=== PATIENT | female | born 1950 | race Caucasian/White ===

== ENCOUNTER 2024-04-11 19:32 | Observation (INO) | payer MEDICARE, SELFPAY ==
--- NOTE | ~2024-04-11 | CT_ITS ---
EXAMINATION: CT HEAD WITHOUT CONTRAST CT ANGIOGRAM HEAD CT ANGIOGRAM NECK CLINICAL INFORMATION: Stroke. Altered mental status. COMPARISON: None available. TECHNIQUE: Initial noncontrast bobbin marker imaging of the head and neck was performed. Noncontrast head CT was also performed. Test bolus sequences followed by intravenous administration 70 mL of Omnipaque 350. Helical imaging was performed in the axial plane from the aortic arch to the skull vertex. Delayed postcontrast imaging of the head was also performed. The data was processed at the educational technologist's workstation for generation of MIP sequences. Angled MIPs and volume rendered reformatted images were also generated at an offline 3D workstation. Stenoses are assessed in accordance with NASCET criteria unless otherwise indicated. This CT examination was performed using dose optimization techniques as appropriate, variously including the following: *Automated exposure control. *Adjustment of mA and/or kV according to patient size (this includes techniques or standardized protocols for targeted exams where dose is matched to indication/reason for exam; i.e. extremities or head). *Use of iterative reconstruction technique. DLP: 2207 mGy-cm FINDINGS: CT Head: Changes of prior right temporoparietal craniotomy. There is no evidence of acute intracranial hemorrhage or edematous territorial infarction. Carmona-white matter differentiation is preserved. Scattered and partially confluent hypoattenuation in the periventricular and deep white matter are consistent with moderate microangiopathy. Proportional prominence of the ventricles and sulcal spaces without evidence of obstructive hydrocephalus. No abnormal mass effect or midline shift. No extra-axial fluid collections. No pathologic intra-axial enhancement or regional oligemia. No acute soft tissue or osseous abnormalities. Moderate mucosal thickening of left maxillary sinus. Mild mucosal thickening of the remaining paranasal sinuses. Moderate left-sided mastoid effusion. The right-sided mastoid air cells and middle ear cavity are clear. Bilateral lens extractions. CT Neck: There is a 1.6 cm heterogeneous nodule posterior to the right thyroid lobe. The remaining cervical soft tissues are within normal limits. Mild degenerative anterolisthesis of C7 on T1. Moderate degenerative disc disease from C5-C7. Mild degenerative disc disease at all additional levels. Facet and uncovertebral joint arthropathy leads to osseous encroachment on the neural foramina from C3-T1. CT Upper Chest: Moderate centrilobular emphysema. Calcified scarring in the posterior aspect of the left upper lobe. Thin pleural calcifications along the left greater than right upper lobes.. Neck CTA: Aortic Arch: Normal contour and caliber with moderate calcific atherosclerotic disease. Classic 3 vessel branching pattern of the aortic arch. Great Vessel Origins: No significant stenosis of the branch origins. Right Common Carotid Artery: No focal stenosis or occlusion. Cervical Right Internal Carotid Artery: Calcific atherosclerotic disease of the carotid bulb and proximal internal carotid artery causing less than 50% stenosis. Left Common Carotid Artery: No focal stenosis or occlusion. Cervical Left Internal Carotid Artery: Calcific atherosclerotic disease of the carotid bulb and proximal internal carotid artery causing less than 50% stenosis. Cervical Right Vertebral Artery: No focal stenosis or occlusion. Cervical Left Vertebral Artery: Mildly dominant. No focal stenosis or occlusion. Brain CTA: Intracranial Internal Carotid Arteries: Calcific atherosclerotic disease of the intracranial internal carotid arteries without occlusion or flow-limiting stenosis. Right Anterior Cerebral Artery: Normal A1 segment. Normal opacification of the distal [place] segments. Left Anterior Cerebral Artery: Normal A1 segment. Normal opacification of the distal [place] segments. Anterior Communicating Artery: Normal. Right Middle Cerebral Artery: Normal M1 segment of the MCA without focal stenosis or occlusion. Normal arborization of the distal segments. Left Middle Cerebral Artery: Normal M1 segment of the MCA without focal stenosis or occlusion. Normal arborization of the distal segments. Right Vertebral Artery: Normal V4 segment. Extradural origin of the posterior inferior cerebellar artery. Normal opacification of the proximal segments of the PICA. Left Vertebral Artery: Normal V4 segment. Normal opacification of the proximal segments of the posterior inferior cerebellar artery. Basilar Artery: Normal without focal stenosis or occlusion. Normal appearance of the proximal superior cerebellar arteries. Right Posterior Cerebral Artery: Normal P1 segment. Normal opacification of the distal ADDICTIONS COUNSELOR segments. Left Posterior Cerebral Artery: Normal P1 segment. Normal opacification of the distal ADDICTIONS COUNSELOR segments. Normal opacification of the superior sagittal, straight, transverse, and sigmoid sinuses. CT/CT angio head neck stroke IMPRESSION: 1. No evidence of acute intracranial hemorrhage or edematous territorial infarction. Moderate underlying microangiopathy and generalized cerebral volume loss. 2. CTA of the head and neck without proximal occlusion or flow-limiting stenosis. 3. Emphysema. 4. There is a 1.6 cm heterogeneous nodule posterior to the right thyroid lobe. This critical result was discussed with Dr. Muñoz at 20:13 on 04/11/2024 and it was ascertained that the content and urgency of the report was understood at the time of direct communication. Electronically signed by: Uche Ayala DO 04/11/2024 08:20 PM EDT
--- NOTE | ~2024-04-11 | MR_ITS ---
EXAMINATION: MR BRAIN WITHOUT CONTRAST CLINICAL INFORMATION: Slurred speech. Question TIA. COMPARISON: CT head dated 04/11/2024. CTA head and neck dated 04/11/2024. TECHNIQUE: MRI of the brain was obtained using routine sequences without contrast. FINDINGS: There is no area of abnormal restricted diffusion to indicate an acute/subacute cerebral or cerebellar infarction. There is mild microvascular ischemic change. No intracranial hemorrhage. There is no midline shift or mass effect. There is no extra-axial fluid collection. No hydrocephalus. The flow voids at the base of the brain are maintained. The orbits are symmetric and within normal limits. There is moderate circumferential mucosal thickening as well as aerated secretions within the left maxillary sinus. There is a large left mastoid air cell effusion. There is a small right mastoid air cell effusion. There are surgical changes status post right temporoparietal craniotomy. MR/MR head/brain wo con IMPRESSION: There is no evidence of acute/subacute cerebral or cerebellar infarction. No intracranial hemorrhage. Mild microvascular ischemic change. Electronically signed by: Yonatan Porter DO 04/12/2024 11:08 AM EDT
--- NOTE | ~2024-04-11 | XR_ITS ---
EXAMINATION: LEFT KNEE CLINICAL INFORMATION: Fell yesterday with knee pain. COMPARISON: None available. TECHNIQUE: 2 views left knee FINDINGS: No fractures, dislocations or effusions seen. Some mild degenerative changes appear to be present at the patellofemoral joint and to a lesser extent at the medial and lateral compartments. No significant joint space narrowing is seen with some mild lateral osteophytes are present. XR/XR knee LT 2V IMPRESSION: No evidence of an acute osseous injury. Mild degenerative changes. Electronically signed by: Jovan Chun MD 04/12/2024 11:52 AM EDT
--- NOTE | ~2024-04-11 | CT_ITS ---
EXAMINATION: CT HEAD WITHOUT CONTRAST CT ANGIOGRAM HEAD CT ANGIOGRAM NECK CLINICAL INFORMATION: Stroke. Altered mental status. COMPARISON: None available. TECHNIQUE: Initial noncontrast desktop support associate imaging of the head and neck was performed. Noncontrast head CT was also performed. Test bolus sequences followed by intravenous administration 70 mL of Omnipaque 350. Helical imaging was performed in the axial plane from the aortic arch to the skull vertex. Delayed postcontrast imaging of the head was also performed. The data was processed at the magnetic resonance technologist's workstation for generation of MIP sequences. Angled MIPs and volume rendered reformatted images were also generated at an offline 3D workstation. Stenoses are assessed in accordance with NASCET criteria unless otherwise indicated. This CT examination was performed using dose optimization techniques as appropriate, variously including the following: *Automated exposure control. *Adjustment of mA and/or kV according to patient size (this includes techniques or standardized protocols for targeted exams where dose is matched to indication/reason for exam; i.e. extremities or head). *Use of iterative reconstruction technique. DLP: 2207 mGy-cm FINDINGS: CT Head: Changes of prior right temporoparietal craniotomy. There is no evidence of acute intracranial hemorrhage or edematous territorial infarction. Carmona-white matter differentiation is preserved. Scattered and partially confluent hypoattenuation in the periventricular and deep white matter are consistent with moderate microangiopathy. Proportional prominence of the ventricles and sulcal spaces without evidence of obstructive hydrocephalus. No abnormal mass effect or midline shift. No extra-axial fluid collections. No pathologic intra-axial enhancement or regional oligemia. No acute soft tissue or osseous abnormalities. Moderate mucosal thickening of left maxillary sinus. Mild mucosal thickening of the remaining paranasal sinuses. Moderate left-sided mastoid effusion. The right-sided mastoid air cells and middle ear cavity are clear. Bilateral lens extractions. CT Neck: There is a 1.6 cm heterogeneous nodule posterior to the right thyroid lobe. The remaining cervical soft tissues are within normal limits. Mild degenerative anterolisthesis of C7 on T1. Moderate degenerative disc disease from C5-C7. Mild degenerative disc disease at all additional levels. Facet and uncovertebral joint arthropathy leads to osseous encroachment on the neural foramina from C3-T1. CT Upper Chest: Moderate centrilobular emphysema. Calcified scarring in the posterior aspect of the left upper lobe. Thin pleural calcifications along the left greater than right upper lobes.. Neck CTA: Aortic Arch: Normal contour and caliber with moderate calcific atherosclerotic disease. Classic 3 vessel branching pattern of the aortic arch. Great Vessel Origins: No significant stenosis of the branch origins. Right Common Carotid Artery: No focal stenosis or occlusion. Cervical Right Internal Carotid Artery: Calcific atherosclerotic disease of the carotid bulb and proximal internal carotid artery causing less than 50% stenosis. Left Common Carotid Artery: No focal stenosis or occlusion. Cervical Left Internal Carotid Artery: Calcific atherosclerotic disease of the carotid bulb and proximal internal carotid artery causing less than 50% stenosis. Cervical Right Vertebral Artery: No focal stenosis or occlusion. Cervical Left Vertebral Artery: Mildly dominant. No focal stenosis or occlusion. Brain CTA: Intracranial Internal Carotid Arteries: Calcific atherosclerotic disease of the intracranial internal carotid arteries without occlusion or flow-limiting stenosis. Right Anterior Cerebral Artery: Normal A1 segment. Normal opacification of the distal LONDON segments. Left Anterior Cerebral Artery: Normal A1 segment. Normal opacification of the distal LONDON segments. Anterior Communicating Artery: Normal. Right Middle Cerebral Artery: Normal M1 segment of the MCA without focal stenosis or occlusion. Normal arborization of the distal segments. Left Middle Cerebral Artery: Normal M1 segment of the MCA without focal stenosis or occlusion. Normal arborization of the distal segments. Right Vertebral Artery: Normal V4 segment. Extradural origin of the posterior inferior cerebellar artery. Normal opacification of the proximal segments of the PICA. Left Vertebral Artery: Normal V4 segment. Normal opacification of the proximal segments of the posterior inferior cerebellar artery. Basilar Artery: Normal without focal stenosis or occlusion. Normal appearance of the proximal superior cerebellar arteries. Right Posterior Cerebral Artery: Normal P1 segment. Normal opacification of the distal CADDYMASTER segments. Left Posterior Cerebral Artery: Normal P1 segment. Normal opacification of the distal CADDYMASTER segments. Normal opacification of the superior sagittal, straight, transverse, and sigmoid sinuses. CT/CT head for stroke IMPRESSION: 1. No evidence of acute intracranial hemorrhage or edematous territorial infarction. Moderate underlying microangiopathy and generalized cerebral volume loss. 2. CTA of the head and neck without proximal occlusion or flow-limiting stenosis. 3. Emphysema. 4. There is a 1.6 cm heterogeneous nodule posterior to the right thyroid lobe. This critical result was discussed with Dr. Muñoz at 20:13 on 04/11/2024 and it was ascertained that the content and urgency of the report was understood at the time of direct communication. Electronically signed by: Uche Ayala DO 04/11/2024 08:20 PM EDT
--- NOTE | ~2024-04-11 | XR_ITS ---
EXAMINATION: XR CHEST CLINICAL INFORMATION: Stroke COMPARISON: CT neck earlier this evening at 7:42 PM TECHNIQUE: Frontal view of the chest was obtained. FINDINGS: Heart size is normal. There is no evidence of CHF. There is some ill-defined increased opacity seen in the left chest which may be related to pleural plaques some of which can be seen on the neck CT performed earlier today. No pleural effusions. Surgical clips are present in the left breast/chest wall. Old healed right clavicular fracture is present. XR/XR chest 1V IMPRESSION: No acute intrathoracic disease. Calcified left pleural plaques. Electronically signed by: Jovan Chun MD 04/11/2024 10:34 PM EDT
--- NOTE | 2024-04-11 19:38 | ECG_ITS ---
Test Reason : ?STROKE Blood Pressure : / mmHG Vent. Rate : 092 BPM Atrial Rate : 000 BPM P-R Int : 000 ms QRS Dur : 060 ms QT Int : 366 ms P-R-T Axes : 000 001 052 degrees QTc Int : 452 ms Normal sinus rhythm Nonspecific T wave abnormality Abnormal ECG No previous ECGs available Referred By: Brnadi Muñoz Electronically Signed By:OSMANY BAUER
[2024-04-11 19:41] VITALS: BP 118/67; BP 126/60; PULSE 106; PULSE 98; RESP 16; TEMP 36.5; O2SAT 96; O2SAT 98; BMI 23.1
[2024-04-11 19:45] LABS: Glucose, Whole Blood 144 mg/dL (60-115)
--- NOTE | 2024-04-11 19:50 | ED_ITS ---
HPI - Fall General Chief Complaint: Stroke Stated Complaint: 2 FALLS IN 24 HRS, SLURRED SPEECH ON AND OFF Time Seen by Provider: 04/11/24 19:37 Source: patient, family and EMS Mode of arrival: EMS Limitations: no limitations History of Present Illness ED Provider: DR. Muñoz HPI Narrative: this is a 74-year-old female brought in by ambulance initially as a stroke alert. Patient lives home independently by herself had 2 falls in the last 24 hours at home, daughter noticed that the patient has periods of slurred speech noted by the daughter but not the patient for the past 12 hours, during her transportation by EMS to the hospital patient had 1 more episode of slurred speech witnessed by EMS that appears to be resolved on arrival to the ED. patient declines any weakness or numbness, no pain, able to give full history, no anticoagulation therapy. More history obtained from daughter over the phone patient sustained a fall in remained on the floor for 12 hours. as per daughter patient in habit of drinking alcohol patient decline drinking today. Related Data Allergies Allergy/AdvReac Type Severity Reaction Status Date / Time No Known Allergies Allergy Verified 04/11/24 19:43 Review of Systems 2 Review of Systems: All other systems are reviewed and are negative Constitutional: Reports as per HPI and Reports no additional constitutional complaints Eyes: Reports as per HPI and Reports no additional eye complaints Reports system reviewed and no additional complaints, except as documented Cardiovascular: Reports as per HPI and Reports no additional cardiovascular complaints Respiratory: Reports as per HPI and Reports no additional respiratory complaints Gastrointestinal: Reports as per HPI and Reports no additional gastrointestinal complaints Genitourinary: Reports no additional female genitourinary complaints Musculoskeletal: Reports no additional musculoskeletal complaints Skin/Breast: Reports system reviewed and no additional complaints, except as docu Psychiatric: Reports no additional psychiatric complaints Endocrine: Reports no additional endocrine complaints Hematologic/Lymphatic: Reports no additional hematologic/lymphatic complaints Allergic/Immunologic: Reports no additional allergic/immunologic complaints Reports system reviewed and no additional complaints, except as documented and Reports Abnormal speech present [facility] Social History Social History Smoked in Last 30 Days: No Use of substances other than those prescribed or required for medical reasons: No Physical Exam 2 Vital Signs: Vital Signs: Last Vital Signs Temp 97.7 F 04/11/24 19:41 Pulse 98 04/11/24 19:41 Resp 16 04/11/24 19:41 BP 126/60 04/11/24 19:41 Pulse Ox 96 04/11/24 19:41 O2 Del Method Room Air 04/11/24 19:41 BMI result Body Mass Index 23.1 Vital signs have been reviewed and appear to be correct. Blood pressure elevated. Heart rate normal. Respiratory rate normal. Temperature normal. Oxygen saturation normal. Appearance: Alert. Oriented X3. No acute distress. Head: Normal external exam. Normocephalic. Atraumatic. No Mann signs noted. No raccoon eyes noted Eyes: PERRLA. EOMI. Conjunctiva and sclera normal. Eyelids normal. ENT: TM's Normal. Pharynx normal. Uvula midline. Moist mucous membranes. No trismus noted. No drooling noted. No muffled voice noted. Neck: Normal inspection. Neck supple. FROM. No adenopathy. Thyroid Normal. No meningeal signs. No neck mass noted. CVS: Normal heart rate and rhythm. Heart sound normal. No murmurs noted. Pulses normal throughout. Respiratory: No respiratory distress. Painless inspiration. Breath sounds normal. No wheezes/rales/rhonchi noted. Chest nontender. No accessory muscle usage noted or decreased air movement noted. Abdomen: Soft and nontender. Bowel sounds normal in all 4 quadrants. No distention noted. No organomegaly noted. No visible injury noted. Back: No CVA tenderness. Full range of motion noted. Skin: Skin warm and dry. Normal skin color. Normal skin turgor. No rashes/lesions/lacerations noted. Extremities: No lower extremity edema. Extremities exhibit normal range of motion. Extremities nontender. Neuro: Oriented X 3. Cranial nerve exam: II-XII are grossly intact No motor deficit. No sensory deficit. Reflexes normal. NIH Stroke Scale Internal: Initial- Upon Arrival Level of Consciousness: Alert Level of Consciousness Questions: Answers both questions correctly Level of Consciousness Commands: Performs both tasks correctly Best Gaze: Normal Visual: No visual loss Facial Palsy: Normal Motor Arm (Right): No drift Motor Arm (Left): No drift Motor Leg (Right): No drift Motor Leg (Left): No drift Limb Ataxia: Absent Sensory: Normal Best Language: No aphasia Dysarthia: Normal Extinction and Inattention: No abnormality Score: 0 Course Reevaluation(s) Reevaluation #1: 72-year-old female brought in by EMS for evaluation for possible stroke /TIA, CT/CTA is unremarkable for acute large vessel occlusion, NIH score is 0 patient is not a candidate for thrombolysis. Labs in progress will admit the patient. Administer aspirin in the ED. Hypokalemia will replete potassium. Normal CPK no evidence of rhabdomyolysis. Ethanol level is elevated. Time: 20:30 Medications Administered Discontinued Medications Generic Name Dose Route Start Last Admin Trade Name Fremartha PRN Reason Stop Dose Admin Aspirin 162 mg 04/11/24 20:18 04/11/24 20:23 Aspirin Enteric Coated 81 Mg Tablet. PO 04/11/24 20:19 162 mg ONCE ONE Administration Iohexol 100 ml 04/11/24 19:58 04/11/24 19:59 Iohexol 350 Mg/Ml 100 Ml Infus..Btl IV 04/11/24 19:59 70 ml ONCE ONE Administration Medical Decision Making Differential Diagnosis Differential Diagnoses: The differential diagnosis associated with the presentation includes ( Hemorrhagic stroke, ischemic stroke, LVO, alcohol intoxication, electrolyte derangement, severe anemia, pneumonia, pneumothorax, ACS , cardiac dysrhythmia.) Admission/Observation Consideration of admission/observation: Escalation of care including admission/observation considered Consult Healthcare Provider Management of the patient was discussed with: Hospitalist (Dr. Combs) Lab Data MDM Lab Attestation statement: I reviewed the patient's lab results. 04/11/24 20:09 04/11/24 20:09 Labs: Lab Results 04/11/24 04/11/24 Range/Units 19:37 20:09 WBC 10.6 (4.8-10.8) X10*3/uL RBC 3.49 L (4.20-5.50) X10*6/uL Hgb 11.8 L (12.0-16.0) g/dl Hct 34.6 L (37.0-47.0) % MCV 99.1 H (80.0-98.0) fL MCH 33.8 H (27.0-33.0) pg MCHC 34.1 (31.0-35.0) g/dl RDW 13.9 (11.0-16.0) % Plt Count 335 (160-400) X10*3/uL MPV 8.9 L (9.4-12.3) fL Immature Gran % (Auto) 0.9 H (0.0-0.4) % Neut % (Auto) 74.6 H (45-73) % Lymph % (Auto) 12.3 L (20-40) % King % (Auto) 10.4 (2-11) % Eos % (Auto) 1.3 (0-4) % Baso % (Auto) 0.5 (0-2) % Lymph # (Auto) 1.3 (1.2-4.9) X10*3/uL King # (Auto) 1.1 (0.1-1.2) X10*3/uL Eos # (Auto) 0.1 (0.0-0.4) X10*3/uL Baso # (Auto) 0.1 (0.0-0.2) X10*3/uL Abs Immat Gran (auto) 0.09 H (0.00-0.03) X10*3/uL Absolute Neuts (auto) 7.9 (2.0-8.3) x10*3/uL Absolute Nucleated RBC 0.000 (0.0-0.012) X10*3/uL Nucleated RBC % (auto) 0.0 (0.0-0.2) /100WBC PT 17.0 H (10.9-12.4) SEC INR 1.5 H (0.9-1.1) APTT 30.4 (26.0-36.8) SEC Sodium 143 (135-145) mmol/L Potassium 2.7 L* (3.3-5.1) mmol/L Chloride 107 (96-108) mmol/L Carbon Dioxide 23 (22-29) mmol/L Anion Gap 16 (12-20) BUN 6 L (9-16) mg/dL Creatinine 0.66 (0.5-1.4) mg/dL Estim Creat Clear Calc 67.2 Estimated GFR > 60 POC Glucose 144 H (60-115) mg/dL Random Glucose 141 H (60-115) mg/dL Calcium 8.6 (8.4-10.2) mg/dL Total Creatine Kinase 80 (26-140) U/L Troponin I High Sens 3.5 (<3.5-17.0) ng/L Triglycerides 123 (<150) mg/dL Cholesterol 120 (<200) mg/dL LDL Cholesterol, Calc 56 (<100) mg/dL HDL Cholesterol 40 L (>40) mg/dL Ethyl Alcohol 258 mg/dL Independent Interpretation I performed an independent interpretation of an: EKG ( A normal sinus rhythm at 92 beats per minutes, multiple artifact no ST-T changes, no old EKG to compare.) and CT Scan ( Head/ head and neck CTA: No LV 0, no acute stroke.) Radiology Impression Discussion of test interpretation with radiology: I have reviewed the radiologist's reading. Discharge Plan Discharge Clinical Impression: Transient cerebral ischemia, Acute hypokalemia, Alcohol intoxication Patient Disposition: Admitted As Inpatient
[2024-04-11] MEDS: iohexoL 350 MG/ML 100 ML INFUS..BTL IV (19:59)
[2024-04-11 20:12] LABS: MANUAL DIFF FLAG NO
[2024-04-11 20:14] LABS: Basophils Absolute Auto 0.1 X10*3/uL (0.0-0.2); Basophils Percent Auto 0.5 % (0-2); Eosinophils Absolute Auto 0.1 X10*3/uL (0.0-0.4); Eosinophils Percent Auto 1.3 % (0-4); Hematocrit 34.6 % (37.0-47.0); Hemoglobin 11.8 g/dl (12.0-16.0); Imm Gran Abs Auto 0.09 X10*3/uL (0.00-0.03); Imm Gran Pct Auto 0.9 % (0.0-0.4); Lymphocytes Absolute Auto 1.3 X10*3/uL (1.2-4.9); Lymphocytes Percent Auto 12.3 % (20-40); Mean Corpuscular HGB Conc 34.1 g/dl (31.0-35.0); Mean Corpuscular Hemoglobin 33.8 pg (27.0-33.0); Mean Corpuscular Volume 99.1 fL (80.0-98.0); Mean Platelet Volume 8.9 fL (9.4-12.3); Monocytes Absolute Auto 1.1 X10*3/uL (0.1-1.2); Monocytes Percent Auto 10.4 % (2-11); Neutrophils Absolute Auto 7.9 x10*3/uL (2.0-8.3); Neutrophils Percent Auto 74.6 % (45-73); Platelet Count 335 X10*3/uL (160-400); Red Blood Count 3.49 X10*6/uL (4.20-5.50); Red Cell Distribution Width 13.9 % (11.0-16.0); White Blood Count 10.6 X10*3/uL (4.8-10.8)
--- NOTE | 2024-04-11 20:16 | PC.NURSE ---
Patient BIB [facility] 1 EMS for evaluation of possible stroke. Patient's daughter reported to EMS that patient had 2 falls in 24 hrs. Patient is not on blood thinners. Patient's daughter also noted intermittent episodes of speech slurring and stuttering. EMS confirmed speech slurring and stuttering en route to ED. EMS applied c-collar and established 20 G IV line in L AC. CT scan, EKG completed, labs drawn and set to lab. Patient is alert and oriented x4, able to make her needs known. VSS. Patient oriented to ED room, call lambert within patient's reach, plan of care ongoing.
[2024-04-11 20:21] LABS: INTERNATIONAL NORM RATIO 1.5 (0.9-1.1)
[2024-04-11 20:23] LABS: Partial Thromboplastin Time 30.4 SEC (26.0-36.8)
[2024-04-11] MEDS: Aspirin Enteric Coated 81 MG TABLET.DR 162 MG PO (20:23)
--- NOTE | 2024-04-11 20:25 | PC.NURSE ---
Bedside nursing swallow eval competed, patient passed and medicated per MAR.
--- NOTE | 2024-04-11 20:29 | PC.NURSE ---
Hospitalist at bedside.
[2024-04-11 20:30] LABS: Anion Gap 16 (12-20)
[2024-04-11 20:33] LABS: Stroke Lab Use COMPLETE
[2024-04-11 20:34] LABS: Troponin-I High Sensitivity 3.5 ng/L (<3.5-17.0)
[2024-04-11 20:35] LABS: Blood Urea Nitrogen 6 mg/dL (9-16); Calcium 8.6 mg/dL (8.4-10.2); Carbon Dioxide 23 mmol/L (22-29); Chloride 107 mmol/L (96-108); Cholesterol 120 mg/dL (<200); Creatinine Clr Calc Pharmacy 67.2; Estimated Glomerular Filt Rate > 60; Ethanol 258 mg/dL; Glucose Random 141 mg/dL (60-115); HDL Cholesterol 40 mg/dL (>40); LDL Cholesterol Calculated 56 mg/dL (<100); Potassium 2.7 mmol/L (3.3-5.1); Sodium 143 mmol/L (135-145); Triglycerides 123 mg/dL (<150)
--- NOTE | 2024-04-11 20:47 | PM.IMHP ---
History of Present Illness Date of Service: 04/11/24 Attending physician on admission: Cooper Combs Chief Complaint: fall, slurred speech 74-year-old female with history of glaucoma, history of breast cancer s/p lumpectomy/chemotherapy/radiation now on anastrozole, and reported alcohol use disorder reported to be in sustained remission who is a former smoker presented to the ED via EMS earlier today for evaluation of multiple falls and slurred speech. The patient reports that her and her daughter have been discussing assisted living as she has had multiple falls due to bilateral lower extremity weakness. She reports in the middle of the night, she had 2 mechanical falls. The 1st when she was sitting in a chair, the 2nd when she was walking back to her bed and tripped on clothing. She was unable to get up from the ground and slept on the ground. Upon waking, called her daughter for assistance. Denies head strike or loss of consciousness. She is not on blood thinners. Her daughter was able to help her to her feet but she noted multiple episodes of slurred speech lasting several minutes with full resolution and called EMS. Per nursing report, EMS also reported episodes of slurred speech with full resolution. No facial droop, confusion, unilateral paresthesias or weakness from baseline, imbalance. No sob, lightheadedness, headache, vision changes, palpitatations, or chest pain. No hx cva/tia. No recent illness. Since arrival, vital signs have been stable. Hematology studies reveal a macrocytic anemia with H/H 11.8/34.6%, MCV 99.1. Renal function normal, electrolyte levels significant for potassium 2.7, magnesium level pending. Total CK 80. Troponin 3.5. Total cholesterol 120, LDL 56. Ethyl alcohol level 258 (patient reports she has not had any alcohol in the last [address] negative for acute intracranial abnormality but shows moderate underlying microangiopathy and generalized cerebral volume loss. CTA of the head and neck without any large vessel occlusion or hemodynamically significant stenosis. There is evidence of emphysema with a 1.6 cm heterogenous nodule posterior to the right thyroid lobe. In the ED, has been given 162 mg aspirin. Review of Systems Review of Systems: Yes all other systems are reviewed and are negative [facility] Medical History Breast cancer Alcohol use disorder Glaucoma Social History Smoked in Last 30 Days: No Use of substances other than those prescribed or required for medical reasons: No Advance Directives: Yes Advance Directives Information Provided: No Advance Directives on File: No Meds Allergies Allergy/AdvReac Type Severity Reaction Status Date / Time No Known Allergies Allergy Verified 04/11/24 19:43 Active Medications: Current Medications Potassium Chloride (Potassium Chloride/H20) 10 meq in 100 mls @ 100 mls/hr IV ONCE ONE Stop: 04/11/24 21:41 Physical Exam Vital Signs and Narrative: Vital Signs: Last Vital Signs Temp 97.7 F 04/11/24 19:41 Pulse 98 04/11/24 19:41 Resp 16 04/11/24 19:41 BP 126/60 04/11/24 19:41 Pulse Ox 96 04/11/24 19:41 O2 Del Method Room Air 04/11/24 19:41 BMI result Body Mass Index 23.1 Constitutional - Awake and Alert, No apparent distress Eyes - PERRLA, EOMI Cardiovascular - S1S2, RRR, No edema Respiratory - Normal lung expansion, Normal respiratory effort, No respiratory distress, CTA bilaterally Gastrointestinal - NT / ND; +BS; No rebound or guarding Extremities - no calf tenderness bilaterally, no swelling Skin - Warm/Dry Neurological - Alert & oriented x3, CN II-XII in tact, 5/5 strength BUE and BLE, normal [id number] testing Psychological - Appropriate affect Results Labs 04/11/24 20:09 04/11/24 20:09 Labs: Laboratory Results - last 24 hr 04/11/24 04/11/24 19:37 20:09 MCV 99.1 H MCH 33.8 H MCHC 34.1 RDW 13.9 Plt Count 335 MPV 8.9 L Immature Gran % (Auto) 0.9 H Neut % (Auto) 74.6 H Lymph % (Auto) 12.3 L [place] % (Auto) 10.4 Eos % (Auto) 1.3 Baso % (Auto) 0.5 Lymph # (Auto) 1.3 [place] # (Auto) 1.1 Eos # (Auto) 0.1 Baso # (Auto) 0.1 Abs Immat Gran (auto) 0.09 H Absolute Neuts (auto) 7.9 Absolute Nucleated RBC 0.000 Nucleated RBC % (auto) 0.0 PT 17.0 H INR 1.5 H APTT 30.4 Anion Gap 16 Estim Creat Clear Calc 67.2 Estimated GFR > 60 POC Glucose 144 H Random Glucose 141 H Calcium 8.6 Total Creatine Kinase 80 Troponin I High Sens 3.5 Triglycerides 123 Cholesterol 120 LDL Cholesterol, Calc 56 HDL Cholesterol 40 L Ethyl Alcohol 258 Imaging Radiologist's Impressions: Impressions Head CT 04/11/24 19:38 IMPRESSION: 1. No evidence of acute intracranial hemorrhage or edematous territorial infarction. Moderate underlying microangiopathy and generalized cerebral volume loss. 2. CTA of the head and neck without proximal occlusion or flow-limiting stenosis. 3. Emphysema. 4. There is a 1.6 cm heterogeneous nodule posterior to the right thyroid lobe. This critical result was discussed with Dr. Muñoz at 20:13 on 04/11/2024 and it was ascertained that the content and urgency of the report was understood at the time of direct communication. Electronically signed by: Uche Ayala DO 04/11/2024 08:20 PM EDT RP Head/Neck CTA 04/11/24 19:39 IMPRESSION: 1. No evidence of acute intracranial hemorrhage or edematous territorial infarction. Moderate underlying microangiopathy and generalized cerebral volume loss. 2. CTA of the head and neck without proximal occlusion or flow-limiting stenosis. 3. Emphysema. 4. There is a 1.6 cm heterogeneous nodule posterior to the right thyroid lobe. This critical result was discussed with Dr. Muñoz at 20:13 on 04/11/2024 and it was ascertained that the content and urgency of the report was understood at the time of direct communication. Electronically signed by: Uche Ayala DO 04/11/2024 08:20 PM EDT RP Assessment and Plan (1) Slurred speech: Status: Acute (2) Alcohol intoxication: Status: Acute (3) Acute hypokalemia: Status: Acute Plan 74-year-old female with history of glaucoma, history of breast cancer s/p lumpectomy/chemotherapy/radiation now on anastrozole, and reported alcohol use disorder reported to be in sustained remission who is a former smoker to be observed for episodes of slurred speech and hypokalemia # slurred speech -multiple episodes reported by daughter and EMS with concern for TIA, however patient intoxicated on arrival which could explain her symptoms with alcohol alcohol level of 258 -head CT negative for acute intracranial abnormality and CTA of the head/neck negative for large vessel occlusion or hemodynamically significant stenosis -MRI brain ordered -past nursing swallow evaluation. Neuro checks, stroke education -given ASA 162 mg in the ED, continue 81 mg daily -LDL at goal, initiate high-dose statin per protocol -echo -neurology consult -monitor on telemetry -pt/ot # alcohol use disorder -patient reports last drink 10 years ago. However ethyl alcohol level 258 -will monitor on CIWA -thiamine folic acid -if scoring on CIWA, consider phenobarbital per protocol -addiction medicine consult #Falls -likely r/t etoh use -pt eval # acute hypokalemia -likely related to alcohol use -magnesium level pending -repleted in ED -follow lytes # glaucoma -continue eyedrops # history of breast cancer -continue anastrozole DVT prophylaxis-Lovenox Full code Quality Stroke Does the patient have a stroke diagnosis?: No VTE Prior VTE?: No VTE Risk Level:: Medical - moderate - high VTE Device Contraindication: Treatment Not Indicated VTE Drug Contraindication: N/A - Med Ordered
[2024-04-11 21:07] LABS: Alanine Aminotransferase 27 U/L (0-31); Albumin Level 2.7 g/dL (3.5-5.0); Alkaline Phosphatase 151 U/L (39-117); Aspartate Amino Transferase 44 U/L (5-31); Bilirubin Direct < 0.2 mg/dL (0.0-0.5); Bilirubin Total 0.2 mg/dL (0.0-1.0); Magnesium 1.6 mg/dL (1.6-2.6); Total Protein 5.5 g/dL (6.5-8.0)
[2024-04-11] MEDS: Enoxaparin Sodium 40 MG/0.4 ML SYRINGE SUBCUT (21:10)
[2024-04-11] MEDS: Potassium Chloride Packet 20 MEQ PACKET 40 MEQ PO (21:20)
[2024-04-11] MEDS: Potassium Chloride/H20 10 MEQ/100 ML PIGGYBACK 100 MEQ IV (21:20)
[2024-04-11] MEDS: Folic Acid 1 MG in 0.9 % Sodium Chloride 50 ML 100.4 MG IV (22:25)
[2024-04-11 22:42] VITALS: BP 95/53; PULSE 119; RESP 18; TEMP 36.8; O2SAT 97
[2024-04-11] MEDS: Thiamine HCL 100 MG in 0.9 % Sodium Chloride 100 ML 202 MG IV (23:11)
[2024-04-11 23:34] VITALS: BP 96/38; PULSE 126; RESP 19; TEMP 37.3; O2SAT 96
[2024-04-11 23:54] VITALS: BP 93/40; PULSE 121; RESP 20; TEMP 37.2; O2SAT 94
--- NOTE | 2024-04-11 23:54 | PC.NURSE ---
Dr. Combs updated on patient's vital signs: T 99.0, RR 20, P 121, BP 93/40, O2 Sat 94% on RA.
[2024-04-12] MEDS: 0.9 % Sodium Chloride Flush 3 ML SYRINGE IVFLUSH ×4 (01:08→23:00)
[2024-04-12 03:45] VITALS: BP 109/44; PULSE 117; RESP 17; TEMP 37.6; O2SAT 96
[2024-04-12] MEDS: Acetaminophen 325 MG TABLET 650 MG PO (04:24)
[2024-04-12 05:24] LABS: MANUAL DIFF FLAG NO
[2024-04-12 05:27] LABS: Basophils Absolute Auto 0.1 X10*3/uL (0.0-0.2); Basophils Percent Auto 0.5 % (0-2); Eosinophils Absolute Auto 0.1 X10*3/uL (0.0-0.4); Eosinophils Percent Auto 1.4 % (0-4); Hematocrit 31.9 % (37.0-47.0); Hemoglobin 10.7 g/dl (12.0-16.0); Imm Gran Abs Auto 0.07 X10*3/uL (0.00-0.03); Imm Gran Pct Auto 0.7 % (0.0-0.4); Lymphocytes Absolute Auto 1.1 X10*3/uL (1.2-4.9); Lymphocytes Percent Auto 10.8 % (20-40); Mean Corpuscular HGB Conc 33.5 g/dl (31.0-35.0); Mean Corpuscular Hemoglobin 33.2 pg (27.0-33.0); Mean Corpuscular Volume 99.1 fL (80.0-98.0); Mean Platelet Volume 9.2 fL (9.4-12.3); Monocytes Percent Auto 10.6 % (2-11); Neutrophils Absolute Auto 7.4 x10*3/uL (2.0-8.3); Platelet Count 306 X10*3/uL (160-400); Red Blood Count 3.22 X10*6/uL (4.20-5.50); Red Cell Distribution Width 14.1 % (11.0-16.0); White Blood Count 9.7 X10*3/uL (4.8-10.8)
[2024-04-12 05:52] LABS: Anion Gap 12 (12-20); Blood Urea Nitrogen 7 mg/dL (9-16); Calcium 8.1 mg/dL (8.4-10.2); Carbon Dioxide 21 mmol/L (22-29); Chloride 110 mmol/L (96-108); Creatinine Clr Calc Pharmacy 55.5; Estimated Glomerular Filt Rate > 60; Glucose Random 112 mg/dL (60-115); Potassium 3.4 mmol/L (3.3-5.1); Sodium 140 mmol/L (135-145)
[2024-04-12 06:16] VITALS: BP 102/40; PULSE 104; RESP 20; TEMP 37.3; O2SAT 94
[2024-04-12 06:25] LABS: Folate 9.9 ng/mL (> or = 4.0); Vitamin B12 940 pg/mL (200-900)
--- NOTE | 2024-04-12 07:00 | CA_ITS ---
Transthoracic Echocardiogram Patient (Last, First, Middle): Gema Perry, Gender: Female Date of : 1950 Age: 74 Procedure Date: 04/12/2024 Procedure Type: Transthoracic Echocardiogram Location: [facility] [place] Height: 162.56 cm Weight: 62.6 kg BSA: 1.67 m2 Heart Rate: bpm BP: 106 / 41 mmHg Product Design Manager: Referring MD: Simona KEMP Symptoms: tia Study Quality: Fair ECG Rhythm: Sinus Conclusions: - Normal left ventricular size and systolic function. There is mildly increased left ventricular wall thickness. The visually estimated ejection fraction is between 55-60%. - E/E prime ratio is between 8 and 15 consistent with indeterminate filling pressures. - Normal right ventricular cavity size and systolic function. - There is mild calcification of the aortic valve. Findings Left Ventricle Normal left ventricular size and systolic function. There is mildly increased left ventricular wall thickness. The visually estimated ejection fraction is between 55-60%. There is no evidence of regional wall motion abnormalities. Abnormal diastolic function is noted. Spectral Doppler is indicative of an impaired relaxation filling pattern. E/E prime ratio is between 8 and 15 consistent with indeterminate filling pressures. Right Ventricle Normal right ventricular cavity size and systolic function. Atria The left atrium is normal in size. The right atrium is normal in size. Aortic Valve There is a normal trileaflet aortic valve. There is mild calcification of the aortic valve. There is no aortic valve stenosis. There is no aortic valve regurgitation. Mitral Valve The mitral valve appears normal. There is no mitral valve regurgitation. There is no mitral valve stenosis. Pulmonic Valve The pulmonic valve is normal. There is no pulmonic valve regurgitation. Tricuspid Valve Normal tricuspid valve structure. There is no tricuspid valve regurgitation. Normal right atrial pressure. There is no evidence of pulmonary hypertension. Great Vessels All visible segments of the aorta are normal in size. Venous The inferior vena cava is normal in size and collapses greater than 50% with inspiration. Pericardium/Pleural Prominent epicardial adipose tissue noted. There is no evidence of pericardial effusion. Prior Study Comparison No prior study available for comparison. Measurements 2D Linear Measurements IVSd: 1.22 0.6-0.9/0.6-1.0 cm LVIDd: 3.49 3.9-5.3/4.2-5.9 cm LVIDd Index: 2.09 2.4-3.2/2.2-3.1 cm/m2 LVIDs: 2.32 2.0-3.6 cm LVPWd: 1.22 0.7-1.1 cm Ao Root: 3.00 2.1-3.5 cm LA Diam: 2.90 2.7-3.8/3.0-4.0 cm LAIDs Index: 1.74 1.5-2.3 cm/m2 LV Mass: 172.66 67-162/88-224 g LV Mass Index: 103.39 43-95/49-115 g/m2 LVOT Diam: 2.10 3.0+(-)1.3 cm Mitral Valve MV VTI: 0.31 MV Pk Xiang: 1.18 MV Mn Xiang: 0.68 MV Pk Grad: 6.00 MV Mn Grad: 2.00 MV Pk E: 0.88 MV PK A: 1.18 MV Decel Time: 220.00 E/A: 0.70 E'Lateral: 6.85 E'Medial: 7.62 E/E' Med: 11.60 E/E' Lat: 12.90 PHT: 65.00 MVA PHT: 3.38 MVA Continuity: 3.75 Decel Mayes: 4.01 Aortic Valve AoV Pk Xiang: 1.64 AoV Mn Xiang: 1.10 AoV VTI: 0.35 AoV Pk Grad: 11.00 Aov Mn Grad: 6.00 JOE Cont.VTI: 3.27 LVOT LVOT Pk Xiang: 1.50 LVOT Mn Xiang: 1.02 LVOT VTI: 0.34 LVOT Pk Grad: 9.00 LVOT Mn Grad: 5.00 LVOT Diam: 2.10 LVOT Area: 3.46 Diastolic Function MV Pk E: 0.88 MV Pk A: 1.18 E/A: 0.70 E'Medial: 7.62 E/E' Med: 11.60 E' Laterial: 6.85 E/E' Lat: 12.90 Right Ventricle TAPSE (mm): 19.00 TVS' Xiang: 11.00 Tricuspid Valve TR Pk Xiang: 1.65 TR Pk Grad: 11.00 RA Press: 3.00 RVSP: 14.00 Great Vessels Aorta Ao Root-2D: 3.00 2.0-3.7 cm Ao Asc: 3.50 2.1-3.4 cm Pulmonary Valve PV Pk Xiang: 1.04 Peak PV Grad: 4.00 Updated in Other Vendor System with Status of Final Omar Tristan MD electronically signed on 04/12/2024 1:47:27 PM with status of Final
[2024-04-12 07:25] VITALS: BP 106/41; PULSE 104; RESP 22
--- NOTE | 2024-04-12 07:33 | PC.NURSE ---
Care of Pt assumed at change of shift. Pt is resting comfortably with her eyes closed. VSS. Pt is easily awoken and is A&Ox3 MRI screening form e and sent to MRI.
--- NOTE | 2024-04-12 07:49 | HO.PM.IMPN ---
Subjective Subjective Date of Service: 04/12/24 Interval History: Seen in follow up for slurred speech, falls Interval history: No recurrence of slurred speech. No evidence of withdrawal on CIWA, but mild tachycardia. Reports L knee pain, has full ROM Review of Systems Review of Systems: Yes all other systems are reviewed and are negative Physical Exam Vital Signs: Vital Signs: Last Vital Signs Temp 99.1 F 04/12/24 06:16 Pulse 104 H 04/12/24 07:25 Resp 22 H 04/12/24 07:25 BP 106/41 L 04/12/24 07:25 Pulse Ox 94 04/12/24 06:16 O2 Del Method Room Air 04/12/24 06:16 BMI result Body Mass Index 23.1 Constitutional - Awake and Alert, No apparent distress Eyes - PERRLA, EOMI Cardiovascular - S1S2, RRR, No edema Respiratory - Normal lung expansion, Normal respiratory effort, No respiratory distress, CTA bilaterally Gastrointestinal - NT / ND; +BS; No rebound or guarding Extremities - no calf tenderness bilaterally, no swelling Musculoskeletal - Normal inspection, normal ROM. L knee- no erythema, warmth, effusion. TTP around the patella Skin - Warm/Dry Neurological - Alert & oriented x3, CN II-XII in tact, 5/5 strength BUE and BLE Psychological - Appropriate affect Objective Data Active Medications Acetaminophen (Acetaminophen 325 Mg Tablet) 650 mg PO Q6H PRN PRN Reason: Pain, Mild (Pain Scale 1-3), fever or headache Last Admin: 04/12/24 04:24 Dose: 650 mg Documented By: GHASSAN Aspirin (Aspirin Enteric Coated 81 Mg Tablet.) 81 mg PO DAILY FOR[facility]1983 Atorvastatin Calcium (Atorvastatin Calcium 40 Mg Tablet) 40 mg PO DAILY [facility]1983 Calcium Carbonate (Calcium Carbonate 750 Mg Tab.Chew) 750 mg PO Q4H PRN PRN Reason: Heartburn Enoxaparin Sodium (Enoxaparin Sodium 40 Mg/0.4 Ml Syringe) 40 mg SUBCUT Q24H FOR[facility], 1928[facility]1983 Last Admin: 04/11/24 21:10 Dose: 40 mg Documented By: CRISTOBAL Thiamine HCl 100 mg/ Sodium (Chloride) 101 mls @ 202 mls/hr IV DAILY [facility]1983 Last Infusion: 04/11/24 23:43 Dose: Infused Documented By: GHASSAN Folic Acid 1 mg/ Sodium (Chloride) 50.2 mls @ 100.4 mls/hr IV DAILY [facility]1983 Last Infusion: 04/11/24 23:07 Dose: Infused Documented By: CRISTOBAL Magnesium Hydroxide (Milk Of Magnesia 30 Ml Oral.Susp) 30 ml PO DAILY PRN PRN Reason: Constipation Melatonin (Melatonin 3 Mg Tablet) 6 mg PO BEDTIME PRN PRN Reason: Insomnia Sodium Chloride (0.9 % Sodium Chloride Flush 3 Ml Syringe) 3 ml IVFLUSH QSHIFT [facility]1983 Last Admin: 04/12/24 01:08 Dose: 3 ml Documented By: GHASSAN Labs 04/12/24 04:53 04/12/24 04:53 Labs: Laboratory Results - last 24 hr 04/11/24 04/11/24 04/12/24 19:37 20:09 04:53 MCV 99.1 H 99.1 H MCH 33.8 H 33.2 H MCHC 34.1 33.5 RDW 13.9 14.1 Plt Count 335 306 MPV 8.9 L 9.2 L Immature Gran % (Auto) 0.9 H 0.7 H Neut % (Auto) 74.6 H 76.0 H Lymph % (Auto) 12.3 L 10.8 L Fergus % (Auto) 10.4 10.6 Eos % (Auto) 1.3 1.4 Baso % (Auto) 0.5 0.5 Lymph # (Auto) 1.3 1.1 L Fergus # (Auto) 1.1 1.0 Eos # (Auto) 0.1 0.1 Baso # (Auto) 0.1 0.1 Abs Immat Gran (auto) 0.09 H 0.07 H Absolute Neuts (auto) 7.9 7.4 Absolute Nucleated RBC 0.000 0.000 Nucleated RBC % (auto) 0.0 0.0 PT 17.0 H INR 1.5 H APTT 30.4 Anion Gap 16 12 Estim Creat Clear Calc 67.2 55.5 Estimated GFR > 60 > 60 POC Glucose 144 H Random Glucose 141 H 112 Calcium 8.6 8.1 L Magnesium 1.6 Total Bilirubin 0.2 Direct Bilirubin < 0.2 AST 44 H ALT 27 Alkaline Phosphatase 151 H Total Creatine Kinase 80 Troponin I High Sens 3.5 Total Protein 5.5 L Albumin 2.7 L Triglycerides 123 Cholesterol 120 LDL Cholesterol, Calc 56 HDL Cholesterol 40 L Vitamin B12 940 H Folate 9.9 Ethyl Alcohol 258 Assessment and Plan (1) Slurred speech: Status: Acute (2) Alcohol intoxication: Status: Acute (3) Acute hypokalemia: Status: Acute Plan 74-year-old female with history of glaucoma, history of breast cancer s/p lumpectomy/chemotherapy/radiation now on anastrozole, and reported alcohol use disorder reported to be in sustained remission who is a former smoker to be observed for episodes of slurred speech and hypokalemia # slurred speech -multiple episodes reported by daughter and EMS with concern for TIA, however patient intoxicated on arrival which could explain her symptoms with alcohol alcohol level of 258 -head CT negative for acute intracranial abnormality and CTA of the head/neck negative for large vessel occlusion or hemodynamically significant stenosis -MRI brain ordered -past nursing swallow evaluation. Neuro checks, stroke education -given ASA 162 mg in the ED, continue 81 mg daily -LDL at goal, initiate high-dose statin per protocol -echo -neurology consult -monitor on telemetry -pt/ot # alcohol use disorder -on admission denied etoh use. Now reports drinking mouthwash- goes through 50oz bottle q3d. ethyl alcohol level 258 on admission -will monitor on CIWA, if scoring phenobarb -thiamine, folic acid -addiction medicine consult- desires detox. Has been hiding use from her daughter and does not want this disclosed #SIRS criteria -tachycardia likely r/t mild etoh withdrawal. No evidence of infection. No sepsis #Falls -likely r/t etoh use -pt eval # acute hypokalemia -likely related to alcohol use -repleted in ED. Add mag oxide -follow lytes #Glaucoma -not on therapies # history of breast cancer -continue anastrozole #Chronic macrocytic anemia -vitamin b12 and folic acid wnl -would dc on thiamine and folic acid -above transfusion threshold DVT prophylaxis-Lovenox Full code Dispo- PT recommending STR Quality Stroke Does the patient have a stroke diagnosis?: No VTE Prior VTE?: No VTE Risk Level:: Medical - moderate - high VTE Device Contraindication: Treatment Not Indicated VTE Drug Contraindication: N/A - Med Ordered
--- NOTE | 2024-04-12 08:25 | PHA.MEDREC ---
Addendum entered by Robert Sepulveda RPh 04/12/24 08:59: Reviewed by [facility], claims states Wellbutrin 150 daily, but pt states its now 300mg daily. Addendum entered by Daniel Abbott 04/12/24 08:53: Patient was on a Furosemide 20mg regimen 03/15 for 2 days and patient states she finished that. Also patient was on a Folic acid regimen the same time as the Vitamin B-1 regimen, they were both started 03/27 for 14 days and she finished them this past Friday. Original Note: Pharmacy Consult ? Medication Reconciliation Pharmacy has completed the medication reconciliation. Confirmed medications with patient. Patient is taking Bupropion HCL 150mg and states she now taking 2 tabs (300mg) daily and states her upped her dose her last fill. She states she is also still taking Anastrazole 1mg 1 tab daily, an iron tablet once daily, Multivitamin 1 tab daily and Vitamin D3 1000units 1 tab daily. She confirmed she finished the Vitamin B-1 regimen this past Friday. She states she is filling her medications at [facility].
[2024-04-12 08:31] VITALS: BP 123/45; PULSE 101; RESP 22; TEMP 36.7; O2SAT 96
[2024-04-12 11:09] LABS: Prothrombin Time Whole Bld POC 17.5 sec (11.1-13.5); ~PT, ~INR - Anti Coag Clinic 1.5 (0.9-1.1)
--- NOTE | 2024-04-12 11:37 | MHC.CM.PN ---
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 PT is recommending STR but Patient is not sure that she wants to do that(may have had a 3 day qualifying stay recently at [facility] and she went to [facility] from [facility] but would not want to return there). CM has initiated and will follow for dc planning. Patient's Daughter/HCP/Cori will transport if Patient is dc'd to home.
[2024-04-12] MEDS: Sertraline HCL 25 MG TABLET PO (11:39)
[2024-04-12] MEDS: Magnesium Oxide 400 MG TABLET PO ×2 (11:39→19:44)
[2024-04-12] MEDS: Atorvastatin Calcium 40 MG TABLET PO (11:39)
[2024-04-12] MEDS: Aspirin Enteric Coated 81 MG TABLET.DR PO (11:39)
[2024-04-12] MEDS: Thiamine HCL 100 MG in 0.9 % Sodium Chloride 100 ML 202 MG IV (11:41)
--- NOTE | 2024-04-12 11:54 | PC.NURSE ---
Pts morning medications delayed as Pt was off units for MRI and awaiting pharmacy to deliver doses. Pt reports 8/10 pain to L knee and reports Tylenol ineffective. Contacted admitting provider for new order.
[2024-04-12] MEDS: Folic Acid 1 MG in 0.9 % Sodium Chloride 50 ML 100.4 MG IV (12:33)
--- NOTE | 2024-04-12 12:36 | PC.NURSE ---
Continued waiting for delivery of Anastrozole, pharmacy reports it is in route.
[2024-04-12 12:43] LABS: Uric Acid 7.2 mg/dL (2.4-5.7)
[2024-04-12] MEDS: Anastrozole 1 MG TABLET PO (13:06)
--- NOTE | 2024-04-12 13:08 | PM.DS ---
DS: Providers Provider Date of admission: 04/11/24 21:01 Primary care physician: Fredo Rodriguez MD Consults: 04/11/24 20:46 Consult to Neurology Routine Consulting Provider: [facility] Reason for consultation: tia 04/11/24 20:52 Addiction Medicine Routine Consulting Provider: Addiction Covering Reason for consultation: etoh use disorder DS: Diagnosis Discharge Diagnosis (1) Slurred speech: Status: Acute (2) Alcohol intoxication: Status: Acute (3) Acute hypokalemia: Status: Acute Physical Exam Vital Signs: Vital Signs: Last Vital Signs Temp 98.1 F 04/12/24 08:31 Pulse 101 H 04/12/24 08:31 Resp 22 H 04/12/24 08:31 BP 123/45 L 04/12/24 08:31 Pulse Ox 96 04/12/24 08:31 O2 Del Method Room Air 04/12/24 08:31 BMI result Body Mass Index 23.1 DS: Data Data Completed and Pending Labs on day of discharge: Laboratory Results - last 24 hr 04/11/24 04/11/24 04/11/24 19:37 19:38 20:09 WBC 10.6 RBC 3.49 L Hgb 11.8 L Hct 34.6 L MCV 99.1 H MCH 33.8 H MCHC 34.1 RDW 13.9 Plt Count 335 MPV 8.9 L Immature Gran % (Auto) 0.9 H Neut % (Auto) 74.6 H Lymph % (Auto) 12.3 L [place] % (Auto) 10.4 Eos % (Auto) 1.3 Baso % (Auto) 0.5 Lymph # (Auto) 1.3 [place] # (Auto) 1.1 Eos # (Auto) 0.1 Baso # (Auto) 0.1 Abs Immat Gran (auto) 0.09 H Absolute Neuts (auto) 7.9 Absolute Nucleated RBC 0.000 Nucleated RBC % (auto) 0.0 PT 17.0 H Whole Blood PT 17.5 H INR 1.5 H Whole Blood INR 1.5 H APTT 30.4 Sodium 143 Potassium 2.7 L* Chloride 107 Carbon Dioxide 23 Anion Gap 16 BUN 6 L Creatinine 0.66 Estim Creat Clear Calc 67.2 Estimated GFR > 60 POC Glucose 144 H Random Glucose 141 H Uric Acid Calcium 8.6 Magnesium 1.6 Total Bilirubin 0.2 Direct Bilirubin < 0.2 AST 44 H ALT 27 Alkaline Phosphatase 151 H Total Creatine Kinase 80 Troponin I High Sens 3.5 Total Protein 5.5 L Albumin 2.7 L Triglycerides 123 Cholesterol 120 LDL Cholesterol, Calc 56 HDL Cholesterol 40 L Vitamin B12 Folate Ethyl Alcohol 258 04/12/24 04/12/24 04:53 12:00 WBC 9.7 RBC 3.22 L Hgb 10.7 L Hct 31.9 L MCV 99.1 H MCH 33.2 H MCHC 33.5 RDW 14.1 Plt Count 306 MPV 9.2 L Immature Gran % (Auto) 0.7 H Neut % (Auto) 76.0 H Lymph % (Auto) 10.8 L [place] % (Auto) 10.6 Eos % (Auto) 1.4 Baso % (Auto) 0.5 Lymph # (Auto) 1.1 L [place] # (Auto) 1.0 Eos # (Auto) 0.1 Baso # (Auto) 0.1 Abs Immat Gran (auto) 0.07 H Absolute Neuts (auto) 7.4 Absolute Nucleated RBC 0.000 Nucleated RBC % (auto) 0.0 PT Whole Blood PT INR Whole Blood INR APTT Sodium 140 Potassium 3.4 D Chloride 110 H Carbon Dioxide 21 L Anion Gap 12 BUN 7 L Creatinine 0.80 Estim Creat Clear Calc 55.5 Estimated GFR > 60 POC Glucose Random Glucose 112 Uric Acid 7.2 H Calcium 8.1 L Magnesium Total Bilirubin Direct Bilirubin AST ALT Alkaline Phosphatase Total Creatine Kinase Troponin I High Sens Total Protein Albumin Triglycerides Cholesterol LDL Cholesterol, Calc HDL Cholesterol Vitamin B12 940 H Folate 9.9 Ethyl Alcohol Discharge Plan Discharge Referrals: Fredo Rodriguez MD [Primary Care Provider] - 1 Week Discharge Medications: No Action multivitamin Tablet 1 tab PO DAILY bupropion HCl 150 mg tablet extended release 24 hr 300 mg PO DAILY anastrozole 1 mg tablet 1 mg PO DAILY ferrous sulfate [Iron (ferrous sulfate)] 325 mg (65 mg iron) Tablet 325 mg PO DAILY cholecalciferol (vitamin D3) [Vitamin D3] 25 mcg (1,000 unit) Tablet 25 mcg PO DAILY Print Language: Greenlandic
--- NOTE | 2024-04-12 13:17 | P.CNNE_ITS ---
History of Present Illness Data of Consult Service Date: 04/12/24 Primary Care Provider: Fredo Rodriguez MD [facility] Reason for consult: Fall 74 years old woman who came to hospital after fall. She lost her balance and fell down. She injured her left knee. She has been using a walker and stated that she has been losing balance for a while. Bladder control was also not good. Memory was okay. Review of Systems 2 Review of Systems: No recent cold or flu-like illness or burning urination. PMFSH Past Medical History Medical History Breast cancer Alcohol use disorder Glaucoma Social History Social History Patient Tobacco Use Status: Former Tobacco user Smoked in Last 30 Days: No Use of substances other than those prescribed or required for medical reasons: No Advance Directives: Yes Advance Directives Information Provided: No Advance Directives on File: No Nutrition Risks: No Nutritional Risk service: No Meds Allergies Allergy/AdvReac Type Severity Reaction Status Date / Time No Known Allergies Allergy Verified 04/11/24 19:43 Active Medications: Current Medications Acetaminophen (Acetaminophen 325 Mg Tablet) 650 mg PO Q6H PRN PRN Reason: Pain, Mild (Pain Scale 1-3), fever or headache Last Admin: 04/12/24 04:24 Dose: 650 mg Anastrozole (Anastrozole 1 Mg Tablet) 1 mg PO DAILY [facility] Last Admin: 04/12/24 13:06 Dose: 1 mg Aspirin (Aspirin Enteric Coated 81 Mg Tablet.) 81 mg PO DAILY [facility] Last Admin: 04/12/24 11:39 Dose: 81 mg Atorvastatin Calcium (Atorvastatin Calcium 40 Mg Tablet) 40 mg PO DAILY [facility] Last Admin: 04/12/24 11:39 Dose: 40 mg Calcium Carbonate (Calcium Carbonate 750 Mg Tab.Chew) 750 mg PO Q4H PRN PRN Reason: Heartburn Enoxaparin Sodium (Enoxaparin Sodium 40 Mg/0.4 Ml Syringe) 40 mg SUBCUT Q24H [facility] Last Admin: 04/11/24 21:10 Dose: 40 mg Ferrous Sulfate (Ferrous Sulfate 324 Mg Tablet.) 324 mg PO DAILY [facility] Thiamine HCl 100 mg/ Sodium (Chloride) 101 mls @ 202 mls/hr IV DAILY [facility] Last Infusion: 04/12/24 12:33 Dose: Infused Folic Acid 1 mg/ Sodium (Chloride) 50.2 mls @ 100.4 mls/hr IV DAILY [facility] Last Admin: 04/12/24 12:33 Dose: 100.4 mls/hr Magnesium Hydroxide (Milk Of Magnesia 30 Ml Oral.Susp) 30 ml PO DAILY PRN PRN Reason: Constipation Magnesium Oxide (Magnesium Oxide 400 Mg Tablet) 400 mg PO BIDPC [facility] Last Admin: 04/12/24 11:39 Dose: 400 mg Melatonin (Melatonin 3 Mg Tablet) 6 mg PO BEDTIME PRN PRN Reason: Insomnia Multivitamins/Vitamin C (Multivitamin Tablet) 1 tab PO DAILY [facility] Prednisone (Prednisone 20 Mg Tablet) 40 mg PO DAILY [facility] Sertraline HCl (Sertraline Hcl 25 Mg Tablet) 25 mg PO DAILY [facility] Last Admin: 04/12/24 11:39 Dose: 25 mg Sodium Chloride (0.9 % Sodium Chloride Flush 3 Ml Syringe) 3 ml IVFLUSH QSHIFT [facility] Last Admin: 04/12/24 11:39 Dose: 3 ml Vitamin D (Cholecalciferol (Vitamin D3) 25 Mcg Tablet) 25 mcg PO DAILY [facility] Home Medications ?Medication ?Instructions ?Recorded ?Confirmed ?Last Taken ?Type anastrozole 1 mg tablet 1 mg PO DAILY 04/12/24 04/12/24 04/11/24 History bupropion HCl 150 mg 24 hr tablet, 300 mg PO DAILY 04/12/24 04/12/24 04/11/24 History extended release cholecalciferol (vitamin D3) 25 25 mcg PO DAILY 04/12/24 04/12/24 04/11/24 History mcg (1,000 unit) tablet (Vitamin D3) ferrous sulfate 325 mg (65 mg 325 mg PO DAILY 04/12/24 04/12/24 04/11/24 History iron) tablet (Iron (ferrous sulfate)) multivitamin 1 tab PO DAILY 04/12/24 04/12/24 04/11/24 History Physical Exam 2 Vital Signs: Vital Signs: Last Vital Signs Temp 98.1 F 04/12/24 08:31 Pulse 101 H 04/12/24 08:31 Resp 22 H 04/12/24 08:31 BP 123/45 L 04/12/24 08:31 Pulse Ox 96 04/12/24 08:31 O2 Del Method Room Air 09/30/24 08:31 BMI result Body Mass Index 23.1 Neuro: Other: She is alert and awake with normal spontaneity of speech fluency comprehension and affect. Face is symmetrical. Visual velez are full. Deep tendon reflexes are absent with flexor plantars. Results Labs 04/12/24 04:53 04/12/24 04:53 Labs: Short CBC 04/11/24 04/12/24 Range/Units 20:09 04:53 WBC 10.6 9.7 (4.8-10.8) X10*3/uL Hgb 11.8 L 10.7 L (12.0-16.0) g/dl Hct 34.6 L 31.9 L (37.0-47.0) % Plt Count 335 306 (160-400) X10*3/uL BMP 04/11/24 04/12/24 20:09 04:53 Sodium 143 140 Potassium 2.7 L* 3.4 D Chloride 107 110 H Carbon Dioxide 23 21 L BUN 6 L 7 L Creatinine 0.66 0.80 Calcium 8.6 8.1 L Cardiac Enzymes 04/11/24 Range/Units 20:09 Total Creatine Kinase 80 (26-140) U/L Liver Function 04/11/24 Range/Units 20:09 Total Bilirubin 0.2 (0.0-1.0) mg/dL Direct Bilirubin < 0.2 (0.0-0.5) mg/dL AST 44 H (5-31) U/L ALT 27 (0-31) U/L Alkaline Phosphatase 151 H (39-117) U/L Albumin 2.7 L (3.5-5.0) g/dL MRI of brain revealed moderate ventriculomegaly and mild microvascular ischemic changes. Assessment and Plan (1) Multifactorial gait disorder: Status: Acute 74 years old woman who probably has multifactorial problem with her balance including alcohol abuse, alcohol-related neuropathy, and significant cerebral atrophy. Mainstay of management is control of risk factors specially not drinking alcohol and use of a walker. Procedures Date of Service Date of Service: 04/12/24
[2024-04-12] MEDS: predniSONE 20 MG TABLET 40 MG PO (13:28)
[2024-04-12] MEDS: oxyCODONE HCl Immed Release 5 MG TABLET PO (13:28)
--- NOTE | 2024-04-12 15:27 | MHC.RECOVRN ---
AUDIT-C?Brief Intervention Pt had positive screen for unhealthy alcohol use on admission, subsequently met with t/w to discuss alcohol use and recovery supports/options. Pt refuses to discuss concern regarding alcohol use and is aware that drinking at unhealthy levels is known to increase risk of alcohol related health problems. Pt reports Im not interested I have friends in AA is I do . Pt refuses to express how alcohol use has impacted health, including negative impact on [BH/medical dx]. Discussed risk reduction strategies including drinking below the recommended limit. Provided pt with written resources including information on inpatient and outpatient treatment, JORJE, harm reduction, and recovery coaching.
--- NOTE | 2024-04-12 16:17 | MHC.CM.PN ---
Per Monie, Patient is now open and requesting a referral to [facility], [facility]; referral has been made and CM will follow.
[2024-04-12 18:15] VITALS: BP 120/54; PULSE 83; RESP 18; TEMP 36.8; O2SAT 99
[2024-04-12 22:48] VITALS: BP 142/64; PULSE 74; RESP 16; TEMP 36.3; O2SAT 96
[2024-04-12] MEDS: Enoxaparin Sodium 40 MG/0.4 ML SYRINGE SUBCUT (23:00)
[2024-04-13] MEDS: Melatonin 3 MG TABLET 6 MG PO (01:40)
[2024-04-13] MEDS: oxyCODONE HCl Immed Release 5 MG TABLET PO (01:40)
[2024-04-13 03:13] VITALS: BP 135/60; PULSE 78; RESP 20; TEMP 36.6; O2SAT 94
[2024-04-13 07:43] VITALS: BP 126/63; PULSE 72; RESP 18; TEMP 37.1; O2SAT 96
[2024-04-13] MEDS: 0.9 % Sodium Chloride Flush 3 ML SYRINGE IVFLUSH ×2 (08:12→16:59)
[2024-04-13] MEDS: Atorvastatin Calcium 40 MG TABLET PO (08:14)
[2024-04-13] MEDS: Aspirin Enteric Coated 81 MG TABLET.DR PO (08:14)
[2024-04-13] MEDS: Sertraline HCL 25 MG TABLET PO (08:14)
[2024-04-13] MEDS: Cholecalciferol (Vitamin D3) 25 MCG TABLET PO (08:14)
[2024-04-13] MEDS: Magnesium Oxide 400 MG TABLET PO ×2 (08:14→16:59)
[2024-04-13] MEDS: Anastrozole 1 MG TABLET PO (08:14)
[2024-04-13] MEDS: Thiamine HCL 100 MG in 0.9 % Sodium Chloride 100 ML 202 MG IV (08:14)
[2024-04-13] MEDS: predniSONE 20 MG TABLET 40 MG PO (08:14)
[2024-04-13] MEDS: Multivitamin TABLET 1 TAB PO (08:14)
[2024-04-13] MEDS: Ferrous Sulfate 324 MG TABLET.DR PO (08:14)
[2024-04-13] MEDS: Folic Acid 1 MG in 0.9 % Sodium Chloride 50 ML 100.4 MG IV (09:40)
[2024-04-13 11:15] VITALS: BP 142/67; PULSE 70; RESP 20; TEMP 36.9; O2SAT 95
[2024-04-13] MEDS: Ibuprofen 400 MG TABLET PO ×2 (11:38→21:52)
[2024-04-13 16:00] VITALS: BP 105/55; PULSE 75; RESP 20; TEMP 36.6; O2SAT 94
--- NOTE | 2024-04-13 17:55 | P.PNIM_ITS ---
Subjective Subjective Date of Service: 04/13/24 Interval History: fall Review of Systems no new c/o knee pain improved. Physical Exam 2 Vital Signs: Vital Signs: Last Vital Signs Temp 97.8 F 04/13/24 16:00 Pulse 75 04/13/24 16:00 Resp 20 04/13/24 16:00 BP 105/55 L 04/13/24 16:00 Pulse Ox 94 04/13/24 16:00 O2 Del Method Room Air 04/13/24 16:00 BMI result Body Mass Index 23.1 Appearance: awake,Alert.? not in distress. cvs: rrr, [id number] res: clear to auscultation ,no rhonchii or wheezing abd: no rebound or guarding ,nt, bs present. ext pulses present , no cyanosis neuro: axo3 , nonfocal. Objective Data Active Medications Acetaminophen (Acetaminophen 325 Mg Tablet) 650 mg PO Q6H PRN PRN Reason: Pain, Mild (Pain Scale 1-3), fever or headache Last Admin: 04/12/24 04:24 Dose: 650 mg Documented By: GHASSAN Anastrozole (Anastrozole 1 Mg Tablet) 1 mg PO DAILY [facility] Last Admin: 04/13/24 08:14 Dose: 1 mg Documented By: YOLANDA Aspirin (Aspirin Enteric Coated 81 Mg Tablet.) 81 mg PO DAILY [facility] Last Admin: 04/13/24 08:14 Dose: 81 mg Documented By: YOLANDA Atorvastatin Calcium (Atorvastatin Calcium 40 Mg Tablet) 40 mg PO DAILY [facility] Last Admin: 04/13/24 08:14 Dose: 40 mg Documented By: YOLANDA Calcium Carbonate (Calcium Carbonate 750 Mg Tab.Chew) 750 mg PO Q4H PRN PRN Reason: Heartburn Enoxaparin Sodium (Enoxaparin Sodium 40 Mg/0.4 Ml Syringe) 40 mg SUBCUT Q24H [facility] Last Admin: 04/12/24 23:00 Dose: 40 mg Documented By: GALINA Ferrous Sulfate (Ferrous Sulfate 324 Mg Tablet.) 324 mg PO DAILY [facility] Last Admin: 04/13/24 08:14 Dose: 324 mg Documented By: YOLANDA Thiamine HCl 100 mg/ Sodium (Chloride) 101 mls @ 202 mls/hr IV DAILY [facility] Last Infusion: 04/13/24 08:45 Dose: Infused Documented By: YOLANDA Folic Acid 1 mg/ Sodium (Chloride) 50.2 mls @ 100.4 mls/hr IV DAILY [facility] Last Infusion: 04/13/24 10:10 Dose: Infused Documented By: YOLANDA Magnesium Hydroxide (Milk Of Magnesia 30 Ml Oral.Susp) 30 ml PO DAILY PRN PRN Reason: Constipation Magnesium Oxide (Magnesium Oxide 400 Mg Tablet) 400 mg PO BIDPC [facility] Last Admin: 04/13/24 16:59 Dose: 400 mg Documented By: YOLANDA Melatonin (Melatonin 3 Mg Tablet) 6 mg PO BEDTIME PRN PRN Reason: Insomnia Last Admin: 04/13/24 01:40 Dose: 6 mg Documented By: GALINA Multivitamins/Vitamin C (Multivitamin Tablet) 1 tab PO DAILY [facility] Last Admin: 04/13/24 08:14 Dose: 1 tab Documented By: YOLANDA Prednisone (Prednisone 20 Mg Tablet) 40 mg PO DAILY [facility] Last Admin: 04/13/24 08:14 Dose: 40 mg Documented By: YOLANDA Sertraline HCl (Sertraline Hcl 25 Mg Tablet) 25 mg PO DAILY [facility] Last Admin: 04/13/24 08:14 Dose: 25 mg Documented By: YOLANDA Sodium Chloride (0.9 % Sodium Chloride Flush 3 Ml Syringe) 3 ml IVFLUSH QSHIFT [facility] Last Admin: 04/13/24 16:59 Dose: 3 ml Documented By: YOLANDA Vitamin D (Cholecalciferol (Vitamin D3) 25 Mcg Tablet) 25 mcg PO DAILY [facility] Last Admin: 04/13/24 08:14 Dose: 25 mcg Documented By: YOLANDA Labs 04/12/24 04:53 04/12/24 04:53 Assessment and Plan (1) Slurred speech: Status: Acute (2) Alcohol intoxication: Status: Acute (3) Acute hypokalemia: Status: Acute Plan 74-year-old female with history of glaucoma, history of breast cancer s/p lumpectomy/chemotherapy/radiation now on anastrozole, and reported alcohol use disorder reported to be in sustained remission who is a former smoker to be observed for episode speech /hypokalemia multifactorial gait dis: -multiple episodes reported by daughter and EMS with concern for TIA, however patient intoxicated on arrival which could explain her symptoms with alcohol alcohol level of 258 -head CT negative for acute intracranial abnormality and CTA of the head/neck negative for large vessel occlusion or hemodynamically significant stenosis -MRI brain -negative, mild Mild microvascular ischemic change. Neurology saw the patient-patient had multifactorial disorder -pt/ot alcohol use disorder -on admission denied etoh use. Now reports drinking mouthwash- goes through 50oz bottle q3d. ethyl alcohol level 258 on admission -will monitor on CIWA, if scoring phenobarb -thiamine, folic acid -addiction medicine consult- desires detox. Has been hiding use from her daughter and does not want this disclosed SIRS criteria -tachycardia likely r/t mild etoh withdrawal. No evidence of infection. No sepsis Falls -likely r/t etoh use -pt eval acute hypokalemia -likely related to alcohol use -repleted and resolved. Glaucoma -not on therapies history of breast cancer -continue anastrozole Chronic macrocytic anemia -vitamin b12 and folic acid wnl -would dc on thiamine and folic acid -above transfusion threshold gout flare -cotninue prednidone DVT prophylaxis-Lovenox Full code Dispo- PT recommending STR Quality Stroke Does the patient have a stroke diagnosis?: No VTE Prior VTE?: No VTE Risk Level:: Medical - moderate - high VTE Device Contraindication: Treatment Not Indicated VTE Drug Contraindication: N/A - Med Ordered
[2024-04-13 19:51] VITALS: BP 129/61; PULSE 81; RESP 20; TEMP 37.1; O2SAT 93
[2024-04-13] MEDS: Enoxaparin Sodium 40 MG/0.4 ML SYRINGE SUBCUT (21:53)
[2024-04-13 23:57] VITALS: BP 123/58; PULSE 71; RESP 20; TEMP 36.8; O2SAT 92
[2024-04-14 03:21] VITALS: BP 132/70; PULSE 70; RESP 20; TEMP 36.7; O2SAT 95
[2024-04-14 07:14] VITALS: BP 131/63; PULSE 69; RESP 18; TEMP 36.6; O2SAT 94
[2024-04-14] MEDS: Anastrozole 1 MG TABLET PO (09:49)
[2024-04-14] MEDS: Thiamine HCL 100 MG in 0.9 % Sodium Chloride 100 ML 202 MG IV (09:49)
[2024-04-14] MEDS: Multivitamin TABLET 1 TAB PO (09:50)
[2024-04-14] MEDS: predniSONE 10 MG TABLET 30 MG PO (09:50)
[2024-04-14] MEDS: buPROPion HCl XL 300 MG TAB.ER.24H PO (09:50)
[2024-04-14] MEDS: Ferrous Sulfate 324 MG TABLET.DR PO (09:50)
[2024-04-14] MEDS: Cholecalciferol (Vitamin D3) 25 MCG TABLET PO (09:50)
[2024-04-14] MEDS: Magnesium Oxide 400 MG TABLET PO (09:50)
[2024-04-14] MEDS: 0.9 % Sodium Chloride Flush 3 ML SYRINGE IVFLUSH (09:52)
[2024-04-14 10:59] VITALS: BP 134/59; PULSE 68; RESP 18; TEMP 36.4; O2SAT 93
[2024-04-14 11:00] LABS: Appearance Urine Turbid; Color Urine Yellow; Glucose Urine UA Negative (Negative); Leukocyte Esterase Urine Large (3+) (Negative); Nitrite Urine Negative (Negative); PH 7.5 (5.0-9.0); UMIC TRIGGER UACC YES; Urine Blood Moderate (2+) (Negative); Urine Ketones Negative (Negative); Urine Protein Trace mg/dL (Neg-Trace)
[2024-04-14 11:56] LABS: Bacteria Urine 1+ (None Seen); UACC Culture Trigger YES; WBC Urine >50 /HPF (0-5)
--- NOTE | 2024-04-14 12:09 | MHC.CM.PN ---
Addendum entered by Romi Martinez 04/14/24 12:10: [facility] has confirmed that the pt had a qualifying stay at [facility], then was at [facility] from 03/17-03/26, so after 10 days of rehab she will be responsible for a $204/day co-pay. This was explained to the pt and she is in agreement with going to [facility]. Original Note: Pt is medically cleared for discharge to [facility] at [facility] today, pt will transport there via BLS/[facility]. New HCP completed with pt, now on file.
--- NOTE | 2024-04-14 12:55 | PM.DS ---
DS: Providers Provider Date of Service: 04/14/24 Date of admission: 04/11/24 21:01 Date of discharge: 04/14/24 Primary care physician: Fredo Rodriguez MD Consults: 04/11/24 20:46 Consult to Neurology Routine Consulting Provider: [facility] Reason for consultation: tia 04/11/24 20:52 Addiction Medicine Routine Consulting Provider: Addiction Covering Reason for consultation: etoh use disorder Attending physician on discharge: Ben Adams Discharging clinician: Ben Adams DS: Diagnosis Discharge Diagnosis (1) Slurred speech: Status: Acute (2) Alcohol intoxication: Status: Acute (3) Acute hypokalemia: Status: Acute DS: Summary Hospital Course Hospital Course: 74-year-old female with history of glaucoma, history of breast cancer s/p lumpectomy/chemotherapy/radiation now on anastrozole, and reported alcohol use disorder reported to be in sustained remission who is a former smoker presented to the ED via EMS earlier today for evaluation of multiple falls and slurred speech. The patient reports that her and her daughter have been discussing assisted living as she has had multiple falls due to bilateral lower extremity weakness. She reports in the middle of the night, she had 2 mechanical falls. The 1st when she was sitting in a chair, the 2nd when she was walking back to her bed and tripped on clothing. She was unable to get up from the ground and slept on the ground. Upon waking, called her daughter for assistance. Denies head strike or loss of consciousness. She is not on blood thinners. Her daughter was able to help her to her feet but she noted multiple episodes of slurred speech lasting several minutes with full resolution and called EMS. Per nursing report, EMS also reported episodes of slurred speech with full resolution. No facial droop, confusion, unilateral paresthesias or weakness from baseline, imbalance. No sob, lightheadedness, headache, vision changes, palpitatations, or chest pain. No hx cva/tia. No recent illness. Since arrival, vital signs have been stable. Hematology studies reveal a macrocytic anemia with H/H 11.8/34.6%, MCV 99.1. Renal function normal, electrolyte levels significant for potassium 2.7, magnesium level pending. Total CK 80. Troponin 3.5. Total cholesterol 120, LDL 56. Ethyl alcohol level 258 (patient reports she has not had any alcohol in the last [address] negative for acute intracranial abnormality but shows moderate underlying microangiopathy and generalized cerebral volume loss. CTA of the head and neck without any large vessel occlusion or hemodynamically significant stenosis. There is evidence of emphysema with a 1.6 cm heterogenous nodule posterior to the right thyroid lobe. In the ED, has been given 162 mg aspirin. Hospital course: 74-year-old female with history of glaucoma, history of breast cancer s/p lumpectomy/chemotherapy/radiation now on anastrozole, and reported alcohol use disorder reported to be in sustained remission who is a former smoker to be observed for multiple falls and slurred speech /hypokalemia:neurology workup- CT negative for acute intracranial abnormality and CTA of the head/neck negative for large vessel occlusion or hemodynamically significant stenosis,MRI brain -negative, mild Mild microvascular ischemic change. Neurology saw the patient-patient had multifactorial disorder, alcohol-related neuropathy, also significant cerebral atrophy-recommended to abstain from alcohol, also PT and Pt rec -rehab. vitamin b12 and folate levels normal. gout flare -added prednisone taper ,consider outpatient allopurinol. Chronic macrocytic anemia-vitamin b12 and folic acid wnl, moniter cbc outpatient. acute hypokalemia-likely related to alcohol use-repleted and resolved. plan: complete prednisone taper ( prednisone 30 mg for 3 days then 20 mg for 3 days then 10 mg for 3 days).after that consider outpatient allopurinol for maintance. moniter cbc , bmp outpatient in 1 week. consider neurology follow up outpatient . Above management discussed with the patient in detail length she understand and in agreement with the above plan, time spent 40 minutes and 50% time spent on counseling. Time Attestation Total time managing care of this patient today: 40 mintues. Discharge Coordination Time (in mins): 40 mIN Quality: Safe Use of Opioids Does Pt have an Active Cancer Diagnosis on the Problem List?: No Quality: Stroke Does the patient have a stroke diagnosis?: No Physical Exam Vital Signs: Vital Signs: Last Vital Signs Temp 97.5 F 04/14/24 10:59 Pulse 68 04/14/24 10:59 Resp 18 04/14/24 10:59 BP 134/59 L 04/14/24 10:59 Pulse Ox 93 04/14/24 10:59 O2 Del Method Room Air 04/14/24 10:59 BMI result Body Mass Index 23.1 Appearance: awake,Alert.? not in distress. cvs: rrr, [id number] res: clear to auscultation ,no rhonchii or wheezing abd: no rebound or guarding ,nt, bs present. ext pulses present , no cyanosis neuro: axo3 , nonfocal. DS: Data Data Completed and Pending Labs on day of discharge: Laboratory Results - last 24 hr 04/14/24 Unknown Urine Color Yellow Urine Appearance Turbid Urine pH 7.5 Ur Specific [place] 1.010 Urine Protein Trace Urine Glucose (UA) Negative Urine Ketones Negative Urine Blood Moderate (2+) H Urine Nitrite Negative Ur Leukocyte Esterase Large (3+) H Urine RBC 3-5 H Urine WBC >50 H Ur Squamous Epith Cells 3-5 Urine Bacteria 1+ Hyaline Casts 3-5 Imaging Chest x-ray: Radiologist's impression: ITS Impressions Head CT 04/11/24 19:38 IMPRESSION: 1. No evidence of acute intracranial hemorrhage or edematous territorial infarction. Moderate underlying microangiopathy and generalized cerebral volume loss. 2. CTA of the head and neck without proximal occlusion or flow-limiting stenosis. 3. Emphysema. 4. There is a 1.6 cm heterogeneous nodule posterior to the right thyroid lobe. This critical result was discussed with Dr. Muñoz at 20:13 on 04/11/2024 and it was ascertained that the content and urgency of the report was understood at the time of direct communication. Electronically signed by: Uche Ayala DO 04/11/2024 08:20 PM EDT RP Chest X-Ray 04/11/24 19:39 IMPRESSION: No acute intrathoracic disease. Calcified left pleural plaques. Electronically signed by: Jovan Chun MD 04/11/2024 10:34 PM EDT RP Head/Neck CTA 04/11/24 19:39 IMPRESSION: 1. No evidence of acute intracranial hemorrhage or edematous territorial infarction. Moderate underlying microangiopathy and generalized cerebral volume loss. 2. CTA of the head and neck without proximal occlusion or flow-limiting stenosis. 3. Emphysema. 4. There is a 1.6 cm heterogeneous nodule posterior to the right thyroid lobe. This critical result was discussed with Dr. Muñoz at 20:13 on 04/11/2024 and it was ascertained that the content and urgency of the report was understood at the time of direct communication. Electronically signed by: Uche Ayala DO 04/11/2024 08:20 PM EDT RP Brain MRI 04/12/24 10:20 IMPRESSION: There is no evidence of acute/subacute cerebral or cerebellar infarction. No intracranial hemorrhage. Mild microvascular ischemic change. Electronically signed by: Yonatan Porter DO 04/12/2024 11:08 AM EDT RP Knee X-Ray 04/12/24 11:05 IMPRESSION: No evidence of an acute osseous injury. Mild degenerative changes. Electronically signed by: Jovan Chun MD 04/12/2024 11:52 AM EDT RP Discharge Plan Discharge Patient Disposition: Home, Self-Care Discharge Diagnosis: Multifactorial gait disorder, alcohol use disorder Referrals: [facility] [Outside] - 1 Week Fredo Rodriguez MD [Primary Care Provider] - 1 Week Discharge Medications: New prednisone 10 mg tablet See Taper PO DIRECTED Qty: 18 0RF Taper: Prednisone 30 mg daily for 3 Days and 0 Hour 20 mg daily for 3 Days and 0 Hour 10 mg daily for 3 Days and 0 Hour Rx Instructions: see taper instructions Continued multivitamin Tablet 1 tab PO DAILY bupropion HCl 150 mg tablet extended release 24 hr 300 mg PO DAILY anastrozole 1 mg tablet 1 mg PO DAILY ferrous sulfate [Iron (ferrous sulfate)] 325 mg (65 mg iron) Tablet 325 mg PO DAILY cholecalciferol (vitamin D3) [Vitamin D3] 25 mcg (1,000 unit) Tablet 25 mcg PO DAILY Discharge Orders: Discharge Order (Routine); Ordered 04/14/24 Ordered By: Ben Adams Diet: Advance to usual diet Activity on Discharge: As tolerated Stand Alone Forms: Patient Portal Discharge page Print Language: Monegasque Care Plan Goals: 74-year-old female with history of glaucoma, history of breast cancer s/p lumpectomy/chemotherapy/radiation now on anastrozole, and reported alcohol use disorder reported to be in sustained remission who is a former smoker to be observed for multiple falls and slurred speech /hypokalemia:neurology workup- CT negative for acute intracranial abnormality and CTA of the head/neck negative for large vessel occlusion or hemodynamically significant stenosis,MRI brain -negative, mild Mild microvascular ischemic change. Neurology saw the patient-patient had multifactorial disorder, alcohol-related neuropathy, also significant cerebral atrophy-recommended to abstain from alcohol, also PT and Pt rec -rehab. vitamin b12 and folate levels normal. gout flare -added prednisone taper ,consider outpatient allopurinol. Chronic macrocytic anemia-vitamin b12 and folic acid wnl, moniter cbc outpatient. acute hypokalemia-likely related to alcohol use-repleted and resolved. Health Concerns: complete prednisone taper ( prednisone 30 mg for 3 days then 20 mg for 3 days then 10 mg for 3 days).after that consider outpatient allopurinol for maintance. moniter cbc , bmp outpatient in 1 week. consider neurology follow up outpatient . Plan of Treatment: as above. Assessment: as above.
== END 2024-04-14 15:16 | disposition home or self-care (01) ==
LOC: HO.ED 20:53 → HO.EDOVER 21:01 → HO.IMC 04-12 20:27
PROVIDERS: Internal Medicine; Admitting Provider Physician Assistant; Emergency Provider Emergency Medicine; PCP Internal Medicine; Visit Provider Internal Medicine
DX: R26.89 Other abnormalities of gait and mobility (principal); F10.929 Alcohol use, unspecified with intoxication, unspecified; R47.81 Slurred speech; E87.6 Hypokalemia; D53.9 Nutritional anemia, unspecified; H40.9 Unspecified glaucoma; R29.700 NIHSS score 0; Z85.3 Personal history of malignant neoplasm of breast; Z91.81 History of falling; Z92.21 Personal history of antineoplastic chemotherapy; Z79.899 Other long term (current) drug therapy
CPT/HCPCS: 36415; 70450; 70496; 70498; 70551; 71045; 73560; 80048; 80061; 80076; 80307; 81001; 81003; 82550; 82607; 82746; 82947; 83735; 84484; 84550; 85025; 85610; 85730; 87086; 93005; 93306; 96365; 96366; 96367; 96372; 97162; 97166; 97530; 97535; 99222; 99285; J1650; J3411; J3480; Q9957; Q9967

== ENCOUNTER 2024-04-11 21:01 | Outpatient (BNV) | payer MEDICARE, SELFPAY | END 2024-04-12 07:00 | PROVIDERS: Admitting Provider Physician Assistant; Emergency Provider Emergency Medicine; PCP Internal Medicine; Visit Provider Internal Medicine Cardiovascular Disease | DX: I35.8 Other nonrheumatic aortic valve disorders (principal); R93.1 Abnormal findings on diagnostic imaging of heart and coronary circulation | CPT/HCPCS: 93306 ==

== ENCOUNTER → 2024-04-11 21:01 | Outpatient (BNV) | payer MEDICARE, SELFPAY | PROVIDERS: Admitting Provider Physician Assistant; Emergency Provider Emergency Medicine; PCP Internal Medicine; Visit Provider Physician Assistant | DX: R47.81 Slurred speech (principal); E87.6 Hypokalemia; F10.921 Alcohol use, unspecified with intoxication delirium; Y90.8 Blood alcohol level of 240 mg/100 ml or more | CPT/HCPCS: 99223; 99231; 99232; 99239 ==

== ENCOUNTER → 2024-04-11 21:01 | Outpatient (BNV) | payer MEDICARE, SELFPAY | PROVIDERS: Admitting Provider Physician Assistant; Emergency Provider Emergency Medicine; PCP Internal Medicine; Visit Provider Psychiatry & Neurology Neurology | DX: R26.89 Other abnormalities of gait and mobility (principal) | CPT/HCPCS: 99222 ==

== ENCOUNTER 2024-07-10 11:35 | Emergency (ER) | payer MEDICARE, SELFPAY ==
--- OUTSIDE RECORDS SUMMARY | 2024-07-10 11:37 | XMS_ITS | Continuity of Care Document ---
Author Organization [facility] [employer] (formerly [employer]) [facility], [facility] Address [address] [place] [address] Care Team Providers Care Newspaper Distributor Supervisor Name Role Phone JOHN HARMON Primary Care Provider [facility] OTHER Assessment Encounter Date Assessment Date Assessment LastModified by Organization Details LastModified Time 05/11/2024 05/11/2024 echo cardiogram in January 2024 showed an EF of 65%, no wall motion abnormality and normal diastolic function. 03/18: na 139, k 3.9, bun 12, creat 0.60, alb 2.8, wbc 7.20, hgb 11, hct 34.8 Labs 05/04/24-WBC-6 .62, H/H-11.1/35.4, plts-285, BUN/Cr-9/0.6, GFR-94, Na+140, K+3.8, glu-89, alb-3.1 05/11: na 140, k 4.4, bun 12, creat 0.70 glord Not available 05/11/2024 11:08:19 Plan of Treatment Reminders Order Date Submit Date Provider Last Modified By Organization Details Last Modified Time Details Appointments None record ed. Lab None record ed. Referral None record ed. Procedures None record ed. Surgeries None record ed. Imaging None record ed. Medication Orders None record ed. Patient TargetsNo targets recorded. Patient InstructionsNo instructions recorded. Reason for Referral None Reported. 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 8256673167381 105 Active [address], [address], [place], [address], [facility] 4 14:42:41 Heart murmur 99706595 Active [address], [address], [place], [address], [facility] 14:43:30 Mediastinal lymphadenop athy 72952384 Active [address], [address], [place], [address], [facility] 4 14:43:36 Calcificati on of coronary artery 198535092 Active [address], [address], [place], [address], [facility] 4 14:43:48 Glaucoma 09504195 Active [address], [address], [place], [address], [facility] 4 14:44:00 Alcoholism 3676357 Active [address], [address], [place], [address], [facility] 4 14:44:52 Nodule of lung 473420132 Active [address], [address], [place], [address], [facility] 4 14:45:05 Thyroid nodule 077543160 Active [address], [address], [place], [address], [facility] 4 14:45:09 Nodule of adrenal cortex 712325645 Active [address], [address], [place], [address], [facility] 4 14:45:19 Steatosis of liver 779240824 Active [address], [address], [place], [address], [facility] 4 14:45:27 Hiatal hernia 71737888 Active [address], [address], [place], [address], [facility] 4 14:45:40 Gastric ulcer 383938424 Active [address] [place] [address], [address], [place], [address], [facility] 4 14:45:50 Adult failure to thrive syndrome 906147885 Active [address] [place] [address], [address], [place], [address], [facility] 4 14:47:46 Falls 823772814 Active [address] [place] [address], [address], [place], [address], [facility] 4 14:47:54 Urinary tract infectious disease 96653903 Active [address] [place] [address], [address], [place], [address], [facility] 4 14:47:57 History of calculus of kidney 541781661 Active [address] [place] [address], [address], [place], [address], [facility] 4 14:48:39 Urinary tract obstruction 1654885 Active 2023 CHINO LORD [address] [place] [address], [address], [place], [address], [facility] 4 10:38:43 Fracture of clavicle 62272125 Active 2023 MEHDI DEE NP [address] [facility], [address], [place], [address], [facility] 4 13:48:46 Anemia 387256108 Active 2023 Jacki Orosco MD [address] [facility], [address], [place], [address], [facility] 4 00:44:42 Depressive disorder 76557335 Active 2023 Jacki Orosco MD [address] [facility], [address], [place], [address], [facility] 4 00:47:03 Problem Notes None recorded. Procedures Surgical History Date Name Laterality Status Provider Name and Address Organization Details Recorded Time Cholecystectomy completed CHINO [address], [address], [place], [address], [facility] 4 14:46:01 extraction of cataract completed GI NA [address], [address], [place], [address], [facility] 4 14:46:07 needle aspiration of breast complete d CHINO [address], [address], [place], [address], [facility] 4 14:46:22 lumpectomy of breast completed CHINO [address], [address], [place], [address], [facility] 4 14:46:28 esophagogastroduodenoscopy completed CHINO [address], [address], [place], [address], [facility] 4 14:46:33 ureteroscopy completed CHINO [address], [address], [place], [address], [facility] 4 14:47:06 cystoscopy completed CHINO [address], [address], [place], [address], [facility] 4 14:47:16 Imaging Results None recorded. Procedure Notes None recorded. Medical Equipment None Reported. Allergies No known drug allergies Medications Name Sig Start Date Stop Date Status Note LastModified by Organization Details LastModified Time naltrexone 50 mg tablet TAKE 1 TABLET BY MOUTH EVERY DAY active Not Available Not Available No t Available ciprofloxacin 500 mg tablet TAKE 1 TABLET BY MOUTH TWICE A DAY active Not Available Not Available No t Available oxycodone 5 mg tablet 0.5 tab PO q 6 hours PRN 2023 active Not Available Not Available Not Avai lable Vitals Date Recorded Body height Systolic blood pressure Diastolic blood pressure Provider Name and Address Organization Details Last Updated DateTime 05/11/2024 162.56 cm 106 mm[Hg] 56 mm[Hg] CHINO TERRAZAS [address] [facility], [address], [place], [address], [facility] 05/11/2024 10:50:44 Social History Question Answer Notes LastModified by Organization Details LastModified Time Tobacco Smoking Status Former Smoker quit 2017 Jacki Orosco MD [address] [facility], [address], [place], [address], [facility] 03/22/2024 18:47:44 Do You Have An Advance Directive? No Information not available 05/01/2024 What Is Your Level Of Alcohol Consumption? None She States She Has Been Sober Since 2010, But Has Had +BAL On Recent Admissions. Information not available 05/09/2024 What Is Your Code Status? Full Code Assumed Full Code,no MOLST Information not available 05/09/2024 Do You Or Have You Ever Used E-cigarettes Or Vape? Current User Of Electronic Cigarettes Vapes A Few Times/day, Advised To Stop, Advised Of Risks Information not available 05/09/2024 Where Do You Live? SingleLevelHouse Alone, Stairs To Basement. Daughter Sometimes Stays With Her, She Is Looking Into [facility]. Information not available 03/22/2024 Legal Guardian? No Information not available 03/22/2024 Do You Have A Medical Power Of Info Analyst? Yes Information not available 03/22/2024 What Was The Date Of Your Most Recent Tobacco Screening? 05/01/2024 Information not available 05/01/2024 Do You Have An Out Of Hospital DNR? No Information not available 03/22/2024 What Is Your Relationship Status? Information not available 03/22/2024 Do You Or Have You Ever Used Smokeless Tobacco? Never Used Smokeless Tobacco Information not available 03/17/2024 How Much Tobacco Do You Smoke? No Information not available 03/22/2024 Do You Use Any Illicit Or Recreational Drugs? No Information not available 03/17/2024 Has Tobacco Cessation Counseling Been Provided? No Information not available 05/01/2024 How Many Years Have You Smoked Tobacco? 20 Information not available 03/17/2024 Do You Or Have You Ever Used Any Other Forms Of Tobacco Or Nicotine? Yes Information not available 05/09/2024 Sex: Unknown Functional Status None recorded. Mental Status None recorded. Family History Relationship Description Onset Age of this Age Resolved Age Notes LastModified by Organization Details LastModified Time Father No current problems or disability glord Not available 03/18 10:41:24 Mother No current problems or disability glord Not available 03/18 10:41:24 Notes:Bro-ALS, Mo-esophageal CA Medical History No medical history recorded. Gynecological HistoryNo gynecological history recorded. Obstetrics History GPAL:G 0 P 0 0 0 0 Immunizations Vaccine Type Date Status Note Provider Nam e and Address Organization Details Recorded Time Tdap 6 completed [facility] 03/24/2024 16:24:22 Pneumococcal conjugate PCV 13 3 completed Cirilo Valera [facility] 03/24/2024 16:24:41 influenza, unspecified formulation 2 completed Cirilo Valera [facility] 03/24/2024 16:24:57 influenza, unspecified formulation 3 completed Cirilo Valera [facility] 03/24/2024 16:25:13 SARS-COV-2 (COVID-19) vaccine, UNSPECIFIED 1 completed Cirilo Valera [facility] 03/24/2024 16:25:37 SARS-COV-2 (COVID-19) vaccine, UNSPECIFIED 1 completed Cirilo Valera [facility] 03/24/2024 16:25:48 SARS-COV-2 (COVID-19) vaccine, UNSPECIFIED 1 completed Cirilo Valera [facility] 03/24/2024 16:25:59 SARS-COV-2 (COVID-19) vaccine, UNSPECIFIED 2 completed Cirilo Valera [facility] 03/24/2024 16:26:14 SARS-COV-2 (COVID-19) vaccine, UNSPECIFIED 3 completed Cirilo Valera [facility], [facility] 03/24/2024 16:26:29 zoster, unspecified formulation 1 completed Cirilo Valera [facility], [facility] 03/24/2024 16:26:41 zoster, unspecified formulation 2 completed Cirilo Valera [facility], [facility] 03/24/2024 16:26:55 Past Encounters Encounter ID Performer Location Encounter Start Date Encounter Closed Date Diagnosis/Indication Diagnosis SNOMED-CT Code Diagnosis ICD10 Code [id number] MEHDI DEE NP [facility] on [address] [place], [place] [address] 05/01/2024 12:03:59 05/03/2024 19:46:58 Falls 011852913 R29.6 Fracture of clavicle 581 09606 S42.002A Glaucoma 41424373 H40.89 [address]inary tr act infectious disease 17385120 N30.00 Alcoholism 0409541 F10.2 0 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 8823117385 024825 C50.812 Urinary tr act obstruction 0627208 N13.8 [id number] Jacki Orosco MD [facility] on [address] [place] [address] 05/06/2024 23:38:43 05/11/2024 15:35:37 Falls 389850134 R29.6 Fracture of clavicle 581 84498 S42.002A Urinary tr act infectious disease 91604310 N30.00 Alcoholism 5093865 F10.2 0 Anemia 507719483 D64.89 Urinary tr act obstruction 8332835 N13.8 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 5590957941 756380 C50.812 Glaucoma 25239699 H40.89 Edema of l ower extremity 134091576 R60.0 Depressive disorder 6528 9007 F33.8 [id number] CHINO TERRAZAS [facility] on [address] [place] [address] 05/11/2024 10:50:12 05/12/2024 16:37:14 Falls 941568156 R29.6 Fracture of clavicle 581 80511 S42.002A Alcoholism 6331618 F10.2 0 Health Concerns Section Related Observation LastModified by Organization Sumit willingham LastModified Time None Recorded Concern Status LastModified by Organization Details LastModified Time None Recorded Payers Encounter Date Sequence Insurance Name Policy Number Policy Bee Covered Member ID Bee Member ID Guarantor Name 05/11/2024 1 [place]ICARE [place]: [employer] Gema Perry [id number] 2 Gema Vicky Notes Date Note Type Note Provider Name and Address Organization Details Recorded Time 05/11/2024 text/html This is a 74 yo woman who is here for rehab after a mechanical fall resulting in a left clavicle fx. Per PT: Ambulation with cane to and from bathroom cga to min assist mutliple little lob cga to recover 25 feet x2 . In hallway approx 75 feet with cane and min assist continued unsteadiness and little lob cga to recover.Supine to sit sba with rail , discussed outcome of ortho and pt misunderstood results , pt thought she was wbat and per consult she is still NwB but can do some rom with arm but cannot push pull or lift. Sling for comfort only . Pt not able to remember not to use left arm if sling is off . So pt left sling on after session . Discussed using wc at homefor now and that she will [facility] so , so will be going home from this facility for a little while. Next follow up in June. Pt agreeable now for wc use. Pt reports she will always have help on stairs as well. Will trial wc mobility and wc level transfers and initial wc paperwork in upcoming sessions. She is currently on naltrexone for alcoholism, pharmacy is not able to get this medication. SHe tells me she is doing ok with this med, she does not have it at home but told her I would send her home with a script if she needs it. No new concerns at visit. Her PMH includes hx of breast CA s/p lumpectomy/chemo and radiation in 2021, hx of kidney stones, ETOH use disorder in remission (?), FTT, and glaucoma. CHINO TERRAZAS [address] [place] [address], [address], [place], [address], [facility] [employer] 05/11/2024 11:08:58 OBGyn Episode No OBEpisode recorded.
--- OUTSIDE RECORDS SUMMARY | 2024-07-10 11:37 | XMS_ITS | Continuity of Care Document ---
Author Organization [facility], [facility] Address [address] [place] [address] Care Team Providers Care Public Works Director Name Role Phone JOHN HARMON Primary Care Provider [facility] OTHER Assessment Encounter Date Assessment Date Assessment LastModified by Organization Details LastModified Time 05/12/2024 05/12/2024 echo cardiogram in January 2024 showed an EF of 65%, no wall motion abnormality and normal diastolic function. 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 5109849258734 105 Active [address], [address], [place], [address], [facility] 4 14:42:41 Heart murmur 02207044 Active [address], [place], [address], [facility] [employer] 4 14:43:30 Mediastinal lymphadenop athy 36889452 Active [address], [address], [place], [address], [facility] [employer] 4 14:43:36 Calcificati on of coronary artery 641213283 Active [address], [address], [place], [address], [facility] 4 14:43:48 Glaucoma 22142395 Active [address], [address], [place], [address], [facility] 4 14:44:00 Alcoholism 9496955 Active [address], [address], [place], [address], [facility] 4 14:44:52 Nodule of lung 699857911 Active [address], [address], [place], [address], [facility] 4 14:45:05 Thyroid nodule 133901603 Active [address], [address], [place], [address], [facility] 4 14:45:09 Nodule of adrenal cortex 819889796 Active [address], [address], [place], [address], [employer] [facility] 4 14:45:19 Steatosis of liver 432932148 Active [address], [address], [place], [address], [facility] 4 14:45:27 Hiatal hernia 66538673 Active [address], [address], [place], [address], [facility] [employer] [facility] 4 14:45:40 Gastric ulcer 302732804 Active [address] [place] [address], [address], [place], [address], [facility] 4 14:45:50 Adult failure to thrive syndrome 296336361 Active [address] [place] [address], [address], [place], [address], [facility] 4 14:47:46 Falls 721711363 Active [address] [place] [address], [address], [place], [address], [facility] 4 14:47:54 Urinary tract infectious disease 70814006 Active [address] [place] [address], [address], [place], [address], [facility] 4 14:47:57 History of calculus of kidney 832044372 Active [address] [place] [address], [address], [place], [address], [facility] 4 14:48:39 Urinary tract obstruction 2944032 Active 2023 CHINO LORD [address] [place] [address], [address], [place], [address], [facility] 4 10:38:43 Fracture of clavicle 48103042 Active 2023 MEHDI DEE NP [address] [facility], [address], [place], [address], [facility] 4 13:48:46 Anemia 627256987 Active 2023 Jacki Orosco MD [address] [facility], [address], [place], [address], [facility] 4 00:44:42 Depressive disorder 55733920 Active 2023 Jacki Orosco MD [address] [facility], [address], [place], [address], [facility] 4 00:47:03 Problem Notes None recorded. Procedures Surgical History Date Name Laterality Status Provider Name and Address Organization Details Recorded Time Cholecystectomy completed CHINO [address], [address], [place], [address], [facility] 4 14:46:01 extraction of cataract completed GI NA [address], [address], [place], [address], [facility] 4 14:46:07 needle aspiration of breast complete d CHINO [address], [address], [place], [address], [facility] 4 14:46:22 lumpectomy of breast completed CHINO [address], [address], [place], [address], [facility] 4 14:46:28 esophagogastroduodenoscopy completed CHINO [address], [address], [place], [address], [facility] 4 14:46:33 ureteroscopy completed CHINO [address], [address], [place], [address], [facility] 4 14:47:06 cystoscopy completed CHINO [address], [address], [place], [address], [facility] 4 14:47:16 Imaging Results None recorded. Procedure [...] Available Not Available Not Avai lable Vitals None Recorded Social History Question Answer Notes LastModified by Organization Details LastModified Time Tobacco Smoking Status Former Smoker quit 2017 Jacki Orosco MD [address] [facility], [address], [place], [address], [facility] 03/22/2024 18:47:44 Do You Have An Advance [...] Stays With Her, She Is Looking Into [facility]. Information not available 03/22/2024 Legal Guardian? No Information not available 03/22/2024 Do You Have A Medical Power Of Veterinarian Small Animal? Yes Information not available 03/22/2024 What Was [...] Organization Details Recorded Time Tdap 6 completed Cirilo [facility] 03/24/2024 16:24:22 Pneumococcal conjugate PCV 13 3 completed Cirilo [facility] 03/24/2024 16:24:41 influenza, unspecified formulation 2 completed Cirilo [facility] 03/24/2024 16:24:57 influenza, unspecified formulation 3 completed Cirilo Ron[facility] 03/24/2024 16:25:13 SARS-COV-2 (COVID-19) vaccine, UNSPECIFIED 1 completed Cirilo [facility] 03/24/2024 16:25:37 SARS-COV-2 (COVID-19) vaccine, UNSPECIFIED 1 completed Cirilo [facility] 03/24/2024 16:25:48 SARS-COV-2 (COVID-19) vaccine, UNSPECIFIED 1 completed Cirilo [facility] 03/24/2024 16:25:59 SARS-COV-2 (COVID-19) vaccine, UNSPECIFIED 2 completed Cirilo [facility] 03/24/2024 16:26:14 SARS-COV-2 (COVID-19) vaccine, UNSPECIFIED 3 completed Cirilo [facility] 03/24/2024 16:26:29 zoster, unspecified formulation 1 completed Cirilo blandon, [facility] 03/24/2024 16:26:41 zoster, unspecified formulation 2 completed Cirilo blandon, [facility] 03/24/2024 16:26:55 Past Encounters Encounter ID Performer Location Encounter Start Date Encounter Closed Date Diagnosis/Indication Diagnosis SNOMED-CT Code Diagnosis ICD10 Code [id number] MEHDI DEE NP [facility] on [address] [place] [id number] 05/01/2024 12:03:59 05/03/2024 19:46:58 Falls 248092470 R29.6 Fracture of clavicle 581 64380 S42.002A Glaucoma 05536640 H40.89 Urinary tr act infectious disease 13121358 N30.00 Alcoholism 0647412 F10.2 0 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 5175321545 706622 C50.812 Urinary tr act obstruction 7411102 N13.8 [id number] Jacki Orosco MD [facility] on [address] [place] [address] 05/06/2024 23:38:43 05/11/2024 15:35:37 Falls 038722401 R29.6 Fracture of clavicle 581 26923 S42.002A Urinary tr act infectious disease 12031482 N30.00 Alcoholism 8801069 F10.2 0 Anemia 838483882 D64.89 Urinary tr act obstruction 4126632 N13.8 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 0768962448 097103 C50.812 Glaucoma 37917032 H40.89 Edema of l ower extremity 419152248 R60.0 Depressive disorder 3548 9007 F33.8 [id number] CHINO [facility] on [address] [place] [id number] 05/11/2024 10:50:12 05/12/2024 16:37:14 Falls [id number] R29.6 Fracture of clavicle 581 60922 S42.002A Alcoholism 8817740 F10.2 0 [id number] CHINO [facility] on [address] [place] [id number] 05/12/2024 12:15:23 05/13/2024 13:21:25 Falls 179308999 R29.6 Fracture of clavicle 581 29040 S42.002A Alcoholism 0401047 F10.2 0 Glaucoma 11162448 H40.89 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 5388536814 583741 C50.812 Urinary tr act obstruction 7058558 N13.8 Health Concerns Section Related Observation LastModified by Organization Detai ls LastModified Time None Recorded Concern Status LastModified by Organization Details LastModified Time None Recorded Payers Encounter Date Sequence Insurance Name Policy Number Policy Bee Covered Member ID Bee Member ID Guarantor Name 05/12/2024 1 [place]ICARE B-[place]: [employer] Gema Perry [id number] 2 Gema Perry Notes Date Note Type Note Provider Name and Address Organization Details Recorded Time 05/12/2024 text/html This is a 74 yo woman who is here for rehab after a mechanical fall resulting in a left clavicle fx, seen today for DC summary visit. She is currently on naltrexone for alcoholism, pharmacy was not able to get it through her stay. He is not on it at home, feels like she is doing well without it. She will be transferring to [facility] today and eventually move to [facility] and then [place] if possible. She offers no complaints at this time, ok to dc to snf. Per PT note: Pt provided with self care retraining this date. UB wash and dress completed with supervision after set up. LB wash and dress cgA while in standing due to unsteadiness. Grooming independent while seated. Her PMH includes hx of breast CA s/p lumpectomy/chemo and radiation in 2021, hx of kidney stones, ETOH use disorder in remission (?), FTT, and glaucoma. CHINO TERRAZAS [address] [facility], [address], [place], [address], [facility] - [employer] 05/12/2024 13:37:42 OBGyn Episode No OBEpisode recorded.
--- OUTSIDE RECORDS SUMMARY | 2024-07-10 11:37 | XMS_ITS | Continuity of Care Document ---
Author Organization [facility] [employer] [facility], [facility] Address [address] [place] [address] Care Team Providers Care Crusher Screen Repairer Name Role Phone JOHN RODRIGUEZ Primary Care Provider [phone] [facility] ([facility]O [facility]) OTHER [phone] Assessment Encounter Date Assessment Date Assessment LastModified by Organization Details LastModified Time 05/06/2024 05/06/2024 Echocardiogram i n January 2024 showed an EF of 65%, no wall motion abnormality and normal diastolic function. 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 1291703696043 105 Active 2023 [employer] , [address], [place], [address], [facility] [employer] 4 14:42:41 Heart murmur 02501893 Active [address], [address], [place], [address], [facility] [employer] [facility] 4 14:43:30 Mediastinal lymphadenop athy 21534744 Active [address], [address], [place], [address], [facility] [employer] [facility] 4 14:43:36 Calcificati on of coronary artery 818112913 Active [address], [address], [place], [address], [facility] [employer] [facility] 4 14:43:48 Glaucoma 52741067 Active [address], [address], [place], [address], [facility] [employer] [facility] 4 14:44:00 Alcoholism 1664818 Active [address], [address], [place], [address], [facility] [employer] [facility] 4 14:44:52 Nodule of lung 291055223 Active [address], [address], [place], [address], [facility] [employer] [facility] 4 14:45:05 Thyroid nodule 461668232 Active [address], [address], [place], [address], [facility] [employer] [facility] 4 14:45:09 Nodule of adrenal cortex 124357517 Active [address], [address], [place], [address], [facility] [employer] [facility] 4 14:45:19 Steatosis of liver 938875939 Active [address], [address], [place], [address], [facility] [employer] [facility] 4 14:45:27 Hiatal hernia 68841732 Active [address], [address], [place], [address], [facility] [employer] [facility] 4 14:45:40 Gastric ulcer 345440731 Active 2023 CHINO [address] [facility], [address], [place], [address], [facility] [employer] [facility] 4 14:45:50 Adult failure to thrive syndrome 049697895 Active 2023 CHINO [address] , [address], [place], [address], [facility] [employer] [facility] 4 14:47:46 Falls 266350910 Active 2023 CHINO [address] [facility], [address], [place], [address], [facility] [employer] [facility] 4 14:47:54 Urinary tract infectious disease 44561181 Active 2023 CHINO TERRAZAS [address] [facility], [address], [place], [address], [facility] [employer] [facility] 4 14:47:57 History of calculus of kidney 773287211 Active [address] [place] [address], [address], [place], [address], [facility] [employer] [facility] 4 14:48:39 Urinary tract obstruction 5900783 Active 2023 CHINO LORD [address] [facility], [address], [place], [address], [facility] [employer] 4 10:38:43 Fracture of clavicle 08287262 Active 2023 MEHDI DEE NP [address] [facility], [address], [place], [address], [facility] [employer] [facility] 4 13:48:46 Anemia 733760197 Active 2023 Jacki Orosco MD [address] [facility], [address], [place], [address], [facility] [employer] 4 00:44:42 Depressive disorder 05510877 Active 2023 Jacki Orosco MD [address] [facility], [address], [place], [address], [facility] [employer] 4 00:47:03 Problem Notes None recorded. Procedures Surgical History Date Name Laterality Status Provider Name and Address Organization Details Recorded Time Cholecystectomy completed CHINO [facility] [address] , [address], [place], [address], [facility] 4 14:46:01 extraction of cataract completed GI NA [facility] [address], [address], [place], [address], [facility] 4 14:46:07 needle aspiration of breast complete d CHINO [address], [address], [place], [address], [facility] 4 14:46:22 lumpectomy of breast completed CHINO [address], [address], [place], [address], [facility] 4 14:46:28 esophagogastroduodenoscopy completed CHINO [address], [address], [place], [address], [facility] 4 14:46:33 ureteroscopy completed CHINO [address], [address], [place], [address], [facility] 4 14:47:06 cystoscopy completed CHINO[address], [address], [place], [address], [facility] 4 14:47:16 Imaging Results None recorded. [...] Avai lable Vitals Date Recorded Body height Body mass index (BMI) Body weight Heart rate Respiratory rate Body temperature Oxygen saturation Oxygen saturation in Arterial blood by Pulse oximetry Systolic blood pressure Diastolic blood pressure Provider Name and Address Organization Details Last Updated DateTime 4 162.56 cm 22.1 kg/m2 71610.4 2 g 61 /min 17 /min 97.4 [degF] 94 % 94 % 115 mm[Hg] 65 mm[Hg] Jacki Orosco MD [address], [address], [place], [address], [facility] [employer] [facility] 23:50:07 Social History Question Answer Notes LastModified by Organization Details LastModified Time Tobacco Smoking Status Former Smoker quit 2017 Jacki Orosco MD [address], [address], [place], [address], [facility] [employer] [facility] 03/22/2024 18:47:44 Do You Have An [...] Stays With Her, She Is Looking Into [facility]. Information not available 03/22/2024 Legal Guardian? No Information not available 03/22/2024 Do You Have A Medical Power Of Follow Up Manager? Yes Information not available 03/22/2024 What Was [...] Details Recorded Time Tdap 6 completed Cirilo Soto [facility] 03/24/2024 16:24:22 Pneumococcal conjugate PCV 13 3 completed Cirilo [place] [facility] 03/24/2024 16:24:41 influenza, unspecified formulation 2 completed Cirilo Soto [facility] 03/24/2024 16:24:57 influenza, unspecified formulation 3 completed Cirilo Soto [facility] 03/24/2024 16:25:13 SARS-COV-2 (COVID-19) vaccine, UNSPECIFIED 1 completed Cirilo Soto [facility] 03/24/2024 16:25:37 SARS-COV-2 (COVID-19) vaccine, UNSPECIFIED 1 completed Cirilo [place] [facility] 03/24/2024 16:25:48 SARS-COV-2 (COVID-19) vaccine, UNSPECIFIED 1 completed Cirilo [place] [facility] 03/24/2024 16:25:59 SARS-COV-2 (COVID-19) vaccine, UNSPECIFIED 2 completed Cirilo Soto [facility] 03/24/2024 16:26:14 SARS-COV-2 (COVID-19) vaccine, UNSPECIFIED 3 completed Cirilo Soto [facility] 03/24/2024 16:26:29 zoster, unspecified formulation 1 completed Cirilo Soto null, [facility] 03/24/2024 16:26:41 zoster, unspecified formulation 2 completed Cirilo Soto [facility], [facility] 03/24/2024 16:26:55 Past Encounters Encounter ID Performer Location Encounter Start Date Encounter Closed Date Diagnosis/Indication Diagnosis SNOMED-CT Code Diagnosis ICD10 Code [id number] [facility]EE [facility] [address] [place] [address] 05/01/2024 12:03:59 05/03/2024 19:46:58 Falls 961276741 R29.6 Fracture of clavicle 581 14536 S42.002A Glaucoma 27983399 H40.89 Urinary tr act infectious disease 29107162 N30.00 Alcoholism 8747777 F10.2 0 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 3198389869 175362 C50.812 Urinary tr act obstruction 0051836 N13.8 [id number] Jacki Orosco MD [facility] on [address] [place] [address] 05/06/2024 23:38:43 05/11/2024 15:35:37 Falls 532766956 R29.6 Fracture of clavicle 581 69933 S42.002A Urinary tr act infectious disease 24436672 N30.00 Alcoholism 5082229 F10.2 0 Anemia 844424761 D64.89 Urinary tr act obstruction 8591140 N13.8 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 5902000561 924683 C50.812 Glaucoma 68350428 H40.89 Edema of l ower extremity 141001586 R60.0 Depressive disorder 3548 9007 F33.8 Health Concerns Section Related Observation LastModified by Organization Detai ls LastModified Time None Recorded Concern Status LastModified by Organization Details LastModified Time None Recorded Payers Encounter Date Sequence Insurance Name Policy Number Policy Bee Covered Member ID Bee Member ID Guarantor Name 05/06/2024 1 MEDICARE B-[place]: [facility] [email or web address] Gema Perry [id number] 2 Gema Perry Notes Date Note Type Note Provider Name and Address Organization Details Recorded Time 05/06/2024 text/html This is a 74 yo woman who is here for rehab after a mechanical fall resulting in a left clavicle fx.[facility] described as losing her balance when she turned around to get her walker. She reported many recent falls. Of note [facility] a fall and slurred speech. 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 We discussed the high EtOH content of mouthwash and she said she would stop. On 04/28 she was found to have a left clavicle fx. Labs were non-acute. No BAL was done.She was placed in a sling and PT recommended STR. She wastransferred here on 04/30. Of note, she was alsoadmitted to [facility] 03/12-or a fall with rib fxs and a UTI. And then was at [facility] from 03/17-03/26 and was dxed with Agatha on 03/26. D/C'd home to isolate. Had atelevisit with her PCP (Dr. Rodriguez) on 03/29, decided against Paxlovid as she was starting to feel better. Also Wellbutrin was increased for depression. Since here she has been working with rehab and starting to feel a little stronger. She saw ortho on 05/05 and was told she just needed to use sling if needed for comfort. She says pain is improving. She continues to need mod assist for transfers and bed mobility. Her PMH includes hx of breast CA s/p lumpectomy/chemo and radiation in 2021, hx of kidney stones, ETOH use disorder in remission (?), FTT, and glaucoma. Jacki Orosco MD [address] [place] [address], [address], [place], [address], [facility] [employer] 05/10/2024 00:47:36 OBGyn Episode No OBEpisode recorded.
--- OUTSIDE RECORDS SUMMARY | 2024-07-10 11:38 | XMS_ITS | Continuity of Care Document ---
Author Organization [facility] Address [address] [place] [address] Care Team Providers Care Railroad Detective Name Role Phone JOHN HARMON Primary Care Provider [phone] [facility] (NONO UNIT) OTHER [phone] Assessment No assessment recorded. Plan of Treatment Reminders Order Date Submit [...] Details Recorded Time Fracture of multiple ribs 4472230 Active 2023 [facility] [address], [place], [address], 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 4 14:42:41 Heart murmur 58954739 Active 2023 [facility] [address] , [address], [place], [address], [facility] 4 14:43:30 Mediastinal lymphadenop athy 18102510 Active 2023 [facility] [address] , [address], [place], [address], [facility] 4 14:43:36 Calcificati on of coronary artery 603912366 Active [address], [address], [place], [address], [facility] 4 14:43:48 Glaucoma 03484594 Active [address], [address], [place], [address], [facility] 4 14:44:00 Alcoholism 9656967 Active [address], [address], [place], [address], [facility] 4 14:44:52 Nodule of lung 874917228 Active [address], [address], [place], [address], [facility] 4 14:45:05 Thyroid nodule 356981255 Active [address], [address], [place], [address], [facility] 4 14:45:09 Nodule of adrenal cortex 852930080 Active [address], [address], [place], [address], [facility] 4 14:45:19 Steatosis of liver 181841841 Active [address], [address], [place], [address], [facility] 4 14:45:27 Hiatal hernia 30192007 Active [address], [address], [place], [address], [facility] 4 14:45:40 Gastric ulcer 278745690 Active [address], [address], [place], [address], [facility] 4 14:45:50 Adult failure to thrive syndrome 078340430 Active [address], [address], [place], [address], [place] [facility] 4 14:47:46 Falls 070104733 Active 2023 [facility] [address], [address], [place], [address], [facility] 4 14:47:54 Urinary tract infectious disease 42883768 Active 2023 [facility] [address], [address], [place], [address], [facility] 4 14:47:57 History of calculus of kidney 604967131 Active 2023 [facility] [address], [address], [place], [address], [facility] 4 14:48:39 Urinary tract obstruction 4039247 Active [address], [address], [place], [address], [facility] 4 10:38:43 Fracture of clavicle 47747233 Active 2023 MEHDI DEE NP [address], [address], [place], [address], [facility] 4 13:48:46 Anemia 262551946 Active 2023 Jacki Orosco MD [address] [place] [address], [address], [place], [address], [facility] 4 00:44:42 Depressive disorder 67407004 Active 2023 Jacki Orosco MD [address] [place] [address], [address], [place], [address], [facility] 4 00:47:03 Problem Notes None recorded. Procedures Surgical History Date Name Laterality Status Provider Name and Address Organization Details Recorded Time Cholecystectomy completed [facility] LORD [address] [place] [address], [address], [place], [address], [facility] 4 14:46:01 extraction of cataract completed GI NA LORD [address], [address], [place], [address], [facility] 4 14:46:07 needle aspiration of breast complete d [facility] [address], [address], [place], [address], [facility] 4 14:46:22 lumpectomy of breast completed [facility] [address], [address], [place], [address], [facility] 4 14:46:28 esophagogastroduodenoscopy completed [facility] [address], [address], [place], [address], [facility] 4 14:46:33 ureteroscopy completed [facility] [address], [address], [place], [address], [facility] 4 14:47:06 cystoscopy completed [address], [address], [place], [address], [facility] 4 14:47:16 Imaging Results None recorded. Procedure [...] Details Last Updated DateTime 4 162.56 cm 24.9 kg/m2 91892.8 9 g 82 /min 16 /min 97.3 [degF] 96 % 96 % 118 mm[Hg] 68 mm[Hg] MEHDI DEE NP [address], [address], [place], [address], [place] [facility] 4 13:54:41 Social History Question Answer Notes LastModified by Organization Details LastModified Time Tobacco Smoking Status Former Smoker quit 2017 Jacki Orosco MD [address], [address], [place], [address], [facility] 03/22/2024 18:47:44 Do You Have An [...] Stays With Her, She Is Looking Into RAMON. Information not available 03/22/2024 Legal Guardian? No Information not available 03/22/2024 Do You Have A Medical Power Of Senior Research Executive? Yes Information not available 03/22/2024 What Was [...] Details Recorded Time Tdap 6 completed Cir[facility] Jacks-Clark null, [facility] 03/24/2024 16:24:22 Pneumococcal conjugate PCV 13 3 completed Cirilo Jacks-Clark null, [facility] 03/24/2024 16:24:41 influenza, unspecified formulation 2 completed Cirilo [facility], [facility] 03/24/2024 16:24:57 influenza, unspecified formulation 3 completed Cirilo Jacks-Clark null, [facility] 03/24/2024 16:25:13 SARS-COV-2 (COVID-19) vaccine, UNSPECIFIED 1 completed [facility], [facility] 03/24/2024 16:25:37 SARS-COV-2 (COVID-19) vaccine, UNSPECIFIED 1 completed Cirilo [facility]s-[facility], [facility] 03/24/2024 16:25:48 SARS-COV-2 (COVID-19) vaccine, UNSPECIFIED 1 completed Cirilo Jacks-Clark null, [facility] 03/24/2024 16:25:59 SARS-COV-2 (COVID-19) vaccine, UNSPECIFIED 2 completed Cirilo Jacks-Clark null, [facility] 03/24/2024 16:26:14 SARS-COV-2 (COVID-19) vaccine, UNSPECIFIED 3 completed Ciriol Jacks-Clark null, [facility] 03/24/2024 16:26:29 zoster, unspecified formulation 1 completed Cirilo Jacks-Clark null, [facility] 03/24/2024 16:26:41 zoster, unspecified formulation 2 completed Cirilo Jacks-Clark null, [facility] 03/24/2024 16:26:55 Past Encounters Encounter ID Performer Location Encounter Start Date Encounter Closed Date Diagnosis/Indication Diagnosis SNOMED-CT Code Diagnosis ICD10 Code [id number] MEHDI DEE NP [facility] on [address] [place] [address] 05/01/2024 12:03:59 05/03/2024 19:46:58 Falls 711387504 R29.6 Fracture of clavicle 581 42051 S42.002A Glaucoma 95474356 H40.89 Urinary tr act infectious disease 85424352 N30.00 Alcoholism 7480022 F10.2 0 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 5225784521 795314 C50.812 Urinary tr act obstruction 6516969 N13.8 Health Concerns Section Related Observation LastModified by Organization Detai ls LastModified Time None Recorded Concern Status LastModified by Organization Details LastModified Time None Recorded Payers Encounter Date Sequence Insurance Name Policy Number Policy Bee Covered Member ID Bee Member ID Guarantor Name 05/01/2024 1 MEDICARE [place]: [employer] Gema Perry [id number] Gema Perry Notes Date Note Type Note Provider Name and Address Organization Details Recorded Time 05/01/2024 text/html seen today for initial intake visit-Gema is a 74 yof admitted for rehab after a fall at home and resulting left clavicle fracture, all other imaging unremarkable CAOx3 sitting up in bed, sling on left arm, she denies any discomfort or distress and none noted, she is foggy about location and events but able to recall them, hospital notes reviewed MEHDI DEE NP [address], [address], [place], [address], [facility] 05/01/2024 14:05:21 OBGyn Episode No OBEpisode recorded.
[2024-07-10 11:46] VITALS: BP 127/63; PULSE 67; RESP 18; TEMP 35.9; O2SAT 95; BMI 24.0
--- NOTE | 2024-07-10 11:47 | ED.GENADULT ---
HPI - General Adult General Chief complaint: General Medical Stated complaint: leaking bag Time Seen by Provider: 07/10/24 15:33 Source: patient and family Mode of arrival: ambulatory Limitations: no limitations History of Present Illness ED Provider: BETINA ORTIZ narrative: 74 yo female with PMH of TIA, UTI, recent visit to [place] to see her son on 07/05 started to act tired and confused so they brought her to [facility] in [place]. She reports while there she had UTI and some issue obstructing her L kidney though it is not clear if there was a stone but I suspect she had sepsis, stone and stent placed per what her daughter describes. She was discharged 07/08 with levofloxacin and plan to see her Urologist through [facility]. She came today when she woke up her shirt was wet but the dressing is not they were worried about the tube leaking. They have not changed the dressing and don't know how to manage it or the bag. No fevers, confusion, pain. Urine output has been slightly pink at times but it is flowing complaint: nephrostomy tube issue Onset (ago): day(s) (today) Location: back Radiation: non-radiation Severity: mild Relieving factors: none Exacerbating factors: none Associated symptoms: denies other symptoms Treatments prior to arrival: none Related Data Home Medications ?Medication ?Instructions ?Recorded ?Confirmed anastrozole 1 mg tablet 1 mg PO DAILY 04/12/24 04/12/24 bupropion HCl 150 mg 24 hr tablet, 300 mg PO DAILY 04/12/24 04/12/24 extended release cholecalciferol (vitamin D3) 25 25 mcg PO DAILY 04/12/24 04/12/24 mcg (1,000 unit) tablet (Vitamin D3) ferrous sulfate 325 mg (65 mg 325 mg PO DAILY 04/12/24 04/12/24 iron) tablet (Iron (ferrous sulfate)) multivitamin 1 tab PO DAILY 04/12/24 04/12/24 Previous Rx's ?Medication ?Instructions ?Recorded prednisone 10 mg tablet See Taper PO DIRECTED gout #18 04/14/24 tabs Allergies Allergy/AdvReac Type Severity Reaction Status Date / Time No Known Allergies Allergy Verified 07/10/24 11:52 Review of Systems Review of Systems: Constitutional : No Fever, No Chills, No Fatigue ENT/Mouth : No sore throat, No Rhinorrhea Eyes: No Eye Pain, No Swelling, No Redness Cardiovascular : No Chest Pain, No SOB, No Dyspnea on Exertion Respiratory : No Cough, No Sputum Gastrointestinal : No Nausea, No Vomiting, No Diarrhea, No abdominal Pain Genitourinary : No Dysuria, No Urinary Frequency, pos Hematuria, Musculoskeletal : No joint pain, No Myalgias, No Joint Swelling Skin : No Skin Lesions, No rash Neuro : No Weakness, No Numbness, No Dizziness, no Headache All other systems reviewed and are negative [facility] Past Medical History Attestation statement: The following information was validated with the patient. Source: old records reviewed Medical History Breast cancer Alcohol use disorder Glaucoma Social History Social History Household Members: None Housing: House Do you presently have visiting nurse or other home services: Yes Patient Tobacco Use Status: Former Tobacco user Advance Directives Date on File: 04/12/24 service: No Physical Exam ED Vital Signs: Vital Signs - 24 hr 07/10/24 11:46 Temperature 96.7 F L Pulse Rate 67 Respiratory Rate 18 Blood Pressure 127/63 Pulse Oximetry 95 Oxygen Delivery Method Room Air BMI result Body Mass Index 24.0 Appearance: Alert. Oriented X3. No acute distress. Eyes: Pupils equal, round and reactive to light. ENT: Pharynx normal. Neck: Normal inspection. Neck supple. CVS: Normal heart rate and rhythm. Pulses normal. Respiratory: No respiratory distress. Breath sounds normal. Abdomen: Soft and nontender. L flank dressing is c/d/i no signs of moisture, no bogginess felt under the skin, with compression there is no fluid expressed, bag has slight pink urine but tubing is clear and yellow. no signs of infection on skin. It is sutured in place and sutures are intact and with very mild gentle tug there is no movement Skin: Skin warm and dry. Normal skin color. Normal skin turgor. Extremities: No lower extremity edema. No calf ttp Neuro: Oriented X 3. No motor deficit. No sensory deficit. Course Course Course Narrative: This is a Rapid Medical Examination (RME) performed by Nelly Pearl PA-C in triage. Full HPI, ROS, assessment and treatment plan per primary provider in the Main ED. 74 yo female hx of glaucoma, breast cancer s/p lumpectomy/chemotherapy/radiation now on anastrozole, and reported alcohol use disorder reported to be in sustained remission who is a former smoker, TIA, hypokalemia here with daughter for eval of leaking nephrostomy bag. reports renal stent placed 2 days ago in [place] secondary to nephrolithiasis. admits to waking up with a soaked shirt, believes her bag is leaking. states she was not sent home with a larger bag to be used overnight. states she would like the nephrostomy bag removed. + nephrostomy bag in place draining blood tinged urine. bandage intact, dry. no surrounding erythema. no obvious leakage. Plan: labs, UA, further evaluation in back Medical Decision Making Medical Decision Making [facility] Narrative: 74 yo female with PMH of TIA, UTI, recent visit to [place] here with c/o ?leaking nephrostomy tube after recent placement for obstruction and infection - will obtain labs and UA. On exam there is no leakage and dressing has not been changed it is completely dry. The bag and tubing are intact and there does not appear to be any damage, urine is still flowing. I offered CT scan for placement to 100% confirm and they declined, nephrostomy dressing changed and education by RN Differential Diagnosis Differential Diagnoses: The differential diagnosis associated with the presentation includes dislodged tube, renal failure, obstruction Admission/Observation Consideration of admission/observation: Escalation of care including admission/observation considered declines waiting for imaging to assess location of tube - daughter states they will call Urology Lab Data [facility] Lab Attestation statement: I reviewed the patient's lab results. 07/10/24 12:15 07/10/24 12:15 Labs: Lab Results 07/10/24 Range/Units 12:15 WBC 9.7 (4.8-10.8) X10*3/uL RBC 3.39 L (4.20-5.50) X10*6/uL Hgb 10.3 L (12.0-16.0) g/dl Hct 30.9 L (37.0-47.0) % MCV 91.2 (80.0-98.0) fL MCH 30.4 (27.0-33.0) pg MCHC 33.3 (31.0-35.0) g/dl RDW 13.8 (11.0-16.0) % Plt Count 274 (160-400) X10*3/uL MPV 9.5 (9.4-12.3) fL Immature Gran % (Auto) 1.5 H (0.0-0.4) % Neut % (Auto) 81.0 H (45-73) % Lymph % (Auto) 5.9 L (20-40) % Falls % (Auto) 9.1 (2-11) % Eos % (Auto) 2.2 (0-4) % Baso % (Auto) 0.3 (0-2) % Lymph # (Auto) 0.6 L (1.2-4.9) X10*3/uL Falls # (Auto) 0.9 (0.1-1.2) X10*3/uL Eos # (Auto) 0.2 (0.0-0.4) X10*3/uL Baso # (Auto) 0.0 (0.0-0.2) X10*3/uL Abs Immat Gran (auto) 0.15 H (0.00-0.03) X10*3/uL Absolute Neuts (auto) 7.9 (2.0-8.3) x10*3/uL Absolute Nucleated RBC 0.000 (0.0-0.012) X10*3/uL Nucleated RBC % (auto) 0.0 (0.0-0.2) /100WBC Sodium 139 (135-145) mmol/L Potassium 3.5 (3.3-5.1) mmol/L Chloride 107 (96-108) mmol/L Carbon Dioxide 23 (22-29) mmol/L Anion Gap 13 (12-20) BUN 14 (9-16) mg/dL Creatinine 0.81 (0.5-1.4) mg/dL Estim Creat Clear Calc 52.6 Estimated GFR > 60 Random Glucose 97 (60-115) mg/dL Calcium 8.7 D (8.4-10.2) mg/dL Total Bilirubin 0.5 (0.0-1.0) mg/dL AST 32 H (5-31) U/L ALT 16 (0-31) U/L Alkaline Phosphatase 111 (39-117) U/L Total Protein 5.9 L (6.5-8.0) g/dL Albumin 3.0 L (3.5-5.0) g/dL Urine Color Red A Urine Appearance Hazy Urine pH 5.5 (5.0-9.0) Ur Specific [place] 1.015 (1.005-1.025) Urine Protein 100 (2+) H (Neg-Trace) mg/dL Urine Glucose (UA) Negative (Negative) mg/dL Urine Ketones Negative (Negative) mg/dL Urine Blood Large (3+) H (Negative) Urine Nitrite Negative (Negative) Ur Leukocyte Esterase Large (3+) H (Negative) Urine RBC >20 H (0-2) /HPF Urine WBC 21-50 (0-5) /HPF Ur Squamous Epith Cells 0-2 (0-2) /HPF Urine Bacteria None Seen (None Seen) Hyaline Casts 0-2 (0-2) /LPF Independent Historian Clinical information obtained from an independent historian. History obtained from or confirmed by: Other (daughter) External Record Review External record reviewed: Inpatient record Tests considered The following testing was considered but not selected: CT scan for placement they decline Discharge Plan Discharge Clinical Impression: Visit for wound check Patient Disposition: Home, Self-Care Instructions: Nephrostomy Tube Care (ED) Additional Instructions: kidney function normal Cr 0.81 no signs of infection in urine on exam today dressing is not wet and tube appears sutured in place without any signs of dislodgement you were offered a CT scan for placement but tube is draining if you change your mind come back at any time. return for fevers, pain, yellow drainage from catheter site, or any other concerns change dressing daily to monitor - RN showed you how to do it in the ED change urine bag when full or every 6 hours to monitor your urine output Prescriptions: No Action multivitamin Tablet 1 tab PO DAILY bupropion HCl 150 mg tablet extended release 24 hr 300 mg PO DAILY anastrozole 1 mg tablet 1 mg PO DAILY ferrous sulfate [Iron (ferrous sulfate)] 325 mg (65 mg iron) Tablet 325 mg PO DAILY cholecalciferol (vitamin D3) [Vitamin D3] 25 mcg (1,000 unit) Tablet 25 mcg PO DAILY prednisone 10 mg tablet See Taper PO DIRECTED Qty: 18 0RF Taper: Prednisone 30 mg daily for 3 Days and 0 Hour 20 mg daily for 3 Days and 0 Hour 10 mg daily for 3 Days and 0 Hour Rx Instructions: see taper instructions Print Language: Syrian
[2024-07-10 12:19] LABS: MANUAL DIFF FLAG NO
[2024-07-10 12:20] LABS: Basophils Percent Auto 0.3 % (0-2); Eosinophils Absolute Auto 0.2 X10*3/uL (0.0-0.4); Eosinophils Percent Auto 2.2 % (0-4); Hematocrit 30.9 % (37.0-47.0); Hemoglobin 10.3 g/dl (12.0-16.0); Imm Gran Abs Auto 0.15 X10*3/uL (0.00-0.03); Imm Gran Pct Auto 1.5 % (0.0-0.4); Lymphocytes Absolute Auto 0.6 X10*3/uL (1.2-4.9); Lymphocytes Percent Auto 5.9 % (20-40); Mean Corpuscular HGB Conc 33.3 g/dl (31.0-35.0); Mean Corpuscular Hemoglobin 30.4 pg (27.0-33.0); Mean Corpuscular Volume 91.2 fL (80.0-98.0); Mean Platelet Volume 9.5 fL (9.4-12.3); Monocytes Absolute Auto 0.9 X10*3/uL (0.1-1.2); Monocytes Percent Auto 9.1 % (2-11); Neutrophils Absolute Auto 7.9 x10*3/uL (2.0-8.3); Platelet Count 274 X10*3/uL (160-400); Red Blood Count 3.39 X10*6/uL (4.20-5.50); Red Cell Distribution Width 13.8 % (11.0-16.0); White Blood Count 9.7 X10*3/uL (4.8-10.8)
[2024-07-10 12:24] LABS: Appearance Urine Hazy; Color Urine Red; Glucose Urine UA Negative (Negative); PH 5.5 (5.0-9.0)
[2024-07-10 12:25] LABS: Leukocyte Esterase Urine Large (3+) (Negative); Nitrite Urine Negative (Negative); Specific Gravity - Urine 1.015 (1.005-1.025); UMIC TRIGGER UACC YES; Urine Blood Large (3+) (Negative); Urine Ketones Negative (Negative); Urine Protein 100 (2+) mg/dL (Neg-Trace)
[2024-07-10 12:33] LABS: Bacteria Urine None Seen (None Seen); Hyaline Casts Urine 0-2 /LPF (0-2); RBC Urine >20 /HPF (0-2); Squamous Epithelial Cell Urine 0-2 /HPF (0-2); UACC Culture Trigger YES; WBC Urine 21-50 /HPF (0-5)
[2024-07-10 12:44] LABS: Alanine Aminotransferase 16 U/L (0-31); Alkaline Phosphatase 111 U/L (39-117); Anion Gap 13 (12-20); Aspartate Amino Transferase 32 U/L (5-31); Bilirubin Total 0.5 mg/dL (0.0-1.0); Blood Urea Nitrogen 14 mg/dL (9-16); Calcium 8.7 mg/dL (8.4-10.2); Carbon Dioxide 23 mmol/L (22-29); Chloride 107 mmol/L (96-108); Creatinine Clr Calc Pharmacy 52.6; Estimated Glomerular Filt Rate > 60; Glucose Random 97 mg/dL (60-115); Potassium 3.5 mmol/L (3.3-5.1); Sodium 139 mmol/L (135-145); Total Protein 5.9 g/dL (6.5-8.0)
--- OUTSIDE RECORDS SUMMARY | 2024-07-10 15:18 | XMS_ITS | Data Portability ---
Author Organization [facility], Main Office Address [address] [facility] [address] [facility] [address] [place] [address] Care Team Providers Care Hl7 Developer Name Role Phone EDENJOHN Primary Care Provider [phone] CAREONE (NONO UNIT) OTHER [phone] Assessment Encounter Date Assessment Date Assessment LastModified by Organization Details LastModified Time 03/25/2024 03/25/2024 03/18/24-WBC-7.29, H/H-11/34.8, plts-275, BUN/Cr-12/0.6, GFR-95, Na+139, K+3.9, glu-108, alb-2.8 Echocardiogram in January 2024 showed an EF of 65%, no wall motion abnormality and normal diastolic function. glord Not available 03/25/2024 11:26:23 05/06/2024 05/06/2024 Echocardiogram i n January 2024 showed an EF of 65%, no wall motion abnormality and normal diastolic function. 03/18: na 139, k 3.9, bun 12, creat 0.60, alb 2.8, wbc 7.20, hgb 11, hct 34.8 [email or web address] Not available 05/10/2024 00:33:30 05/11/2024 05/11/2024 echo cardiogram in January 2024 showed an EF of 65%, no wall motion abnormality and normal diastolic function. 03/18: na 139, k 3.9, bun 12, creat 0.60, alb 2.8, wbc 7.20, hgb 11, hct 34.8 Labs 05/04/24-WBC-6.62 , H/H-11.1/35.4, plts-285, BUN/Cr-9/0.6, GFR-94, Na+140, K+3.8, glu-89, alb-3.1 05/11: na 140, k 4.4, bun 12, creat 0.70 glord Not available 05/11/2024 11:08:19 05/12/2024 05/12/2024 echo cardiogram in January 2024 showed an EF of 65%, no wall motion abnormality and normal diastolic function. 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 3256687821482 105 Active 2023 [address] , [address], [place], [address], [employer] 4 14:42:41 Heart murmur 61259417 Active [address] [email or web address] [address] [place] [address], [address], [place], [address], [facility] [employer] 4 14:43:30 Mediastinal lymphadenop athy 81102814 Active [address], [address], [place], [address], [facility] [employer] [facility] 4 14:43:36 Calcificati on of coronary artery 363312991 Active [address], [address], [place], [address], [facility] [employer] [facility] 4 14:43:48 Glaucoma 01243226 Active [address], [address], [place], [address], [facility] [employer] [facility] 4 14:44:00 Alcoholism 0840243 Active [address], [address], [place], [address], [facility] [employer] [facility] 4 14:44:52 Nodule of lung 744542212 Active [address], [address], [place], [address], [facility] [employer] [facility] 4 14:45:05 Thyroid nodule 826763537 Active [address], [address], [place], [address], [facility] [employer] [facility] 4 14:45:09 Nodule of adrenal cortex 498282220 Active [address], [address], [place], [address], [facility] [employer] [facility] 4 14:45:19 Steatosis of liver 052908833 Active [address], [address], [place], [address], [facility] [employer] [facility] 4 14:45:27 Hiatal hernia 32100878 Active [address], [address], [place], [address], [facility] [employer] [facility] 4 14:45:40 Gastric ulcer 529842046 Active [address], [address], [place], [address], [facility] [employer] 4 14:45:50 Adult failure to thrive syndrome 639967219 Active 2023 [address] , [address], [place], [address], [facility] [employer] [facility] 4 14:47:46 Falls 949124094 Active 2023 [facility] [address] , [address], [place], [address], [facility] [employer] [facility] 4 14:47:54 Urinary tract infectious disease 11944821 Active [address], [address], [place], [address], [facility] [employer] [facility] 4 14:47:57 History of calculus of kidney 244941329 Active [address], [address], [place], [address], [facility] [employer] [facility] 4 14:48:39 Urinary tract obstruction 8213202 Active [address], [address], [place], [address], [facility] [employer] 4 10:38:43 Fracture of clavicle 29925666 Active 2023 MEHDI DEE NP [address] [facility], [address], [place], [address], [facility] [employer] 4 13:48:46 Anemia 170422495 Active 2023 Jacki Orosco MD [address] [place] [address], [address], [place], [address], [facility] [employer] 4 00:44:42 Depressive disorder 16325213 Active 2023 Jacki Orosco MD [address] [place] [address], [address], [place], [address], [facility] [employer] 4 00:47:03 Problem Notes None recorded. Procedures Surgical History Date Name Laterality Status Provider Name and Address Organization Details Recorded Time Cholecystectomy completed [address], [address], [place], [address], [facility] [employer] 4 14:46:01 extraction of cataract completed GI NA [address], [address], [place], [address], [facility] [employer] 4 14:46:07 needle aspiration of breast complete d [facility] [address], [address], [place], [address], [facility] [employer] 4 14:46:22 lumpectomy of breast completed [facility] [address], [address], [place], [address], [facility] [employer] 4 14:46:28 esophagogastroduodenoscopy completed CHINO [address], [address], [place], [address], [facility] [employer] [facility] 4 14:46:33 ureteroscopy completed CHINO [address], [address], [place], [address], [facility] [employer] 4 14:47:06 cystoscopy completed [address], [address], [place], [address], [facility] [employer] 4 14:47:16 Imaging Results None recorded. Procedure [...] and Address Organization Details Last Updated DateTime 03/25/2024 162.56 cm 108 mm[Hg] 70 mm[Hg] [address], [address], [place], [address], [employer] 03/25/2024 11:25:15 Date Recorded Body height Body mass index (BMI) Body weight Heart rate Respiratory rate Body temperature Oxygen saturation Oxygen saturation in Arterial blood by Pulse oximetry Systolic blood pressure Diastolic blood pressure Provider Name and Address Organization Details Last Updated DateTime 162.56 cm 24.9 kg/m2 44887.8 9 g 82 /min 16 /min 97.3 [degF] 96 % 96 % 118 mm[Hg] 68 mm[Hg] MEHDI DEE NP [address] [facility], [address], [place], [address], [employer] [facility] 13:54:41 Date Recorded Body height Body mass index (BMI) Body weight Heart rate Respiratory rate Body temperature Oxygen saturation Oxygen saturation in Arterial blood by Pulse oximetry Systolic blood pressure Diastolic blood pressure Provider Name and Address Organization Details Last Updated DateTime 162.56 cm 22.1 kg/m2 48355.4 2 g 61 /min 17 /min 97.4 [degF] 94 % 94 % 115 mm[Hg] 65 mm[Hg] Jacki Orosco MD [address] [facility], [address], [place], [address], [employer] [facility] 23:50:07 Date Recorded Body height Systolic blood pressure Diastolic blood pressure Provider Name and Address Organization Details Last Updated DateTime 05/11/2024 162.56 cm 106 mm[Hg] 56 mm[Hg] CHINO [address] [facility], [facility] [address], [place], [address], [employer] 05/11/2024 10:50:44 Social History Question Answer Notes LastModified by Organization Details LastModified Time Tobacco Smoking Status Former Smoker quit 2017 Jacki Orosco MD [address] [facility], [facility] [address], [place], [address], [employer] 03/22/2024 18:47:44 Do You Have An Advance [...] Stays With Her, She Is Looking Into [facility]. Information not available 03/22/2024 Legal Guardian? No Information not available 03/22/2024 Do You Have A Medical Power Of Personnel Technician? Yes Information not available 03/22/2024 What Was [...] Immunizations Vaccine Type Date Status Note Provider Ryan e and Address Organization Details Recorded Time Tdap 6 completed Cirilo Valera [facility] 03/24/2024 16:24:22 Pneumococcal conjugate PCV 13 3 completed Cirilo blandon [facility] 03/24/2024 16:24:41 influenza, unspecified formulation 2 completed Cirilo Valera [facility] 03/24/2024 16:24:57 influenza, unspecified formulation 3 completed [facility] 16:25:13 SARS-COV-2 (COVID-19) vaccine, UNSPECIFIED 1 completed Cirilo Soto [facility] 03/24/2024 16:25:37 SARS-COV-2 (COVID-19) vaccine, UNSPECIFIED 1 completed Cirilo Velasquez-Clark [facility] 03/24/2024 16:25:48 SARS-COV-2 (COVID-19) vaccine, UNSPECIFIED 1 completed Cirilo Valera [facility] 03/24/2024 16:25:59 SARS-COV-2 (COVID-19) vaccine, UNSPECIFIED 2 completed Cirilo Soto [facility] 03/24/2024 16:26:14 SARS-COV-2 (COVID-19) vaccine, UNSPECIFIED 3 completed Cirilo Ron-Clark [facility] 03/24/2024 16:26:29 zoster, unspecified formulation 1 completed Cirilo Valera [facility] 03/24/2024 16:26:41 zoster, unspecified formulation 2 completed Cirilo Ron-Clark [facility] 03/24/2024 16:26:55 Past Encounters Encounter ID Performer Location Encounter Start Date Encounter Closed Date Diagnosis/Indication Diagnosis SNOMED-CT Code Diagnosis ICD10 Code [id number] [place] [address] [place] [address] 03/18/2024 10:32:23 03/22/2024 12:33:58 Fracture of multiple ribs 5704034 S22.43XA 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 7898907466 172670 C50.912 Alcoholism 9372410 F10.2 0 Glaucoma 13411944 H40.9 Adult fail ure to thrive syndrome 705523629 R62.7 Edema of l ower extremity 374090628 R60.0 [address]inary tr act obstruction 9334095 N13.9 Urinary tr act infectious disease 30180522 N39.0 [id number] Jacki Orosco MD [address]UDLEY [address] [place] [address] 03/22/2024 18:20:15 03/24/2024 09:30:25 Fracture of multiple ribs 6718860 S22.41XD Alcoholism 0989471 F10.2 0 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 0210325018 657828 C50.812 Glaucoma 49691524 H40.89 Adult fail ure to thrive syndrome 215413164 R62.7 Edema of l ower extremity 225398105 R60.0 Urinary tr act obstruction 6252314 N13.8 Urinary tr act infectious disease 04508486 N30.00 Anemia 750208400 D64.89 [id number] [facility] SUE [address] [place] [address] 03/25/2024 11:11:15 03/26/2024 12:34:25 Fracture of multiple ribs 5821590 S22.41XD Adult fail ure to thrive syndrome 971389698 R62.7 Anemia 531466418 D64.89 Alcoholism 8360150 F10.2 0 Urinary tr act infectious disease 52168643 N30.00 Urinary tr act obstruction 0569024 N13.8 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 6596075163 836566 C50.812 Glaucoma 38017362 H40.89 [id number] MEHDI DEE NP [facility] on [address] [place] [address] 05/01/2024 12:03:59 05/03/2024 19:46:58 Falls 692778952 R29.6 Fracture of clavicle 581 08161 S42.002A Glaucoma 31031962 H40.89 Urinary tr act infectious disease 98732311 N30.00 Alcoholism 6294399 F10.2 0 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 0201938566 274534 C50.812 Urinary tr act obstruction 1732415 N13.8 [id number] Jacki Orosco MD [facility] on [address] [place] [address] 05/06/2024 23:38:43 05/11/2024 15:35:37 Falls 888714629 R29.6 Fracture of clavicle 581 62884 S42.002A Urinary tr act infectious disease 27790550 N30.00 Alcoholism 9119924 F10.2 0 Anemia 113923526 D64.89 Urinary tr act obstruction 8697469 N13.8 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 2646478345 849340 C50.812 Glaucoma 19620001 H40.89 Edema of l ower extremity 037099824 R60.0 Depressive disorder 3548 9007 F33.8 [id number] [facility] [address] [place] [address] 05/11/2024 10:50:12 05/12/2024 16:37:14 Falls 307131667 R29.6 Fracture of clavicle 581 62514 S42.002A Alcoholism 4870903 F10.2 0 [id number] CHINO TERRAZAS [facility] on [address] [place] [address] 05/12/2024 12:15:23 05/13/2024 13:21:25 Falls 862559774 R29.6 Fracture of clavicle 581 72061 S42.002A Alcoholism 2903884 F10.2 0 Glaucoma 93235858 H40.89 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 2935456112 120813 C50.812 Urinary tr act obstruction 0293564 N13.8 Health Concerns Section Related Observation LastModified by Organization Detai ls LastModified Time None Recorded Concern Status LastModified by Organization Details LastModified Time None Recorded Advance Directives Directive N: Payers Encounter Date Sequence Insurance Name Policy Number Policy Bee Covered Member ID Bee Member ID Guarantor Name 03/25/2024 1 [place]ICARE [place]: [employer] Gema Perry [id number] 2 Gema Perry 05/01/2024 1 MEDICARE [place]: [facility] [employer] Gema Perry [id number] 2 Gema Perry 05/06/2024 1 [place]: [employer] Gema Perry [id number] 2 Gema Perry 05/11/2024 1 [place] [facility] Gema Perry [id number] 2 Gema Perry 05/12/2024 1 [place] [facility] Gema Perry [id number] 2 Gema Perry Notes Date Note Type Note Provider Name and Address Organization Details Recorded Time 03/25/2024 text/html This is a 73-yea r-old female seen today for discharge summary visit. Patient with PMH significant for breast cancer s/p lumpectomy, chemo, radiation, kidney stones, ETOH use disorder in remission, failure to thrive and glaucoma. She here for rehab after a fall at home where she sustained multiple rib fractures and was found with UTI. Patient finishing course of abx for possible pancreatitis, she denies any nausea or vomiting or any abd sxs at this time. She is resting in bed, taking her pills. She is set to DC Home tomorrow with meds and services, no concerns at this time and ok to go tomorrow. CHINO TERRAZAS [address] [facility], [address], [place], [address], [employer] 03/25/2024 11:29:49 05/01/2024 text/html seen today for i nitial intake visit-Gema is a 74 yof admitted for rehab after a fall at home and resulting left clavicle fracture, all other imaging unremarkable CAOx3 sitting up in bed, sling on left arm, she denies any discomfort or distress and none noted, she is foggy about location and events but able to recall them, hospital notes reviewed MEHDI DEE NP [address] [facility], [address], [place], [address], [employer] 05/01/2024 14:05:21 05/06/2024 text/html This is a 74 yo woman who is here for rehab after a mechanical fall resulting in a left clavicle fx.[facility] described as losing her balance when she turned around to get her walker. She reported many recent falls. Of note she had [facility] 04/[facility]-fter a fall and slurred speech. At [...] 04/30. Of note, she was [facility]or a fall with rib fxs and a UTI. And then was at [facility] from 03/17-03/26 and was dxed with Covfilipe on 03/26. D/C'd home to isolate. Had [...] (?), FTT, and glaucoma. Jacki Orosco MD [address] [place] [address], [address], [place], [address], [facility] [employer] 05/10/2024 00:47:36 05/11/2024 text/html This is a 74 yo [...] and that she will be transitioning to [facility] in 6 weeks or so , so [...] in remission (?), FTT, and glaucoma. [facility]INO [address], [place], [address], [employer] 05/11/2024 11:08:58 05/12/2024 text/html This is a 74 yo [...] without it. She will be transferring to [facility] today and eventually move to [facility] and then [place] if possible. She offers [...] remission (?), FTT, and glaucoma. CHINO TERRAZAS [address] [place] [address], [address], [place], [address], [employer] 05/12/2024 13:37:42 OBGyn Episode No OBEpisode recorded.
[2024-07-10 16:00] VITALS: BP 128/76; PULSE 62; RESP 18; TEMP 36.7; O2SAT 95
[2024-07-10 16:45] VITALS: BP 128/76; PULSE 62; RESP 18; TEMP 36.7; O2SAT 95
== END 2024-07-10 16:46 | disposition home or self-care (01) ==
PROVIDERS: Physician Assistant Medical; Emergency Provider Emergency Medicine; PCP Internal Medicine
DX: Z03.89 Encounter for observation for other suspected diseases and conditions ruled out (principal); Z93.6 Other artificial openings of urinary tract status
CPT/HCPCS: 36415; 80053; 81001; 85025; 87086; 99283; 99284

== ENCOUNTER 2024-10-11 15:06 | Inpatient (IN) | payer MEDICARE, SELFPAY ==
--- NOTE | 2024-10-11 | ECG_ITS ---
Test Reason : fall Blood Pressure : */* mmHG Vent. Rate : 67 BPM Atrial Rate : * BPM P-R Int : * ms QRS Dur : 62 ms QT Int : 430 ms P-R-T Axes : * 3 23 degrees QTcB Int : 454 ms Normal sinus rhythm Normal ECG When compared with ECG of 11-Apr-2024 19:57, No significant changes seen Referred By: Dany Jenkins Electronically Signed By: BRINA ALLEN
--- NOTE | ~2024-10-11 | XR_ITS ---
CLINICAL HISTORY: trauma 3 view, pelvis and right hip Comparison: None Findings: Moderately displaced and angulated right femoral neck fracture. No significant arthritic change. The soft tissues are unremarkable. IMPRESSION: Right femoral neck fracture. This document has been electronically signed by: Hodan Salvador MD on 10/11/2024 17:59:28
--- NOTE | ~2024-10-11 | XR_ITS ---
EXAMINATION: XR PELVIS 1-2 VIEWS HISTORY: rt hip iva COMPARISON: Comparison is made with the prior examination dated 10/11/2024. FINDINGS: Two AP portable views of the pelvis performed at 7:45 PM are submitted. The patient is status post right total hip arthroplasty. The orthopedic elements are in anatomic alignment on these AP views. The left hip joint is maintained. There are postoperative changes in the soft tissues. XR/XR pelvis 1-2V IMPRESSION: Status post right total hip arthroplasty. Electronically signed by: Emmanuel Rojas MD 10/13/2024 08:05 AM EDT
--- NOTE | ~2024-10-11 | XR_ITS ---
CLINICAL HISTORY: pre-op 1 view chest x-ray Comparison: 04/11/2024 Findings: No consolidation or effusion. Heart size is normal. No acute fracture. IMPRESSION: 1. No acute findings. This document has been electronically signed by: Hodan Salvador MD on 10/11/2024 18:05:57
[2024-10-11 15:27] VITALS: BP 117/86; PULSE 71; O2SAT 95
[2024-10-11 15:30] VITALS: BP 126/60; PULSE 68; RESP 20; TEMP 36.5; O2SAT 94; BMI 24.0
[2024-10-11 17:18] VITALS: RESP 16
[2024-10-11] MEDS: Morphine Sulfate 4 MG/ML CARTRIDGE IVPUSH ×2 (17:18→19:57)
[2024-10-11] MEDS: ondansetron HCL 4 MG/2 ML VIAL IVPUSH (17:18)
[2024-10-11 17:27] LABS: MANUAL DIFF FLAG NO
--- NOTE | 2024-10-11 17:35 | ED_ITS ---
HPI - General Adult General Chief complaint: Fall Stated complaint: FALL,R HIP PAIN,-LOC,-MORENO,+C COLLAR PER EMS Time Seen by Provider: 10/11/24 17:06 Source: patient Limitations: no limitations History of Present Illness ED Provider: Gavi To PA-C HPI narrative: 74-year-old female with a history of prior alcohol abuse, gait instability, prior TIA, who presents after mechanical fall. Patient was using a rolling walker, she had a laptop on the see which began to fall, she went to grab it, she subsequently fell, landing onto her right side. She now complains of right hip pain. The patient did not strike her head there was no loss of consciousness she is not on a blood thinner. Related Data Home Medications ?Medication ?Instructions ?Recorded ?Confirmed anastrozole 1 mg tablet 1 mg PO DAILY 04/12/24 04/12/24 bupropion HCl 150 mg 24 hr tablet, 300 mg PO DAILY 04/12/24 04/12/24 extended release cholecalciferol (vitamin D3) 25 25 mcg PO DAILY 04/12/24 04/12/24 mcg (1,000 unit) tablet (Vitamin D3) ferrous sulfate 325 mg (65 mg 325 mg PO DAILY 04/12/24 04/12/24 iron) tablet (Iron (ferrous sulfate)) multivitamin 1 tab PO DAILY 04/12/24 04/12/24 Previous Rx's ?Medication ?Instructions ?Recorded prednisone 10 mg tablet See Taper PO DIRECTED gout #18 04/14/24 tabs Allergies Allergy/AdvReac Type Severity Reaction Status Date / Time No Known Allergies Allergy Verified 10/11/24 15:30 Review of Systems 2 Review of Systems: Yes all other systems are reviewed and are negative Constitutional: Constitutional: Denies fatigue and Denies fever(s) Cardiovascular: Cardiovascular: Denies chest pain and Denies dyspnea Respiratory: Respiratory: Denies dyspnea Gastrointestinal: Gastrointestinal: Denies abdominal pain Musculoskeletal: Musculoskeletal: Denies back pain, Reports arthralgias and Denies joint swelling Endocrine: Endocrine: Denies fatigue PMFSH Past Medical History Attestation statement: The following information was validated with the patient. Medical History Breast cancer Alcohol use disorder Glaucoma Social History Social History Household Members: None Housing: House Do you presently have visiting nurse or other home services: Yes Patient Tobacco Use Status: Former Tobacco user Advance Directives: Yes Advance Directives on File: Yes Advance Directives Date on File: 04/12/24 service: No Physical Exam ED Vital Signs: Vital Signs - 24 hr 10/11/24 15:30 10/11/24 17:18 10/11/24 18:58 Temperature 97.7 F 97.5 F Pulse Rate 68 67 Respiratory Rate 20 16 16 Blood Pressure 126/60 91/50 L Pulse Oximetry 94 97 Oxygen Delivery Method Room Air Room Air BMI result Body Mass Index 24.0 Const Other: Alert well-appearing no evidence of head trauma on exam Resp Effort & Inspection: normal respiratory effort Cardio Other: normal peripheral perfusion Skin Other: warm dry no rash Extrem Other: pain over right lateral hip no deformity holding the leg straight, no external or internal rotation the limb is not shortened Psych Other: cooperative Course Consultations Consultation #1: Adrianna toledo PA-C as followed admit to medicine NPO after midnight Time: 18:59 Medications Administered Discontinued Medications Generic Name Dose Route Start Last Admin Trade Name Freq PRN Reason Stop Dose Admin Morphine Sulfate 4 mg 10/11/24 17:11 10/11/24 17:18 Morphine Sulfate 4 Mg/Ml Cartridge IVPUSH 10/11/24 17:12 4 mg ONCE ONE Administration Protocol Ondansetron HCl 4 mg 10/11/24 17:11 10/11/24 17:18 Ondansetron Hcl 4 Mg/2 Ml Vial IVPUSH 10/11/24 17:12 4 mg ONCE ONE Administration Medical Decision Making Medical Decision Making MDM Narrative: 74-year-old female with a history of prior alcohol abuse, gait instability, prior TIA, who presents after mechanical fall. Patient was using a rolling walker, she had a laptop on the see which began to fall, she went to grab it, she subsequently fell, landing onto her right side. She now complains of right hip pain. The patient did not strike her head there was no loss of consciousness she is not on a blood thinner. problem: Underlying gait instability History: Per patient I have considered the following differential diagnoses: Fracture, dislocation, contusion, musculoskeletal strain Plan: We will be ordering imaging of the hip and pelvis, we will be screening basic labs in the event that she has an injury that require surgical intervention. We will be giving morphine for pain. I have independently reviewed the following tests: X-ray right hip pelvis: Findings: Moderately displaced and angulated right femoral neck fracture. No significant arthritic change. The soft tissues are unremarkable. IMPRESSION: Right femoral neck fracture. Labs: Chest x-ray:Findings: No consolidation or effusion. Heart size is normal. No acute fracture. IMPRESSION: 1. No acute findings. Lab Data 10/11/24 17:18 10/11/24 17:18 Labs: Lab Results 10/11/24 Range/Units 17:18 WBC 10.7 (4.8-10.8) X10*3/uL RBC 4.01 L (4.20-5.50) X10*6/uL Hgb 12.5 D (12.0-16.0) g/dl Hct 36.5 L (37.0-47.0) % MCV 91.0 (80.0-98.0) fL MCH 31.2 (27.0-33.0) pg MCHC 34.2 (31.0-35.0) g/dl RDW 14.3 (11.0-16.0) % Plt Count 279 (160-400) X10*3/uL MPV 9.4 (9.4-12.3) fL Immature Gran % (Auto) 0.6 H (0.0-0.4) % Neut % (Auto) 79.3 H (45-73) % Lymph % (Auto) 11.0 L (20-40) % Hamblen % (Auto) 6.4 (2-11) % Eos % (Auto) 2.4 (0-4) % Baso % (Auto) 0.3 (0-2) % Lymph # (Auto) 1.2 (1.2-4.9) X10*3/uL Hamblen # (Auto) 0.7 (0.1-1.2) X10*3/uL Eos # (Auto) 0.3 (0.0-0.4) X10*3/uL Baso # (Auto) 0.0 (0.0-0.2) X10*3/uL Abs Immat Gran (auto) 0.06 H (0.00-0.03) X10*3/uL Absolute Neuts (auto) 8.5 H (2.0-8.3) x10*3/uL Absolute Nucleated RBC 0.000 (0.0-0.012) X10*3/uL Nucleated RBC % (auto) 0.0 (0.0-0.2) /100WBC Sodium 139 (135-145) mmol/L Potassium 4.4 D (3.3-5.1) mmol/L Chloride 106 (96-108) mmol/L Carbon Dioxide 25 (22-29) mmol/L Anion Gap 12 (12-20) BUN 20 H (9-16) mg/dL Creatinine 1.03 (0.5-1.4) mg/dL Estim Creat Clear Calc 41.3 Estimated GFR 52 Random Glucose 93 (60-115) mg/dL Calcium 9.9 D (8.4-10.2) mg/dL Magnesium 1.8 (1.6-2.6) mg/dL Total Bilirubin 0.3 (0.0-1.0) mg/dL AST 19 (5-31) U/L ALT 10 (0-31) U/L Alkaline Phosphatase 85 (39-117) U/L Total Protein 6.9 (6.5-8.0) g/dL Albumin 4.0 (3.5-5.0) g/dL Discharge Plan Discharge Clinical Impression: Closed fracture of neck of right femur Patient Disposition: Admitted As Inpatient Print Language: Wolof
[2024-10-11 17:36] LABS: Basophils Percent Auto 0.3 % (0-2); Eosinophils Absolute Auto 0.3 X10*3/uL (0.0-0.4); Eosinophils Percent Auto 2.4 % (0-4); Hematocrit 36.5 % (37.0-47.0); Hemoglobin 12.5 g/dl (12.0-16.0); Imm Gran Abs Auto 0.06 X10*3/uL (0.00-0.03); Imm Gran Pct Auto 0.6 % (0.0-0.4); Lymphocytes Absolute Auto 1.2 X10*3/uL (1.2-4.9); Mean Corpuscular HGB Conc 34.2 g/dl (31.0-35.0); Mean Corpuscular Hemoglobin 31.2 pg (27.0-33.0); Mean Platelet Volume 9.4 fL (9.4-12.3); Monocytes Absolute Auto 0.7 X10*3/uL (0.1-1.2); Monocytes Percent Auto 6.4 % (2-11); Neutrophils Absolute Auto 8.5 x10*3/uL (2.0-8.3); Neutrophils Percent Auto 79.3 % (45-73); Platelet Count 279 X10*3/uL (160-400); Red Blood Count 4.01 X10*6/uL (4.20-5.50); Red Cell Distribution Width 14.3 % (11.0-16.0); White Blood Count 10.7 X10*3/uL (4.8-10.8)
[2024-10-11 17:45] LABS: Alanine Aminotransferase 10 U/L (0-31); Alkaline Phosphatase 85 U/L (39-117); Anion Gap 12 (12-20); Aspartate Amino Transferase 19 U/L (5-31); Bilirubin Total 0.3 mg/dL (0.0-1.0); Blood Urea Nitrogen 20 mg/dL (9-16); Calcium 9.9 mg/dL (8.4-10.2); Carbon Dioxide 25 mmol/L (22-29); Chloride 106 mmol/L (96-108); Creatinine Clr Calc Pharmacy 41.3; Estimated Glomerular Filt Rate 52; Glucose Random 93 mg/dL (60-115); Magnesium 1.8 mg/dL (1.6-2.6); Potassium 4.4 mmol/L (3.3-5.1); Sodium 139 mmol/L (135-145); Total Protein 6.9 g/dL (6.5-8.0)
--- OUTSIDE RECORDS SUMMARY | 2024-10-11 17:49 | XMS_ITS | Encounter Summary ---
Author Organization [facility] Address [address] [place] [address] Care Team Providers Care Librarian Name Role Phone Rufus Thornton MD Primary Care Provider [phone] Encounter Details Date Type Department Care Team (Latest Contact Info) Description 07/16/[address] [facility] - Main Lab [address] [place] [id number] Jeramy Voss PA [address] [address] Hydronephrosis with renal and ureteral calculous obstruction Social History Tobacco Use Types Packs/Day Years Used Date Smoking Tobacco: Never Assessed Comments Unknown Sex and Gender Information Value Date Recorded Sex Assigned at Not on file Legal Sex Female 9:09 PM EST Gender Identity Not on file Sexual Orientation Not on file documented as of this encounter Plan of Treatment Not on file documented as of this encounter Procedures Procedure Name Priority Date/Time Associated Diagnosis Comments CULTURE URINE Routine 07/16/2024 10:56 AM EST Hydronephrosis with renal and ureteral calculous obstruction documented in this encounter Results * Culture urine (07/16/2024 10:56 AM EST) Culture, Urine No growth 07/17/2024 8:03 AM EST [facility] Urine Urine specimen obtained by clean catch procedure / Unknown 07/16/2024 10:56 AM EST 07/16/2024 3:05 PM EST us Jeramy [facility] MICROBIOLOGY - GENERAL ORDER CATHERINE Final Result [facility]) [facility] [address] [place] [address], documented in this encounter Visit Diagnoses Diagnosis Hydronephrosis with renal and ureteral calculous obstruction documented in this encounter Care Teams Librarian Relationship Specialty Start Date End Date Rufus Thornton MD [address] [place] [id number] PCP - General Internal Medicine 05/31/24 documented as of this encounter
--- OUTSIDE RECORDS SUMMARY | 2024-10-11 17:49 | XMS_ITS | Clinical Summary ---
Author Organization [facility] Address [address] [place] [address] Phone Care Team Providers Care Windshield Wiper Repairer Name Role Phone Rufus Thornton MD Primary Care Provider [phone] Encounters Date Type Department Care Team Description 07/16/2024 Lab Requisition [facility] - Main Lab [address] [place] [address] Jeramy Voss PA Hydronephrosis with renal and ureteral calculous obstruction from Last 3 Months Social History Tobacco Use Types Packs/Day Years Used Date Smoking Tobacco: Never Assessed Comments Unknown Sex and Gender Information Value Date Recorded Sex Assigned at Not on file Legal Sex Female 9:09 PM EST Gender Identity Not on file Sexual Orientation Not on file Plan of Treatment Health Maintenance Due Date Last Done Comments Breast Cancer Screening 1950 COVID-19 Vaccine (#1) 1955 DTaP,Tdap,and Td Vaccines (1 - Tdap) 1969 Pneumococcal Vaccine: 50+ Ye ars (1 of 2 - PCV) 1969 Zoster Vaccines (1 of 2) 1969 Colorectal Cancer Screening: Colonoscopy 06/15/2022 Depression Screening 06/15/2022 Falls Risk Assessment 06/15/2022 Hepatitis C Screening 06/15/2022 Medicare Annual Wellness Visit 06/15/2022 Osteoporosis Screening (Bone Density Screening) 06/15/2022 Social Influencers of Health Screening 06/15/2022 Influenza Vaccine (#1) 2024 RSV Immunization Patients 60 + Years Old (1 - 1-dose 75+ series) 2025 HIB Vaccines Aged Out No longer eligi ble based on patient's age to complete this topic HPV Vaccines Aged Out No longer eligi ble based on patient's age to complete this topic Hepatitis A Vaccines Aged Out No long er eligible based on patient's age to complete this topic Hepatitis B Vaccines Aged Out No long er eligible based on patient's age to complete this topic IPV Vaccines Aged Out No longer eligi ble based on patient's age to complete this topic MMR Vaccines Aged Out No longer eligi ble based on patient's age to complete this topic Meningococcal ACWY Vaccine Aged Out N o longer eligible based on patient's age to complete this topic Meningococcal B Vacine Aged Out No lo nger eligible based on patient's age to complete this topic RSV Immunization Patients Un marina 20 months Aged Out No longer eligible b ased on patient's age to complete this topic Varicella Vaccines Aged Out No longer eligible based on patient's age to complete this topic Procedures Procedure Name Priority Date/Time Associated Diagnosis Comments CULTURE URINE Routine 07/16/2024 10:56 AM EST Hydronephrosis with renal and ureteral calculous obstruction from Last 3 Months Results * Culture urine (07/16/2024 10:56 AM EST) Culture, Urine No growth 07/17/2024 8:03 AM EST [facility] Urine Urine specimen obtained by clean catch procedure / Unknown 07/16/2024 10:56 AM EST 07/16/2024 3:05 PM EST us Jeramy [facility] MICROBIOLOGY - GENERAL ORDER CATHERINE Final Result [facility] [address] [place] [address], [place] [phone] from Last 3 Months Insurance MEDICARE [facility] [id number] Care Teams Windshield Wiper Repairer Relationship Specialty Start Date End Date Rufus Thornton MD [address] [place] [id number] PCP - General Internal Medicine 05/31/24
--- OUTSIDE RECORDS SUMMARY | 2024-10-11 17:49 | XMS_ITS | Data Portability ---
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 2495432165436 105 Active [address] , [address], [place], [address], [employer] 4 14:42:41 Heart murmur 00080652 Active [address] [employer] [address] [place] [address], [address], [place], [address], [employer] 4 14:43:30 Mediastinal lymphadenop athy 15993951 Active [address], [address], [place], [address], [facility] [employer] [facility] 4 14:43:36 Calcificati on of coronary artery 682000766 Active [address], [address], [place], [address], [facility] [employer] [facility] 4 14:43:48 Glaucoma 16309440 Active [address], [address], [place], [address], [facility] [employer] [facility] 4 14:44:00 Alcoholism 0150554 Active [address], [address], [place], [address], [facility] [employer] [facility] 4 14:44:52 Nodule of lung 995296494 Active [address], [address], [place], [address], [facility] [employer] [facility] 4 14:45:05 Thyroid nodule 763001277 Active [address], [address], [place], [address], [facility] [employer] [facility] 4 14:45:09 Nodule of adrenal cortex 688251813 Active [address], [address], [place], [address], [facility] [employer] [facility] 4 14:45:19 Steatosis of liver 447670569 Active [address], [address], [place], [address], [facility] [employer] [facility] 4 14:45:27 Hiatal hernia 86657447 Active [address], [address], [place], [address], [facility] [employer] [facility] 4 14:45:40 Gastric ulcer 881031916 Active [address], [address], [place], [address], [facility] [employer] [facility] 4 14:45:50 Adult failure to thrive syndrome 928274978 Active 2023 [address] , [address], [place], [address], [facility] [employer] [facility] 4 14:47:46 Falls 153551993 Active 2023 [facility] [address] , [address], [place], [address], [facility] [employer] [facility] 4 14:47:54 Urinary tract infectious disease 07855832 Active [address], [address], [place], [address], [facility] [facility] 4 14:47:57 History of calculus of kidney 383695596 Active [address], [address], [place], [address], [facility] [facility] 4 14:48:39 Urinary tract obstruction 6552428 Active [address], [address], [place], [address], [facility] [employer] 4 10:38:43 Fracture of clavicle 68970210 Active 2023 MEHDI DEE NP [address] [facility], [address], [place], [address], [facility] [employer] 4 13:48:46 Anemia 952806214 Active 2023 Jacki Orosco MD [address] [place] [address], [address], [place], [address], [facility] [employer] 4 00:44:42 Depressive disorder 17198189 Active 2023 Jacki Orosco MD [address] [place] [address], [address], [place], [address], [facility] [employer] 4 00:47:03 Problem Notes None recorded. Procedures Surgical History Date Name Laterality Status Provider Name and Address Organization Details Recorded Time Cholecystectomy completed [address], [address], [place], [address], [facility] [employer] 4 14:46:01 extraction of cataract completed GI NA [address], [address], [place], [address], [facility] [employer] 4 14:46:07 needle aspiration of breast complete d CHINO [address], [address], [place], [address], [facility] [employer] 4 14:46:22 lumpectomy of breast completed CHINO [address], [address], [place], [address], [facility] [employer] 4 14:46:28 esophagogastroduodenoscopy completed CHINO [address], [address], [place], [address], [facility] [employer] [facility] 4 14:46:33 ureteroscopy completed CH[facility] [address], [address], [place], [address], [facility] [employer] 4 14:47:06 cystoscopy completed [address], [address], [place], [address], [employer] 4 14:47:16 Imaging Results None recorded. Procedure [...] 03/25/2024 162.56 cm 108 mm[Hg] 70 mm[Hg] CHINO[address], [address], [place], [address], [employer] 03/25/2024 11:25:15 Date Recorded Body height Body mass index (BMI) Body weight Heart rate Respiratory rate Body temperature Oxygen saturation Oxygen saturation in Arterial blood by Pulse oximetry Systolic blood pressure Diastolic blood pressure Provider Name and Address Organization Details Last Updated DateTime 162.56 cm 24.9 kg/m2 76171.8 9 g 82 /min 16 /min 97.3 [degF] 96 % 96 % 118 mm[Hg] 68 mm[Hg] MEHDI DEE NP [address] [facility], [address], [place], [address], [employer] [facility] 13:54:41 Date Recorded Body height Body mass index (BMI) Body weight Heart rate Respiratory rate Body temperature Oxygen saturation Oxygen saturation in Arterial blood by Pulse oximetry Systolic blood pressure Diastolic blood pressure Provider Name and Address Organization Details Last Updated DateTime 162.56 cm 22.1 kg/m2 97841.4 2 g 61 /min 17 /min 97.4 [degF] 94 % 94 % 115 mm[Hg] 65 mm[Hg] Jacki Orosco MD [address] [facility], [address], [place], [address], [employer] [facility] 23:50:07 Date Recorded Body height Systolic blood pressure Diastolic blood pressure Provider Name and Address Organization Details Last Updated DateTime 05/11/2024 162.56 cm 106 mm[Hg] 56 mm[Hg] CHINO [address] [facility], [facility] [address], [place], [address], [employer] 05/11/2024 10:50:44 Social History Question Answer Notes LastModified by Organization Details LastModified Time Tobacco Smoking Status Former Smoker quit 2017 Jacki Orosco MD [address] [facility], [facility] [address], [place], [address], [employer] 03/22/2024 18:47:44 Do You Have An Advance [...] Stays With Her, She Is Looking Into [facility]. Information not available 03/22/2024 Legal Guardian? No Information not available 03/22/2024 Do You Have A Medical Power Of Services Coordinator? Yes Information not available 03/22/2024 What Was [...] Recorded Time Tdap 6 completed [facility] 03/24/2024 16:24:22 Pneumococcal conjugate PCV 13 3 completed Cirilo blandon [facility] 03/24/2024 16:24:41 influenza, unspecified formulation 2 completed [facility] 03/24/2024 16:24:57 influenza, unspecified formulation 3 completed [facility] 03/24/2024 16:25:13 SARS-COV-2 (COVID-19) vaccine, UNSPECIFIED 1 completed [facility] 03/24/2024 16:25:37 SARS-COV-2 (COVID-19) vaccine, UNSPECIFIED 1 completed [facility] Vlaera [facility] 03/24/2024 16:25:48 SARS-COV-2 (COVID-19) vaccine, UNSPECIFIED 1 completed [facility] 03/24/2024 16:25:59 SARS-COV-2 (COVID-19) vaccine, UNSPECIFIED 2 completed [facility] 03/24/2024 16:26:14 SARS-COV-2 (COVID-19) vaccine, UNSPECIFIED 3 completed [facility] 03/24/2024 16:26:29 zoster, unspecified formulation 1 completed [facility] 03/24/2024 16:26:41 zoster, unspecified formulation 2 completed [facility] 03/24/2024 16:26:55 Past Encounters Encounter ID Performer Location Encounter Start Date Encounter Closed Date Diagnosis/Indication Diagnosis SNOMED-CT Code Diagnosis ICD10 Code Diagnosis Note [id number] [place] [address] [address] [place] [address] 03/18/2024 10:32:23 03/22/2024 12:33:58 Fracture of multiple ribs 1829595 S22.43XA oxycodone 5 mg TID PRN- she would like dose nowanterol ateral left 4th through 7th ribs with left seventh rib mildly displaced without pneumothor ax.lidocai ne patch dailymonit or painPT/OT eval and treatencou rage deep breathing, IS as able 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 2139113091 157634 C50.912 anastrozol e 1 mg dailyfollo w up with onc as scheduled Alcoholism 5049988 F10.2 0 patient states in remission but has positive ETOH screen one month agoCT suggestive of pancreatit is due to alcohol usecontinu e zyvox BID due to UTI and possible pancreatit isthiamine daily x 14 daysfolic acid daily x 14 days Glaucoma 03009826 H40.9 cosopt BIDxalatan qhs Adult fail ure to thrive syndrome 014981132 R62.7 folic acid 1 mg daily x 14 daysMVI [id number] dailythiam ine daily x 14 daysferrou s sulfate 325 mg daily Edema of l ower extremity 453533626 R60.0 DC lasix 20 mg daily- no edemaeleva te as ablemonito r weights Urinary tr act obstruction 9565026 N13.9 gemtesa 75 mg dailymonit or for outflow issueshas apt on 03/22- can get her own transporta tion and will tell us when she is leaving Urinary tr act infectious disease 36550957 N39.0 zyvox BID x 10 days to end on 03/27- added stop date nowmonitor urinary sxs [id number] MD DUDLEY [address] [place] [address] 03/22/2024 18:20:15 03/24/2024 09:30:25 Fracture of multiple ribs 8710460 S22.41XD Pain improving. Continue lidocaine patch daily, APAP 650 mg q 6 hrs prn, and oxycodone 5 mg TID prn.Encour age use of I carolyn.Kate tor pain and resp status. Alcoholism 2629503 F10.2 0 Seems to have accepted that even mouthwash is the same thing as drinking vodka.No signs of withdrawal inpt.Susy nue thiamine 100 mg qd x 14 days and folic acid 1 gm qd x 14 daysContin ue to encourage abstinence . 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 Glaucoma 43924068 H40.89 Continue drops as ordered.F/ U with eye Adult fail ure to thrive syndrome 367284168 R62.7 Likely due to poor po intake at home, possibly due to drinking.E ncourage healthy eating.Con tinue supplement s as below.Diet ician involved. Edema of l ower extremity 012687117 R60.0 None today.Kate tor Urinary tr act obstruction 0805573 N13.8 S/P dilation, stent and lithotrips y 4 wks ago.Contin ue gemtesa 75 mg qdSaw uro today Urinary tr act infectious disease 19801985 N30.00 Continue linezolid 600 mg BID until 03/27.ID said to complete 10 day course, but written as for 10 days on d/c med list, so fine to continue an extra few days.Monit or urinary sxs, no further tx if no sxs. Anemia 768340259 D64.89 New dx for this pt.B12 was high inpt, so unclear why B12 was started, other supplement s due to EtOHism.No iron or ferritin checked, so unclear if iron deficiency .Will continue FeSO4 325 mg qd for now and cyanocobal nesbitt 5000 mcg qd.Check iron, ferritin, TIBC and retic count with next labs. [id number] [facility] SUE [address] [place] [address] 03/25/2024 11:11:15 03/26/2024 12:34:25 Fracture of multiple ribs 8060726 S22.41XD Pain improvingC ontinue lidocaine patch daily, APAP 650 mg q 6 hrs prn, and oxycodone 5 mg TID prnEncoura ge use of I carolyn at home Adult fail ure to thrive syndrome 035865450 R62.7 Likely due to poor po intake at home, possibly due to drinkingEn courage healthy eating.Con tinue supplement s as below Anemia 303059448 D64.89 B12 was high inpt, so unclear why B12 was started, other supplement s due to EtOHism.No iron or ferritin checked, so unclear if iron deficiency - PCP to do outptWill continue FeSO4 325 mg qd for now and cyanocobal nesbitt 5000 mcg qd. Alcoholism 1649207 F10.2 0 Continue thiamine 100 mg qd x 14 days and folic acid 1 gm qd x 14 daysContin ue to encourage abstinence . Urinary tr act infectious disease 60423329 N30.00 Continue linezolid 600 mg BID until 03/27.ID said to complete 10 day course, but written as for 10 days on d/c med list, so fine to continue an extra few days. 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 Glaucoma 12032029 H40.89 Continue drops as ordered.F/ U with eye [id number] MEHDI DEE NP [facility] on [address] [place] [address] 05/01/2024 12:03:59 05/03/2024 19:46:58 Falls 979670508 R29.6 PT OT eval and treatfall precaution sfrequent safety checks Fracture of clavicle 581 10294 S42.002A oxycodone 2.5 mg q6hr prnsling for comfortPT OT eval and treat Glaucoma 02091810 H40.89 latanapros t ou hsdorzolam zina/timolo l ou bid Urinary tr act infectious disease 93409035 N30.00 nitrofuran toin 100 mg bid to 05/07 Alcoholism 9509575 F10.2 0 thiamine 100 mg dailyiron 325 mg dailycyanc obalamin 2500 dailynaltr exone 50 mg dailybupro pion xl 300 mg dailyConti nue to encourage abstinence 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 Fracture of clavicle 581 70017 S42.002A Continue oxycodone 2.5 mg q 6 hrs prn and APAP 650 mg q 6 hrs prn.Use sling for comfortPT/ OT as above.F/U with ortho as planned. Urinary tr act infectious disease 16439885 N30.00 U/A looked + in ED, but cx grew mixed milind.Cont inue nitrofuran toin 100 mg BID until 05/07Monit or urinary sxs. Alcoholism 9709028 F10.2 0 Apparently is still drinking, perhaps mouthwash as she told me before, I didn't ask her tonight.Co ntinue thiamine 100 mg qd and naltrexone 50 mg qdContinue to encourage abstinence Anemia 824909747 D64.89 New dx for this pt. 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 Glaucoma 57383609 H40.89 Continue drops as ordered.F/ U with eye Edema of l er extremity 107729540 R60.0 None today.Kate tor Depressive disorder 4963 9007 F33.8 Wellbutrin increased from 150 mg qd to 300 mg qd on 03/29.Mood good today.Kate tor mood.Consu lt psych prn [id number] CHINO Law at [facility] on [address] [place] [address] 05/11/2024 10:50:12 05/12/2024 16:37:14 Falls 813685326 R29.6 see HPIdoing well with PT Fracture of clavicle 581 91248 S42.002A Continue oxycodone 2.5 mg q 6 hrs prn and APAP 650 mg q 6 hrs prn.Use sling for comfortPT/ OT as above.F/U with ortho as planned. Alcoholism 9930040 F10.2 0 Apparently is still drinking at homeContin ue thiamine 100 mg qdDC naltrexone 50 mg qd- see HPIwill send home with RX to fill at her pharmacyCo ntinue to encourage abstinence [id number] CH[facility] Law at [facility] on [address] [facility] [place] [address] 05/12/2024 12:15:23 05/13/2024 13:21:25 Falls 264089360 R29.6 see HPIdoing well with PT- transfer to [facility] today Fracture of clavicle 581 42424 S42.002A Continue oxycodone 2.5 mg q 6 hrs prn and APAP 650 mg q 6 hrs prn.Use sling for comfortPT/ OT as above.F/U with ortho as planned. 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 3769599669 158828 C50.812 anastrazol e 1 mg daily Urinary tr act obstruction 2703978 N13.8 vibegron 75 mg dailymonit or urine output Health Concerns Section Related Observation LastModified by Organization Detai ls LastModified Time None Recorded Concern Status LastModified by Organization Details LastModified Time None Recorded Advance Directives Directive N: Payers Encounter Date Sequence Insurance Name Policy Number Policy Bee Covered Member ID Bee Member ID Guarantor Name 03/25/2024 1 MEDICARE [place]: [employer] Gema Perry [id number] 2 Gema Perry 05/01/2024 1 MEDICARE [place]: [employer] Gema Perry [id number] 2 Gema Perry 05/06/2024 1 MEDICARE [place]: [employer] Gema Perry [id number] 2 Gema Perry 05/11/2024 1 [place] [facility] Gema Perry [id number] 2 Gema Perry 05/12/2024 1 [place]: [facility] Gema Perry [id number] 2 Gema Perry Notes Date Note Type [...] ok to go tomorrow. CHINO TERRAZAS [address] [facility], [address], [place], [address], [employer] 03/25/2024 11:29:49 05/01/2024 text/html seen today for [...] hospital notes reviewed MEHDI DEE NP [address] [facility], [address], [place], [address], [employer] 05/01/2024 14:05:21 05/06/2024 text/html This is a 74 yo woman who is here for rehab after a mechanical fall resulting in a left clavicle fx.[facility] described as losing her balance when she turned around to get her walker. She reported many recent falls. Of note [facility] a fall and slurred speech. At [...] 04/30. Of note, she was [facility]ad[facility]or a fall with rib fxs and a UTI. And then was at [facility] from 03/17-03/26 and was dxed with Covid on 03/26. D/C'd home to isolate. Had [...] (?), FTT, and glaucoma. Jacki Orosco MD [address] [place] [address], [address], [place], [address], [employer] 05/10/2024 00:47:36 05/11/2024 text/html This is [...] in remission (?), FTT, and glaucoma. CHINO [address], [place], [address], [employer] 05/11/2024 11:08:58 05/12/2024 text/html This is a [...] without it. She will be transferring to [facility] today and eventually move to [facility] and then [place] if possible. She offers [...] remission (?), FTT, and glaucoma. CHINO TERRAZAS [address] [place] [address], [address], [place], [address], [employer] 05/12/2024 13:37:42 OBGyn Episode No OBEpisode recorded.
--- OUTSIDE RECORDS SUMMARY | 2024-10-11 17:49 | XMS_ITS | Encounter Summary ---
Author Organization [facility] Address [address] [place] [address] Care Team Providers Care Gis Developer Name Role Phone Rufus Thornton MD Primary Care Provider [phone] Encounter Details Date Type Department Care Team (Late st Contact Info) Description 05/31/2024 Lab Requisition [facility] - Main Lab [address] [place] [id number] Rufus Thornton MD [address] [place] [id number] Gout, unspecified Social History Tobacco Use Types Packs/Day Years [...] Procedure Name Priority Date/Time Associated Diagnosis Comments COMPLETE BLOOD COUNT Routine 05/31/2024 5:14 AM EST Gout, unspecified BASIC METABOLIC PANEL Routine 05/31/2024 5:14 AM EST Gout, unspecified documented in this encounter Results * (ABNORMAL) Basic metabolic panel (05/31/2024 5:14 AM EST) Sodium 140 133 - 145 mmol/L LAB CHEMISTRY METHOD 05/31/2024 10:00 AM EST [facility] ([facility] Potassium 4.1 3.5 - 5.5 mmol/L LAB CHEMISTRY METHOD 05/31/2024 10:00 AM [facility] Chloride 108 96 - 110 mmol/L LAB CHEMISTRY METHOD 05/31/2024 10:00 AM [facility] CO2 26 21 - 32 mmol/L LAB CHEMISTRY METHOD 05/31/2024 10:00 AM [facility] Anion Gap 6 3 - 11 LAB CHEMISTRY METHOD 05/31/2024 10:00 AM [facility] Glucose 96 70 - 100 mg/dL LAB CHEMISTRY METHOD 05/31/2024 10:00 AM [facility] BUN 15 5 - 25 mg/dL LAB CHEMISTRY METHOD 05/31/2024 10:00 AM [facility] Creatinine 1.04 0.50 - 1.10 mg/dL LAB CHEMISTRY METHOD 05/31/2024 10:00 AM [facility] eGFR 57(L) >=60 mL/min/1. 73m2 LAB CHEMISTRY METHOD 05/31/2024 10:00 AM [facility] Comment:Calculation based on the??Chronic Kidney Disease Epidemiology Collaboration (CKD-EPI) equation refit??without adjustment for race. BUN/Creatinine Ratio 14.4 LAB CHEMISTRY METHOD 05/31/2024 10:00 AM [facility] Calcium 9.6 8.5 - 10.5 mg/dL LAB CHEMISTRY METHOD 05/31/2024 10:00 AM [facility] Blood Venous blood specimen / Unknown Venipuncture / Unknown 05/31/2024 5:14 AM EST 05/31/2024 9:26 AM EST us Rufus Thornton MD LAB BLOOD ORDERABLES Final Res ult [facility] [address] [place] [address], [place] [phone] * (ABNORMAL) Complete blood count (05/31/2024 5:14 AM EST) WBC 6.3 4.8 - 10.8 K/mcL LAB HEMETOLOGY METHOD 05/31/2024 9:39 AM [facility] RBC 3.70(L) 3.80 - 4.80 M/mcL LAB HEMETOLOGY METHOD 05/31/2024 9:39 AM [facility] Hemoglobin 11.8 11.5 - 16.0 g/dL LAB HEMETOLOGY METHOD 05/31/2024 9:39 AM [facility] Hematocrit 37.1 35.0 - 47.0 % LAB HEMETOLOGY METHOD 05/31/2024 9:39 AM [facility] MCV 99.5(H) 79.0 - 98.0 FL LAB HEMETOLOGY METHOD 05/31/2024 9:39 AM [facility] MCH 31.6 27.0 - 32.0 pcg LAB HEMETOLOGY METHOD 05/31/2024 9:39 AM [facility] MCHC 31.8(L) 32.0 - 37.0 g/dL LAB HEMETOLOGY METHOD 05/31/2024 9:39 AM [facility] RDW 13.3 11.0 - 15.0 % LAB HEMETOLOGY METHOD 05/31/2024 9:39 AM [facility] Platelets 275 130 - 400 K/[facility] LAB HEMETOLOGY METHOD 05/31/2024 9:39 AM [facility] MPV 10.1 7.0 - 11.0 FL LAB HEMETOLOGY METHOD 05/31/2024 9:39 AM [facility] NRBC 0.0 <1.0 % LAB HEMETOLOGY METHOD 05/31/2024 9:39 AM [facility] NRBC Absolute 0.00 <0.10 K/mcL LAB HEMETOLOGY METHOD 05/31/2024 9:39 AM [facility] Blood Venous blood specimen / Unknown Venipuncture / Unknown 05/31/2024 5:14 AM EST 05/31/2024 9:26 AM EST Rufus Thornton MD LAB BLOOD ORDERABLES Final Res ult Performing Organization Address City/[facility]/ZIP Co de Phone Number [facility] ([facility]) [facility] [address] [place] [address], documented in this encounter Visit Diagnoses Diagnosis Gout, unspecified documented in this encounter Care Teams Gis Developer Relationship Specialty Start Date End Date Rufus Thornton MD [address] [place] [id number] PCP - General Internal Medicine 05/31/24 documented as of this encounter
[2024-10-11 18:58] VITALS: BP 91/50; PULSE 67; RESP 16; TEMP 36.4; O2SAT 97
[2024-10-11 19:55] VITALS: BP 117/56; PULSE 69; RESP 16; TEMP 36.6; O2SAT 97
[2024-10-11 19:57] VITALS: RESP 16
[2024-10-11] MEDS: 0.9 % Sodium Chloride 1,000 ML 999 ML IV (19:57)
--- NOTE | 2024-10-11 19:57 | P.HPHOSP_ITS ---
History of Present Illness Date of Service: 10/11/24 Attending physician on admission: Cooper Combs Chief Complaint: pain R lower ext s/p fall Pt is a 74 yo female with PMH glaucoma, gout, ENMANUEL, VIT D deficiency, ETOH abuse in remission since Apr 2024 on naltrexone, nicotine use vaping only, previous smoking hx stopped 4 years prior, 1PPD for 40 years, breast cancer currently on hormone therapy after undergoing lumpectomy, chemotherapy and radiation, urinary incontinence, cholecystectomy presents to ED via EMS s/p witnessed accidental fall while using walker resulting in R femur fracture. Pt was moving to her new independent living apartment at [facility] and attempted to catch her computer resting on the seat of pt's walker. Pt was not able to catch the computer and fell to her right side, resulting in immediate pain in upper right leg. Pt was not able to move R leg. Pt did not impact the head or cervical collar area. Pt denies any pain in cercial, thoracic, lumbar or sacral spine. Pt is reporting 4/10 R upper leg pain. Pt states she does well with oxycodone. Review of Systems 2 Review of Systems: Pt denies chest pain, SOB at rest, dysphasia, memory issues, MORENO, visual changes (wears glasses), has very poor dentition. Pt denies any constipation, diarrhea, N/V but is chronically incontinence of urine. Pt denies hx of allergies to food or medicine. Yes all other systems are reviewed and are negative FOR[facility]LY [facility], [facility]1983 Medical History (Updated 10/11/24 @ 20:32 by Kelly Cheney, MESERET-) Breast cancer Alcohol use disorder Glaucoma Pertinent family history: Mother: passes age 57 esophageal cancer Father: passed age 37 MVA Social History Household Members: None Housing: House Do you presently have visiting nurse or other home services: Yes Patient Tobacco Use Status: Former Tobacco user Advance Directives: Yes Advance Directives on File: Yes Advance Directives Date on File: 04/12/24 service: No Ebola Risk: Travel/Contact With Anyone From Affected Area/s: No Has Patient Experienced Ebola Symptoms: No Meds Allergies Allergy/AdvReac Type Severity Reaction Status Date / Time No Known Allergies Allergy Verified 10/11/24 15:30 Active Medications: Current Medications Acetaminophen (Acetaminophen 325 Mg Tablet) 650 mg PO Q6H PRN PRN Reason: Pain, Mild 1-3,fever,headache Cefazolin Sodium/Dextrose (Ancef) 2 gm in 50 mls @ 100 mls/hr IV PREOP ONE Stop: 10/12/24 14:45 Sodium Chloride (Ns) 1,000 mls @ 999 mls/hr IV .Q1H1M CAIN Stop: 10/11/24 20:30 Sodium Chloride (Ns) 1,000 mls @ 100 mls/hr IVCONT .Q10H CAIN Magnesium Hydroxide (Milk Of Magnesia 30 Ml Oral.Susp) 30 ml PO DAILY PRN PRN Reason: Constipation Melatonin (Melatonin 3 Mg Tablet) 6 mg PO BEDTIME PRN PRN Reason: Insomnia Nicotine (Nicotine 7 Mg Patch.Td24) 7 mg TRANSDERMA DAILY CAIN Ondansetron HCl (Ondansetron Hcl 4 Mg/2 Ml Vial) 4 mg IVPUSH Q8H PRN PRN Reason: Nausea and Vomiting Oxycodone HCl (Oxycodone Hcl Immed Release 5 Mg Tablet) 5 mg PO Q6H PRN PRN Reason: Pain, Severe (Pain Scale 7-10) Senna (Sennosides 8.6 Mg Tablet) 17.2 mg PO BEDTIME [facility] Sodium Chloride (0.9 % Sodium Chloride Flush 3 Ml Syringe) 3 ml IVFLUSH QSHIFT [facility] Home Medications ?Medication ?Instructions ?Recorded ?Confirmed ?Last Taken ?Type anastrozole 1 mg tablet 1 mg PO DAILY 04/12/24 10/11/24 04/11/24 History bupropion HCl 150 mg 24 hr tablet, 300 mg PO DAILY 04/12/24 10/11/24 04/11/24 History extended release ferrous sulfate 325 mg (65 mg 325 mg PO DAILY 04/12/24 10/11/24 04/11/24 History iron) tablet (Iron (ferrous sulfate)) allopurinol 100 mg tablet 100 mg PO DAILY 10/11/24 10/11/24 Unknown History calcium carbonate 600 mg PO DAILY 10/11/24 10/11/24 Unknown History cyanocobalamin (vitamin B-12) 2,500 mcg PO DAILY 10/11/24 10/11/24 Unknown History 2,500 mcg tablet dorzolamide-timolol (PF) 2 %-0.5 % 1 drp ophthalmic (eye) BID 10/11/24 10/11/24 Unknown History eye drops in a dropperette latanoprost 0.005 % eye drops 1 drp ophthalmic (eye) BEDTIME 10/11/24 10/11/24 Unknown History multivitamin 1 tab PO DAILY 10/11/24 10/11/24 Unknown History naltrexone 50 mg tablet 50 mg PO DAILY 10/11/24 10/11/24 Unknown History thiamine HCl (vitamin B1) 100 mg 100 mg PO DAILY 10/11/24 10/11/24 Unknown History tablet Physical Exam 2 Vital Signs and Narrative: Vital Signs: Last Vital Signs Temp 97.8 F 10/11/24 19:55 Pulse 69 10/11/24 19:55 Resp 16 10/11/24 19:55 BP 117/56 L 10/11/24 19:55 Pulse Ox 97 10/11/24 19:55 O2 Del Method Room Air 10/11/24 19:55 BMI result Body Mass Index 24.0 Alert and orientated X3, reporting 4/10 R upper leg pain Neuro: CN II-X11 intact, no deficits, visual acuity intact. Sensation intact RLE, Full ROM in cervical collar EYES: PERRLA, EOM intact,m glasses on ENT: hearing intact, no issues with swallowing, uvula midline, lips moist, nares patent no epistaxis Cardiac: S1 S2 RRR, no murmur, no JVD, no edema in Lower ext Pulmonary: lungs clear to auscultation B Abdominal: BS active in all 4 quadrants, no guarding, tenderness, rebounding MSK: strength 5/5 upper extremities, pt is not able to move RLE : no CVA tenderness no bladder distension Extremities: no edema in lower extremities, PT and DP pulses palpable +2. No bruising noted R hip area or any other area. Left leg and upper extremities with full ROM. Psych: mood stable, judgment and insight good Skin: intact, no open wounds Results Labs 10/11/24 17:18 10/11/24 17:18 Labs: Laboratory Results - last 24 hr 10/11/24 17:18 MCV 91.0 MCH 31.2 MCHC 34.2 RDW 14.3 Plt Count 279 MPV 9.4 Immature Gran % (Auto) 0.6 H Neut % (Auto) 79.3 H Lymph % (Auto) 11.0 L [place] % (Auto) 6.4 Eos % (Auto) 2.4 Baso % (Auto) 0.3 Lymph # (Auto) 1.2 [place] # (Auto) 0.7 Eos # (Auto) 0.3 Baso # (Auto) 0.0 Abs Immat Gran (auto) 0.06 H Absolute Neuts (auto) 8.5 H Absolute Nucleated RBC 0.000 Nucleated RBC % (auto) 0.0 Anion Gap 12 Estim Creat Clear Calc 41.3 Estimated GFR 52 Random Glucose 93 Calcium 9.9 D Magnesium 1.8 Total Bilirubin 0.3 AST 19 ALT 10 Alkaline Phosphatase 85 Total Protein 6.9 Albumin 4.0 ECG Prior ECG tracings: not available for review (ordered) Imaging Radiologist's Impressions: R hip Findings: Moderately displaced and angulated right femoral neck fracture. No significant arthritic change. The soft tissues are unremarkable. IMPRESSION: Right femoral neck fracture. CHest Negative for acute findings Assessment and Plan (1) Closed fracture of neck of right femur: Qualifiers: Encounter type: initial encounter Qualified Code(s): S72.001A - Fracture of unspecified part of neck of right femur, initial encounter for closed fracture Status: Acute (2) Hypotension: Qualifiers: Hypotension type: unspecified hypotension type Qualified Code(s): I95.9 - Hypotension, unspecified Status: Acute (3) Glaucoma: Qualifiers: Glaucoma type: unspecified Laterality: bilateral Qualified Code(s): H 40.9 - Unspecified glaucoma Status: Acute (4) Nicotine dependence: Qualifiers: Nicotine product type: other Substance use status: uncomplicated Q ualified Code(s): F17.290 - Nicotine dependence, other tobacco product, uncomplicated Status: Acute (5) History of alcohol use disorder: Status: Acute Plan Pt is a 74 yo female with PMH glaucoma, Gout, ENMANUEL, Vit D deficiency, ETOH abuse in remission since Apr 2024 on naltrexone, nicotine use vaping only, previous smoking hx stopped 4 years prior, 1PPD for 40 years, breast cancer currently on hormone therapy after undergoing lumpectomy, chemotherapy and radiation, urinary incontinence, cholecystectomy being admitted for repair of R femoral fracture with orthopedics in AM. 1. Closed fracture of neck of right femur Pain Control: adjusted morphine dosing noting low Blood pressure to 2 mg IV Q3H for severe pain, oxycodone 5 mg Q4 H moderate pain, acetaminophen every 6 hours. Avoiding NSAIDS due to need for surgery NPO at midnight, ortho planning on surgery in AM Type and screen in AM, pt is not on blood thinners, no DVT prophylaxis order pre-operatively (reviewed with Hospitalist attending, Dr Combs) CBC, CMP in AM Pre op orders per Orthopedics in AM ECG ordered, checking Qtc pt is on SSRI Neurovascular exam reassuring, sensation intact Pt has poor dentition, will likely need future extractions, to be reviewed with anesthesiology Pt has hx of Dexa scan, was told she may have early evidence of osteoporosis, will check Phosphorous level, pt is on VIT D3 2. Hypotenison BP 91 systolic, likely from IV morphine dosing, no overt issues for patient as pt received 1L of IVF and systolic improved to 99 VS q4h Will continue IVF at 100 mls per hour Adjusted IV morphine to lower dose more frequently and added oxycodone po to help with pain mgmt 3. Glaucoma Pt indicates that she takes eye drops daily, not currently listed on Med Rec Will await arrival of daughter or completion of MED REC in order to prescribe correct medication, pt could not recall what she was taking 4. Nicotine Dependence Pt continues to Vape nicotine 1-2 X per day Pt stopped smoking cigarettes about 4 years ago Low dose nicotine patch ordered 7 mgs TD Pt is on bupropion ECG ordered for pre-op and to check Qtc 5. HX of alcohol use disorder Pt states she takes naltrexone, last dose am today. Pt is not sure of the dose This is not listed on pt's med list Will await med list to be reconciled This will need to be held most likely as pt will require narcotics for pain mgmt 6. Hx pf Breast Cancer Pt currently on hormone therapy, anastrozole, currently ordered Pt has mammogram every 6 months, completed lumpectomy, chemo and radiation in the past DVT prophylaxis: contraindicated for surgery in AM PPI: ordered Pt will require inpatient hospitalization for orthopedic surgery to repair R femur fx. Total time managing care of this patient today: 40 minutes. Quality Stroke Does the patient have a stroke diagnosis?: No Reason for No Anti-thrombotic by Day Two: Contraindicated VTE Prior VTE?: No VTE Risk Level:: Medical - moderate - high VTE Device Contraindication: N/A - Device Ordered VTE Drug Contraindication: Treatment Not Indicated
[2024-10-11] MEDS: 0.9 % Sodium Chloride 1,000 ML 100 ML IVCONT (20:03)
--- NOTE | 2024-10-11 20:27 | PHA.MEDREC ---
Pharmacy Consult ? Medication Reconciliation Pharmacy has completed the medication reconciliation. LIST FROM [facility] WHICH MATCHED CLAIM HX
[2024-10-11] MEDS: Sennosides 8.6 MG TABLET 17.2 MG PO (20:50)
[2024-10-11] MEDS: Acetaminophen 325 MG TABLET 650 MG PO (20:50)
[2024-10-11] MEDS: oxyCODONE HCl Immed Release 5 MG TABLET PO (22:12)
[2024-10-11] MEDS: Dorzolamide HCl 2 % Ophth Sol 10 ML DRPBTL 1 DROP EYE-BOTH (22:46)
[2024-10-11] MEDS: 0.9 % Sodium Chloride Flush 3 ML SYRINGE IVFLUSH (23:32)
[2024-10-12] VITALS (12 sets, daily range): BP systolic 108–144; BP diastolic 43–64; PULSE 59–80; RESP 12–19; TEMP 36.4–37; O2SAT 92–98
[2024-10-12] MEDS: Morphine Sulfate 2 MG/ML CARTRIDGE IVPUSH ×2 (02:19→07:51)
--- NOTE | 2024-10-12 05:00 | ECG_ITS ---
Test Reason : pre op Blood Pressure : */* mmHG Vent. Rate : 68 BPM Atrial Rate : 68 BPM P-R Int : 194 ms QRS Dur : 76 ms QT Int : 432 ms P-R-T Axes : 78 16 35 degrees QTcB Int : 459 ms Normal sinus rhythm Low voltage QRS Borderline ECG When compared with ECG of 11-Oct-2024 20:04, No significant changes seen Referred By: Kelly Cheney Electronically Signed By: BRINA ALLEN
[2024-10-12] MEDS: Pantoprazole Sodium 40 MG/10 ML VIAL IVPUSH (05:46)
[2024-10-12] MEDS: Ferrous Sulfate 324 MG TABLET.DR PO (07:51)
[2024-10-12] MEDS: allopurinoL 100 MG TABLET PO (07:51)
[2024-10-12] MEDS: Nicotine 7 MG PATCH.TD24 TRANSDERMA (07:51)
[2024-10-12] MEDS: buPROPion HCl XL 300 MG TAB.ER.24H PO (07:51)
[2024-10-12] MEDS: Multivitamin TABLET 1 TAB PO (07:51)
[2024-10-12] MEDS: Cyanocobalamin (Vitamin B-12) 500 MCG TABLET 2500 MCG PO (07:51)
[2024-10-12] MEDS: Thiamine HCL 100 MG TABLET PO (07:51)
[2024-10-12] MEDS: Calcium Carbonate 750 MG TAB.CHEW PO (07:52)
--- NOTE | 2024-10-12 07:52 | PM.CNOR ---
History of Present Illness HPI Consult date: 10/12/24 Chief complaint: fall with R femur fx Narrative: 74 yo female admitted to the medical service after sustaining a fall resulting in a right femoral neck fracture. She states she was moving from assisted living to independent care when when was using her walker and mentioned her computer started to fall and she also fell trying catch it. She states once she fell she was unable to get up and ambulate. She states she was transported to the ED via [facility]. xrays confirmed a right femoral neck fracture. Orthopedics was consulted for further recommendtaions. She lives at [facility], ambulates with a walker at baseline. She vapes, quit smoking 5 years ago. Denies alcohol or recreational drug use. Review of Systems Review of Systems: Yes all other systems are reviewed and are negative [facility] Past Medical History Medical History Breast cancer Alcohol use disorder Glaucoma Social History Social History Household Members: None Housing: Assisted Living Facility Do you presently have visiting nurse or other home services: Yes Alcohol intake: former Patient Tobacco Use Status: Former Tobacco user e-Cigarette/Vaping Use: Currently Using Advance Directives Date on File: 04/12/24 service: No Travel History Ebola Risk: Travel/Contact With Anyone From Affected Area/s: No Has Patient Experienced Ebola Symptoms: No Meds Allergies Allergy/AdvReac Type Severity Reaction Status Date / Time No Known Allergies Allergy Verified 10/11/24 15:30 Active Medications: Current Medications Acetaminophen (Acetaminophen 325 Mg Tablet) 650 mg PO Q6H PRN PRN Reason: Pain, Mild 1-3,fever,headache Last Admin: 10/11/24 20:50 Dose: 650 mg Allopurinol (Allopurinol 100 Mg Tablet) 100 mg PO DAILY [facility] Anastrozole (Anastrozole 1 Mg Tablet) 1 mg PO DAILY [facility] Bupropion HCl (Bupropion Hcl Xl 300 Mg Tab.Er.24h) 300 mg PO DAILY [facility] Calcium Carbonate (Calcium Carbonate 750 Mg Tab.Chew) 750 mg PO DAILY [facility] Cyanocobalamin (Cyanocobalamin (Vitamin B-12) 500 Mcg Tablet) 2,500 mcg PO DAILY [facility] Dorzolamide HCl (Dorzolamide Hcl 2 % Ophth Samanta 10 Ml Drpbtl) 1 drop EYE-BOTH BID [facility] Last Admin: 10/11/24 22:46 Dose: 1 drop Ferrous Sulfate (Ferrous Sulfate 324 Mg Tablet.Dr) 324 mg PO DAILY [facility] Cefazolin Sodium/Dextrose (Ancef) 2 gm in 50 mls @ 100 mls/hr IV PREOP ONE Stop: 10/12/24 14:45 Latanoprost (Latanoprost 0.005 % Ophth Samanta 2.5 Ml Drops) 1 drop EYE-BOTH BEDTIME [facility] Last Admin: 10/11/24 22:48 Dose: Not Given Magnesium Hydroxide (Milk Of Magnesia 30 Ml Oral.Susp) 30 ml PO DAILY PRN PRN Reason: Constipation Melatonin (Melatonin 3 Mg Tablet) 6 mg PO BEDTIME PRN PRN Reason: Insomnia Morphine Sulfate (Morphine Sulfate 2 Mg/Ml Cartridge) 2 mg IVPUSH Q3H PRN; Protocol PRN Reason: Pain, Severe (Pain Scale 7-10) Last Admin: 10/12/24 02:19 Dose: 2 mg Multivitamins/Vitamin C (Multivitamin Tablet) 1 tab PO DAILY [facility] Nicotine (Nicotine 7 Mg Patch.Td24) 7 mg TRANSDERMA DAILY [facility] Ondansetron HCl (Ondansetron Hcl 4 Mg/2 Ml Vial) 4 mg IVPUSH Q8H PRN PRN Reason: Nausea and Vomiting Oxycodone HCl (Oxycodone Hcl Immed Release 5 Mg Tablet) 5 mg PO Q6H PRN PRN Reason: Pain, Moderate(Pain Scale 4-6) Last Admin: 10/11/24 22:12 Dose: 5 mg Pantoprazole Sodium (Pantoprazole Sodium 40 Mg/10 Ml Vial) 40 mg IVPUSH DAILY@0630 [facility] Last Admin: 10/12/24 05:46 Dose: 40 mg Senna (Sennosides 8.6 Mg Tablet) 17.2 mg PO BEDTIME [facility] Last Admin: 10/11/24 20:50 Dose: 17.2 mg Sodium Chloride (0.9 % Sodium Chloride Flush 3 Ml Syringe) 3 ml IVFLUSH QSHIFT [facility] Last Admin: 10/11/24 23:32 Dose: 3 ml Thiamine HCl (Thiamine Hcl 100 Mg Tablet) 100 mg PO DAILY [facility] Timolol Maleate (Timolol Maleate 0.5 % Oph Sam[place] 5 Ml Drbtl) 1 drop EYE-BOTH BID [facility] Last Admin: 10/11/24 22:48 Dose: Not Given Home Medications ?Medication ?Instructions ?Recorded ?Confirmed ?Last Taken ?Type anastrozole 1 mg tablet 1 mg PO DAILY 04/12/24 10/11/24 04/11/24 History bupropion HCl 150 mg 24 hr tablet, 300 mg PO DAILY 04/12/24 10/11/24 04/11/24 History extended release ferrous sulfate 325 mg (65 mg 325 mg PO DAILY 04/12/24 10/11/24 04/11/24 History iron) tablet (Iron (ferrous sulfate)) allopurinol 100 mg tablet 100 mg PO DAILY 10/11/24 10/11/24 Unknown History calcium carbonate 600 mg PO DAILY 10/11/24 10/11/24 Unknown History cyanocobalamin (vitamin B-12) 2,500 mcg PO DAILY 10/11/24 10/11/24 Unknown History 2,500 mcg tablet dorzolamide-timolol (PF) 2 %-0.5 % 1 drp ophthalmic (eye) BID 10/11/24 10/11/24 Unknown History eye drops in a dropperette latanoprost 0.005 % eye drops 1 drp ophthalmic (eye) BEDTIME 10/11/24 10/11/24 Unknown History multivitamin 1 tab PO DAILY 10/11/24 10/11/24 Unknown History naltrexone 50 mg tablet 50 mg PO DAILY 10/11/24 10/11/24 Unknown History thiamine HCl (vitamin B1) 100 mg 100 mg PO DAILY 10/11/24 10/11/24 Unknown History tablet Physical Exam Vital Signs: Vital Signs: Last Vital Signs Temp 97.8 F 10/12/24 07:16 Pulse 67 10/12/24 07:16 Resp 12 10/12/24 07:16 BP 144/64 H 10/12/24 07:16 Pulse Ox 92 10/12/24 07:16 O2 Del Method Room Air 10/12/24 07:16 BMI result Body Mass Index 24.0 Const: General: cooperative, healthy appearing, comfortable, no acute distress, well developed and alert Orientation/consciousness: patient oriented x3 HEENT: Head: Yes normal to inspection, Yes normocephalic and Yes atraumatic Eyes: General: appearance normal, both eyes and all related structures Neck: Neck: Yes normal visual inspection and Yes no lymphadenopathy Resp: Effort & Inspection: normal respiratory effort and able to speak in complete sentences Cardio: Rate: regular rate Peripheral pulses: Peripheral pulses 2+ throughout GI: Inspection: Yes normal to inspection Palpation (GI): Soft to palpation Skin: General skin exam: no rashes or lesions noted Neuro: General: patient oriented x3 Extrem: Other: Right hip skin intact, no open wounds. Leg is shortened and ER. Unable to SLR. She can dorsi and plantar flex. NVI Psych: Appearance: grossly normal Mental Status: mental status grossly normal Results Labs 10/12/24 07:57 10/12/24 07:50 Labs: Abnormal lab results 10/11/24 Range/Units 17:18 RBC 4.01 L (4.20-5.50) X10*6/uL Hct 36.5 L (37.0-47.0) % Immature Gran % (Auto) 0.6 H (0.0-0.4) % Neut % (Auto) 79.3 H (45-73) % Lymph % (Auto) 11.0 L (20-40) % Abs Immat Gran (auto) 0.06 H (0.00-0.03) X10*3/uL Absolute Neuts (auto) 8.5 H (2.0-8.3) x10*3/uL BUN 20 H (9-16) mg/dL H & H 10/11/24 Range/Units 17:18 Hgb 12.5 D (12.0-16.0) g/dl Hct 36.5 L (37.0-47.0) % All other labs normal. Assessment and Plan (1) Closed fracture of neck of right femur: Qualifiers: Encounter type: initial encounter Qualified Code(s): S72.001A - Fracture of unspecified part of neck of right femur, initial encounter for closed fracture Status: Acute Plan I discussed the case with Dr Marcial and explained the extent of the injury to the patient and options available which include surgical intervention. I explained the procedure in detail along with the length of recovery and rehab course. I explained the risk, benefits and alternatives. Risk including, but not limited to infection, blood clots, bleeding, non union or malunion and nerve/tissue damage to surrounding areas. I answered all their questions and with their understanding they have consented to move forward with Operative Fixation of right femur. The patient will be T&S, med clearance obtained and NPO . Procedures Date of Service Date of Service: 10/12/24
[2024-10-12] MEDS: 0.9 % Sodium Chloride Flush 3 ML SYRINGE IVFLUSH ×2 (07:53→20:57)
[2024-10-12] MEDS: Anastrozole 1 MG TABLET PO (07:53)
[2024-10-12 08:09] LABS: MANUAL DIFF FLAG NO
[2024-10-12 08:24] LABS: Basophils Percent Auto 0.4 % (0-2); Eosinophils Absolute Auto 0.2 X10*3/uL (0.0-0.4); Eosinophils Percent Auto 2.8 % (0-4); Hematocrit 34.6 % (37.0-47.0); Hemoglobin 11.6 g/dl (12.0-16.0); Imm Gran Abs Auto 0.05 X10*3/uL (0.00-0.03); Imm Gran Pct Auto 0.7 % (0.0-0.4); Lymphocytes Absolute Auto 0.8 X10*3/uL (1.2-4.9); Lymphocytes Percent Auto 10.9 % (20-40); Mean Corpuscular HGB Conc 33.5 g/dl (31.0-35.0); Mean Corpuscular Hemoglobin 30.7 pg (27.0-33.0); Mean Corpuscular Volume 91.5 fL (80.0-98.0); Mean Platelet Volume 9.4 fL (9.4-12.3); Monocytes Absolute Auto 0.7 X10*3/uL (0.1-1.2); Monocytes Percent Auto 9.2 % (2-11); Neutrophils Absolute Auto 5.5 x10*3/uL (2.0-8.3); Platelet Count 199 X10*3/uL (160-400); Red Blood Count 3.78 X10*6/uL (4.20-5.50); Red Cell Distribution Width 14.2 % (11.0-16.0); White Blood Count 7.3 X10*3/uL (4.8-10.8)
[2024-10-12 08:41] LABS: Magnesium 1.6 mg/dL (1.6-2.6)
--- NOTE | 2024-10-12 08:44 | MHC.CM.PN ---
CM met with Patient at bedside and addressed IMM with her, providing Patient with the original and a copy has been placed on the chart. Patient was living at [facility] and just moved her belongings into [facility]; Patient will benefit from a PT Eval to assist with disposition, but STR @ [facility] is Patient's goal. CM has initiated and will follow for dc planning. PCP is Dr. Fredo Rodriguez and Patient will require BLS transport to STR. HCP is Daughter/Kelly.
[2024-10-12 09:02] LABS: Alanine Aminotransferase 9 U/L (0-31); Albumin Level 3.4 g/dL (3.5-5.0); Alkaline Phosphatase 76 U/L (39-117); Anion Gap 9 (12-20); Aspartate Amino Transferase 14 U/L (5-31); Bilirubin Total 0.6 mg/dL (0.0-1.0); Blood Urea Nitrogen 17 mg/dL (9-16); Calcium 8.9 mg/dL (8.4-10.2); Carbon Dioxide 23 mmol/L (22-29); Chloride 111 mmol/L (96-108); Creatinine Clr Calc Pharmacy 56.8; Estimated Glomerular Filt Rate > 60; Glucose Random 89 mg/dL (60-115); Phosphorus 3.8 mg/dL (2.7-4.5); Potassium 3.6 mmol/L (3.3-5.1); Sodium 139 mmol/L (135-145); Total Protein 5.8 g/dL (6.5-8.0)
[2024-10-12] MEDS: timoloL maleate 0.5 % Oph Sol 5 ML DRBTL 1 DROP EYE-BOTH ×2 (09:05→20:54)
[2024-10-12] MEDS: Dorzolamide HCl 2 % Ophth Sol 10 ML DRPBTL 1 DROP EYE-BOTH ×2 (09:05→20:54)
--- NOTE | 2024-10-12 11:30 | P.PNIM_ITS ---
Subjective Subjective Date of Service: 10/12/24 Interval History: pain controlled Physical Exam 2 Vital Signs: Vital Signs: Last Vital Signs Temp 97.8 F 10/12/24 07:16 Pulse 67 10/12/24 07:16 Resp 12 10/12/24 07:16 BP 144/64 H 10/12/24 07:16 Pulse Ox 92 10/12/24 07:16 O2 Del Method Room Air 10/12/24 07:16 BMI result Body Mass Index 24.0 General: AO X 3, no acute distress Resp: CTA bilateral, no accessory muscles used CVS: S1,S2,RRR GI: soft, non tender, non distended Neuro: motor grossly intact, alert Psych: appropriate affect, appropriate insight Objective Data Active Medications Acetaminophen (Acetaminophen 325 Mg Tablet) 650 mg PO Q6H PRN PRN Reason: Pain, Mild 1-3,fever,headache Last Admin: 10/11/24 20:50 Dose: 650 mg Documented By: MANJU Allopurinol (Allopurinol 100 Mg Tablet) 100 mg PO DAILY [facility] Last Admin: 10/12/24 07:51 Dose: 100 mg Documented By: VALENTINO Anastrozole (Anastrozole 1 Mg Tablet) 1 mg PO DAILY [facility] Last Admin: 10/12/24 07:53 Dose: 1 mg Documented By: VALENTINO Bupropion HCl (Bupropion Hcl Xl 300 Mg Tab.Er.24h) 300 mg PO DAILY [facility] Last Admin: 10/12/24 07:51 Dose: 300 mg Documented By: VALENTINO Calcium Carbonate (Calcium Carbonate 750 Mg Tab.Chew) 750 mg PO DAILY [facility] Last Admin: 10/12/24 07:52 Dose: 750 mg Documented By: VALENTINO Cyanocobalamin (Cyanocobalamin (Vitamin B-12) 500 Mcg Tablet) 2,500 mcg PO DAILY [facility] Last Admin: 10/12/24 07:51 Dose: 2,500 mcg Documented By: VALENTINO Dorzolamide HCl (Dorzolamide Hcl 2 % Ophth Samanta 10 Ml Drpbtl) 1 drop EYE-BOTH BID [facility] Last Admin: 10/12/24 09:05 Dose: 1 drop Documented By: VALENTINO Ferrous Sulfate (Ferrous Sulfate 324 Mg Tablet.Dr) 324 mg PO DAILY [facility] Last Admin: 10/12/24 07:51 Dose: 324 mg Documented By: VALENTINO Cefazolin Sodium/Dextrose (Ancef) 2 gm in 50 mls @ 100 mls/hr IV PREOP ONE Stop: 10/12/24 14:45 Latanoprost (Latanoprost 0.005 % Ophth Samanta 2.5 Ml Drops) 1 drop EYE-BOTH BEDTIME [facility] Last Admin: 10/11/24 22:48 Dose: Not Given Documented By: MANJU Non-Admin Reason: Patient Refused Magnesium Hydroxide (Milk Of Magnesia 30 Ml Oral.Susp) 30 ml PO DAILY PRN PRN Reason: Constipation Melatonin (Melatonin 3 Mg Tablet) 6 mg PO BEDTIME PRN PRN Reason: Insomnia Morphine Sulfate (Morphine Sulfate 2 Mg/Ml Cartridge) 2 mg IVPUSH Q3H PRN; Protocol PRN Reason: Pain, Severe (Pain Scale 7-10) Last Admin: 10/12/24 07:51 Dose: 2 mg Documented By: VALENTINO Multivitamins/Vitamin C (Multivitamin Tablet) 1 tab PO DAILY [facility] Last Admin: 10/12/24 07:51 Dose: 1 tab Documented By: VALENTINO Nicotine (Nicotine 7 Mg Patch.Td24) 7 mg TRANSDERMA DAILY [facility] Last Admin: 10/12/24 07:51 Dose: 7 mg Documented By: VALENTINO Ondansetron HCl (Ondansetron Hcl 4 Mg/2 Ml Vial) 4 mg IVPUSH Q8H PRN PRN Reason: Nausea and Vomiting Oxycodone HCl (Oxycodone Hcl Immed Release 5 Mg Tablet) 5 mg PO Q6H PRN PRN Reason: Pain, Moderate(Pain Scale 4-6) Last Admin: 10/11/24 22:12 Dose: 5 mg Documented By: MANJU Pantoprazole Sodium (Pantoprazole Sodium 40 Mg/10 Ml Vial) 40 mg IVPUSH DAILY@0630 [facility] Last Admin: 10/12/24 05:46 Dose: 40 mg Documented By: NICOLA Senna (Sennosides 8.6 Mg Tablet) 17.2 mg PO BEDTIME [facility] Last Admin: 10/11/24 20:50 Dose: 17.2 mg Documented By: MANJU Sodium Chloride (0.9 % Sodium Chloride Flush 3 Ml Syringe) 3 ml IVFLUSH QSHIFT [facility] Last Admin: 10/12/24 07:53 Dose: 3 ml Documented By: VALENTINO Thiamine HCl (Thiamine Hcl 100 Mg Tablet) 100 mg PO DAILY [facility] Last Admin: 10/12/24 07:51 Dose: 100 mg Documented By: VALENTINO Timolol Maleate (Timolol Maleate 0.5 % Oph Samanta 5 Ml Drbtl) 1 drop EYE-BOTH BID [facility] Last Admin: 10/12/24 09:05 Dose: 1 drop Documented By: VALENTINO Labs 10/12/24 07:57 10/12/24 07:50 Labs: Laboratory Results - last 24 hr 10/11/24 10/11/24 10/12/24 17:18 20:22 07:50 MCV 91.0 MCH 31.2 MCHC 34.2 RDW 14.3 Plt Count 279 MPV 9.4 Immature Gran % (Auto) 0.6 H Neut % (Auto) 79.3 H Lymph % (Auto) 11.0 L [place] % (Auto) 6.4 Eos % (Auto) 2.4 Baso % (Auto) 0.3 Lymph # (Auto) 1.2 [place] # (Auto) 0.7 Eos # (Auto) 0.3 Baso # (Auto) 0.0 Abs Immat Gran (auto) 0.06 H Absolute Neuts (auto) 8.5 H Absolute Nucleated RBC 0.000 Nucleated RBC % (auto) 0.0 Anion Gap 12 9 L Estim Creat Clear Calc 41.3 56.8 Estimated GFR 52 > 60 Random Glucose 93 89 Calcium 9.9 D 8.9 D Phosphorus 3.8 Magnesium 1.8 Total Bilirubin 0.3 0.6 AST 19 14 ALT 10 9 Alkaline Phosphatase 85 76 Total Protein 6.9 5.8 L Albumin 4.0 3.4 L Blood Type A Positive Antibody Screen NEGATIVE 10/12/24 07:57 MCV 91.5 MCH 30.7 MCHC 33.5 RDW 14.2 Plt Count 199 D MPV 9.4 Immature Gran % (Auto) 0.7 H Neut % (Auto) 76.0 H Lymph % (Auto) 10.9 L [place] % (Auto) 9.2 Eos % (Auto) 2.8 Baso % (Auto) 0.4 Lymph # (Auto) 0.8 L [place] # (Auto) 0.7 Eos # (Auto) 0.2 Baso # (Auto) 0.0 Abs Immat Gran (auto) 0.05 H Absolute Neuts (auto) 5.5 Absolute Nucleated RBC 0.000 Nucleated RBC % (auto) 0.0 Anion Gap Estim Creat Clear Calc Estimated GFR Random Glucose Calcium Phosphorus Magnesium 1.6 Total Bilirubin AST ALT Alkaline Phosphatase Total Protein Albumin Blood Type Antibody Screen Assessment and Plan (1) Closed fracture of neck of right femur: Status: Acute Plan 74F PMH glaucoma, gout, iron deficiency anemia, vitamin-D deficiency, 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, breast cancer status post lumpectomy, chemo and radiation presented with mechanical fall complicated by right femoral fracture Mechanical fall complicated by close fracture of right femoral neck Plan for surgery today Pain control History of breast cancer Continue anastrozole Gout Allopurinol Full code reason for continued hospitalization: Plan for surgery today Quality Stroke Does the patient have a stroke diagnosis?: No Reason for No Anti-thrombotic by Day Two: Contraindicated VTE Prior VTE?: No VTE Risk Level:: Medical - moderate - high VTE Device Contraindication: N/A - Device Ordered VTE Drug Contraindication: Treatment Not Indicated
--- NOTE | 2024-10-12 15:22 | P.CONAN_ITS ---
Documented by User: James Romero MD 10/12/24 16:21 HPI - Anesthesia Eval Consult details Narrative: 74 F for hip hemiarthroplasty PMFSH Past Medical History Medical History Breast cancer Alcohol use disorder Glaucoma Family History Family history of problems with anesthesia: No Surgical History History of Problems with Anesthesia: No Social History Social History Household Members: None Housing: Assisted Living Facility Do you presently have visiting nurse or other home services: Yes Alcohol intake: former Patient Tobacco Use Status: Former Tobacco user e-Cigarette/Vaping Use: Currently Using Advance Directives Date on File: 04/12/24 service: No Meds Allergies Allergy/AdvReac Type Severity Reaction Status Date / Time No Known Allergies Allergy Verified 10/11/24 15:30 Home Medications ?Medication ?Instructions ?Recorded ?Confirmed ?Last Taken ?Type anastrozole 1 mg tablet 1 mg PO DAILY 04/12/24 10/11/24 04/11/24 History bupropion HCl 150 mg 24 hr tablet, 300 mg PO DAILY 04/12/24 10/11/24 04/11/24 History extended release ferrous sulfate 325 mg (65 mg 325 mg PO DAILY 04/12/24 10/11/24 04/11/24 History iron) tablet (Iron (ferrous sulfate)) allopurinol 100 mg tablet 100 mg PO DAILY 10/11/24 10/11/24 Unknown History calcium carbonate 600 mg PO DAILY 10/11/24 10/11/24 Unknown History cyanocobalamin (vitamin B-12) 2,500 mcg PO DAILY 10/11/24 10/11/24 Unknown History 2,500 mcg tablet dorzolamide-timolol (PF) 2 %-0.5 % 1 drp ophthalmic (eye) BID 10/11/24 10/11/24 Unknown History eye drops in a dropperette latanoprost 0.005 % eye drops 1 drp ophthalmic (eye) BEDTIME 10/11/24 10/11/24 Unknown History multivitamin 1 tab PO DAILY 10/11/24 10/11/24 Unknown History naltrexone 50 mg tablet 50 mg PO DAILY 10/11/24 10/11/24 Unknown History thiamine HCl (vitamin B1) 100 mg 100 mg PO DAILY 10/11/24 10/11/24 Unknown History tablet Exam Airway Loose/Missing/Broken Teeth: Yes Assessment and Plan Assessment Anesthesia Assessment: Anesthesia Plan Discussed and Chart Reviewed Final Anesthetic Review Family History of Problems with Anesthesia: No History of Problems with Anesthesia: No NPO: Yes ASA Class: III Final Preanesthetic Review: No Changes in Pt Med Stat, Meds/Allgs Chart Reviewed, Consent Obtained/Reviewed and Anes Risks/Benef Reviewed Patient Risk: Intermediate Procedure Risk: Low Anesthetic Plan Anesthetic Plan: MAC: Disposition: Standard PACU Documented by User: Reina Calle MD [facility] Active Problems Active Problems: All Active Problems Breast cancer (Acute) History of alcohol use disorder (Acute) Hypotension (Acute) Nicotine dependence (Acute) Glaucoma (Acute) Closed fracture of neck of right femur (Acute) Multifactorial gait disorder (Acute) Slurred speech (Acute) Alcohol intoxication (Acute) Acute hypokalemia (Acute) Transient cerebral ischemia (Acute) Past Medical History Medical History Breast cancer Alcohol use disorder Glaucoma Social History Social History Household Members: None Housing: Assisted Living Facility Do you presently have visiting nurse or other home services: Yes Alcohol intake: former Patient Tobacco Use Status: Former Tobacco user e-Cigarette/Vaping Use: Currently Using Advance Directives Date on File: 04/12/24 service: No Meds Allergies Allergy/AdvReac Type Severity Reaction Status Date / Time No Known Allergies Allergy Verified 10/11/24 15:30 Active Medications: Current Medications Acetaminophen (Acetaminophen 325 Mg Tablet) 650 mg PO Q6H PRN PRN Reason: Pain, Mild 1-3,fever,headache Last Admin: 10/11/24 20:50 Dose: 650 mg Allopurinol (Allopurinol 100 Mg Tablet) 100 mg PO DAILY [facility] Last Admin: 10/12/24 07:51 Dose: 100 mg Anastrozole (Anastrozole 1 Mg Tablet) 1 mg PO DAILY [facility] Last Admin: 10/12/24 07:53 Dose: 1 mg Bupropion HCl (Bupropion Hcl Xl 300 Mg Tab.Er.24h) 300 mg PO DAILY [facility] Last Admin: 10/12/24 07:51 Dose: 300 mg Calcium Carbonate (Calcium Carbonate 750 Mg Tab.Chew) 750 mg PO DAILY [facility] Last Admin: 10/12/24 07:52 Dose: 750 mg Cyanocobalamin (Cyanocobalamin (Vitamin B-12) 500 Mcg Tablet) 2,500 mcg PO DAILY [facility] Last Admin: 10/12/24 07:51 Dose: 2,500 mcg Dorzolamide HCl (Dorzolamide Hcl 2 % Ophth Samanta 10 Ml Drpbtl) 1 drop EYE-BOTH BID [facility] Last Admin: 10/12/24 09:05 Dose: 1 drop Ferrous Sulfate (Ferrous Sulfate 324 Mg Tablet.Dr) 324 mg PO DAILY [facility] Last Admin: 10/12/24 07:51 Dose: 324 mg Latanoprost (Latanoprost 0.005 % Ophth Samanta 2.5 Ml Drops) 1 drop EYE-BOTH BEDTIME [facility] Last Admin: 10/11/24 22:48 Dose: Not Given Magnesium Hydroxide (Milk Of Magnesia 30 Ml Oral.Susp) 30 ml PO DAILY PRN PRN Reason: Constipation Melatonin (Melatonin 3 Mg Tablet) 6 mg PO BEDTIME PRN PRN Reason: Insomnia Morphine Sulfate (Morphine Sulfate 2 Mg/Ml Cartridge) 2 mg IVPUSH Q3H PRN; Protocol PRN Reason: Pain, Severe (Pain Scale 7-10) Last Admin: 10/12/24 07:51 Dose: 2 mg Multivitamins/Vitamin C (Multivitamin Tablet) 1 tab PO DAILY [facility] Last Admin: 10/12/24 07:51 Dose: 1 tab Nicotine (Nicotine 7 Mg Patch.Td24) 7 mg TRANSDERMA DAILY [facility] Last Admin: 10/12/24 07:51 Dose: 7 mg Ondansetron HCl (Ondansetron Hcl 4 Mg/2 Ml Vial) 4 mg IVPUSH Q8H PRN PRN Reason: Nausea and Vomiting Oxycodone HCl (Oxycodone Hcl Immed Release 5 Mg Tablet) 5 mg PO Q6H PRN PRN Reason: Pain, Moderate(Pain Scale 4-6) Last Admin: 10/11/24 22:12 Dose: 5 mg Pantoprazole Sodium (Pantoprazole Sodium 40 Mg/10 Ml Vial) 40 mg IVPUSH DAILY@0630 [facility] Last Admin: 10/12/24 05:46 Dose: 40 mg Senna (Sennosides 8.6 Mg Tablet) 17.2 mg PO BEDTIME [facility] Last Admin: 10/11/24 20:50 Dose: 17.2 mg Sodium Chloride (0.9 % Sodium Chloride Flush 3 Ml Syringe) 3 ml IVFLUSH QSHIFT [facility] Last Admin: 10/12/24 07:53 Dose: 3 ml Thiamine HCl (Thiamine Hcl 100 Mg Tablet) 100 mg PO DAILY [facility] Last Admin: 10/12/24 07:51 Dose: 100 mg Timolol Maleate (Timolol Maleate 0.5 % Oph Samanta 5 Ml Drbtl) 1 drop EYE-BOTH BID [facility] Last Admin: 10/12/24 09:05 Dose: 1 drop Home Medications ?Medication ?Instructions ?Recorded ?Confirmed ?Last Taken ?Type anastrozole 1 mg tablet 1 mg PO DAILY 04/12/24 10/11/24 04/11/24 History bupropion HCl 150 mg 24 hr tablet, 300 mg PO DAILY 04/12/24 10/11/24 04/11/24 History extended release ferrous sulfate 325 mg (65 mg 325 mg PO DAILY 04/12/24 10/11/24 04/11/24 History iron) tablet (Iron (ferrous sulfate)) allopurinol 100 mg tablet 100 mg PO DAILY 10/11/24 10/11/24 Unknown History calcium carbonate 600 mg PO DAILY 10/11/24 10/11/24 Unknown History cyanocobalamin (vitamin B-12) 2,500 mcg PO DAILY 10/11/24 10/11/24 Unknown History 2,500 mcg tablet dorzolamide-timolol (PF) 2 %-0.5 % 1 drp ophthalmic (eye) BID 10/11/24 10/11/24 Unknown History eye drops in a dropperette latanoprost 0.005 % eye drops 1 drp ophthalmic (eye) BEDTIME 10/11/24 10/11/24 Unknown History multivitamin 1 tab PO DAILY 10/11/24 10/11/24 Unknown History naltrexone 50 mg tablet 50 mg PO DAILY 10/11/24 10/11/24 Unknown History thiamine HCl (vitamin B1) 100 mg 100 mg PO DAILY 10/11/24 10/11/24 Unknown History tablet Exam Height,Weight and Vital Signs: Height 5 ft 4 in Weight 63.503 kg Last Vital Signs Temp 98.4 F 10/12/24 13:05 Pulse 78 10/12/24 13:05 Resp 15 10/12/24 13:05 BP 108/43 L 10/12/24 13:05 Pulse Ox 95 10/12/24 13:05 O2 Del Method Room Air 10/12/24 13:05 Pertinent Lab Results Pertinent Lab Results: Laboratory Tests 10/11/24 10/11/24 10/12/24 17:18 20:22 07:50 WBC 10.7 RBC 4.01 L Hgb 12.5 D Hct 36.5 L MCV 91.0 MCH 31.2 MCHC 34.2 RDW 14.3 Plt Count 279 MPV 9.4 Immature Gran % (Auto) 0.6 H Neut % (Auto) 79.3 H Lymph % (Auto) 11.0 L [place] % (Auto) 6.4 Eos % (Auto) 2.4 Baso % (Auto) 0.3 Lymph # (Auto) 1.2 [place] # (Auto) 0.7 Eos # (Auto) 0.3 Baso # (Auto) 0.0 Abs Immat Gran (auto) 0.06 H Absolute Neuts (auto) 8.5 H Absolute Nucleated RBC 0.000 Nucleated RBC % (auto) 0.0 Sodium 139 139 Potassium 4.4 D 3.6 Chloride 106 111 H Carbon Dioxide 25 23 Anion Gap 12 9 L BUN 20 H 17 H Creatinine 1.03 0.75 Estim Creat Clear Calc 41.3 56.8 Estimated GFR 52 > 60 Random Glucose 93 89 Calcium 9.9 D 8.9 D Phosphorus 3.8 Magnesium 1.8 Total Bilirubin 0.3 0.6 AST 19 14 ALT 10 9 Alkaline Phosphatase 85 76 Total Protein 6.9 5.8 L Albumin 4.0 3.4 L Blood Type A Positive Antibody Screen NEGATIVE 10/12/24 07:57 WBC 7.3 RBC 3.78 L Hgb 11.6 L Hct 34.6 L MCV 91.5 MCH 30.7 MCHC 33.5 RDW 14.2 Plt Count 199 D MPV 9.4 Immature Gran % (Auto) 0.7 H Neut % (Auto) 76.0 H Lymph % (Auto) 10.9 L [place] % (Auto) 9.2 Eos % (Auto) 2.8 Baso % (Auto) 0.4 Lymph # (Auto) 0.8 L [place] # (Auto) 0.7 Eos # (Auto) 0.2 Baso # (Auto) 0.0 Abs Immat Gran (auto) 0.05 H Absolute Neuts (auto) 5.5 Absolute Nucleated RBC 0.000 Nucleated RBC % (auto) 0.0 Sodium Potassium Chloride Carbon Dioxide Anion Gap BUN Creatinine Estim Creat Clear Calc Estimated GFR Random Glucose Calcium Phosphorus Magnesium 1.6 Total Bilirubin AST ALT Alkaline Phosphatase Total Protein Albumin Blood Type Antibody Screen
--- NOTE | 2024-10-12 16:23 | MHC.SHP ---
Pre-Procedural Eval Section A - 24 Hr Update-Section A only Date of Service: 10/12/24 The patient is an INPATIENT: Yes Changes since office visit: No Cold of Flu in the past 2 weeks, No New Medical Problems, No Changes in Medication and No Patient answered all questions The patient has been examined within 24 hours of the surgical procedure. The History & Physical has been completed within 30 days and I have reviewed it.: Yes Section B - Complete if H&P > 30 days Chief Complaint: fall with R femur fx Allergies: Allergies Allergy/AdvReac Type Severity Reaction Status Date / Time No Known Allergies Allergy Verified 10/11/24 15:30 Plan I have reviewed the history and physical and performed a pertinent physical examination on my patient. No changes have occurred unless specified. Time Spent With Patient Time: Total time managing care of this patient today ____ minutes.
[2024-10-12] MEDS: ceFAZolin Sodium/Dextrose,Iso 2 GM/50 ML PIGGYBACK IV (16:25)
--- NOTE | 2024-10-12 17:42 | P.BOP_ITS ---
Brief Operative Note Date of Service: 10/12/24 Pre-op diagnosis: Right femoral neck fx Post-op diagnosis: same Procedure: Right hip iva Implants: [place] Accolade 2 # 3 132 with +4/48 bipolar Surgeon: Brijesh Marcial MD Anesthesia: GETA and local Was an Economic Development Director used for this Procedure?: Yes Economic Development Director: Anibal Portillo Estimated blood loss (mL): 200 IV fluids (mL): 800 Pathology: other Condition: stable Disposition: PACU
[2024-10-12] MEDS: oxyCODONE HCl Immed Release 5 MG TABLET PO (17:59)
[2024-10-12] MEDS: Sennosides 8.6 MG TABLET 17.2 MG PO (20:49)
[2024-10-12] MEDS: Latanoprost 0.005 % Ophth Sol 2.5 ML DROPS 1 DROP EYE-BOTH (20:54)
[2024-10-13] VITALS (7 sets, daily range): BP systolic 98–115; BP diastolic 51–58; PULSE 69–89; RESP 16–18; TEMP 36.6–37.5; O2SAT 92–95
[2024-10-13] MEDS: Pantoprazole Sodium 40 MG/10 ML VIAL IVPUSH (05:28)
--- NOTE | 2024-10-13 07:40 | PM.PNORT ---
Subjective Subjective Date of Service: 10/13/24 Interval history: POD1 s/p rt hip iva Patient is resting in bed comfortably No overnight events Pain is managed No additional complaints Physical Exam Vital Signs: Vital Signs: Last Vital Signs Temp 97.8 F 10/13/24 07:06 Pulse 69 10/13/24 07:06 Resp 16 10/13/24 07:06 BP 98/53 L 10/13/24 07:06 Pulse Ox 95 10/13/24 07:06 O2 Del Method Room Air 10/13/24 07:06 O2 Flow Rate 1 10/12/24 23:32 FiO2 27 10/12/24 17:56 BMI result Body Mass Index 24.0 Const: General: cooperative, healthy appearing and no acute distress Resp: Effort & Inspection: normal respiratory effort and able to speak in complete sentences Cardio: Rate: regular rate Peripheral pulses: Peripheral pulses 2+ throughout GI: Palpation (GI): Soft to palpation Skin: Lesions: no lesions Rashes: no rashes Extrem: Other: right hip dressing is c/d/i. Able to dorsi/plantar flex. Calf is supple and nontender. Sensation intact. Pedal pulse intact. Procedures Date of Service Date of Service: 10/13/24 Progress Note: A&P Assessment and plan (1) Status post hemiarthroplasty of right hip: Status: Acute Plan Continue pain mgmnt Begin Lovenox for dvt ppx begin PT/OT for right hip iva - WBAT, posterior precautions Dispo planning-Pending PT eval, pain mgmnt, cleared for d/c once physical therapy eval is completed and she is medically clear Time Spent With Patient Time: Total time managing care of this patient today ____ minutes. Quality Stroke Does the patient have a stroke diagnosis?: No Reason for No Anti-thrombotic by Day Two: Contraindicated VTE Prior VTE?: No VTE Risk Level:: Medical - moderate - high VTE Device Contraindication: N/A - Device Ordered VTE Drug Contraindication: Treatment Not Indicated
[2024-10-13 07:47] LABS: Hematocrit 31.1 % (37.0-47.0); Hemoglobin 10.6 g/dl (12.0-16.0); Mean Corpuscular HGB Conc 34.1 g/dl (31.0-35.0); Mean Corpuscular Hemoglobin 30.9 pg (27.0-33.0); Mean Corpuscular Volume 90.7 fL (80.0-98.0); Mean Platelet Volume 10.1 fL (9.4-12.3); Platelet Count 219 X10*3/uL (160-400); Red Blood Count 3.43 X10*6/uL (4.20-5.50); Red Cell Distribution Width 14.3 % (11.0-16.0); White Blood Count 10.8 X10*3/uL (4.8-10.8)
[2024-10-13 07:58] LABS: Anion Gap 11 (12-20); Blood Urea Nitrogen 18 mg/dL (9-16); Calcium 8.8 mg/dL (8.4-10.2); Carbon Dioxide 22 mmol/L (22-29); Chloride 108 mmol/L (96-108); Creatinine Clr Calc Pharmacy 50.1; Estimated Glomerular Filt Rate > 60; Glucose Random 136 mg/dL (60-115); Potassium 4.1 mmol/L (3.3-5.1); Sodium 137 mmol/L (135-145)
[2024-10-13] MEDS: Anastrozole 1 MG TABLET PO (08:28)
[2024-10-13] MEDS: allopurinoL 100 MG TABLET PO (08:29)
[2024-10-13] MEDS: buPROPion HCl XL 300 MG TAB.ER.24H PO (08:29)
[2024-10-13] MEDS: Thiamine HCL 100 MG TABLET PO (08:29)
[2024-10-13] MEDS: Calcium Carbonate 750 MG TAB.CHEW PO (08:29)
[2024-10-13] MEDS: Ferrous Sulfate 324 MG TABLET.DR PO (08:29)
[2024-10-13] MEDS: Multivitamin TABLET 1 TAB PO (08:29)
[2024-10-13] MEDS: Cyanocobalamin (Vitamin B-12) 500 MCG TABLET 2500 MCG PO (08:30)
[2024-10-13] MEDS: Dorzolamide HCl 2 % Ophth Sol 10 ML DRPBTL 1 DROP EYE-BOTH ×2 (08:31→21:05)
[2024-10-13] MEDS: timoloL maleate 0.5 % Oph Sol 5 ML DRBTL 1 DROP EYE-BOTH ×2 (08:31→21:05)
--- NOTE | 2024-10-13 08:31 | HO.POSTANES ---
Post Anesthesia Evaluation Post Anesthesia Evaluation Date of Service: 10/13/24 Vital Signs: Vital Signs Temp Pulse Resp BP Pulse Ox O2 Del Method O2 Flow Rate 10/13/24 07:06 97.8 F 69 16 98/53 L 95 Room Air 10/13/24 03:21 97.9 F 75 16 103/53 L 93 Room Air 10/12/24 23:32 98.4 F 70 17 121/57 L 96 Nasal Cannula 1 Anesthesia: General Endotracheal-GETA Mental Status: Awake Pain Control: Satisfactory Nausea/Vomiting: None Hydration: Adequate Anesthesia-Related Issues: No Anes. Related Issues
[2024-10-13] MEDS: oxyCODONE HCl Immed Release 5 MG TABLET PO ×3 (08:43→21:04)
[2024-10-13] MEDS: 0.9 % Sodium Chloride Flush 3 ML SYRINGE IVFLUSH ×3 (08:46→21:05)
--- NOTE | 2024-10-13 09:34 | HO.PM.IMPN ---
Subjective Subjective Date of Service: 10/13/24 Interval History: pain controlled Physical Exam Vital Signs: Vital Signs: Last Vital Signs Temp 97.8 F 10/13/24 07:06 Pulse 69 10/13/24 07:06 Resp 16 10/13/24 07:06 BP 98/53 L 10/13/24 07:06 Pulse Ox 95 10/13/24 07:06 O2 Del Method Room Air 10/13/24 07:06 O2 Flow Rate 1 10/12/24 23:32 FiO2 27 10/12/24 17:56 BMI result Body Mass Index 24.0 Const: General: cooperative, healthy appearing and no acute distress Resp: Effort & Inspection: normal respiratory effort and able to speak in complete sentences Cardio: Rate: regular rate Peripheral pulses: Peripheral pulses 2+ throughout GI: Palpation (GI): Soft to palpation Skin: Lesions: no lesions Rashes: no rashes Extrem: Other: right hip dressing is c/d/i. Able to dorsi/plantar flex. Calf is supple and nontender. Sensation intact. Pedal pulse intact. Objective Data Active Medications Acetaminophen (Acetaminophen 325 Mg Tablet) 650 mg PO Q6H PRN PRN Reason: Pain, Mild 1-3,fever,headache Last Admin: 10/11/24 20:50 Dose: 650 mg Documented By: MANJU Allopurinol (Allopurinol 100 Mg Tablet) 100 mg PO DAILY [facility] Last Admin: 10/13/24 08:29 Dose: 100 mg Documented By: JOCE Anastrozole (Anastrozole 1 Mg Tablet) 1 mg PO DAILY [facility] Last Admin: 10/13/24 08:28 Dose: 1 mg Documented By: JOCE Bupropion HCl (Bupropion Hcl Xl 300 Mg Tab.Er.24h) 300 mg PO DAILY [facility] Last Admin: 10/13/24 08:29 Dose: 300 mg Documented By: JOCE Calcium Carbonate (Calcium Carbonate 750 Mg Tab.Chew) 750 mg PO DAILY [facility] Last Admin: 10/13/24 08:29 Dose: 750 mg Documented By: JOCE Cyanocobalamin (Cyanocobalamin (Vitamin B-12) 500 Mcg Tablet) 2,500 mcg PO DAILY [facility] Last Admin: 10/13/24 08:30 Dose: 2,500 mcg Documented By: JOCE Dorzolamide HCl (Dorzolamide Hcl 2 % Ophth Samanta 10 Ml Drpbtl) 1 drop EYE-BOTH BID [facility] Last Admin: 10/13/24 08:31 Dose: 1 drop Documented By: JOCE Enoxaparin Sodium (Enoxaparin Sodium 40 Mg/0.4 Ml Syringe) 40 mg SUBCUT Q24H [facility] Ferrous Sulfate (Ferrous Sulfate 324 Mg Tablet.Dr) 324 mg PO DAILY [facility] Last Admin: 10/13/24 08:29 Dose: 324 mg Documented By: JOCE Cefazolin Sodium/Dextrose (Ancef) 2 gm in 50 mls @ 100 mls/hr IV POSTOP [facility] Latanoprost (Latanoprost 0.005 % Ophth Samanta 2.5 Ml Drops) 1 drop EYE-BOTH BEDTIME [facility] Last Admin: 10/12/24 20:54 Dose: 1 drop Documented By: SUSHMA Magnesium Hydroxide (Milk Of Magnesia 30 Ml Oral.Susp) 30 ml PO DAILY PRN PRN Reason: Constipation Melatonin (Melatonin 3 Mg Tablet) 6 mg PO BEDTIME PRN PRN Reason: Insomnia Morphine Sulfate (Morphine Sulfate 2 Mg/Ml Cartridge) 2 mg IVPUSH Q3H PRN; Protocol PRN Reason: Pain, Severe (Pain Scale 7-10) Last Admin: 10/12/24 07:51 Dose: 2 mg Documented By: VALENTINO Multivitamins/Vitamin C (Multivitamin Tablet) 1 tab PO DAILY [facility] Last Admin: 10/13/24 08:29 Dose: 1 tab Documented By: JOCE Nicotine (Nicotine 7 Mg Patch.Td24) 7 mg TRANSDERMA DAILY [facility] Last Admin: 10/13/24 08:49 Dose: Not Given Documented By: JOCE Non-Admin Reason: Patient Refused Ondansetron HCl (Ondansetron Hcl 4 Mg/2 Ml Vial) 4 mg IVPUSH Q8H PRN PRN Reason: Nausea and Vomiting Oxycodone HCl (Oxycodone Hcl Immed Release 5 Mg Tablet) 5 mg PO Q6H PRN PRN Reason: Pain, Moderate(Pain Scale 4-6) Last Admin: 10/13/24 08:43 Dose: 5 mg Documented By: JOCE Pantoprazole Sodium (Pantoprazole Sodium 40 Mg/10 Ml Vial) 40 mg IVPUSH DAILY@0630 [facility] Last Admin: 10/13/24 05:28 Dose: 40 mg Documented By: SUSHMA Senna (Sennosides 8.6 Mg Tablet) 17.2 mg PO BEDTIME [facility] Last Admin: 10/12/24 20:49 Dose: 17.2 mg Documented By: SUSHMA Sodium Chloride (0.9 % Sodium Chloride Flush 3 Ml Syringe) 3 ml IVFLUSH QSHIFT [facility] Last Admin: 10/13/24 08:46 Dose: 3 ml Documented By: JOCE Thiamine HCl (Thiamine Hcl 100 Mg Tablet) 100 mg PO DAILY [facility] Last Admin: 10/13/24 08:29 Dose: 100 mg Documented By: JOCE Timolol Maleate (Timolol Maleate 0.5 % Oph Samanta 5 Ml Drbtl) 1 drop EYE-BOTH BID [facility] Last Admin: 10/13/24 08:31 Dose: 1 drop Documented By: JOCE Labs 10/13/24 07:36 10/13/24 07:36 Labs: Laboratory Results - last 24 hr 10/13/24 07:36 MCV 90.7 MCH 30.9 MCHC 34.1 RDW 14.3 Plt Count 219 MPV 10.1 Absolute Nucleated RBC 0.000 Nucleated RBC % (auto) 0.0 Anion Gap 11 L Estim Creat Clear Calc 50.1 Estimated GFR > 60 Random Glucose 136 H Calcium 8.8 Assessment and Plan (1) Closed fracture of neck of right femur: Status: Acute Plan 74F PMH glaucoma, gout, iron deficiency anemia, vitamin-D deficiency, 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, breast cancer status post lumpectomy, chemo and radiation presented with mechanical fall complicated by right femoral fracture Mechanical fall complicated by close fracture of right femoral neck s/p right hemiarthroplasty 10/12/24 Pain control Lovenox for dvt prophylaxis pt History of breast cancer Continue anastrozole Gout Allopurinol Full code reason for continued hospitalization: dispo planning Quality Stroke Does the patient have a stroke diagnosis?: No Reason for No Anti-thrombotic by Day Two: Contraindicated VTE Prior VTE?: No VTE Risk Level:: Medical - moderate - high VTE Device Contraindication: N/A - Device Ordered VTE Drug Contraindication: Treatment Not Indicated
--- NOTE | 2024-10-13 10:24 | MHC.CM.PN ---
PT is recommending Acute Rehab; Patient has been agreeable to a bed search. Acute Rehab referrals have been made and CM will continue to follow.
--- NOTE | 2024-10-13 10:40 | W.PM.OPN ---
Operative Note Operative Note Date of Service: 10/12/24 Narrative: Date of Service: 10/12/24 Pre-op diagnosis: Right femoral neck fx Post-op diagnosis: same Procedure: Right hip iva Implants: [place] Accolade 2 # 3 132 with +4/48 bipolar Surgeon: Brijesh Marcial MD Anesthesia: GETA and local Was an Process Control Board Operator used for this Procedure?: Yes Process Control Board Operator: Anibal Portillo Estimated blood loss (mL): 200 IV fluids (mL): 800 Pathology: other Condition: stable Disposition: PACU Procedure in detail: Patient was brought to the operative room placed in the lateral decubitus position. All bony prominences were well padded and the was prepped and draped in standard sterile fashion. IV antibiotics per weight were administered and a time-out was called to identify proper site proper procedure proper surgeon. Radiographs were available and confirmed. I began by making a curvilinear incision over the posterolateral aspect of the greater trochanter. Dissection was taken down to the tensor fascia which was incised in line with the incision and a Charnley retractor was placed. The hip was internally rotated and the external rotators were identified. All vessels in the area were cauterized and a full-thickness capsular/external rotator layer was developed in a hockey-stick fashion starting just proximal to the piriformis. This layer was tagged and the displaced femoral neck fracture was identified. Clean-up cuts was performed while protecxtion the posterolateral soft tissues and the head was removed and measured (48 mm) on the back table. I then copiously irrigated the acetabulum and removed all bony fragments. Once this was done I used a cookie cutter to lateralize and a Charnley awl to identify the canal and then sequentially broached up to a 132 deg #3. I then trialed with a standard head and a bipolar component matching the femoral head size. I was satisfied with the range of motion and stability and length. Therefore I removed all instrumentation and copiously irrigated. I then placed my final femoral implant and then retrialed. I was satisfied with the +4/48 implant. My final bipolar components were then placed. I closed the capsular layer with FiberWire. I performed a layered closure with arnie on skin. The patient was placed in sterile dressing extubated brought to recovery room in stable condition there were no known complications.
[2024-10-13] MEDS: Enoxaparin Sodium 40 MG/0.4 ML SYRINGE SUBCUT (16:18)
[2024-10-13] MEDS: Sennosides 8.6 MG TABLET 17.2 MG PO (21:04)
[2024-10-13] MEDS: Latanoprost 0.005 % Ophth Sol 2.5 ML DROPS 1 DROP EYE-BOTH (21:05)
[2024-10-14] VITALS (8 sets, daily range): BP systolic 96–109; BP diastolic 47–55; PULSE 71–79; RESP 12–18; TEMP 36.9–37.7; O2SAT 93–96
[2024-10-14] MEDS: Pantoprazole Sodium 40 MG/10 ML VIAL IVPUSH (06:14)
[2024-10-14] MEDS: allopurinoL 100 MG TABLET PO (08:06)
[2024-10-14] MEDS: Ferrous Sulfate 324 MG TABLET.DR PO (08:06)
[2024-10-14] MEDS: Calcium Carbonate 750 MG TAB.CHEW PO (08:06)
[2024-10-14] MEDS: Cyanocobalamin (Vitamin B-12) 500 MCG TABLET 2500 MCG PO (08:06)
[2024-10-14] MEDS: Anastrozole 1 MG TABLET PO (08:06)
[2024-10-14] MEDS: Multivitamin TABLET 1 TAB PO (08:06)
[2024-10-14] MEDS: Thiamine HCL 100 MG TABLET PO (08:06)
[2024-10-14] MEDS: buPROPion HCl XL 300 MG TAB.ER.24H PO (08:07)
[2024-10-14] MEDS: oxyCODONE HCl Immed Release 5 MG TABLET PO (08:07)
[2024-10-14] MEDS: timoloL maleate 0.5 % Oph Sol 5 ML DRBTL 1 DROP EYE-BOTH ×2 (08:08→22:24)
[2024-10-14] MEDS: Dorzolamide HCl 2 % Ophth Sol 10 ML DRPBTL 1 DROP EYE-BOTH ×2 (08:08→22:24)
[2024-10-14] MEDS: 0.9 % Sodium Chloride Flush 3 ML SYRINGE IVFLUSH ×3 (08:09→23:34)
--- NOTE | 2024-10-14 10:04 | PM.PNORT ---
Subjective Subjective Date of Service: 10/14/24 Interval history: POD2 s/p rt hip iva Patient is resting in chair comfortably No overnight events Pain is managed No additional complaints Physical Exam Vital Signs: Vital Signs: Last Vital Signs Temp 98.4 F 10/14/24 07:44 Pulse 74 10/14/24 08:56 Resp 16 10/14/24 07:44 BP 96/50 L 10/14/24 08:56 Pulse Ox 93 10/14/24 08:56 O2 Del Method Room Air 10/14/24 07:44 O2 Flow Rate 1 10/12/24 23:32 FiO2 27 10/12/24 17:56 BMI result Body Mass Index 24.0 Const: General: cooperative, healthy appearing and no acute distress Resp: Effort & Inspection: normal respiratory effort and able to speak in complete sentences Cardio: Rate: regular rate Peripheral pulses: Peripheral pulses 2+ throughout GI: Palpation (GI): Soft to palpation Skin: Lesions: no lesions Rashes: no rashes Extrem: Other: right hip dressing is c/d/i. Able to dorsi/plantar flex. Calf is supple and nontender. Sensation intact. Pedal pulse intact. Procedures Date of Service Date of Service: 10/14/24 Progress Note: A&P Assessment and plan (1) Status post hemiarthroplasty of right hip: Status: Acute Plan Continue pain mgmnt Begin Lovenox for dvt ppx begin PT/OT for right hip iva - WBAT, posterior precautions Dispo planning-Pending PT eval, pain mgmnt, cleared for d/c once physical therapy eval is completed and she is medically clear Time Spent With Patient Time: Total time managing care of this patient today ____ minutes. Quality Stroke Does the patient have a stroke diagnosis?: No Reason for No Anti-thrombotic by Day Two: Contraindicated VTE Prior VTE?: No VTE Risk Level:: Medical - moderate - high VTE Device Contraindication: N/A - Device Ordered VTE Drug Contraindication: Treatment Not Indicated
--- NOTE | 2024-10-14 12:27 | P.PNIM_ITS ---
Subjective Subjective Date of Service: 10/14/24 Interval History: seen and evaluated feels better pain under fair control no other events Review of Systems Review of Systems: Yes all other systems are reviewed and are negative Physical Exam 2 Vital Signs: Vital Signs: Last Vital Signs Temp 99.8 F 10/14/24 11:33 Pulse 79 10/14/24 11:28 Resp 18 10/14/24 11:28 BP 105/47 L 10/14/24 11:28 Pulse Ox 96 10/14/24 11:28 O2 Del Method Room Air 10/14/24 11:28 O2 Flow Rate 1 10/12/24 23:32 FiO2 27 10/12/24 17:56 BMI result Body Mass Index 24.0 Const: Other: Constitutional : Awake, interactive, not in distress Neck : Normal inspection, Supple Cardiovascular : RRR, no JVP, no lower extremity edema Respiratory : good bilateral air entry, no crackles, wheezes or rhonchi Gastrointestinal: soft, lax, Normal bowel sounds, Non tender Skin : Warm, Dry extremities: RLE wound in dressing Neurological : Alert & oriented x3, No focal deficit Objective Data Active Medications Acetaminophen (Acetaminophen 325 Mg Tablet) 650 mg PO Q6H PRN PRN Reason: Pain, Mild 1-3,fever,headache Last Admin: 10/11/24 20:50 Dose: 650 mg Documented By: MANJU Allopurinol (Allopurinol 100 Mg Tablet) 100 mg PO DAILY [facility] Last Admin: 10/14/24 08:06 Dose: 100 mg Documented By: JOCE Anastrozole (Anastrozole 1 Mg Tablet) 1 mg PO DAILY [facility] Last Admin: 10/14/24 08:06 Dose: 1 mg Documented By: JOCE Bupropion HCl (Bupropion Hcl Xl 300 Mg Tab.Er.24h) 300 mg PO DAILY [facility] Last Admin: 10/14/24 08:07 Dose: 300 mg Documented By: JOCE Calcium Carbonate (Calcium Carbonate 750 Mg Tab.Chew) 750 mg PO DAILY [facility] Last Admin: 10/14/24 08:06 Dose: 750 mg Documented By: JOCE Cyanocobalamin (Cyanocobalamin (Vitamin B-12) 500 Mcg Tablet) 2,500 mcg PO DAILY [facility] Last Admin: 10/14/24 08:06 Dose: 2,500 mcg Documented By: JOCE Dorzolamide HCl (Dorzolamide Hcl 2 % Ophth Samanta 10 Ml Drpbtl) 1 drop EYE-BOTH BID [facility] Last Admin: 10/14/24 08:08 Dose: 1 drop Documented By: JOCE Enoxaparin Sodium (Enoxaparin Sodium 40 Mg/0.4 Ml Syringe) 40 mg SUBCUT Q24H [facility] Last Admin: 10/13/24 16:18 Dose: 40 mg Documented By: JOCE Ferrous Sulfate (Ferrous Sulfate 324 Mg Tablet.Dr) 324 mg PO DAILY [facility] Last Admin: 10/14/24 08:06 Dose: 324 mg Documented By: JOCE Cefazolin Sodium/Dextrose (Ancef) 2 gm in 50 mls @ 100 mls/hr IV POSTOP [facility] Latanoprost (Latanoprost 0.005 % Ophth Samanta 2.5 Ml Drops) 1 drop EYE-BOTH BEDTIME [facility] Last Admin: 10/13/24 21:05 Dose: 1 drop Documented By: SUSHMA Magnesium Hydroxide (Milk Of Magnesia 30 Ml Oral.Susp) 30 ml PO DAILY PRN PRN Reason: Constipation Melatonin (Melatonin 3 Mg Tablet) 6 mg PO BEDTIME PRN PRN Reason: Insomnia Morphine Sulfate (Morphine Sulfate 2 Mg/Ml Cartridge) 2 mg IVPUSH Q3H PRN; Protocol PRN Reason: Pain, Severe (Pain Scale 7-10) Last Admin: 10/12/24 07:51 Dose: 2 mg Documented By: VAELNTINO Multivitamins/Vitamin C (Multivitamin Tablet) 1 tab PO DAILY [facility] Last Admin: 10/14/24 08:06 Dose: 1 tab Documented By: JOCE Nicotine (Nicotine 7 Mg Patch.Td24) 7 mg TRANSDERMA DAILY [facility] Last Admin: 10/14/24 08:19 Dose: Not Given Documented By: JOCE Non-Admin Reason: Patient Refused Ondansetron HCl (Ondansetron Hcl 4 Mg/2 Ml Vial) 4 mg IVPUSH Q8H PRN PRN Reason: Nausea and Vomiting Oxycodone HCl (Oxycodone Hcl Immed Release 5 Mg Tablet) 5 mg PO Q6H PRN PRN Reason: Pain, Moderate(Pain Scale 4-6) Last Admin: 10/14/24 08:07 Dose: 5 mg Documented By: JOCE Pantoprazole Sodium (Pantoprazole Sodium 40 Mg/10 Ml Vial) 40 mg IVPUSH DAILY@0630 [facility] Last Admin: 10/14/24 06:14 Dose: 40 mg Documented By: SUSHMA Senna (Sennosides 8.6 Mg Tablet) 17.2 mg PO BEDTIME [facility] Last Admin: 10/13/24 21:04 Dose: 17.2 mg Documented By: SUSHMA Sodium Chloride (0.9 % Sodium Chloride Flush 3 Ml Syringe) 3 ml IVFLUSH QSHIFT [facility] Last Admin: 10/14/24 08:09 Dose: 3 ml Documented By: JOCE Thiamine HCl (Thiamine Hcl 100 Mg Tablet) 100 mg PO DAILY [facility] Last Admin: 10/14/24 08:06 Dose: 100 mg Documented By: JOCE Timolol Maleate (Timolol Maleate 0.5 % Oph Samanta 5 Ml Drbtl) 1 drop EYE-BOTH BID [facility] Last Admin: 10/14/24 08:08 Dose: 1 drop Documented By: JOCE Labs 10/13/24 07:36 10/13/24 07:36 Assessment and Plan (1) Status post hemiarthroplasty of right hip: Status: Acute Plan 74F PMH glaucoma, gout, iron deficiency anemia, vitamin-D deficiency, 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, breast cancer status post lumpectomy, chemo and radiation presented with mechanical fall complicated by right femoral fracture Mechanical fall complicated by close fracture of right femoral neck s/p right hemiarthroplasty 10/12/24 Pain control Lovenox for dvt prophylaxis PT/OT for right hip iva - WBAT History of breast cancer Continue anastrozole Gout Allopurinol Full code reason for continued hospitalization: dispo planning Quality Stroke Does the patient have a stroke diagnosis?: No Reason for No Anti-thrombotic by Day Two: Contraindicated VTE Prior VTE?: No VTE Risk Level:: Medical - moderate - high VTE Device Contraindication: N/A - Device Ordered VTE Drug Contraindication: Treatment Not Indicated
--- NOTE | 2024-10-14 12:56 | MHC.CM.PN ---
CM met with Patient at bedside and she is very pleased that [facility] has accepted her and that the auth process with her insurance has begun.CM will follow.
--- NOTE | 2024-10-14 15:14 | MHC.CM.PN ---
[facility] has denied Acute Rehab; will conduct a Peer to Peer before 10 AM tomorrow @ [phone] option 5.
[2024-10-14] MEDS: Enoxaparin Sodium 40 MG/0.4 ML SYRINGE SUBCUT (16:00)
--- NOTE | 2024-10-14 17:51 | PC.NURSE ---
Patient informed of transfer to room 385 and belongs collected. Patient denies chest pain, shortness of breath, nausea or bilateral lower leg pain. Report called to Padma, RN. All questions answered.
--- NOTE | 2024-10-14 18:18 | PC.NURSE ---
Pt. arrived on the floor, alert and oriented x4, comfortably sitting in bed. 3 eye drops stored in pt's specific bin.
[2024-10-14] MEDS: Sennosides 8.6 MG TABLET 17.2 MG PO (22:23)
[2024-10-14] MEDS: Latanoprost 0.005 % Ophth Sol 2.5 ML DROPS 1 DROP EYE-BOTH (22:24)
[2024-10-15 03:38] VITALS: BP 106/54; PULSE 67; RESP 18; TEMP 36.3; O2SAT 95
[2024-10-15] MEDS: Omeprazole 40 MG CAPSULE.DR PO (05:37)
[2024-10-15 07:37] VITALS: BP 111/55; PULSE 64; RESP 18; TEMP 37; O2SAT 96
[2024-10-15] MEDS: Morphine Sulfate 2 MG/ML CARTRIDGE IVPUSH (08:50)
[2024-10-15 09:51] VITALS: BP 111/55; PULSE 64; O2SAT 96
[2024-10-15] MEDS: Cyanocobalamin (Vitamin B-12) 500 MCG TABLET 2500 MCG PO (10:13)
[2024-10-15] MEDS: Calcium Carbonate 750 MG TAB.CHEW PO (10:13)
[2024-10-15] MEDS: buPROPion HCl XL 300 MG TAB.ER.24H PO (10:13)
[2024-10-15] MEDS: Thiamine HCL 100 MG TABLET PO (10:13)
[2024-10-15] MEDS: Multivitamin TABLET 1 TAB PO (10:13)
[2024-10-15] MEDS: Anastrozole 1 MG TABLET PO (10:13)
[2024-10-15] MEDS: Ferrous Sulfate 324 MG TABLET.DR PO (10:13)
[2024-10-15] MEDS: allopurinoL 100 MG TABLET PO (10:14)
[2024-10-15] MEDS: 0.9 % Sodium Chloride Flush 3 ML SYRINGE IVFLUSH (10:14)
[2024-10-15] MEDS: timoloL maleate 0.5 % Oph Sol 5 ML DRBTL 1 DROP EYE-BOTH (10:20)
[2024-10-15] MEDS: Dorzolamide HCl 2 % Ophth Sol 10 ML DRPBTL 1 DROP EYE-BOTH (10:20)
--- NOTE | 2024-10-15 11:21 | MHC.CM.PN ---
Addendum entered by Romi Bonilla RN 10/15/24 16:02: [facility] has auth. BLS transport scheduled for 430. Patient, RN, aware. Original Note: Patient has accepted bed at [facility], who will submit for [facility] auth. Per MD medically cleared for dc. Anticipate auth later today.
--- NOTE | 2024-10-15 12:30 | P.DS_ITS ---
DS: Providers Provider Date of Service: 10/15/24 Date of admission: 10/11/24 19:50 Date of discharge: 10/15/24 Primary care physician: Fredo Rodriguez MD Consults: 10/11/24 21:02 Consult to Orthopedics Routine Consulting Provider: [facility] Reason for consultation: right hip fracture DS: Diagnosis Discharge Diagnosis (1) Status post hemiarthroplasty of right hip: Status: Acute (2) History of alcohol use disorder: Status: Acute (3) Hypotension: Status: Acute (4) Nicotine dependence: Status: Acute (5) Closed fracture of neck of right femur: Status: Acute DS: Summary Hospital Course Hospital Course: Admission note HPI Pt is a 74 yo female with PMH glaucoma, gout, ENMANUEL, VIT D deficiency, ETOH abuse in remission since Apr 2024 on naltrexone, nicotine use vaping only, previous smoking hx stopped 4 years prior, 1PPD for 40 years, breast cancer currently on hormone therapy after undergoing lumpectomy, chemotherapy and radiation, urinary incontinence, cholecystectomy presents to ED via EMS s/p witnessed accidental fall while using walker resulting in R femur fracture. Pt was moving to her new independent living apartment at [facility] and attempted to catch her computer resting on the seat of pt's walker. Pt was not able to catch the computer and fell to her right side, resulting in immediate pain in upper right leg. Pt was not able to move R leg. Pt did not impact the head or cervical collar area. Pt denies any pain in cercial, thoracic, lumbar or sacral spine. Pt is reporting 4/10 R upper leg pain. Pt states she does well with oxycodone. Hospital course The patient was admitted for treatment of Mechanical fall complicated by close fracture of right femoral neck. She had right hemiarthroplasty 10/12/24 with good response as pain controlled wioth Tylenol and Oxycodone. Started Lovenox for dvt prophylaxis. Evaluated by PT/OT who recommended STR placement with [facility]. Discharge plan Physical Therapy for total hip arthroplasty: posterior precautions, gait training, ROM, strength Continue Lovenox x 6 weeks Oxycodone and Tylenol as needed for pain Follow up with [facility] in 2 weeks Time Attestation Discharge Coordination Time (in mins): 38 Quality: Safe Use of Opioids Does Pt have an Active Cancer Diagnosis on the Problem List?: No Quality: Stroke Does the patient have a stroke diagnosis?: No Physical Exam Vital Signs: Vital Signs: Last Vital Signs Temp 98.6 F 10/15/24 07:37 Pulse 64 10/15/24 09:51 Resp 18 10/15/24 07:37 BP 111/55 L 10/15/24 09:51 Pulse Ox 96 10/15/24 09:51 O2 Del Method Room Air 10/15/24 07:37 O2 Flow Rate 1 10/12/24 23:32 FiO2 27 10/12/24 17:56 BMI result Body Mass Index 24.0 Const: Other: Constitutional : Awake, interactive, not in distress Neck : Normal inspection, Supple Cardiovascular : RRR, no JVP, no lower extremity edema Respiratory : good bilateral air entry, no crackles, wheezes or rhonchi Gastrointestinal: soft, lax, Normal bowel sounds, Non tender Skin : Warm, Dry extremities: RLE wound in dressing Neurological : Alert & oriented x3, No focal deficit DS: Data Data Completed and Pending Pending studies at discharge: Pending at discharge 10/12/24 17:14 Surgical [PTH] Routine Imaging Chest x-ray: Radiologist's impression: ITS Impressions Pelvis X-Ray 10/12/24 19:50 IMPRESSION: Status post right total hip arthroplasty. Electronically signed by: Emmanuel Rojas MD 10/13/2024 08:05 AM EDT RP Discharge Plan Discharge Anticipated Discharge Date/Time: 10/15/24 12:21 Patient Disposition: Xfer SNF Discharge Diagnosis: Hip fracture Referrals: Fredo Rodriguez MD [Primary Care Provider] - 1 Week Adrianna Gomez PA-C [Physician Account Installer] - 10/26/24 1:15 pm (10/26/24 1:15pm ) Discharge Medications: New nicotine 7 mg/24 hr Patch 24 Hour 7 mg transdermal DAILY Qty: 28 0RF omeprazole 40 mg Capsule,Delayed Release(Dr/Ec) 40 mg PO DAILY@0630 Qty: 30 0RF oxycodone 5 mg Tablet 5 mg PO Q6H PRN (Reason: Pain, Moderate(Pain Scale 4-6)) Qty: 20 0RF Rx Instructions: Partial Fill upon patient request. enoxaparin 40 mg/0.4 mL Syringe 40 mg subcut Q24H 38 Days Qty: 15.2 0RF Continued latanoprost 0.005 % drops 1 drp ophthalmic (eye) BEDTIME naltrexone 50 mg tablet 50 mg PO DAILY thiamine HCl (vitamin B1) 100 mg Tablet 100 mg PO DAILY allopurinol 100 mg tablet 100 mg PO DAILY calcium carbonate 600 mg calcium (1,500 mg) Tablet 600 mg PO DAILY dorzolamide-timolol (PF) 2-0.5 % dropperette 1 drp ophthalmic (eye) BID cyanocobalamin (vitamin B-12) 2,500 mcg Tablet 2,500 mcg PO DAILY multivitamin Tablet 1 tab PO DAILY bupropion HCl 150 mg tablet extended release 24 hr 300 mg PO DAILY anastrozole 1 mg tablet 1 mg PO DAILY ferrous sulfate [Iron (ferrous sulfate)] 325 mg (65 mg iron) Tablet 325 mg PO DAILY Discharge Orders: Discharge Order (Routine); Ordered 10/15/24 Ordered By: Anthony Gonzalez Diet: Advance to usual diet Activity on Discharge: Use cane or walker Stand Alone Forms: Patient Portal Discharge page Print Language: Maltese Care Plan Goals: Oxycodone as needed for pain Lovenox for clot prevention Follow with Orthopedic as outpatient Health Concerns: Hip fracture Plan of Treatment: Physical Therapy for total hip arthroplasty: posterior precautions, gait training, ROM, strength Limit stair climbing No showering, no tub bath-keep dressing clean, dry and intact No driving x 6 weeks Continue Lovenox x 6 weeks Follow up with [facility] in 2 weeks Assessment: as above
[2024-10-15 15:22] VITALS: BP 119/60; PULSE 63; RESP 17; TEMP 36.6; O2SAT 95
--- NOTE | 2024-10-15 15:32 | HO.PM.IMPN ---
Subjective Subjective Date of Service: 10/15/24 Interval History: seen and evaluated feels better pain under fair control no other events Physical Exam Vital Signs: Vital Signs: Last Vital Signs Temp 98 F 10/15/24 15:22 Pulse 63 10/15/24 15:22 Resp 17 10/15/24 15:22 BP 119/60 10/15/24 15:22 Pulse Ox 95 10/15/24 15:22 O2 Del Method Room Air 10/15/24 15:22 O2 Flow Rate 1 10/12/24 23:32 FiO2 27 10/12/24 17:56 BMI result Body Mass Index 24.0 Const: Other: Constitutional : Awake, interactive, not in distress Neck : Normal inspection, Supple Cardiovascular : RRR, no JVP, no lower extremity edema Respiratory : good bilateral air entry, no crackles, wheezes or rhonchi Gastrointestinal: soft, lax, Normal bowel sounds, Non tender Skin : Warm, Dry extremities: RLE wound in dressing Neurological : Alert & oriented x3, No focal deficit Objective Data Active Medications Acetaminophen (Acetaminophen 325 Mg Tablet) 650 mg PO Q6H PRN PRN Reason: Pain, Mild 1-3,fever,headache Last Admin: 10/11/24 20:50 Dose: 650 mg Documented By: MANJU Allopurinol (Allopurinol 100 Mg Tablet) 100 mg PO DAILY [facility] Last Admin: 10/15/24 10:14 Dose: 100 mg Documented By: JOSÉ Anastrozole (Anastrozole 1 Mg Tablet) 1 mg PO DAILY [facility] Last Admin: 10/15/24 10:13 Dose: 1 mg Documented By: JOSÉ Bupropion HCl (Bupropion Hcl Xl 300 Mg Tab.Er.24h) 300 mg PO DAILY [facility] Last Admin: 10/15/24 10:13 Dose: 300 mg Documented By: JOSÉ Calcium Carbonate (Calcium Carbonate 750 Mg Tab.Chew) 750 mg PO DAILY [facility] Last Admin: 10/15/24 10:13 Dose: 750 mg Documented By: JOSÉ Cyanocobalamin (Cyanocobalamin (Vitamin B-12) 500 Mcg Tablet) 2,500 mcg PO DAILY [facility] Last Admin: 10/15/24 10:13 Dose: 2,500 mcg Documented By: JOSÉ Dorzolamide HCl (Dorzolamide Hcl 2 % Ophth Samanta 10 Ml Drpbtl) 1 drop EYE-BOTH BID [facility] Last Admin: 10/15/24 10:20 Dose: 1 drop Documented By: JOSÉ Enoxaparin Sodium (Enoxaparin Sodium 40 Mg/0.4 Ml Syringe) 40 mg SUBCUT Q24H [facility] Last Admin: 10/14/24 16:00 Dose: 40 mg Documented By: JOCE Ferrous Sulfate (Ferrous Sulfate 324 Mg Tablet.) 324 mg PO DAILY [facility] Last Admin: 10/15/24 10:13 Dose: 324 mg Documented By: JOSÉ Cefazolin Sodium/Dextrose (Ancef) 2 gm in 50 mls @ 100 mls/hr IV POSTOP [facility] Latanoprost (Latanoprost 0.005 % Ophth Samanta 2.5 Ml Drops) 1 drop EYE-BOTH BEDTIME [facility] Last Admin: 10/14/24 22:24 Dose: 1 drop Documented By: JASON Magnesium Hydroxide (Milk Of Magnesia 30 Ml Oral.Susp) 30 ml PO DAILY PRN PRN Reason: Constipation Melatonin (Melatonin 3 Mg Tablet) 6 mg PO BEDTIME PRN PRN Reason: Insomnia Morphine Sulfate (Morphine Sulfate 2 Mg/Ml Cartridge) 2 mg IVPUSH Q3H PRN; Protocol PRN Reason: Pain, Severe (Pain Scale 7-10) Last Admin: 10/15/24 08:50 Dose: 2 mg Documented By: JOSÉ Multivitamins/Vitamin C (Multivitamin Tablet) 1 tab PO DAILY [facility] Last Admin: 10/15/24 10:13 Dose: 1 tab Documented By: JOSÉ Nicotine (Nicotine 7 Mg Patch.Td24) 7 mg TRANSDERMA DAILY [facility] Last Admin: 10/15/24 10:15 Dose: Not Given Documented By: JOSÉ Non-Admin Reason: Patient Refused Omeprazole (Omeprazole 40 Mg Capsule.) 40 mg PO DAILY@0630 [facility] Last Admin: 10/15/24 05:37 Dose: 40 mg Documented By: JASON Ondansetron HCl (Ondansetron Hcl 4 Mg/2 Ml Vial) 4 mg IVPUSH Q8H PRN PRN Reason: Nausea and Vomiting Oxycodone HCl (Oxycodone Hcl Immed Release 5 Mg Tablet) 5 mg PO Q6H PRN PRN Reason: Pain, Moderate(Pain Scale 4-6) Last Admin: 10/14/24 08:07 Dose: 5 mg Documented By: JOCE Senna (Sennosides 8.6 Mg Tablet) 17.2 mg PO BEDTIME [facility] Last Admin: 10/14/24 22:23 Dose: 17.2 mg Documented By: JASON Sodium Chloride (0.9 % Sodium Chloride Flush 3 Ml Syringe) 3 ml IVFLUSH QSHIFT [facility] Last Admin: 10/15/24 10:14 Dose: 3 ml Documented By: JOSÉ Thiamine HCl (Thiamine Hcl 100 Mg Tablet) 100 mg PO DAILY [facility] Last Admin: 10/15/24 10:13 Dose: 100 mg Documented By: JOSÉ Timolol Maleate (Timolol Maleate 0.5 % Oph Samanta 5 Ml Drbtl) 1 drop EYE-BOTH BID [facility] Last Admin: 10/15/24 10:20 Dose: 1 drop Documented By: JOSÉ Labs 10/13/24 07:36 10/13/24 07:36 Assessment and Plan (1) Status post hemiarthroplasty of right hip: Status: Acute Plan 74F PMH glaucoma, gout, iron deficiency anemia, vitamin-D deficiency, 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, breast cancer status post lumpectomy, chemo and radiation presented with mechanical fall complicated by right femoral fracture Mechanical fall complicated by close fracture of right femoral neck s/p right hemiarthroplasty 10/12/24 Pain control Lovenox for dvt prophylaxis PT/OT for right hip iva - [facility] History of breast cancer Continue anastrozole Gout Allopurinol Full code reason for continued hospitalization: dispo planning Quality Stroke Does the patient have a stroke diagnosis?: No Reason for No Anti-thrombotic by Day Two: Contraindicated VTE Prior VTE?: No VTE Risk Level:: Medical - moderate - high VTE Device Contraindication: N/A - Device Ordered VTE Drug Contraindication: Treatment Not Indicated
[2024-10-18 13:39] LABS: VITAMIN D (1,25 OH) D3 38 pg/mL; Vit D (1,25-Dihydroxy) Total 38 pg/mL (18-72); Vitamin D (1,25 OH) D2 <8 pg/mL
== END 2024-10-15 16:55 | disposition skilled nursing facility (03) | DRG 522 ==
LOC: HO.ED 18:59 → HO.EDOVER 20:02 → HO.IMC 10-12 00:25 → HO.S3 10-14 17:24
PROVIDERS: Internal Medicine; Orthopaedic Surgery; Physician Assistant Medical; Admitting Provider Nurse Practitioner Family; Emergency Provider Emergency Medicine; PCP Internal Medicine; Visit Provider Student in an Organized Health Care Education/Training Program
PROC: 0SRR0JA Replacement of Right Hip Joint, Femoral Surface with Synthetic Substitute, Uncemented, Open Approach (ICD-10-PCS; principal; 2024-10-12 14:00)
DX: S72.001A Fracture of unspecified part of neck of right femur, initial encounter for closed fracture (principal); W19.XXXA Unspecified fall, initial encounter; M10.9 Gout, unspecified; H40.9 Unspecified glaucoma; I95.2 Hypotension due to drugs; T40.2X5A Adverse effect of other opioids, initial encounter; F10.11 Alcohol abuse, in remission; C50.919 Malignant neoplasm of unspecified site of unspecified female breast; Z79.811 Long term (current) use of aromatase inhibitors; Z87.891 Personal history of nicotine dependence; Z79.899 Other long term (current) drug therapy
CPT/HCPCS: 36415; 71045; 72170; 73502; 80048; 80053; 82652; 83735; 84100; 85025; 85027; 86850; 86900; 86901; 88305; 88311; 93005; 97110; 97116; 97162; 97166; 99285; C1776; J0690; J1100; J1171; J1650; J2003; J2270; J2405; J2470; J2704; J2795; J3010

== ENCOUNTER → 2024-10-11 17:11 | Outpatient (BNV) | payer MEDICARE, SELFPAY | PROVIDERS: Emergency Provider Emergency Medicine; PCP Internal Medicine; Visit Provider Radiology Diagnostic Radiology | DX: S72.001A Fracture of unspecified part of neck of right femur, initial encounter for closed fracture (principal); Z01.818 Encounter for other preprocedural examination | CPT/HCPCS: 71045; 73502 ==

== ENCOUNTER 2024-10-11 19:50 | Outpatient (BNV) | payer MEDICARE, SELFPAY | END 2024-10-12 17:46 | PROVIDERS: Admitting Provider Nurse Practitioner Family; Emergency Provider Emergency Medicine; PCP Internal Medicine; Visit Provider Radiology Diagnostic Radiology | DX: Z96.641 Presence of right artificial hip joint (principal) | CPT/HCPCS: 72170 ==

== ENCOUNTER 2024-10-11 19:50 | Outpatient (BNV) | payer MEDICARE, SELFPAY | END 2024-10-12 05:00 | PROVIDERS: Admitting Provider Nurse Practitioner Family; Emergency Provider Emergency Medicine; PCP Internal Medicine; Visit Provider Internal Medicine | DX: I95.9 Hypotension, unspecified (principal); S72.001A Fracture of unspecified part of neck of right femur, initial encounter for closed fracture; Z01.810 Encounter for preprocedural cardiovascular examination | CPT/HCPCS: 93010 ==

== ENCOUNTER 2024-10-11 19:50 | Outpatient (BNV) | payer MEDICARE, SELFPAY | END 2024-10-11 20:04 | PROVIDERS: Admitting Provider Nurse Practitioner Family; Emergency Provider Emergency Medicine; PCP Internal Medicine; Visit Provider Internal Medicine | DX: M79.661 Pain in right lower leg (principal); W19.XXXA Unspecified fall, initial encounter | CPT/HCPCS: 93010 ==

== ENCOUNTER → 2024-10-11 19:50 | Outpatient (BNV) | payer MEDICARE, SELFPAY | PROVIDERS: Admitting Provider Nurse Practitioner Family; Emergency Provider Emergency Medicine; PCP Internal Medicine; Visit Provider Physician Assistant | DX: Z96.641 Presence of right artificial hip joint (principal) | CPT/HCPCS: 27236; 99024; 99223 ==

== ENCOUNTER → 2024-10-11 19:50 | Outpatient (BNV) | payer MEDICARE, SELFPAY | PROVIDERS: Admitting Provider Nurse Practitioner Family; Emergency Provider Emergency Medicine; PCP Internal Medicine; Visit Provider Nurse Practitioner Family | DX: Z96.641 Presence of right artificial hip joint (principal); Z87.898 Personal history of other specified conditions; I95.9 Hypotension, unspecified; F17.290 Nicotine dependence, other tobacco product, uncomplicated; S72.001A Fracture of unspecified part of neck of right femur, initial encounter for closed fracture | CPT/HCPCS: 99232; 99233; 99239 ==

== ENCOUNTER 2024-10-26 12:19 | Outpatient (REF) | payer MEDICARE, SELFPAY ==
--- OUTSIDE RECORDS SUMMARY | 2024-10-27 14:36 | XMS_ITS | Encounter Summary ---
Author Organization [facility] Address [address] [place] [address] Care Team Providers Care Stitch Separator Name Role Phone Rufus Thornton MD Primary Care Provider [phone] Encounter Details Date Type Department Care Team (Latest Contact Info) Description 07/16/2024 Lab Requisition [facility] Lab [address] [place] [id number] Jeramy Voss PA [address] [id number] Hydronephrosis with renal and ureteral calculous obstruction [...] Urine No growth 07/17/2024 8:03 AM EST [facility] Urine Urine specimen obtained by clean catch procedure / Unknown 07/16/2024 10:56 AM EST 07/16/2024 3:05 PM EST us Jeramy [facility] MICROBIOLOGY - GENERAL ORDER CATHERINE Final Result [facility] [address] [place] [address], documented in this encounter Visit Diagnoses Diagnosis Hydronephrosis with renal and ureteral calculous obstruction documented in this encounter Care Teams Stitch Separator Relationship Specialty Start Date End Date Rufus Thornton MD [address] [place] [id number] PCP - General Internal Medicine 05/31/24 documented as of this encounter
--- OUTSIDE RECORDS SUMMARY | 2024-10-27 14:36 | XMS_ITS | Clinical Summary ---
Author Organization [facility] Address [address] [place] [address] Phone Care Team Providers Care Inspector Fabric Name Role Phone Rufus Thornton MD Primary Care Provider [phone] Social History Tobacco Use Types Packs/Day Years [...] Influencers of Health Screening 06/15/2022 Influenza Vaccine (Season Ended) 2025 RSV Immunization Adult Patie nts (1 - 1-dose 75+ series) 2025 HIB [...] age to complete this topic Meningococcal B Vaccine Aged Out No l onger eligible based on patient's age to complete this topic RSV Immunization Patients Un marina 20 months Aged Out No longer eligible b ased on patient's age to complete this topic Varicella Vaccines Aged Out No longer eligible based on patient's age to complete this [place] [id number] MEDICARE [facility] [id number] Care Teams Inspector Fabric Relationship Specialty Start Date End Date Rufus Thornton MD [address] [place] [id number] PCP - General Internal Medicine 05/31/24
--- OUTSIDE RECORDS SUMMARY | 2024-10-27 14:36 | XMS_ITS | Data Portability ---
Author Organization 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 4837121345055 105 Active 2023 [address] [place] , [address], [place], [address], [employer] 4 14:42:41 Heart murmur 86624474 Active [address] [place] [address], [address], [place], [address], [email or web address] 4 14:43:30 Mediastinal lymphadenop athy 63235695 Active [address], [address], [place], [address], [facility] [employer] [facility] 4 14:43:36 Calcificati on of coronary artery 014471407 Active [address], [address], [place], [address], [facility] [employer] [facility] 4 14:43:48 Glaucoma 35552221 Active [address], [address], [place], [address], [facility] [employer] [facility] 4 14:44:00 Alcoholism 0361156 Active [address], [address], [place], [address], [facility] [employer] [facility] 4 14:44:52 Nodule of lung 182551233 Active [address], [address], [place], [address], [facility] [employer] [facility] 4 14:45:05 Thyroid nodule 101078288 Active [address], [address], [place], [address], [facility] [employer] [facility] 4 14:45:09 Nodule of adrenal cortex 856504828 Active [address], [address], [place], [address], [facility] [employer] [facility] 4 14:45:19 Steatosis of liver 246847933 Active [address], [address], [place], [address], [facility] [employer] [facility] 4 14:45:27 Hiatal hernia 34866676 Active [address], [address], [place], [address], [facility] [employer] [facility] 4 14:45:40 Gastric ulcer 461797999 Active [address], [address], [place], [address], [facility] [employer] [facility] 4 14:45:50 Adult failure to thrive syndrome 426099155 Active 2023 [address] , [address], [place], [address], [facility] [employer] [facility] 4 14:47:46 Falls 224682392 Active 2023 [facility] [address] , [address], [place], [address], [facility] [employer] [facility] 4 14:47:54 Urinary tract infectious disease 50695373 Active [address], [address], [place], [address], [facility] [employer] [facility] 4 14:47:57 History of calculus of kidney 355960037 Active [address], [address], [place], [address], [facility] [employer] [facility] 4 14:48:39 Urinary tract obstruction 3926921 Active [address], [address], [place], [address], [facility] [employer] 4 10:38:43 Fracture of clavicle 75793186 Active 2023 MEHDI DEE NP [address] [facility], [address], [place], [address], [facility] [employer] 4 13:48:46 Anemia 305943222 Active 2023 Jacki Orosco MD [address] [place] [address], [address], [place], [address], [facility] [employer] 4 00:44:42 Depressive disorder 03263693 Active 2023 Jacki Orosco MD [address] [place] [address], [address], [place], [address], [facility] [email or web address] 4 00:47:03 Problem Notes None recorded. Procedures Surgical History Date Name Laterality Status Provider Name and Address Organization Details Recorded Time Cholecystectomy completed [address], [address], [place], [address], [facility] [employer] 4 14:46:01 extraction of cataract completed GI NA [address], [address], [place], [address], [facility] [email or web address] 4 14:46:07 needle aspiration of breast complete d CHINO [address], [address], [place], [address], [facility] [employer] 4 14:46:22 lumpectomy of breast completed CHINO [address], [address], [place], [address], [facility] [employer] 4 14:46:28 esophagogastroduodenoscopy completed CHINO [address], [address], [place], [address], [facility] [employer] [facility] 4 14:46:33 ureteroscopy completed CHINO [address], [address], [place], [address], [facility] [employer] 4 14:47:06 cystoscopy completed [address], [address], [place], [address], [employer] 4 14:47:16 Imaging Results None recorded. Procedure [...] 03/25/2024 162.56 cm 108 mm[Hg] 70 mm[Hg] [address]INO[address], [address], [place], [address], [employer] 03/25/2024 11:25:15 Date Recorded Body height Body mass index (BMI) Body weight Heart rate Respiratory rate Body temperature Oxygen saturation Oxygen saturation in Arterial blood by Pulse oximetry Systolic blood pressure Diastolic blood pressure Provider Name and Address Organization Details Last Updated DateTime 162.56 cm 24.9 kg/m2 49119.8 9 g 82 /min 16 /min 97.3 [degF] 96 % 96 % 118 mm[Hg] 68 mm[Hg] MEHDI DEE NP [address] [facility], [address], [place], [address], [facility] 13:54:41 Date Recorded Body height Body mass index (BMI) Body weight Heart rate Respiratory rate Body temperature Oxygen saturation Oxygen saturation in Arterial blood by Pulse oximetry Systolic blood pressure Diastolic blood pressure Provider Name and Address Organization Details Last Updated DateTime 162.56 cm 22.1 kg/m2 33979.4 2 g 61 /min 17 /min 97.4 [degF] 94 % 94 % 115 mm[Hg] 65 mm[Hg] Jacki Orosco MD [address] [facility], [address], [place], [address], [facility] 23:50:07 Date Recorded Body height Systolic blood pressure Diastolic blood pressure Provider Name and Address Organization Details Last Updated DateTime 05/11/2024 162.56 cm 106 mm[Hg] 56 mm[Hg] CHINO [address] [facility], [facility] [address], [place], [address], [employer] 05/11/2024 10:50:44 Social History Question Answer Notes LastModified by Organization Details LastModified Time Tobacco Smoking Status Former Smoker quit 2017 Jacki Orosco MD [address] [facility], [facility] [address], [place], [address], [employer] 03/22/2024 18:47:44 Do You Have An Advance [...] Stays With Her, She Is Looking Into [facility]. Information not available 03/22/2024 Legal Guardian? 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 Yes Information not available 03/22/2024 What Was [...] Cirilo Valera [facility] 03/24/2024 16:24:22 Pneumococcal conjugate PCV 13 3 completed Cirilo blandon [facility] 03/24/2024 16:24:41 influenza, unspecified formulation 2 completed Cirilo Valera [facility] 03/24/2024 16:24:57 influenza, unspecified formulation 3 completed [facility] 03/24/2024 16:25:13 SARS-COV-2 (COVID-19) vaccine, UNSPECIFIED 1 completed Cirilo Soto [facility] 03/24/2024 16:25:37 SARS-COV-2 (COVID-19) vaccine, UNSPECIFIED 1 completed Cirilo Valera [facility] 03/24/2024 16:25:48 SARS-COV-2 (COVID-19) vaccine, UNSPECIFIED 1 completed Cirilo Valera [facility] 03/24/2024 16:25:59 SARS-COV-2 (COVID-19) vaccine, UNSPECIFIED 2 completed Cirilo Soto [facility] 03/24/2024 16:26:14 SARS-COV-2 (COVID-19) vaccine, UNSPECIFIED 3 completed Cirilo Soto [facility] 03/24/2024 16:26:29 zoster, unspecified formulation 1 completed Cirilo Valera [facility] 03/24/2024 16:26:41 zoster, unspecified formulation 2 completed [facility] Soto [facility] 03/24/2024 16:26:55 Past Encounters Encounter ID Performer Location Encounter Start Date Encounter Closed Date Diagnosis/Indication Diagnosis SNOMED-CT Code Diagnosis ICD10 Code Diagnosis Note [id number] [place] [address] [address] [place] [address] 03/18/2024 10:32:23 03/22/2024 12:33:58 Fracture of multiple ribs 1403998 S22.43XA oxycodone 5 mg TID PRN- she would like dose nowanterol ateral left 4th through 7th ribs with left seventh rib mildly displaced without pneumothor ax.lidocai ne patch dailymonit or painPT/OT eval and treatencou rage deep breathing, IS as able 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 6941314418 716916 C50.912 anastrozol e 1 mg dailyfollo w up with onc as scheduled Alcoholism 0745790 F10.2 0 patient states in remission but has positive ETOH screen one month agoCT suggestive of pancreatit is due to alcohol usecontinu e zyvox BID due to UTI and possible pancreatit isthiamine daily x 14 daysfolic acid daily x 14 days Glaucoma 20393931 H40.9 cosopt BIDxalatan qhs Adult fail ure to thrive syndrome 494149959 R62.7 folic acid 1 mg daily x 14 daysMVI dailythiam ine daily x 14 daysferrou s sulfate 325 mg daily Edema of l ower extremity 858843899 R60.0 DC lasix 20 mg daily- no edemaeleva te as ablemonito r weights Urinary tr act obstruction 9792540 N13.9 gemtesa 75 mg dailymonit or for outflow issueshas apt on 03/22- can get her own transporta tion and will tell us when she is leaving Urinary tr act infectious disease 29097985 N39.0 zyvox BID x 10 days to end on 03/27- added stop date nowmonitor urinary sxs [id number] MD DUDLEY [address] [place] [address] 03/22/2024 18:20:15 03/24/2024 09:30:25 Fracture of multiple ribs 9260828 S22.41XD Pain improving. Continue lidocaine patch daily, APAP 650 mg q 6 hrs prn, and oxycodone 5 mg TID prn.Encour age use of I carolyn.Kate tor pain and resp status. Alcoholism 5077032 F10.2 0 Seems to have accepted that even mouthwash is the same thing as drinking vodka.No signs of withdrawal inpt.Susy nue thiamine 100 mg qd x 14 days and folic acid 1 gm qd x 14 daysContin ue to encourage abstinence . 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 3588526747 865288 C50.812 S/P tx in 2021.Susy nue anastrozol e 1 mg qdF/U with oncology and breast surgeon as planned. Glaucoma 80107783 H40.89 Continue drops as ordered.F/ U with eye Adult fail ure to thrive syndrome 653681934 R62.7 Likely due to poor po intake at home, possibly due to drinking.E ncourage healthy eating.Con tinue supplement s as below.Diet ician involved. Edema of l ower extremity 085761060 R60.0 None today.Kate tor Urinary tr act obstruction 9116546 N13.8 S/P dilation, stent and lithotrips y 4 wks ago.Contin ue gemtesa 75 mg qdSaw uro today Urinary tr act infectious disease 94252545 N30.00 Continue linezolid 600 mg BID until 03/27.ID said to complete 10 day course, but written as for 10 days on d/c med list, so fine to continue an extra few days.Monit or urinary sxs, no further tx if no sxs. Anemia 161508527 D64.89 New dx for this pt.B12 was high inpt, so unclear why B12 was started, other supplement s due to EtOHism.No iron or ferritin checked, so unclear if iron deficiency .Will continue FeSO4 325 mg qd for now and cyanocobal nesbitt 5000 mcg qd.Check iron, ferritin, TIBC and retic count with next labs. [id number] CHINO SUE [address] [place] [address] 03/25/2024 11:11:15 03/26/2024 12:34:25 Fracture of multiple ribs 7541014 S22.41XD Pain improvingC ontinue lidocaine patch daily, APAP 650 mg q 6 hrs prn, and oxycodone 5 mg TID prnEncoura ge use of I carolyn at home Adult fail ure to thrive syndrome 166570062 R62.7 Likely due to poor po intake at home, possibly due to drinkingEn courage healthy eating.Con tinue supplement s as below Anemia 054430595 D64.89 B12 was high inpt, so unclear why B12 was started, other supplement s due to EtOHism.No iron or ferritin checked, so unclear if iron deficiency - PCP to do outptWill continue FeSO4 325 mg qd for now and cyanocobal nesbitt 5000 mcg qd. Alcoholism 8731412 F10.2 0 Continue thiamine 100 mg qd x 14 days and folic acid 1 gm qd x 14 daysContin ue to encourage abstinence . Urinary tr act infectious disease 86155448 N30.00 Continue linezolid 600 mg BID until 03/27.ID said to complete 10 day course, but written as for 10 days on d/c med list, so fine to continue an extra few days. Urinary tr act obstruction 2449234 N13.8 S/P dilation, stent and lithotrips y 4 wks ago.Contin ue gemtesa 75 mg qd 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 6787226255 757756 C50.812 S/P tx in 2021.Susy nue anastrozol e 1 mg qdF/U with oncology and breast surgeon as planned. Glaucoma 69088046 H40.89 Continue drops as ordered.F/ U with eye [id number] MEHDI DEE NP [facility] on [address] [place] [address] 05/01/2024 12:03:59 05/03/2024 19:46:58 Falls 912166371 R29.6 PT OT eval and treatfall precaution sfrequent safety checks Fracture of clavicle 581 51147 S42.002A oxycodone 2.5 mg q6hr prnsling for comfortPT OT eval and treat Glaucoma 57838274 H40.89 latanapros t ou hsdorzolam zina/timolo l ou bid Urinary tr act infectious disease 52807277 N30.00 nitrofuran toin 100 mg bid to 05/07 Alcoholism 2104129 F10.2 0 thiamine 100 mg dailyiron 325 mg dailycyanc obalamin 2500 dailynaltr exone 50 mg dailybupro pion xl 300 mg dailyConti nue to encourage abstinence 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 6356996865 784072 C50.812 anastrazol e 1 mg daily Urinary tr act obstruction 1984485 N13.8 vibegron 75 mg dailymonit or urine output [id number] Jacki [facility]rosco MD [facility] on [address] [place] [address] 05/06/2024 23:38:43 05/11/2024 15:35:37 Falls 729160379 R29.6 Mobility limited by clavicle fx.Needs PT/OT for strengthen ing, balance, gait training, safety and function.C ontinue fall precaution s.Monitor for safety. Fracture of clavicle 581 67092 S42.002A Continue oxycodone 2.5 mg q 6 hrs prn and APAP 650 mg q 6 hrs prn.Use sling for comfortPT/ OT as above.F/U with ortho as planned. Urinary tr act infectious disease 24853001 N30.00 U/A looked + in ED, but cx grew mixed milind.Cont inue nitrofuran toin 100 mg BID until 05/07Monit or urinary sxs. Alcoholism 9851753 F10.2 0 Apparently is still drinking, perhaps mouthwash as she told me before, I didn't ask her tonight.Co ntinue thiamine 100 mg qd and naltrexone 50 mg qdContinue to encourage abstinence Anemia 072779686 D64.89 New dx for this pt. 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 Glaucoma 97737277 H40.89 Continue drops as ordered.F/ U with eye Edema of l er extremity 038696076 R60.0 None today.Kate tor Depressive disorder 6792 9007 F33.8 Wellbutrin increased from 150 mg qd to 300 mg qd on 03/29.Mood good today.Kate tor mood.Consu lt psych prn [id number] CHINO Law at [facility] on [address] [facility] [place] [address] 05/11/2024 10:50:12 05/12/2024 16:37:14 Falls 277093749 R29.6 see HPIdoing well with PT Fracture of clavicle 581 94585 S42.002A Continue oxycodone 2.5 mg q 6 hrs prn and APAP 650 mg q 6 hrs prn.Use sling for comfortPT/ OT as above.F/U with ortho as planned. Alcoholism 2581661 F10.2 0 Apparently is still drinking at homeContin ue thiamine 100 mg qdDC naltrexone 50 mg qd- see HPIwill send home with RX to fill at her pharmacyCo ntinue to encourage abstinence [id number] CHINO Law at [facility] on [address] [place] [address] 05/12/2024 12:15:23 05/13/2024 13:21:25 Falls 245435543 R29.6 see HPIdoing well with PT- transfer to [facility] today Fracture of clavicle 581 06209 S42.002A Continue oxycodone 2.5 mg q 6 hrs prn and APAP 650 mg q 6 hrs prn.Use sling for comfortPT/ OT as above.F/U with ortho as planned. Alcoholism 3667214 F10.2 0 Apparently is still drinking at home- mouthwashC ontinue thiamine 100 mg qdsee HPI about naltrexone Continue to encourage abstinence Glaucoma 85619152 H40.89 latanopros t ou hsdorzolam zina/timolo l ou bid 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 2316407033 014128 C50.812 anastrazol e 1 mg daily Urinary tr act obstruction 1115608 N13.8 vibegron 75 mg dailymonit or urine output Health Concerns Section Related Observation LastModified by Organization Detai ls LastModified Time None Recorded Concern Status LastModified by Organization Details LastModified Time None Recorded Advance Directives Directive N: Payers Encounter Date Sequence Insurance Name Policy Number Policy Bee Covered Member ID Bee Member ID Guarantor Name 03/25/2024 1 MEDICARE [place]: [employer] Gema Perry [id number] 2 Gema Perry 05/01/2024 1 MEDICARE [place]: [employer] Gema Perry [id number] 2 Gema Perry 05/06/2024 1 MEDICARE B-[place]: [employer] Gema Perry [id number] 2 Gema Perry 05/11/2024 1 [place]: [facility] Gema Perry [id number] 2 Gema Perry 05/12/2024 1 MED[place]: [facility] Gema Perry [id number] 2 Gema Perry Notes Date Note Type [...] ok to go tomorrow. CHINO TERRAZAS [address] [facility], [address], [place], [address], [employer] 03/25/2024 11:29:49 05/01/2024 text/html seen today for [...] hospital notes reviewed MEHDI DEE NP [address] [facility], [address], [place], [address], [employer] 05/01/2024 14:05:21 05/06/2024 text/html This is a 74 yo woman who is here for rehab after a mechanical fall resulting in a left clavicle fx.[facility] described as losing her balance when she turned around to get her walker. She reported many recent falls. Of note [facility] had [facility]-fter a fall and slurred speech. At [...] 04/30. Of note, she was [facility]ad[facility] 03/[facility]-or a fall with rib fxs and a UTI. And then was at [facility] from 03/17-03/26 and was dxed with [...] (?), FTT, and glaucoma. Jacki Orosco MD [address] [place] [address], [address], [place], [address], [employer] [facility] [facility] 05/10/2024 00:47:36 05/11/2024 text/html This is [...] in remission (?), FTT, and glaucoma. CHINO [address], [place], [address], [facility] 05/11/2024 11:08:58 05/12/2024 text/html This is a [...] without it. She will be transferring to [facility] today and eventually move to [facility] and then [place] if possible. She [...] remission (?), FTT, and glaucoma. CHINO TERRAZAS [address] [place] [address], [address], [place], [address], [facility] 05/12/2024 13:37:42 OBGyn Episode No OBEpisode recorded.
--- OUTSIDE RECORDS SUMMARY | 2024-10-27 14:36 | XMS_ITS | Encounter Summary ---
Author Organization [facility] Address [address] [place] [address] Care Team Providers Care Occupational Medicine Specialist Name Role Phone Rufus Thornton MD Primary Care Provider [phone] Encounter Details Date Type Department Care Team (Late st Contact Info) Description 05/31/2024 Lab Requisition [facility] - Main Lab [address] [place] [phone] Rufus Thornton MD [address] [place] [phone] Gout, unspecified Social History Tobacco Use Types [...] LAB CHEMISTRY METHOD 05/31/2024 10:00 AM EST [facility] Potassium 4.1 3.5 - 5.5 mmol/L LAB CHEMISTRY METHOD 05/31/2024 10:00 AM [facility] Chloride 108 96 - 110 mmol/L LAB CHEMISTRY METHOD 05/31/2024 10:00 AM [facility] CO2 26 21 - 32 mmol/L LAB CHEMISTRY METHOD 05/31/2024 10:00 AM [facility] Anion Gap 6 3 - 11 LAB CHEMISTRY METHOD 05/31/2024 10:00 AM [facility] Glucose 96 70 - 100 mg/dL LAB CHEMISTRY METHOD 05/31/2024 10:00 AM [facility] BUN 15 5 - 25 mg/dL LAB CHEMISTRY METHOD 05/31/2024 10:00 AM [facility] Creatinine 1.04 0.50 - 1.10 mg/dL LAB CHEMISTRY METHOD 05/31/2024 10:00 AM [facility] LAB eGFR 57(L) >=60 mL/min/1. 73m2 LAB CHEMISTRY METHOD 05/31/2024 10:00 AM [facility] LAB Comment:Calculation based on the??Chronic Kidney Disease Epidemiology Collaboration (CKD-EPI) equation refit??without adjustment for race. BUN/Creatinine Ratio 14.4 LAB CHEMISTRY METHOD 05/31/2024 10:00 AM [facility] Calcium 9.6 8.5 - 10.5 mg/dL LAB CHEMISTRY METHOD 05/31/2024 10:00 AM [facility] Blood Venous blood specimen / Unknown Venipuncture / Unknown 05/31/2024 5:14 AM EST 05/31/2024 9:26 AM EST us Rufus Thornton MD LAB BLOOD ORDERABLES Final Res ult [facility] [address] [place] [address], [place] [phone] * (ABNORMAL) Complete blood count (05/31/2024 5:14 AM EST) WBC 6.3 4.8 - 10.8 K/mcL LAB HEMETOLOGY METHOD 05/31/2024 9:39 AM [facility] RBC 3.70(L) 3.80 - 4.80 M/mcL LAB HEMETOLOGY METHOD 05/31/2024 9:39 AM [facility] Hemoglobin 11.8 11.5 - 16.0 g/dL LAB HEMETOLOGY METHOD 05/31/2024 9:39 AM [facility] Hematocrit 37.1 35.0 - 47.0 % LAB HEMETOLOGY METHOD 05/31/2024 9:39 AM [facility] MCV 99.5(H) 79.0 - 98.0 FL LAB HEMETOLOGY METHOD 05/31/2024 9:39 AM [facility] LAB MCH 31.6 27.0 - 32.0 pcg LAB HEMETOLOGY METHOD 05/31/2024 9:39 AM [facility] LAB MCHC 31.8(L) 32.0 - 37.0 g/dL LAB HEMETOLOGY METHOD 05/31/2024 9:39 AM [facility] LAB RDW 13.3 11.0 - 15.0 % LAB HEMETOLOGY METHOD 05/31/2024 9:39 AM [facility] LAB Platelets 275 130 - 400 K/[facility] LAB HEMETOLOGY METHOD 05/31/2024 9:39 AM [facility] LAB MPV 10.1 7.0 - 11.0 FL LAB HEMETOLOGY METHOD 05/31/2024 9:39 AM [facility] NRBC 0.0 <1.0 % LAB HEMETOLOGY METHOD 05/31/2024 9:39 AM [facility] LAB NRBC Absolute 0.00 <0.10 K/mcL LAB HEMETOLOGY METHOD 05/31/2024 9:39 AM [facility] LAB Blood Venous blood specimen / Unknown Venipuncture / Unknown 05/31/2024 5:14 AM EST 05/31/2024 9:26 AM EST Rufus Thornton MD LAB BLOOD ORDERABLES Final Res ult Performing Organization Address City/[facility] [place]/ZIP Co de Phone Number [facility] ([facility]) [facility] [address] [place] [address], documented in this encounter Visit Diagnoses Diagnosis Gout, unspecified documented in this encounter Care Teams Occupational Medicine Specialist Relationship Specialty Start Date End Date Rufus Thornton MD [address] [place] [phone] PCP - General Internal Medicine 05/31/24 documented as of this encounter
== END 2024-10-26 12:20 | disposition home or self-care (01) ==
LOC: HO.HOSX 12:19
PROVIDERS: Visit Provider Physician Assistant
DX: Z13.89 Encounter for screening for other disorder (principal)

== ENCOUNTER 2024-10-29 11:48 | Outpatient (REF) | payer MEDICARE, SELFPAY ==
--- NOTE | ~2024-10-29 | XR_ITS ---
EXAMINATION: XR PELVIS CLINICAL INFORMATION: M25.559 - Pain in unspecified hip COMPARISON: 10/12/2024. TECHNIQUE: AP view of the pelvis. FINDINGS: Redemonstration of total right hip arthroplasty. Femoral, and acetabular components appear well seated, in anatomic alignment. No evidence of periprosthetic fracture or complication. No subsidence. No evidence of polyethylene wear. There is mild hepatic spurring of the right greater trochanter. There is diffuse osteopenia. Mild degenerative changes of the left hip joint and SI joints. Degenerative changes of the lower lumbar spine. Surgical arnie remain overlying the lateral right hip. There are vascular calcifications. XR/XR pelvis 1-2V IMPRESSION: Post total right hip arthroplasty without complication. No significant interval change. Electronically signed by: Gonzales Street MD 10/29/2024 12:26 PM EDT
== END 2024-10-29 11:49 | disposition home or self-care (01) ==
LOC: HO.HOSX 11:48
PROVIDERS: PCP Internal Medicine; Visit Provider Physician Assistant
DX: M25.559 Pain in unspecified hip (principal); Z96.641 Presence of right artificial hip joint
CPT/HCPCS: 72170; 99212

== ENCOUNTER 2024-10-29 11:48 | Outpatient (AMB) | payer MEDICARE, SELFPAY ==
--- NOTE | 2024-10-29 12:14 | MHC.OFFVIS ---
Intake Visit Reasons: PO rt hip iva 10/12/24 NE Intake Note: Gema is a 74 year old female who presents today for a post operative appointment s/p right hip iva 10/12/24 NE. Patient reports she is doing well and she has been working with PT. Allergies No Known Allergies Allergy (Verified 10/29/24 12:14) HPI HPI PO rt hip iva 10/12/24 NE: Details: Ms. Perry is a 74-year-old female who presents to the office today for routine follow-up status post right hip hemiarthroplasty performed on 10/12/[address] Marcial. Patient is currently at [facility] and is scheduled to discharge back to [facility] tomorrow. She reports that she has been working with physical therapy and ambulating with the use of a walker. She reports occasional pain and discomfort in the right hip but overall is doing very well. [facility] Medical History Breast cancer Alcohol use disorder Glaucoma Social History Household Members: None Housing: Assisted Living Facility Do you presently have visiting nurse or other home services: Yes Alcohol intake: former Comment: medicated Patient Tobacco Use Status: Former Tobacco user e-Cigarette/Vaping Use: Currently Using Advance Directives Date on File: 04/12/24 service: No Review of Systems Const All systems reviewed & are unremarkable except as noted in HPI and below Physical Exam Const General: cooperative, healthy appearing and no acute distress Resp Effort & Inspection: normal respiratory effort and able to speak in complete sentences Cardio Rate: regular rate Peripheral pulses: Peripheral pulses 2+ throughout Skin Lesions: no lesions Rashes: no rashes Extrem Other: Right hip incision site is clean dry and intact. [place] intact. No surrounding erythema or drainage. No signs of infection. Able to perform a straight leg raise. Good internal external rotation without groin pain. Able to dorsiflex and plantar flex. NVI. Assessment & Plan Assessment & Plan (1) Status post hemiarthroplasty of right hip: Code(s): Z96.641 - Presence of right artificial hip joint Category: Surgical Plan Ms. Perry is a 74-year-old female who presents to the office today for routine follow-up status post right hip hemiarthroplasty performed on 10/12/[address] Marcial. Patient is currently at [facility] and is scheduled to discharge back to [facility] tomorrow. She reports that she has been working with physical therapy and ambulating with the use of a walker. She reports occasional pain and discomfort in the right hip but overall is doing very well. While in the office today, arnie are removed and Steri-Strips were applied. She will continue working with physical therapy on glute core and quad strengthening as well as keep training with the use of a walker. I would like to see her back again in 4 weeks with repeat x-rays, sooner if needed. X-rays of the pelvis which were obtained while in the office today and were reviewed by me, Adrianna Gomez PA-C, revealed right hip hemiarthroplasty with satisfactory alignment. Orders: Orders XR pelvis 1-2V Today M25.559 - Pain in unspecified hip Coding Level of Care Code Global (21542) Diagnoses Status post hemiarthroplasty of right hip Z96.641
--- OUTSIDE RECORDS SUMMARY | 2024-10-29 12:47 | XMS_ITS | Clinical Summary ---
Author Organization [address] [facility] Address [address] [place] [address] Phone Care Team Providers Care Overedger Name Role Phone Rufus Thornton MD Primary Care Provider [phone] Social History Tobacco Use Types Packs/Day Years [...] complete [place] [id number] [facility] [place] [phone] Care Teams Overedger Relationship Specialty Start Date End Date Rufus Thornton MD [address] [place] [phone] PCP - General Internal Medicine 05/31/24
--- OUTSIDE RECORDS SUMMARY | 2024-10-29 12:47 | XMS_ITS | Encounter Summary ---
Author Organization [facility] [place] [address] Care Team Providers Care Project Management Name Role Phone Rufus Thornton MD Primary Care Provider [phone] Encounter Details Date Type Department Care Team (Latest Contact Info) Description 07/16/2024 Lab Requisition [facility] - Main Lab [address] [place] [phone] Jeramy Voss PA [address] [address] Hydronephrosis with renal and ureteral calculous obstruction [...] Urine No growth 07/17/2024 8:03 AM EST [facility] Urine Urine specimen obtained by clean catch procedure / Unknown 07/16/2024 10:56 AM EST 07/16/2024 3:05 PM EST us Jeramy [facility] LAB MICROBIOLOGY - GENERAL ORDER CATHERINE Final Result [facility] ([facility] [address] [place] [address], documented in this encounter Visit Diagnoses Diagnosis Hydronephrosis with renal and ureteral calculous obstruction documented in this encounter Care Teams Project Management Relationship Specialty Start Date End Date Rufus Thornton MD [address] [place] [address] PCP - General Internal Medicine 05/31/24 documented as of this encounter
--- OUTSIDE RECORDS SUMMARY | 2024-10-29 12:47 | XMS_ITS | Encounter Summary ---
Author Organization [facility] Address [address] [place] [address] Care Team Providers Care Heat Treating Bluer Name Role Phone Rufus Thornton MD Primary Care Provider [phone] Encounter Details Date Type Department Care Team (Late st Contact Info) Description 05/31/2024 Lab Requisition [facility] - Main Lab [address] [place] [phone] Rufus Thornton MD [address] [place] [phone] Gout, unspecified Social History Tobacco Use Types [...] LAB CHEMISTRY METHOD 05/31/2024 10:00 AM EST [facility] ([facility] Potassium 4.1 3.5 - 5.5 mmol/L LAB CHEMISTRY METHOD 05/31/2024 10:00 AM [facility] Chloride 108 96 - 110 mmol/L LAB CHEMISTRY METHOD 05/31/2024 10:00 AM [facility] CO2 26 21 - 32 mmol/L LAB CHEMISTRY METHOD 05/31/2024 10:00 AM [facility] Anion Gap 6 3 - 11 LAB CHEMISTRY METHOD 05/31/2024 10:00 AM [facility] Glucose 96 70 - 100 mg/dL LAB CHEMISTRY METHOD 05/31/2024 10:00 AM [facility] BUN 15 5 - 25 mg/dL LAB CHEMISTRY METHOD 05/31/2024 10:00 AM [facility] Creatinine 1.04 0.50 - 1.10 mg/dL LAB CHEMISTRY METHOD 05/31/2024 10:00 AM [facility] eGFR 57(L) >=60 mL/min/1. 73m2 LAB CHEMISTRY METHOD 05/31/2024 10:00 AM [facility] Comment:Calculation based on the??Chronic Kidney Disease Epidemiology Collaboration (CKD-EPI) equation refit??without adjustment for race. BUN/Creatinine Ratio 14.4 LAB CHEMISTRY METHOD 05/31/2024 10:00 AM [facility] Calcium 9.6 8.5 - 10.5 mg/dL LAB CHEMISTRY METHOD 05/31/2024 10:00 AM [facility] Blood Venous blood specimen / Unknown Venipuncture / Unknown 05/31/2024 5:14 AM EST 05/31/2024 9:26 AM EST us Rufus Thornton MD LAB BLOOD ORDERABLES Final Res ult [facility] [address] [place] [address], [place] [phone] * (ABNORMAL) Complete blood count (05/31/2024 5:14 AM EST) WBC 6.3 4.8 - 10.8 K/mcL LAB HEMETOLOGY METHOD 05/31/2024 9:39 AM [facility] RBC 3.70(L) 3.80 - 4.80 M/mcL LAB HEMETOLOGY METHOD 05/31/2024 9:39 AM [facility] Hemoglobin 11.8 11.5 - 16.0 g/dL LAB HEMETOLOGY METHOD 05/31/2024 9:39 AM [facility] Hematocrit 37.1 35.0 - 47.0 % LAB HEMETOLOGY METHOD 05/31/2024 9:39 AM [facility] MCV 99.5(H) 79.0 - 98.0 FL LAB HEMETOLOGY METHOD 05/31/2024 9:39 AM [facility] MCH 31.6 27.0 - 32.0 pcg LAB HEMETOLOGY METHOD 05/31/2024 9:39 AM [facility] MCHC 31.8(L) 32.0 - 37.0 g/dL LAB HEMETOLOGY METHOD 05/31/2024 9:39 AM [facility] RDW 13.3 11.0 - 15.0 % LAB HEMETOLOGY METHOD 05/31/2024 9:39 AM [facility] Platelets 275 130 - 400 K/[facility] LAB HEMETOLOGY METHOD 05/31/2024 9:39 AM [facility] MPV 10.1 7.0 - 11.0 FL LAB HEMETOLOGY METHOD 05/31/2024 9:39 AM [facility] NRBC 0.0 <1.0 % LAB HEMETOLOGY METHOD 05/31/2024 9:39 AM [facility] NRBC Absolute 0.00 <0.10 K/mcL LAB HEMETOLOGY METHOD 05/31/2024 9:39 AM [facility] Blood Venous blood specimen / Unknown Venipuncture / Unknown 05/31/2024 5:14 AM EST 05/31/2024 9:26 AM EST Rufus Thornton MD LAB BLOOD ORDERABLES Final Res ult Performing Organization Address City/[facility]/ZIP Co de Phone Number [facility] ([facility]) [facility] [address] [place] [address], documented in this encounter Visit Diagnoses Diagnosis Gout, unspecified documented in this encounter Care Teams Heat Treating Bluer Relationship Specialty Start Date End Date Rufus Thornton MD [address] [place] [phone] PCP - General Internal Medicine 05/31/24 documented as of this encounter
--- OUTSIDE RECORDS SUMMARY | 2024-10-29 12:47 | XMS_ITS | Data Portability ---
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 7574935572189 105 Active 2023 [employer] [place] , [address], [place], [address], [employer] 4 14:42:41 Heart murmur 25806011 Active 2023 [employer] [address] [place] [address], [address], [place], [address], [employer] 4 14:43:30 Mediastinal lymphadenop athy 52793152 Active [address], [address], [place], [address], [facility] [employer] [facility] 4 14:43:36 Calcificati on of coronary artery 611820863 Active [address], [address], [place], [address], [facility] [employer] [facility] 4 14:43:48 Glaucoma 63938923 Active [address], [address], [place], [address], [facility] [employer] [facility] 4 14:44:00 Alcoholism 2579515 Active [address], [address], [place], [address], [facility] [employer] [facility] 4 14:44:52 Nodule of lung 213429498 Active [address], [address], [place], [address], [facility] [employer] [facility] 4 14:45:05 Thyroid nodule 188561034 Active [address], [address], [place], [address], [facility] [employer] [facility] 4 14:45:09 Nodule of adrenal cortex 880864169 Active [address], [address], [place], [address], [facility] [employer] [facility] 4 14:45:19 Steatosis of liver 604988873 Active [address], [address], [place], [address], [facility] [employer] [facility] 4 14:45:27 Hiatal hernia 15894627 Active [address], [address], [place], [address], [facility] [employer] [facility] 4 14:45:40 Gastric ulcer 518620434 Active [address], [address], [place], [address], [facility] [employer] [facility] 4 14:45:50 Adult failure to thrive syndrome 157248484 Active 2023 [address] , [address], [place], [address], [facility] [employer] [facility] 4 14:47:46 Falls 987586804 Active 2023 [facility] [address] , [address], [place], [address], [facility] [employer] [facility] 4 14:47:54 Urinary tract infectious disease 49767697 Active [address], [address], [place], [address], [facility] [employer] [facility] 4 14:47:57 History of calculus of kidney 583291020 Active [address], [address], [place], [address], [facility] [employer] [facility] 4 14:48:39 Urinary tract obstruction 7467155 Active [address], [address], [place], [address], [facility] [employer] 4 10:38:43 Fracture of clavicle 48512339 Active 2023 MEHDI DEE NP [address] [facility], [address], [place], [address], [facility] [employer] 4 13:48:46 Anemia 167818814 Active 2023 Jacki Orosco MD [address] [place] [address], [address], [place], [address], [facility] [employer] 4 00:44:42 Depressive disorder 10121183 Active 2023 Jacki Orosco MD [address] [place] [address], [address], [place], [address], [facility] [employer] 4 00:47:03 Problem Notes None recorded. Procedures Surgical History Date Name Laterality Status Provider Name and Address Organization Details Recorded Time Cholecystectomy completed [address], [address], [place], [address], [facility] [employer] 4 14:46:01 extraction of cataract completed GI NA [address], [address], [place], [address], [facility] [employer] 4 14:46:07 needle aspiration of breast complete d CHINO [address], [address], [place], [address], [facility] [employer] 4 14:46:22 lumpectomy of breast completed CHINO [address], [address], [place], [address], [facility] [employer] 4 14:46:28 esophagogastroduodenoscopy completed CHINO [address], [address], [place], [address], [facility] 4 14:46:33 ureteroscopy completed CHINO [address], [address], [place], [address], [facility] [employer] 4 14:47:06 cystoscopy completed [address], [address], [place], [address], [facility] [employer] 4 14:47:16 Imaging Results None recorded. Procedure [...] 03/25/2024 162.56 cm 108 mm[Hg] 70 mm[Hg] [address]INO[address], [address], [place], [address], [employer] 03/25/2024 11:25:15 Date Recorded Body height Body mass index (BMI) Body weight Heart rate Respiratory rate Body temperature Oxygen saturation Oxygen saturation in Arterial blood by Pulse oximetry Systolic blood pressure Diastolic blood pressure Provider Name and Address Organization Details Last Updated DateTime 162.56 cm 24.9 kg/m2 01974.8 9 g 82 /min 16 /min 97.3 [degF] 96 % 96 % 118 mm[Hg] 68 mm[Hg] MEHDI DEE NP [address] [facility], [address], [place], [address], [employer] [facility] [facility] 13:54:41 Date Recorded Body height Body mass index (BMI) Body weight Heart rate Respiratory rate Body temperature Oxygen saturation Oxygen saturation in Arterial blood by Pulse oximetry Systolic blood pressure Diastolic blood pressure Provider Name and Address Organization Details Last Updated DateTime 162.56 cm 22.1 kg/m2 68167.4 2 g 61 /min 17 /min 97.4 [degF] 94 % 94 % 115 mm[Hg] 65 mm[Hg] Jacki Orosco MD [address] [facility], [address], [place], [address], [employer] [facility] [facility] 23:50:07 Date Recorded Body height Systolic blood pressure Diastolic blood pressure Provider Name and Address Organization Details Last Updated DateTime 05/11/2024 162.56 cm 106 mm[Hg] 56 mm[Hg] CHINO [address] [facility], [facility] [address], [place], [address], [employer] 05/11/2024 10:50:44 Social History Question Answer Notes LastModified by Organization Details LastModified Time Tobacco Smoking Status Former Smoker quit 2017 Jacki Orosco MD [address] [facility], [facility] [address], [place], [address], [employer] 03/22/2024 18:47:44 Do You Have An Advance [...] Stays With Her, She Is Looking Into [facility]. Information not available 03/22/2024 Legal Guardian? No Information not available 03/22/2024 Do You Have A Medical Power Of Resident Hall Director? Yes Information not available 03/22/2024 What Was [...] Recorded Time Tdap 6 completed Cirilo Valera [facility] 03/24/2024 16:24:22 Pneumococcal conjugate PCV 13 3 completed Cirilo blandon [facility] 03/24/2024 16:24:41 influenza, unspecified formulation 2 completed Cirilo Valera [facility] 03/24/2024 16:24:57 influenza, unspecified formulation 3 completed [facility] 16:25:13 SARS-COV-2 (COVID-19) vaccine, UNSPECIFIED 1 completed Cirilo Soto [facility] 03/24/2024 16:25:37 SARS-COV-2 (COVID-19) vaccine, UNSPECIFIED 1 completed Cirilo Valera [facility] 03/24/2024 16:25:48 SARS-COV-2 (COVID-19) vaccine, UNSPECIFIED 1 completed Cirilo Valera [facility] 03/24/2024 16:25:59 SARS-COV-2 (COVID-19) vaccine, UNSPECIFIED 2 completed Cirilo Soto [facility] 03/24/2024 16:26:14 SARS-COV-2 (COVID-19) vaccine, UNSPECIFIED 3 completed Cirilo Soto [facility] 03/24/2024 16:26:29 zoster, unspecified formulation 1 completed Cirilo Valera [facility] 03/24/2024 16:26:41 zoster, unspecified formulation 2 completed [facility] 03/24/2024 16:26:55 Past Encounters Encounter ID Performer Location Encounter Start Date Encounter Closed Date Diagnosis/Indication Diagnosis SNOMED-CT Code Diagnosis ICD10 Code Diagnosis Note [id number] [place] [address] [place] [address] 03/18/2024 10:32:23 03/22/2024 12:33:58 Fracture of multiple ribs 5490950 S22.43XA oxycodone 5 mg TID PRN- she would like dose nowanterol ateral left 4th through 7th ribs with left seventh rib mildly displaced without pneumothor ax.lidocai ne patch dailymonit or painPT/OT eval and treatencou rage deep breathing, IS as able 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 2124604057 761497 C50.912 anastrozol e 1 mg dailyfollo w up with onc as scheduled Alcoholism 8875236 F10.2 0 patient states in remission but has positive ETOH screen one month agoCT suggestive of pancreatit is due to alcohol usecontinu e zyvox BID due to UTI and possible pancreatit isthiamine daily x 14 daysfolic acid daily x 14 days Glaucoma 78608174 H40.9 cosopt BIDxalatan qhs Adult fail ure to thrive syndrome 541508153 R62.7 folic acid 1 mg daily x 14 daysMVI [id number] dailythiam ine daily x 14 daysferrou s sulfate 325 mg daily Edema of l ower extremity 025626617 R60.0 DC lasix 20 mg daily- no edemaeleva te as ablemonito r weights Urinary tr act obstruction 9707261 N13.9 gemtesa 75 mg dailymonit or for outflow issueshas apt on 03/22- can get her own transporta tion and will tell us when she is leaving Urinary tr act infectious disease 58352281 N39.0 zyvox BID x 10 days to end on 03/27- added stop date nowmonitor urinary sxs [id number] MD DUDLEY Duncan [address] [place] [address] 03/22/2024 18:20:15 03/24/2024 09:30:25 Fracture of multiple ribs 2538334 S22.41XD Pain improving. Continue lidocaine patch daily, APAP 650 mg q 6 hrs prn, and oxycodone 5 mg TID prn.Encour age use of I carolyn.Kate tor pain and resp status. Alcoholism 1325596 F10.2 0 Seems to have accepted that even mouthwash is the same thing as drinking vodka.No signs of withdrawal inpt.Susy nue thiamine 100 mg qd x 14 days and folic acid 1 gm qd x 14 daysContin ue to encourage abstinence . 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 8090027337 422240 C50.812 S/P tx in 2021.Susy nue anastrozol e 1 mg qdF/U with oncology and breast surgeon as planned. Glaucoma 74292522 H40.89 Continue drops as ordered.F/ U with eye Adult fail ure to thrive syndrome 704401444 R62.7 Likely due to poor po intake at home, possibly due to drinking.E ncourage healthy eating.Con tinue supplement s as below.Diet ician involved. Edema of l ower extremity 170377820 R60.0 None today.Kate tor Urinary tr act obstruction 1744757 N13.8 S/P dilation, stent and lithotrips y 4 wks ago.Contin ue gemtesa 75 mg qdSaw uro today Urinary tr act infectious disease 88468327 N30.00 Continue linezolid 600 mg BID until 03/27.ID said to complete 10 day course, but written as for 10 days on d/c med list, so fine to continue an extra few days.Monit or urinary sxs, no further tx if no sxs. Anemia 319079939 D64.89 New dx for this pt.B12 was high inpt, so unclear why B12 was started, other supplement s due to EtOHism.No iron or ferritin checked, so unclear if iron deficiency .Will continue FeSO4 325 mg qd for now and cyanocobal nesbitt 5000 mcg qd.Check iron, ferritin, TIBC and retic count with next labs. [id number] CHINO SUE [address] [place] [address] 03/25/2024 11:11:15 03/26/2024 12:34:25 Fracture of multiple ribs 1248986 S22.41XD Pain improvingC ontinue lidocaine patch daily, APAP 650 mg q 6 hrs prn, and oxycodone 5 mg TID prnEncoura ge use of I carolyn at home Adult fail ure to thrive syndrome 123415827 R62.7 Likely due to poor po intake at home, possibly due to drinkingEn courage healthy eating.Con tinue supplement s as below Anemia 320402161 D64.89 B12 was high inpt, so unclear why B12 was started, other supplement s due to EtOHism.No iron or ferritin checked, so unclear if iron deficiency - PCP to do outptWill continue FeSO4 325 mg qd for now and cyanocobal nesbitt 5000 mcg qd. Alcoholism 2041052 F10.2 0 Continue thiamine 100 mg qd x 14 days and folic acid 1 gm qd x 14 daysContin ue to encourage abstinence . Urinary tr act infectious disease 44477834 N30.00 Continue linezolid 600 mg BID until 03/27.ID said to complete 10 day course, but written as for 10 days on d/c med list, so fine to continue an extra few days. 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 Glaucoma 50641581 H40.89 Continue drops as ordered.F/ U with eye [id number] MEHDI DEE NP [facility] on [address] [place] [address] 05/01/2024 12:03:59 05/03/2024 19:46:58 Falls 752250016 R29.6 PT OT eval and treatfall precaution sfrequent safety checks Fracture of clavicle 581 97993 S42.002A oxycodone 2.5 mg q6hr prnsling for comfortPT OT eval and treat Glaucoma 88669203 H40.89 latanapros t ou hsdorzolam zina/timolo l ou bid Urinary tr act infectious disease 18356278 N30.00 nitrofuran toin 100 mg bid to 05/07 Alcoholism 1123836 F10.2 0 thiamine 100 mg dailyiron 325 mg dailycyanc obalamin 2500 dailynaltr exone 50 mg dailybupro pion xl 300 mg dailyConti nue to encourage abstinence 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 Fracture of clavicle 581 79079 S42.002A Continue oxycodone 2.5 mg q 6 hrs prn and APAP 650 mg q 6 hrs prn.Use sling for comfortPT/ OT as above.F/U with ortho as planned. Urinary tr act infectious disease 46670005 N30.00 U/A looked + in ED, but cx grew mixed milind.Cont inue nitrofuran toin 100 mg BID until 05/07Monit or urinary sxs. Alcoholism 6297008 F10.2 0 Apparently is still drinking, perhaps mouthwash as she told me before, I didn't ask her tonight.Co ntinue thiamine 100 mg qd and naltrexone 50 mg qdContinue to encourage abstinence Anemia 381790476 D64.89 New dx for this pt. 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 Glaucoma 78595154 H40.89 Continue drops as ordered.F/ U with eye Edema of l er extremity 731461965 R60.0 None today.Kate tor Depressive disorder 6348 9007 F33.8 Wellbutrin increased from 150 mg qd to 300 mg qd on 03/29.Mood good today.Kate tor mood.Consu lt psych prn [id number] CHINO Law [facility] on [address] [facility] [place] [address] 05/11/2024 10:50:12 05/12/2024 16:37:14 Falls 756333342 R29.6 see HPIdoing well with PT Fracture of clavicle 581 34373 S42.002A Continue oxycodone 2.5 mg q 6 hrs prn and APAP 650 mg q 6 hrs prn.Use sling for comfortPT/ OT as above.F/U with ortho as planned. Alcoholism 8648874 F10.2 0 Apparently is still drinking at homeContin ue thiamine 100 mg qdDC naltrexone 50 mg qd- see HPIwill send home with RX to fill at her pharmacyCo ntinue to encourage abstinence [id number] CHINO Law at [facility] on [address] [facility] [place] [address] 05/12/2024 12:15:23 05/13/2024 13:21:25 Falls 700962831 R29.6 see HPIdoing well with PT- transfer to [facility] today Fracture of clavicle 581 05707 S42.002A Continue oxycodone 2.5 mg q 6 hrs prn and APAP 650 mg q 6 hrs prn.Use sling for comfortPT/ OT as above.F/U with ortho as planned. 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 2848847839 711025 C50.812 anastrazol e 1 mg daily Urinary tr act obstruction 9897780 N13.8 vibegron 75 mg dailymonit or urine output Health Concerns Section Related Observation LastModified by Organization Detai ls LastModified Time None Recorded Concern Status LastModified by Organization Details LastModified Time None Recorded Advance Directives Directive N: Payers Encounter Date Sequence Insurance Name Policy Number Policy Bee Covered Member ID Bee Member ID Guarantor Name 03/25/2024 1 [place] [employer] Gema Perry [id number] 2 Gema Perry 05/01/2024 1 [place] [employer] Gema Perry [id number] 2 Gema Perry 05/06/2024 1 [place] [employer] Gema Perry [id number] 2 Gema Perry 05/11/2024 1 [place] [facility] Gema Perry [id number] 2 Gema Perry 05/12/2024 1 MEDICARE B-[place]: [facility] Gema Perry [id number] 2 Gema Perry Notes Date Note Type [...] ok to go tomorrow. CHINO TERRAZAS [address] [facility], [address], [place], [address], [employer] 03/25/2024 11:29:49 05/01/2024 text/html seen today for [...] hospital notes reviewed MEHDI DEE NP [address] [facility], [address], [place], [address], [employer] 05/01/2024 14:05:21 05/06/2024 text/html This is a 74 yo woman who is here for rehab after a mechanical fall resulting in a left clavicle fx.[facility] a fall described as losing her balance when she turned around to get her walker. She reported many recent falls. Of note [facility]fter a fall and slurred speech. At [...] 04/30. Of note, she was alsoad[facility] 03/12-or a fall with rib fxs and a UTI. And then was at [facility] from 03/17-03/26 and was dxed with Covid [...] (?), FTT, and glaucoma. Jacki Orosco MD [address] [place] [address], [address], [place], [address], [employer] [employer] [facility] 05/10/2024 00:47:36 05/11/2024 text/html This is [...] in remission (?), FTT, and glaucoma. CHINO [address], [place], [address], [employer] 05/11/2024 11:08:58 05/12/2024 text/html This is a [...] without it. She will be transferring to [facility] today and eventually move to [facility] and then [place] if possible. She [...] remission (?), FTT, and glaucoma. CHINO TERRAZAS [address] [place] [address], [address], [place], [address], [employer] 05/12/2024 13:37:42 OBGyn Episode No OBEpisode recorded.
== END 2024-10-29 12:40 | disposition home or self-care (01) ==
LOC: HO.HOS 11:48
PROVIDERS: PCP Internal Medicine; Visit Provider Physician Assistant
DX: Z96.641 Presence of right artificial hip joint (principal)
CPT/HCPCS: 99024

== ENCOUNTER → 2024-10-29 11:56 | Outpatient (BNV) | payer MEDICARE, SELFPAY | PROVIDERS: PCP Internal Medicine; Visit Provider Radiology Diagnostic Radiology | DX: Z96.641 Presence of right artificial hip joint (principal) | CPT/HCPCS: 72170 ==

== ENCOUNTER 2024-11-25 11:16 | Outpatient (AMB) | payer MEDICARE, SELFPAY ==
--- NOTE | 2024-11-25 11:37 | A.OFFVIS_ITS ---
Intake Visit Reasons: PO rt hip iva 10/12/24 NE Intake Note: Gema is a 74 year old female who presents today for a post operative appointment s/p right hip iva 10/12/24 NE. Patient reports she is doing well and she is going to be working with PT at [facility]. Allergies No Known Allergies Allergy (Verified 11/25/24 11:43) HPI HPI PO rt hip iva 10/12/24 NE: Details: Ms. Perry is a 74-year-old female who presents to the office today for routine follow-up status post right hip hemiarthroplasty performed on 10/12/[address] Marcial. She is using a Rollator walker to assist with ambulation today. She denies any pain or discomfort in the right hip. She is working with physical therapy at [facility]. She reports that she is looking to transition to long-term care there. Overall the patient is doing very well with no complaints. [facility] Medical History Breast cancer Alcohol use disorder Glaucoma Social History Household Members: None Housing: Assisted Living Facility Do you presently have visiting nurse or other home services: Yes Alcohol intake: former Comment: medicated Patient Tobacco Use Status: Former Tobacco user e-Cigarette/Vaping Use: Currently Using Advance Directives Date on File: 04/12/24 service: No Review of Systems Const All systems reviewed & are unremarkable except as noted in HPI and below Physical Exam Const General: cooperative, healthy appearing and no acute distress Resp Effort & Inspection: normal respiratory effort and able to speak in complete sentences Cardio Rate: regular rate Peripheral pulses: Peripheral pulses 2+ throughout Skin Lesions: no lesions Rashes: no rashes Extrem Other: Right hip: Able to perform a straight leg raise. Good internal external rotation without groin pain. Able to dorsiflex and plantar flex. NVI. Assessment & Plan Assessment & Plan (1) Status post hemiarthroplasty of right hip: Code(s): Z96.641 - Presence of right artificial hip joint Category: Surgical Plan Ms. Perry is a 74-year-old female who presents to the office today for routine follow-up status post right hip hemiarthroplasty performed on 10/12/[address] Marcial. She is using a Rollator walker to assist with ambulation today. She denies any pain or discomfort in the right hip. She is working with physical therapy at [facility]. She reports that she is looking to transition to long-term care there. Overall the patient is doing very well with no complaints. While the office today, the patient is doing very well. She will continue working with physical therapy until all sessions have been completed. I recommended the continuation in using a Rollator walker. Physical therapy will continue to work on glute core and quad strengthening as well as gait training with a walker. She will follow up in 6-8 weeks with repeat x-rays, sooner if needed. X-rays of the right hip and pelvis which were obtained while in the office today and were reviewed by me, Adrianna Gomez PA-C, revealed intact right hip hemiarthroplasty with no evidence of hardware loosening or periprosthetic fracture. Orders: Orders XR hip RT min 2V Today M25.559 - Pain in unspecified hip Coding Level of Care Code Global (26303) Diagnoses Status post hemiarthroplasty of right hip Z96.641
--- OUTSIDE RECORDS SUMMARY | 2024-11-25 12:29 | XMS_ITS | Encounter Summary ---
Author Organization [facility] Address [address] [place] [address] Care Team Providers Care Facilities Assistant Name Role Phone Rufus Thornton MD Primary Care Provider [phone] Encounter Details Date Type Department Care Team (Latest Contact Info) Description 07/16/2024 Lab Requisition [facility] - Main Lab [address] [place] [phone] Jeramy Voss PA [address] [address] Hydronephrosis with renal and ureteral calculous obstruction [...] No growth 07/17/2024 8:03 AM EST [facility] Urine Urine specimen obtained by clean catch procedure / Unknown 07/16/2024 10:56 AM EST 07/16/2024 3:05 PM EST us eJramy [facility] LAB MICROBIOLOGY - GENERAL ORDER CATHERINE Final Result [facility]) [facility] [address] [place] [address], documented in this encounter Visit Diagnoses Diagnosis Hydronephrosis with renal and ureteral calculous obstruction documented in this encounter Care Teams Facilities Assistant Relationship Specialty Start Date End Date Rufus Thornton MD [address] [place] [id number] PCP - General Internal Medicine 05/31/24 documented as of this encounter
--- OUTSIDE RECORDS SUMMARY | 2024-11-25 12:30 | XMS_ITS | Encounter Summary ---
Author Organization [facility] Address [address] [place] [address] Care Team Providers Care Flight Surveyor Name Role Phone Rufus Thornton MD Primary Care Provider [phone] Encounter Details Date Type Department Care Team (Late st Contact Info) Description 05/31/2024 Lab Requisition [facility] - Main Lab [address] [place] [phone] Rufus Thornton MD [address] [place] [address] Gout, unspecified Social History Tobacco Use Types [...] LAB CHEMISTRY METHOD 05/31/2024 10:00 AM EST [facility] Potassium 4.1 3.5 - 5.5 mmol/L LAB CHEMISTRY METHOD 05/31/2024 10:00 AM [facility] Chloride 108 96 - 110 mmol/L LAB CHEMISTRY METHOD 05/31/2024 10:00 AM [facility] CO2 26 21 - 32 mmol/L LAB CHEMISTRY METHOD 05/31/2024 10:00 AM [facility] Anion Gap 6 3 - 11 LAB CHEMISTRY METHOD 05/31/2024 10:00 AM [facility] Glucose 96 70 - 100 mg/dL LAB CHEMISTRY METHOD 05/31/2024 10:00 AM [facility] BUN 15 5 - 25 mg/dL LAB CHEMISTRY METHOD 05/31/2024 10:00 AM [facility] Creatinine 1.04 0.50 - 1.10 mg/dL LAB CHEMISTRY METHOD 05/31/2024 10:00 AM [facility] LAB eGFR 57(L) >=60 mL/min/1. 73m2 LAB CHEMISTRY METHOD 05/31/2024 10:00 AM [facility] LAB Comment:Calculation based on the??Chronic Kidney Disease Epidemiology Collaboration (CKD-EPI) equation refit??without adjustment for race. BUN/Creatinine Ratio 14.4 LAB CHEMISTRY METHOD 05/31/2024 10:00 AM [facility] Calcium 9.6 8.5 - 10.5 mg/dL LAB CHEMISTRY METHOD 05/31/2024 10:00 AM [facility] Blood Venous blood specimen / Unknown Venipuncture / Unknown 05/31/2024 5:14 AM EST 05/31/2024 9:26 AM EST us Rufus Thornton MD LAB BLOOD ORDERABLES Final Res ult [facility] [address] [place] [address], [place] [phone] * (ABNORMAL) Complete blood count (05/31/2024 5:14 AM EST) WBC 6.3 4.8 - 10.8 K/mcL LAB HEMETOLOGY METHOD 05/31/2024 9:39 AM [facility] RBC 3.70(L) 3.80 - 4.80 M/mcL LAB HEMETOLOGY METHOD 05/31/2024 9:39 AM [facility] Hemoglobin 11.8 11.5 - 16.0 g/dL LAB HEMETOLOGY METHOD 05/31/2024 9:39 AM [facility] Hematocrit 37.1 35.0 - 47.0 % LAB HEMETOLOGY METHOD 05/31/2024 9:39 AM [facility] MCV 99.5(H) 79.0 - 98.0 FL LAB HEMETOLOGY METHOD 05/31/2024 9:39 AM [facility] MCH 31.6 27.0 - 32.0 pcg LAB HEMETOLOGY METHOD 05/31/2024 9:39 AM [facility] MCHC 31.8(L) 32.0 - 37.0 g/dL LAB HEMETOLOGY METHOD 05/31/2024 9:39 AM [facility] RDW 13.3 11.0 - 15.0 % LAB HEMETOLOGY METHOD 05/31/2024 9:39 AM [facility] Platelets 275 130 - 400 K/[facility] LAB HEMETOLOGY METHOD 05/31/2024 9:39 AM [facility] MPV 10.1 7.0 - 11.0 FL LAB HEMETOLOGY METHOD 05/31/2024 9:39 AM [facility] NRBC 0.0 <1.0 % LAB HEMETOLOGY METHOD 05/31/2024 9:39 AM [facility] LAB NRBC Absolute 0.00 <0.10 K/mcL LAB HEMETOLOGY METHOD 05/31/2024 9:39 AM [facility] Blood Venous blood specimen / Unknown Venipuncture / Unknown 05/31/2024 5:14 AM EST 05/31/2024 9:26 AM EST Rufus Thornton MD LAB BLOOD ORDERABLES Final Res ult Performing Organization Address City/[facility]/ZIP Co de Phone Number [facility] ([facility]) [facility] [address] [place] [address], documented in this encounter Visit Diagnoses Diagnosis Gout, unspecified documented in this encounter Care Teams Flight Surveyor Relationship Specialty Start Date End Date Rufus Thornton MD [address] [place] [phone] PCP - General Internal Medicine 05/31/24 documented as of this encounter
--- OUTSIDE RECORDS SUMMARY | 2024-11-25 12:30 | XMS_ITS | Clinical Summary ---
Author Organization [address] [facility] Address [address] [place] [address] Phone Care Team Providers Care Convolute Tube Winder Name Role Phone Rufus Thornton MD Primary Care Provider [phone] Social History Tobacco Use Types Packs/Day Years [...] complete this [place] [phone] MEDICARE [facility] [place] [place] [phone] Care Teams Convolute Tube Winder Relationship Specialty Start Date End Date Rufus Thornton MD [address] [place] [id number] PCP - General Internal Medicine 05/31/24
--- OUTSIDE RECORDS SUMMARY | 2024-11-25 12:30 | XMS_ITS | Data Portability ---
Author Organization 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 4 14:43:36 Calcificati on of coronary artery 046470852 Active [address], [address], [place], [address], [facility] [employer] [facility] 4 14:43:48 Glaucoma 73750591 Active [address], [address], [place], [address], [facility] [employer] [facility] 4 14:44:00 Alcoholism 4508303 Active [address], [address], [place], [address], [facility] [employer] [facility] 4 14:44:52 Nodule of lung 782046127 Active [address], [address], [place], [address], [facility] [employer] [facility] 4 14:45:05 Thyroid nodule 633967853 Active [address], [address], [place], [address], [facility] [employer] 4 14:45:09 Nodule of adrenal cortex 186418831 Active [address], [address], [place], [address], [facility] [employer] [facility] 4 14:45:19 Steatotic liver disease 585406806 Active [address], [address], [place], [address], [facility] [employer] [facility] 4 14:45:27 Hiatal hernia 20583838 Active [address], [address], [place], [address], [facility] [employer] [facility] 4 14:45:40 Gastric ulcer 923208034 Active [address], [address], [place], [address], [facility] 4 14:45:50 Adult failure to thrive syndrome 317730891 Active [address], [address], [place], [address], [facility] [employer] [facility] 4 14:47:46 Falls 926427371 Active 2023 [employer] [facility] [address], [address], [place], [address], [facility] [employer] [facility] 4 14:47:54 Urinary tract infectious disease 05219855 Active [address], [address], [place], [address], [facility] 4 14:47:57 History of calculus of kidney 541229081 Active [address], [address], [place], [address], [facility] 4 14:48:39 Urinary tract obstruction 6464506 Active [address], [address], [place], [address], [facility] [employer] 4 10:38:43 Fracture of clavicle 98546929 Active 2023 MEHDI DEE NP [address], [address], [place], [address], [facility] [employer] 4 13:48:46 Anemia 035162154 Active 2023 Jacki Orosco MD [address] [place] [address], [address], [place], [address], [facility] [employer] 4 00:44:42 Depressive disorder 31051175 Active 2023 Jacki Orosco MD [address] [place] [address], [address], [place], [address], [facility] 4 00:47:03 Problem Notes None recorded. Procedures Surgical History Date Name Laterality Status Provider Name and Address Organization Details Recorded Time Cholecystectomy completed [address], [address], [place], [address], [facility] [employer] 4 14:46:01 extraction of cataract completed GI NA [address], [address], [place], [address], [facility] [employer] 4 14:46:07 needle aspiration of breast complete d CHINO [address], [address], [place], [address], [facility] [employer] 4 14:46:22 lumpectomy of breast completed CHINO [address], [address], [place], [address], [facility] 4 14:46:28 esophagogastroduodenoscopy completed CHINO [address], [address], [place], [address], [facility] 4 14:46:33 ureteroscopy completed CHINO [address], [address], [place], [address], [facility] [employer] 4 14:47:06 cystoscopy completed [address], [address], [place], [address], [facility] [employer] 4 14:47:16 Imaging Results None recorded. Procedure [...] 03/25/2024 162.56 cm 108 mm[Hg] 70 mm[Hg] [address], [address], [place], [address], [facility] 03/25/2024 11:25:15 Date Recorded Body height Body mass index (BMI) Body weight Heart rate Respiratory rate Body temperature Oxygen saturation Oxygen saturation in Arterial blood by Pulse oximetry Systolic blood pressure Diastolic blood pressure Provider Name and Address Organization Details Last Updated DateTime 4 162.56 cm 24.9 kg/m2 03984.8 9 g 82 /min 16 /min 97.3 [degF] 96 % 96 % 118 mm[Hg] 68 mm[Hg] MEHDI DEE NP [address], [address], [place], [address], [facility] 13:54:41 Date Recorded Body height Body mass index (BMI) Body weight Heart rate Respiratory rate Body temperature Oxygen saturation Oxygen saturation in Arterial blood by Pulse oximetry Systolic blood pressure Diastolic blood pressure Provider Name and Address Organization Details Last Updated DateTime 162.56 cm 22.1 kg/m2 48245.4 2 g 61 /min 17 /min 97.4 [degF] 94 % 94 % 115 mm[Hg] 65 mm[Hg] Jacki Orosco MD [address], [address], [place], [address], [facility] 4 23:50:07 Date Recorded Body height Systolic blood pressure Diastolic blood pressure Provider Name and Address Organization Details Last Updated DateTime 05/11/2024 162.56 cm 106 mm[Hg] 56 mm[Hg] CHINO [address], [address], [place], [address], [facility] 05/11/2024 10:50:44 Social History Question Answer Notes LastModified by Organization Details LastModified Time Tobacco Smoking Status Former Smoker quit 2017 Jacki Orosco MD [address], [facility] [address], [place], [address], [facility] 03/22/2024 18:47:44 Do You Have An Advance Directive? No Information not available 05/01/2024 What Is Your Code Status? Full Code Assumed Full Code,no MOLST Information not available 05/09/2024 Where Do You Live? SingleLevelHouse Alone, Stairs To Basement. Daughter Sometimes Stays With Her, She Is Looking Into [facility]. Information not available 03/22/2024 Legal Guardian? No Informati on not available 03/22/2024 Do You Have A Medical Power Of Artificial Breeding Distributor? Yes Information not available 03/22/2024 What Was The Date Of Your Most Recent Tobacco Screening? 05/01/2024 Information not available 05/01/2024 Do You Have An Out Of Hospital DNR? No Information not available 03/22/2024 What Is Your Relationship Status? Information not available 03/22/2024 How Much Tobacco Do You Smoke? No Information not available 03/22/2024 Has Tobacco Cessation Counseling Been Provided? No Information not available 05/01/2024 How Many Years Have You Smoked Tobacco? 20 Information not available 03/17/2024 Sex: Unknown Functional Status Question Answer Note LastModified by Organizat ion Details LastModified Time Do you use any illicit or recreational drugs? No Information not available 03/17/2024 Do you or have you ever used any other forms of tobacco or nicotine? Yes Information not available 05/09/2024 What is your level of alcohol consumption? None She states she has been sober since 2010, but has had +BAL on recent admissions . Information not available 05/09/2024 Do you or have you ever used smokeless tobacco? Never used smokeless tobacco Information not available 03/17/2024 Do you or have you ever used e-cigarettes or vape? Current user of electronic cigarettes Vapes a few times/day, advised to stop, advised of risks Information not available 05/09/2024 Mental Status None recorded. Family History Relationship [...] Vaccine Type Date Status Note Provider Ryan bailey and Address Organization Details Recorded Time Tdap 6 completed Cirilo Valera [facility], [facility] 03/24/2024 16:24:22 Pneumococcal conjugate PCV 13 3 completed Cirilo Valera [facility] 03/24/2024 16:24:41 influenza, unspecified formulation 2 completed Cirilo [facility] 03/24/2024 16:24:57 influenza, unspecified formulation 3 completed Cirilo Velas[facility] 03/24/2024 16:25:13 SARS-COV-2 (COVID-19) vaccine, UNSPECIFIED 1 completed Cirilo Valera [facility] 03/24/2024 16:25:37 SARS-COV-2 (COVID-19) vaccine, UNSPECIFIED 1 completed [facility] 03/24/2024 16:25:48 SARS-COV-2 (COVID-19) vaccine, UNSPECIFIED 1 completed Cirilo JohnyoshiMali [facility] 03/24/2024 16:25:59 SARS-COV-2 (COVID-19) vaccine, UNSPECIFIED 2 completed Cirilo Soto [facility] 03/24/2024 16:26:14 SARS-COV-2 (COVID-19) vaccine, UNSPECIFIED 3 completed [facility] 03/24/2024 16:26:29 zoster, unspecified formulation 1 completed Cirilo JohnyoshiMali [facility] 03/24/2024 16:26:41 zoster, unspecified formulation 2 completed [facility] 03/24/2024 16:26:55 Past Encounters Encounter ID Performer Location Encounter Start Date Encounter Closed Date Diagnosis/Indication Diagnosis SNOMED-CT Code Diagnosis ICD10 Code Diagnosis Note [id number] [place] [address] 03/18/2024 10:32:23 03/22/2024 12:33:58 Fracture of multiple ribs 4457299 S22.43XA oxycodone 5 mg TID PRN- she would like dose nowanterol ateral left 4th through 7th ribs with left seventh rib mildly displaced without pneumothor ax.lidocai ne patch dailymonit or painPT/OT eval and treatencou rage deep breathing, IS as able 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 1058420725 077314 C50.912 anastrozol e 1 mg dailyfollo w up with onc as scheduled Alcoholism 4328187 F10.2 0 patient states in remission but has positive ETOH screen one month agoCT suggestive of pancreatit is due to alcohol usecontinu e zyvox BID due to UTI and possible pancreatit isthiamine daily x 14 daysfolic acid daily x 14 days Glaucoma 91785864 H40.9 cosopt BIDxalatan qhs Adult fail ure to thrive syndrome 094828418 R62.7 folic acid 1 mg daily x 14 daysMVI [id number] dailythiam ine daily x 14 daysferrou s sulfate 325 mg daily Edema of l ower extremity 857672175 R60.0 DC lasix 20 mg daily- no edemaeleva te as ablemonito r weights Urinary tr act obstruction 2567316 N13.9 gemtesa 75 mg dailymonit or for outflow issueshas apt on 03/22- can get her own transporta tion and will tell us when she is leaving Urinary tr act infectious disease 53002175 N39.0 zyvox BID x 10 days to end on 03/27- added stop date nowmonitor urinary sxs [id number] MD DUDLEY Duncan [address] [place] [address] 03/22/2024 18:20:15 03/24/2024 09:30:25 Fracture of multiple ribs 5423263 S22.41XD Pain improving. Continue lidocaine patch daily, APAP 650 mg q 6 hrs prn, and oxycodone 5 mg TID prn.Encour age use of I carolyn.Kate tor pain and resp status. Alcoholism 4359531 F10.2 0 Seems to have accepted that even mouthwash is the same thing as drinking vodka.No signs of withdrawal inpt.Susy nue thiamine 100 mg qd x 14 days and folic acid 1 gm qd x 14 daysContin ue to encourage abstinence . 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 Glaucoma 04644846 H40.89 Continue drops as ordered.F/ U with eye Adult fail ure to thrive syndrome 284638699 R62.7 Likely due to poor po intake at home, possibly due to drinking.E ncourage healthy eating.Con tinue supplement s as below.Diet ician involved. Edema of l ower extremity 989284405 R60.0 None today.Kate tor Urinary tr act obstruction 3911702 N13.8 S/P dilation, stent and lithotrips y 4 wks ago.Contin ue gemtesa 75 mg qdSaw uro today Urinary tr act infectious disease 06924563 N30.00 Continue linezolid 600 mg BID until 03/27.ID said to complete 10 day course, but written as for 10 days on d/c med list, so fine to continue an extra few days.Monit or urinary sxs, no further tx if no sxs. Anemia 304628255 D64.89 New dx for this pt.B12 was high inpt, so unclear why B12 was started, other supplement s due to EtOHism.No iron or ferritin checked, so unclear if iron deficiency .Will continue FeSO4 325 mg qd for now and cyanocobal nesbitt 5000 mcg qd.Check iron, ferritin, TIBC and retic count with next labs. [id number] CHINO SUE [address] [place] [address] 03/25/2024 11:11:15 03/26/2024 12:34:25 Fracture of multiple ribs 2104902 S22.41XD Pain improvingC ontinue lidocaine patch daily, APAP 650 mg q 6 hrs prn, and oxycodone 5 mg TID prnEncoura ge use of I carolyn at home Adult fail ure to thrive syndrome 736056394 R62.7 Likely due to poor po intake at home, possibly due to drinkingEn courage healthy eating.Con tinue supplement s as below Anemia 527481750 D64.89 B12 was high inpt, so unclear why B12 was started, other supplement s due to EtOHism.No iron or ferritin checked, so unclear if iron deficiency - PCP to do outptWill continue FeSO4 325 mg qd for now and cyanocobal nesbitt 5000 mcg qd. Alcoholism 5471301 F10.2 0 Continue thiamine 100 mg qd x 14 days and folic acid 1 gm qd x 14 daysContin ue to encourage abstinence . Urinary tr act infectious disease 64202975 N30.00 Continue linezolid 600 mg BID until 03/27.ID said to complete 10 day course, but written as for 10 days on d/c med list, so fine to continue an extra few days. 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 Glaucoma 04534770 H40.89 Continue drops as ordered.F/ U with eye [id number] MEHDI DEE NP [facility] on [address] [place] [address] 05/01/2024 12:03:59 05/03/2024 19:46:58 Falls 137097838 R29.6 PT OT eval and treatfall precaution sfrequent safety checks Fracture of clavicle 581 57292 S42.002A oxycodone 2.5 mg q6hr prnsling for comfortPT OT eval and treat Glaucoma 15799467 H40.89 latanapros t ou hsdorzolam zina/timolo l ou bid Urinary tr act infectious disease 36191569 N30.00 nitrofuran toin 100 mg bid to 05/07 Alcoholism 4372566 F10.2 0 thiamine 100 mg dailyiron 325 mg dailycyanc obalamin 2500 dailynaltr exone 50 mg dailybupro pion xl 300 mg dailyConti nue to encourage abstinence 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 Fracture of clavicle 581 65276 S42.002A Continue oxycodone 2.5 mg q 6 hrs prn and APAP 650 mg q 6 hrs prn.Use sling for comfortPT/ OT as above.F/U with ortho as planned. Urinary tr act infectious disease 58328729 N30.00 U/A looked + in ED, but cx grew mixed milind.Cont inue nitrofuran toin 100 mg BID until 05/07Monit or urinary sxs. Alcoholism 2262690 F10.2 0 Apparently is still drinking, perhaps mouthwash as she told me before, I didn't ask her tonight.Co ntinue thiamine 100 mg qd and naltrexone 50 mg qdContinue to encourage abstinence Anemia 394761617 D64.89 New dx for this pt. 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 Glaucoma 13310660 H40.89 Continue drops as ordered.F/ U with eye Edema of [facility] extremity 735361291 R60.0 None today.Kate tor Depressive disorder 8061 9007 F33.8 Wellbutrin increased from 150 mg qd to 300 mg qd on 03/29.Mood good today.Kate tor mood.Consu lt psych prn [id number] CHINO Moorenino at [facility] on [address] [place] [address] 05/11/2024 10:50:12 05/12/2024 16:37:14 Falls 841361852 R29.6 see HPIdoing well with PT Fracture of clavicle 581 45892 S42.002A Continue oxycodone 2.5 mg q 6 hrs prn and APAP 650 mg q 6 hrs prn.Use sling for comfortPT/ OT as above.F/U with ortho as planned. Alcoholism 3175464 F10.2 0 Apparently is still drinking at homeContin ue thiamine 100 mg qdDC naltrexone 50 mg qd- see HPIwill send home with RX to fill at her pharmacyCo ntinue to encourage abstinence [id number] CHINO Law at [facility] on [address] [place] [address] 05/12/2024 12:15:23 05/13/2024 13:21:25 Falls 616319734 R29.6 see HPIdoing well with PT- transfer to [facility] today Fracture of clavicle 581 89514 S42.002A Continue oxycodone 2.5 mg q 6 hrs prn and APAP 650 mg q 6 hrs prn.Use sling for comfortPT/ OT as above.F/U with ortho as planned. 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 8984158474 256272 C50.812 anastrazol e 1 mg daily Urinary tr act obstruction 1085259 N13.8 vibegron 75 mg dailymonit or urine output Health Concerns Section Related Observation LastModified by Organization Detai ls LastModified Time None Recorded Concern Status LastModified by Organization Details LastModified Time None Recorded Advance Directives Directive N: Payers Encounter Date Sequence Insurance Name Policy Number Policy Bee Covered Member ID Bee Member ID Guarantor Name 03/25/2024 1 MEDICARE B-[place]: [employer] Gema Perry [id number] 2 Gema Perry 05/01/2024 1 MEDICARE B-[place]: [employer] Gema Perry [id number] 2 Gema Perry 05/06/2024 1 MEDICARE B-[place]: [employer] Gema Perry [id number] 2 Gema Perry 05/11/2024 1 [place]: [facility] Gema Perry [id number] 2 Gema Perry 05/12/2024 1 MEDICARE B-[place]: [facility] Gema Perry [id number] 2 Gema Perry Notes Date Note Type [...] ok to go tomorrow. CHINO TERRAZAS [address], [address], [place], [address], [facility] 03/25/2024 11:29:49 05/01/2024 text/html seen today for [...] notes reviewed MEHDI DEE NP [address], [address], [place], [address], [facility] 05/01/2024 14:05:21 05/06/2024 text/html This is a 74 yo woman who is here for rehab after a mechanical fall resulting in a left clavicle fx.[facility] described as losing her balance when she turned around to get her walker. She reported many recent falls. Of note [facility]-fter a fall and slurred [...] 04/30. Of note, she [facility]or a fall with rib fxs and a UTI. And then was at [facility] from 03/17-03/26 and was dxed with [...] (?), FTT, and glaucoma. Jacki Orosco MD [address] [place] [address], [address], [place], [address], [facility] [employer] [facility] 05/10/2024 00:47:36 05/11/2024 text/html This is a [...] and that she will be [facility]ing [facility] prison in 6 weeks or so , so [...] remission (?), FTT, and glaucoma. CHINO TERRAZAS [address] [place] [address], [place], [address], [facility] 05/11/2024 11:08:58 05/12/2024 text/html This is a [...] without it. She will be transferring to [facility] today and eventually move to [facility] and then [facility]. She offers no complaints at [...] remission (?), FTT, and glaucoma. CHINO TERRAZAS [address] [place] [address], [address], [place], [address], [facility] 05/12/2024 13:37:42 OBGyn Episode No OBEpisode recorded.
== END 2024-11-25 11:51 | disposition home or self-care (01) ==
LOC: HO.HOS 11:17
PROVIDERS: PCP Internal Medicine; Visit Provider Physician Assistant
DX: Z96.641 Presence of right artificial hip joint (principal)
CPT/HCPCS: 99024

== ENCOUNTER → 2024-11-25 11:18 | Outpatient (BNV) | payer MEDICARE, SELFPAY | PROVIDERS: Visit Provider Radiology Diagnostic Radiology | DX: Z96.641 Presence of right artificial hip joint (principal) | CPT/HCPCS: 73502 ==

== ENCOUNTER 2024-11-25 12:07 | Outpatient (REF) | payer MEDICARE, SELFPAY ==
--- NOTE | ~2024-11-25 | XR_ITS ---
EXAMINATION: XR HIP, RIGHT CLINICAL INFORMATION: M25.559 - Pain in unspecified hip COMPARISON: None available. TECHNIQUE: Two views of the right hip. FINDINGS: There is been a total right hip arthroplasty. Femoral, acetabular components remain anatomically aligned, and well seated, without periprosthetic lucency or fracture. No evidence of subsidence. The skin arnie have been removed laterally. Similar mild enthesopathic spurring of the right greater trochanter. Mild degenerative arthritis left hip joint. XR/XR hip RT min 2V IMPRESSION: Right hip total arthroplasty without complication. Electronically signed by: Gonzales Street MD 11/25/2024 11:36 AM EDT
--- OUTSIDE RECORDS SUMMARY | 2024-11-29 12:39 | XMS_ITS | Data Portability ---
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 5760961233488 105 Active 2023 [employer] [address] , [address], [place], [address], [employer] 4 14:42:41 Heart murmur 59171509 Active [address] [employer] [address] [place] [address], [address], [place], [address], [employer] 4 14:43:30 Mediastinal lymphadenop athy 81697462 Active [address], [address], [place], [address], [facility] [employer] [facility] 4 14:43:36 Calcificati on of coronary artery 496888143 Active [address], [address], [place], [address], [facility] [employer] [facility] 4 14:43:48 Glaucoma 06143625 Active [address], [address], [place], [address], [facility] [employer] [facility] 4 14:44:00 Alcoholism 2929205 Active [address], [address], [place], [address], [facility] [employer] [facility] 4 14:44:52 Nodule of lung 065581452 Active [address], [address], [place], [address], [facility] [employer] [facility] 4 14:45:05 Thyroid nodule 670023500 Active [address], [address], [place], [address], [facility] [employer] [facility] 4 14:45:09 Nodule of adrenal cortex 294367187 Active [address], [address], [place], [address], [facility] [employer] [facility] 4 14:45:19 Steatotic liver disease 799201020 Active [address], [address], [place], [address], [facility] [employer] [facility] 4 14:45:27 Hiatal hernia 63576096 Active [address], [address], [place], [address], [facility] [employer] [facility] 4 14:45:40 Gastric ulcer 469475600 Active [address], [address], [place], [address], [facility] [employer] 4 14:45:50 Adult failure to thrive syndrome 485299961 Active [address], [address], [place], [address], [facility] [employer] [facility] 4 14:47:46 Falls 286981145 Active 2023 [facility] [address] [facility], [address], [place], [address], [facility] [employer] [facility] 4 14:47:54 Urinary tract infectious disease 99439651 Active [address], [address], [place], [address], [facility] [employer] 4 14:47:57 History of calculus of kidney 965426332 Active [address], [address], [place], [address], [facility] [employer] [facility] 4 14:48:39 Urinary tract obstruction 6173115 Active [address], [address], [place], [address], [facility] [employer] 4 10:38:43 Fracture of clavicle 60632562 Active 2023 MEHDI DEE NP [address] [facility], [address], [place], [address], [facility] [employer] 4 13:48:46 Anemia 946252776 Active 2023 Jacki Orosco MD [address] [place] [address], [address], [place], [address], [facility] [employer] 4 00:44:42 Depressive disorder 50667397 Active 2023 Jacki Orosco MD [address] [place] [address], [address], [place], [address], [facility] [employer] [facility] 4 00:47:03 Problem Notes None recorded. Procedures Surgical History Date Name Laterality Status Provider Name and Address Organization Details Recorded Time Cholecystectomy completed [address], [address], [place], [address], [facility] [employer] 4 14:46:01 extraction of cataract completed GI NA [address], [address], [place], [address], [facility] [employer] 4 14:46:07 needle aspiration of breast complete d CHINO [address], [address], [place], [address], [facility] [employer] 4 14:46:22 lumpectomy of breast completed CHINO [address], [address], [place], [address], [facility] 4 14:46:28 esophagogastroduodenoscopy completed CHINO [address], [address], [place], [address], [facility] 4 14:46:33 ureteroscopy completed CHINO [address], [address], [place], [address], [facility] [employer] 4 14:47:06 cystoscopy completed [address], [address], [place], [address], [facility] [employer] 4 14:47:16 Imaging Results None recorded. Procedure [...] 03/25/2024 162.56 cm 108 mm[Hg] 70 mm[Hg] [address], [address], [place], [address], [employer] 03/25/2024 11:25:15 Date Recorded Body height Body mass index (BMI) Body weight Heart rate Respiratory rate Body temperature Oxygen saturation Oxygen saturation in Arterial blood by Pulse oximetry Systolic blood pressure Diastolic blood pressure Provider Name and Address Organization Details Last Updated DateTime 4 162.56 cm 24.9 kg/m2 42799.8 9 g 82 /min 16 /min 97.3 [degF] 96 % 96 % 118 mm[Hg] 68 mm[Hg] MEHDI DEE NP [address] [facility], [address], [place], [address], [employer] [facility] 13:54:41 Date Recorded Body height Body mass index (BMI) Body weight Heart rate Respiratory rate Body temperature Oxygen saturation Oxygen saturation in Arterial blood by Pulse oximetry Systolic blood pressure Diastolic blood pressure Provider Name and Address Organization Details Last Updated DateTime 162.56 cm 22.1 kg/m2 84342.4 2 g 61 /min 17 /min 97.4 [degF] 94 % 94 % 115 mm[Hg] 65 mm[Hg] Jacki Orosco MD [address] [facility], [address], [place], [address], [employer] [facility] 4 23:50:07 Date Recorded Body height Systolic blood pressure Diastolic blood pressure Provider Name and Address Organization Details Last Updated DateTime 05/11/2024 162.56 cm 106 mm[Hg] 56 mm[Hg] CHINO [address] [facility] [facility], [address], [place], [address], [employer] [facility] 05/11/2024 10:50:44 Social History Question Answer Notes LastModified by Organization Details LastModified Time Tobacco Smoking Status Former Smoker quit 2017 Jacki Orosco MD [address] [facility] [facility] [address], [place], [address], [employer] 03/22/2024 18:47:44 Do You Have An [...] Do You Have A Medical Power Of Chief Growth Officer? Yes Information not available 03/22/2024 What Was [...] Recorded Time Tdap 6 completed Cirilo Valera [facility] 03/24/2024 16:24:22 Pneumococcal conjugate PCV 13 3 completed Cirilo Valera [facility] 03/24/2024 16:24:41 influenza, unspecified formulation 2 completed Cirilo Velasquez-Clark [facility] 03/24/2024 16:24:57 influenza, unspecified formulation 3 completed Cirilo Velasquez-Clark [facility] 03/24/2024 16:25:13 SARS-COV-2 (COVID-19) vaccine, UNSPECIFIED 1 completed Cirilo Valera [facility] 03/24/2024 16:25:37 SARS-COV-2 (COVID-19) vaccine, UNSPECIFIED 1 completed [facility] Ron-Clark [facility] 03/24/2024 16:25:48 SARS-COV-2 (COVID-19) vaccine, UNSPECIFIED 1 completed Cirilo JohnyoshiMali [facility] 03/24/2024 16:25:59 SARS-COV-2 (COVID-19) vaccine, UNSPECIFIED 2 completed Cirilo Soto [facility] 03/24/2024 16:26:14 SARS-COV-2 (COVID-19) vaccine, UNSPECIFIED 3 completed [facility] Ron-Clark [facility] 03/24/2024 16:26:29 zoster, unspecified formulation 1 completed Cirilo JohnyoshiMali [facility] 03/24/2024 16:26:41 zoster, unspecified formulation 2 completed [facility] Ron-Clark [facility] 03/24/2024 16:26:55 Past Encounters Encounter ID Performer Location Encounter Start Date Encounter Closed Date Diagnosis/Indication Diagnosis SNOMED-CT Code Diagnosis ICD10 Code Diagnosis Note [id number] [place] [address] 03/18/2024 10:32:23 03/22/2024 12:33:58 Fracture of multiple ribs 6979518 S22.43XA oxycodone 5 mg TID PRN- she would like dose nowanterol ateral left 4th through 7th ribs with left seventh rib mildly displaced without pneumothor ax.lidocai ne patch dailymonit or painPT/OT eval and treatencou rage deep breathing, IS as able 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 7175780455 288944 C50.912 anastrozol e 1 mg dailyfollo w up with onc as scheduled Alcoholism 5440366 F10.2 0 patient states in remission but has positive ETOH screen one month agoCT suggestive of pancreatit is due to alcohol usecontinu e zyvox BID due to UTI and possible pancreatit isthiamine daily x 14 daysfolic acid daily x 14 days Glaucoma 13832896 H40.9 cosopt BIDxalatan qhs Adult fail ure to thrive syndrome 631152948 R62.7 folic acid 1 mg daily x 14 daysMVI ialvhx51 dailythiam ine daily x 14 daysferrou s sulfate 325 mg daily Edema of l ower extremity 554410673 R60.0 DC lasix 20 mg daily- no edemaeleva te as ablemonito r weights Urinary tr act obstruction 3155304 N13.9 gemtesa 75 mg dailymonit or for outflow issueshas apt on 03/22- can get her own transporta tion and will tell us when she is leaving Urinary tr act infectious disease 46901883 N39.0 zyvox BID x 10 days to end on 03/27- added stop date nowmonitor urinary sxs [id number] MD DUDLEY Duncan [address] [place] [address] 03/22/2024 18:20:15 03/24/2024 09:30:25 Fracture of multiple ribs 3817319 S22.41XD Pain improving. Continue lidocaine patch daily, APAP 650 mg q 6 hrs prn, and oxycodone 5 mg TID prn.Encour age use of I carolyn.Kate tor pain and resp status. Alcoholism 3093877 F10.2 0 Seems to have accepted that even mouthwash is the same thing as drinking vodka.No signs of withdrawal inpt.Susy nue thiamine 100 mg qd x 14 days and folic acid 1 gm qd x 14 daysContin ue to encourage abstinence . 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 3772061212 283391 C50.812 S/P tx in 2021.Susy nue anastrozol e 1 mg qdF/U with oncology and breast surgeon as planned. Glaucoma 54486744 H40.89 Continue drops as ordered.F/ U with eye Adult fail ure to thrive syndrome 307439238 R62.7 Likely due to poor po intake at home, possibly due to drinking.E ncourage healthy eating.Con tinue supplement s as below.Diet ician involved. Edema of l ower extremity 506858725 R60.0 None today.Kate tor Urinary tr act obstruction 3365016 N13.8 S/P dilation, stent and lithotrips y 4 wks ago.Contin ue gemtesa 75 mg qdSaw uro today Urinary tr act infectious disease 18568119 N30.00 Continue linezolid 600 mg BID until 03/27.ID said to complete 10 day course, but written as for 10 days on d/c med list, so fine to continue an extra few days.Monit or urinary sxs, no further tx if no sxs. Anemia 598142659 D64.89 New dx for this pt.B12 was high inpt, so unclear why B12 was started, other supplement s due to EtOHism.No iron or ferritin checked, so unclear if iron deficiency .Will continue FeSO4 325 mg qd for now and cyanocobal nesbitt 5000 mcg qd.Check iron, ferritin, TIBC and retic count with next labs. [id number] CHINO SUE [address] [place] [address] 03/25/2024 11:11:15 03/26/2024 12:34:25 Fracture of multiple ribs 8271226 S22.41XD Pain improvingC ontinue lidocaine patch daily, APAP 650 mg q 6 hrs prn, and oxycodone 5 mg TID prnEncoura ge use of I carolyn at home Adult fail ure to thrive syndrome 702319254 R62.7 Likely due to poor po intake at home, possibly due to drinkingEn courage healthy eating.Con tinue supplement s as below Anemia 466768944 D64.89 B12 was high inpt, so unclear why B12 was started, other supplement s due to EtOHism.No iron or ferritin checked, so unclear if iron deficiency - PCP to do outptWill continue FeSO4 325 mg qd for now and cyanocobal nesbitt 5000 mcg qd. Alcoholism 3454186 F10.2 0 Continue thiamine 100 mg qd x 14 days and folic acid 1 gm qd x 14 daysContin ue to encourage abstinence . Urinary tr act infectious disease 71544169 N30.00 Continue linezolid 600 mg BID until 03/27.ID said to complete 10 day course, but written as for 10 days on d/c med list, so fine to continue an extra few days. 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 Glaucoma 93829726 H40.89 Continue drops as ordered.F/ U with eye [id number] MEHDI DEE NP [facility] on [address] [place] [address] 05/01/2024 12:03:59 05/03/2024 19:46:58 Falls 621308339 R29.6 PT OT eval and treatfall precaution sfrequent safety checks Fracture of clavicle 581 29898 S42.002A oxycodone 2.5 mg q6hr prnsling for comfortPT OT eval and treat Glaucoma 80643102 H40.89 latanapros t ou hsdorzolam zina/timolo l ou bid Urinary tr act infectious disease 00275198 N30.00 nitrofuran toin 100 mg bid to 05/07 Alcoholism 5039695 F10.2 0 thiamine 100 mg dailyiron 325 mg dailycyanc obalamin 2500 dailynaltr exone 50 mg dailybupro pion xl 300 mg dailyConti nue to encourage abstinence 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 Fracture of clavicle 581 47996 S42.002A Continue oxycodone 2.5 mg q 6 hrs prn and APAP 650 mg q 6 hrs prn.Use sling for comfortPT/ OT as above.F/U with ortho as planned. Urinary tr act infectious disease 05024870 N30.00 U/A looked + in ED, but cx grew mixed milind.Cont inue nitrofuran toin 100 mg BID until 05/07Monit or urinary sxs. Alcoholism 5578006 F10.2 0 Apparently is still drinking, perhaps mouthwash as she told me before, I didn't ask her tonight.Co ntinue thiamine 100 mg qd and naltrexone 50 mg qdContinue to encourage abstinence Anemia 973970364 D64.89 New dx for this pt. 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 Glaucoma 02920355 H40.89 Continue drops as ordered.F/ U with eye Edema of [facility] extremity 037638907 R60.0 None today.Kate tor Depressive disorder 0795 9007 F33.8 Wellbutrin increased from 150 mg qd to 300 mg qd on 03/29.Mood good today.Kate tor mood.Consu lt psych prn [id number] CHINO Moorenino [facility] on [address] [facility] [place] [address] 05/11/2024 10:50:12 05/12/2024 16:37:14 Falls 756058053 R29.6 see HPIdoing well with PT Fracture of clavicle 581 92875 S42.002A Continue oxycodone 2.5 mg q 6 hrs prn and APAP 650 mg q 6 hrs prn.Use sling for comfortPT/ OT as above.F/U with ortho as planned. Alcoholism 3761349 F10.2 0 Apparently is still drinking at homeContin ue thiamine 100 mg qdDC naltrexone 50 mg qd- see HPIwill send home with RX to fill at her pharmacyCo ntinue to encourage abstinence [id number] CHINO Law [facility] on [address] [facility] [place] [address] 05/12/2024 12:15:23 05/13/2024 13:21:25 Falls 479735579 R29.6 see HPIdoing well with PT- transfer to [facility] today Fracture of clavicle 581 08770 S42.002A Continue oxycodone 2.5 mg q 6 hrs prn and APAP 650 mg q 6 hrs prn.Use sling for comfortPT/ OT as above.F/U with ortho as planned. 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 5366703625 206117 C50.812 anastrazol e 1 mg daily Urinary tr act obstruction 6447801 N13.8 vibegron 75 mg dailymonit or urine output Health Concerns Section Related Observation LastModified by Organization Detai ls LastModified Time None Recorded Concern Status LastModified by Organization Details LastModified Time None Recorded Advance Directives Directive N: Payers Encounter Date Sequence Insurance Name Policy Number Policy Bee Covered Member ID Bee Member ID Guarantor Name 03/25/2024 1 MEDICARE B-[employer]: [employer] Gema Perry [id number] 2 Gema Perry 05/01/2024 1 MEDICARE [employer]: [employer] Gema Perry [id number] 2 Gema Perry 05/06/2024 1 MEDICARE [employer]: [employer] Gema Perry [id number] 2 Gema Perry 05/11/2024 1 [place]: [facility] Gema Perry [id number] 2 Gema Perry 05/12/2024 1 MEDICARE B-KS: [facility] Gema Perry [id number] 2 Gema Perry Notes Date Note Type [...] ok to go tomorrow. CHINO TERRAZAS [address] [facility], [address], [place], [address], [employer] 03/25/2024 11:29:49 05/01/2024 text/html seen today for [...] hospital notes reviewed MEHDI DEE NP [address] [facility], [address], [place], [address], [employer] 05/01/2024 14:05:21 05/06/2024 text/html This is a 74 yo woman who is here for rehab after a mechanical fall resulting in a left clavicle fx.[facility] described as losing her balance when she turned around to get her walker. She reported many recent falls. Of note she had [facility]-fter a fall and slurred speech. At [...] 04/30. Of note, she was alsoad[facility] to [facility] 03/12[facility]or a fall with rib fxs and a UTI. And then was at [facility] from 03/17-03/26 and was dxed with Agatha [...] (?), FTT, and glaucoma. Jacki Orosco MD [address] [place] [address], [address], [place], [address], [employer] 05/10/2024 00:47:36 05/11/2024 text/html This is a [...] and that she will be transitioning to senior living in 6 weeks or so , so [...] remission (?), FTT, and glaucoma. CHINO TERRAZAS [address] [place] [address], [place], [address], [employer] 05/11/2024 11:08:58 05/12/2024 text/html This is a [...] without it. She will be transferring to [employer] today and eventually move to [facility] and then [place] if possible. She offers no complaints at [...] remission (?), FTT, and glaucoma. CHINO TERRAZAS [address] [place] [address], [address], [place], [address], [employer] 05/12/2024 13:37:42 OBGyn Episode No OBEpisode recorded.
--- OUTSIDE RECORDS SUMMARY | 2024-11-29 12:39 | XMS_ITS | Encounter Summary ---
Author Organization [facility] [place] [address] Care Team Providers Care English Teacher Name Role Phone Rufus Thornton MD Primary Care Provider [phone] Encounter Details Date Type Department Care Team (Latest Contact Info) Description 07/16/2024 Lab Requisition [facility] - Main Lab [address] [place] [phone] Jeramy Voss [place] [address] [address] Hydronephrosis with renal and ureteral calculous obstruction [...] Urine No growth 07/17/2024 8:03 AM EST [facility] Urine Urine specimen obtained by clean catch procedure / Unknown 07/16/2024 10:56 AM EST 07/16/2024 3:05 PM EST us Jeramy [facility] MICROBIOLOGY - GENERAL ORDER CATHERINE Final Result [facility] [address] [place] [address], documented in this encounter Visit Diagnoses Diagnosis Hydronephrosis with renal and ureteral calculous obstruction documented in this encounter Care Teams English Teacher Relationship Specialty Start Date End Date Rufus Thornton MD [address] [place] [address] PCP - General Internal Medicine 05/31/24 documented as of this encounter
--- OUTSIDE RECORDS SUMMARY | 2024-11-29 12:39 | XMS_ITS | Clinical Summary ---
Author Organization [address] [facility] Address [address] [place] [address] Phone Care Team Providers Care Billing Supervisor Name Role Phone Rufus Thornton MD Primary Care Provider [phone] Social History Tobacco Use Types Packs/Day Years [...] complete this [place] [phone] MEDICARE [facility] [place] [phone] Care Teams Billing Supervisor Relationship Specialty Start Date End Date Rufus Thornton MD [address] [place] [address] PCP - General Internal Medicine 05/31/24
--- OUTSIDE RECORDS SUMMARY | 2024-11-29 12:39 | XMS_ITS | Encounter Summary ---
Author Organization [facility] Address [address] [place] [address] Care Team Providers Care Brinell Tester Name Role Phone Rufus Thornton MD Primary Care Provider [phone] Encounter Details Date Type Department Care Team (Late st Contact Info) Description 05/31/2024 Lab Requisition [facility] - Main Lab [address] [place] [phone] Rufus Thornton MD [address] [place] [id number] Gout, unspecified Social History Tobacco Use Types [...] LAB CHEMISTRY METHOD 05/31/2024 10:00 AM EST [facility] Potassium 4.1 3.5 - 5.5 mmol/L LAB CHEMISTRY METHOD 05/31/2024 10:00 AM [facility] LAB Chloride 108 96 - 110 mmol/L LAB CHEMISTRY METHOD 05/31/2024 10:00 AM [facility] LAB CO2 26 21 - 32 mmol/L LAB CHEMISTRY METHOD 05/31/2024 10:00 AM [facility] LAB Anion Gap 6 3 - 11 LAB CHEMISTRY METHOD 05/31/2024 10:00 AM [facility] LAB Glucose 96 70 - 100 mg/dL LAB CHEMISTRY METHOD 05/31/2024 10:00 AM [facility] LAB BUN 15 5 - 25 mg/dL LAB CHEMISTRY METHOD 05/31/2024 10:00 AM [facility] LAB Creatinine 1.04 0.50 - 1.10 mg/dL LAB CHEMISTRY METHOD 05/31/2024 10:00 AM [facility] LAB eGFR 57(L) >=60 mL/min/1. 73m2 LAB CHEMISTRY METHOD 05/31/2024 10:00 AM [facility] LAB Comment:Calculation based on the??Chronic Kidney Disease Epidemiology Collaboration (CKD-EPI) equation refit??without adjustment for race. BUN/Creatinine Ratio 14.4 LAB CHEMISTRY METHOD 05/31/2024 10:00 AM [facility] LAB Calcium 9.6 8.5 - 10.5 mg/dL LAB CHEMISTRY METHOD 05/31/2024 10:00 AM [facility] LAB Blood Venous blood specimen / Unknown Venipuncture / Unknown 05/31/2024 5:14 AM EST 05/31/2024 9:26 AM EST us Rufus Thornton MD LAB BLOOD ORDERABLES Final Res ult [facility] [address] [place] [address], [place] [phone] * (ABNORMAL) Complete blood count (05/31/2024 5:14 AM EST) WBC 6.3 4.8 - 10.8 K/mcL LAB HEMETOLOGY METHOD 05/31/2024 9:39 AM [facility] LAB RBC 3.70(L) 3.80 - 4.80 M/mcL LAB HEMETOLOGY METHOD 05/31/2024 9:39 AM [facility] LAB Hemoglobin 11.8 11.5 - 16.0 g/dL LAB HEMETOLOGY METHOD 05/31/2024 9:39 AM [facility] LAB Hematocrit 37.1 35.0 - 47.0 % LAB HEMETOLOGY METHOD 05/31/2024 9:39 AM [facility] LAB MCV 99.5(H) 79.0 - 98.0 FL LAB HEMETOLOGY METHOD 05/31/2024 9:39 AM [facility] LAB MCH 31.6 27.0 - 32.0 pcg LAB HEMETOLOGY METHOD 05/31/2024 9:39 AM [facility] LAB MCHC 31.8(L) 32.0 - 37.0 g/dL LAB HEMETOLOGY METHOD 05/31/2024 9:39 AM [facility] LAB RDW 13.3 11.0 - 15.0 % LAB HEMETOLOGY METHOD 05/31/2024 9:39 AM [facility] LAB Platelets 275 130 - 400 K/[facility] LAB HEMETOLOGY METHOD 05/31/2024 9:39 AM [facility] LAB MPV 10.1 7.0 - 11.0 FL LAB HEMETOLOGY METHOD 05/31/2024 9:39 AM [facility] LAB NRBC 0.0 <1.0 % LAB HEMETOLOGY METHOD 05/31/2024 9:39 AM [facility] LAB NRBC Absolute 0.00 <0.10 K/mcL LAB HEMETOLOGY METHOD 05/31/2024 9:39 AM [facility] LAB Blood Venous blood specimen / Unknown Venipuncture / Unknown 05/31/2024 5:14 AM EST 05/31/2024 9:26 AM EST Rufus Thornton MD LAB BLOOD ORDERABLES Final Res ult Performing Organization Address City/[facility]/ZIP Co de Phone Number [facility] [address] [place] [address], documented in this encounter Visit Diagnoses Diagnosis Gout, unspecified documented in this encounter Care Teams Brinell Tester Relationship Specialty Start Date End Date Rufus Thornton MD [address] [place] [id number] PCP - General Internal Medicine 05/31/24 documented as of this encounter
== END 2024-11-25 12:08 | disposition home or self-care (01) ==
LOC: HO.HOSX 12:07
PROVIDERS: Visit Provider Physician Assistant
DX: M25.551 Pain in right hip (principal); Z96.641 Presence of right artificial hip joint
CPT/HCPCS: 73502; 99212

== ENCOUNTER 2025-01-06 08:59 | Outpatient (REF) | payer MEDICARE, SELFPAY ==
--- NOTE | ~2025-01-06 | XR_ITS ---
EXAMINATION: XR PELVIS CLINICAL INFORMATION: M25.559 - Pain in unspecified hip COMPARISON: 11/25/2024. 10/29/2024. TECHNIQUE: AP view of the pelvis. FINDINGS: There has been a total right hip arthroplasty. Femoral, and acetabular components appear intact, well seated, in anatomic alignment. No periprosthetic abnormality. No evidence of abnormal polyethylene wear. No subsidence present. The pelvis is intact. Mild degenerative changes in the left hip joint. Degenerative changes in the lower lumbar spine and bilateral SI joints. Similar mild enthesophyte pathic spurring of the right greater trochanter. Soft tissues demonstrate vascular calcifications. Rounded calcifications in the pelvis are likely degenerated fibroid tumors. XR/XR pelvis 1-2V IMPRESSION: Right hip total arthroplasty without complication. Electronically signed by: Gonzales Street MD 01/06/2025 10:36 AM EDT
--- OUTSIDE RECORDS SUMMARY | 2025-01-07 09:18 | XMS_ITS | Encounter Summary ---
Author Organization [facility] [place] [address] Care Team Providers Care City Engineer Name Role Phone Rufus Thornton MD Primary Care Provider [phone] Encounter Details Date Type Department Care Team (Latest Contact Info) Description 07/16/2024 Lab Requisition [facility] - Main Lab [address] [place] [phone] Jeramy Voss PA [address] [address] Hydronephrosis with renal and ureteral calculous obstruction [...] Urine No growth 07/17/2024 8:03 AM EST [facility] Urine Urine specimen obtained by clean catch procedure / Unknown 07/16/2024 10:56 AM EST 07/16/2024 3:05 PM EST us Jeramy [facility] LAB MICROBIOLOGY - GENERAL ORDER CATHERINE Final Result [facility] [address] [place] [address], documented in this encounter Visit Diagnoses Diagnosis Hydronephrosis with renal and ureteral calculous obstruction documented in this encounter Care Teams City Engineer Relationship Specialty Start Date End Date Rufus Thornton MD [address] [place] [id number] PCP - General Internal Medicine 05/31/24 documented as of this encounter
== END 2025-01-06 09:00 | disposition home or self-care (01) ==
LOC: HO.HOSX 08:59
PROVIDERS: Visit Provider Physician Assistant
DX: Z96.641 Presence of right artificial hip joint (principal)
CPT/HCPCS: 72170; 99212

== ENCOUNTER 2025-01-06 09:51 | Outpatient (AMB) | payer MEDICARE, SELFPAY ==
--- NOTE | 2025-01-06 10:06 | MHC.OFFVIS ---
Vital Signs 01/06/25 10:10 Height 5 ft 4 in Weight 130 lb BMI 22.3 Intake Visit Reasons: PO rt hip iva 10/12/24 NE-w/xrays Intake Note: Gema is a 74 year old female who presents today for a post operative appointment s/p right hip iva 10/12/24 NE. At her last visit she was advised to continue with physical therapy to work on glute core and quad strengthening as well as gait training with a walker. Patient reports she has pain when she moves her hips a way she shouldn't such as accidentally crossing her legs. When she does this she says she gets pain that reminds her not to cross her legs. Expresses no problems with ambulation or weight bearing. Has not started PT yet, she says she is waiting on her insurance. Allergies No Known Allergies Allergy (Verified 01/06/25 10:10) HPI HPI PO rt hip iva 10/12/24 NE-w/xrays: Details: Ms. Perry is a 74-year-old female who presents to the office today for routine follow-up status post right hip hemiarthroplasty performed on 10/12/[address] Marcial. Patient is continuing to work with physical therapy at [facility]. She is using a Rollator walker to assist with ambulation with a goal of transitioning to a cane. Overall she is doing very well and has no complaints at this time. [facility] Medical History History of alcohol use disorder Hypotension Nicotine dependence Closed fracture of neck of right femur Breast cancer Alcohol use disorder Glaucoma Social History Household Members: None Housing: Assisted Living Facility Do you presently have visiting nurse or other home services: Yes Alcohol intake: former Comment: medicated Patient Tobacco Use Status: Former Tobacco user e-Cigarette/Vaping Use: Currently Using Advance Directives Date on File: 04/12/24 service: No Review of Systems Const All systems reviewed & are unremarkable except as noted in HPI and below Physical Exam Vital Signs: BMI result Body Mass Index 22.3 Const General: cooperative, healthy appearing and no acute distress Resp Effort & Inspection: normal respiratory effort and able to speak in complete sentences Extrem Other: Right hip able to perform a straight leg raise with no deficits. Full internal or external rotation. 5/5 strength with resisted knee flexion, extension and hip flexion. NVI. Assessment & Plan Assessment & Plan (1) Status post hemiarthroplasty of right hip: Code(s): Z96.641 - Presence of right artificial hip joint Category: Surgical Plan Ms. Perry is a 74-year-old female who presents to the office today for routine follow-up status post right hip hemiarthroplasty performed on 10/12/[address] Marcial. Patient is continuing to work with physical therapy at [facility]. She is using a Rollator walker to assist with ambulation with a goal of transitioning to a cane. Overall she is doing very well and has no complaints at this time. While in the office today, we discussed the patient transitioning to independent living at [facility]. She will continue working with physical therapy to work on glute core and quad strengthening as well as gait training with the goal of weaning her to a cane when appropriate. She will follow up in 3 months with repeat x-rays, sooner if needed. X-rays of the pelvis which were obtained while in the office today and were reviewed by me, Adrianna Gomez PA-C, revealed intact right hip hemiarthroplasty with satisfactory alignment. Orders: Orders XR pelvis 1-2V Today M25.559 - Pain in unspecified hip Coding Level of Care Code Global (05670) Diagnoses Status post hemiarthroplasty of right hip Z96.641
[2025-01-06 10:10] VITALS: BMI 22.3
== END 2025-01-06 10:27 | disposition home or self-care (01) ==
LOC: HO.HOS 09:51
PROVIDERS: PCP Internal Medicine; Visit Provider Physician Assistant
DX: Z96.641 Presence of right artificial hip joint (principal)
CPT/HCPCS: 99024

== ENCOUNTER → 2025-01-06 09:53 | Outpatient (BNV) | payer MEDICARE, SELFPAY | PROVIDERS: Visit Provider Radiology Diagnostic Radiology | DX: Z96.641 Presence of right artificial hip joint (principal) | CPT/HCPCS: 72170 ==

== ENCOUNTER 2025-03-15 05:29 | Inpatient (IN) | payer MEDICARE, SELFPAY ==
[2025-03-15] VITALS (7 sets, daily range): BP systolic 100–126; BP diastolic 41–68; PULSE 74–120; RESP 12–19; TEMP 36.3–36.8; O2SAT 92–98; BMI 18.9; BMI 18.7
--- NOTE | 2025-03-15 | ECG_ITS ---
Test Reason : FALL Blood Pressure : */* mmHG Vent. Rate : 78 BPM Atrial Rate : 78 BPM P-R Int : 200 ms QRS Dur : 76 ms QT Int : 450 ms P-R-T Axes : 91 10 49 degrees QTcB Int : 513 ms Sinus rhythm with Premature atrial complexes ST & T wave abnormality, consider anterior ischemia Prolonged QT Abnormal ECG When compared with ECG of 12-Oct-2024 05:06, Premature atrial complexes are now Present QRS voltage has increased ST now depressed in Anterior leads T wave inversion now evident in Anterior leads QT has lengthened Referred By: Generic ED Physician Electronically Signed By: Omar Tristan
--- NOTE | ~2025-03-15 | CT_ITS ---
EXAMINATION: CT CERVICAL SPINE WITHOUT CONTRAST CLINICAL INFORMATION: Status post fall. COMPARISON: None available. TECHNIQUE: Contiguous axial images through the cervical spine using 3 mm collimation with bone and soft tissue algorithm. Sagittal and coronal reformatted images acquired. DLP: 206.[address] examination was performed using dose optimization techniques as appropriate, variously including the following: *Automated exposure control *Adjustment of mA and/or kV according to patient size (this includes techniques or standardized protocols for targeted exams where dose is matched to indication/reason for exam; i.e. extremities or head) *Use of iterative reconstruction technique FINDINGS: Craniocervical junction is intact with normal alignment between the occipital condyles and the lateral masses of C1. Degenerative changes. Degenerative changes in the periodontal C1 region. C2 is intact. C3 is intact. Right facet joint hypertrophy. Marginal osteophyte formation. C4 is intact. Right facet joint hypertrophy. Marginal osteophyte formation. C5 is intact. Facet joint hypertrophy, bilaterally. Marginal osteophyte formation. C6 is intact. Facet joint hypertrophy, bilaterally. Marginal osteophyte formation. C7 is intact. Facet joint hypertrophy bilaterally. Marginal osteophyte formation. Grade 1 anterolisthesis, C7-T1 likely degenerative. Chondrocalcinosis within the intervertebral discs from C2-3 to C6-7. No gross prevertebral compartment hematoma. Calcified plaques in the carotid arteries. 15 mm ovoid shaped nodule in the posterior right thyroid lobe. The thyroid gland is small. Calcified pleural plaques in a circumferential fashion, left hemithorax. Bilateral apical lung scarring. Tympanic cavities and mastoid cells are aerated. Pneumatized left petrous apex, congenital. CT/CT cervical spine wo IV con IMPRESSION: Multilevel cervical spondylosis without acute fracture or trauma-related listhesis. Consider CPPD. Atherosclerosis disease. Calcified pleural plaques, left hemithorax. Consider posttraumatic versus postinfectious versus post treatment changes among other etiologies. 15 mm nodule, right thyroid lobe. Fleischner guidelines were followed. Electronically signed by: Jim Ventura MD 03/15/2025 08:54 AM EDT
--- NOTE | ~2025-03-15 | CT_ITS ---
EXAMINATION: CT CHEST WITHOUT CONTRAST CLINICAL INFORMATION: Status post fall. COMPARISON: Correlated to chest x-ray dated October 11, 2024 TECHNIQUE: Multidetector volumetric CT imaging of the chest was done. Axial MIP volume rendering provided. Sagittal and coronal reformatted images were obtained. This CT examination was performed using dose optimization techniques as appropriate, variously including the following: *Automated exposure control *Adjustment of mA and/or kV according to patient size (this includes techniques or standardized protocols for targeted exams where dose is matched to indication/reason for exam; i.e. extremities or head) *Use of iterative reconstruction technique. DLP: 207.14 mGy centimeter. FINDINGS: INSPECTOR BARREL: Asymmetric volume loss, left lung. Cardiomediastinal silhouette size is normal. Multilevel spondylosis and a shaped curvature of the thoracic and lumbar spine. LUNGS: Centrilobular emphysematous changes. Irregular linear attenuation abnormalities, lingula extending into the subpleural, linear attenuation abnormalities in the lung apices. Volume loss, left lung. 5 mm calcified pulmonary nodule in the periphery of the left lung base. No gross consolidation. No lung contusion. Respiratory airways is patent. MEDIASTINUM: No pneumomediastinum. No hemomediastinum. No hemopericardium. Calcified plaques throughout the thoracic aorta wall and its main branches. No gross aneurysm in the thoracic aorta. Calcified plaques in the coronary arteries. No gross pericardial effusion. Heart is not enlarged. Nonspecific mildly prominent mediastinal lymph nodes. There is a 15 mm hypodense nodule in the posterior right thyroid lobe. Calcified plaques in the aortic valve and mitral valve. CORONARY ARTERY CALCIFICATION: Calcified plaques. PLEURA: Calcified pleural plaques, left hemithorax. No pneumothorax. No hemothorax. AXILLA: No lymphadenopathy. UPPER ABDOMEN: Small hiatal hernia. Renal cortical thinning and volume loss, right kidney with the questionable hydronephrosis versus confluent parapelvic cysts. 21 mm low density nodule measuring -28 Hounsfield units, left adrenal gland. Hypodensity adjacent to the falciform ligament. Status post cholecystectomy. Calcified plaques abdominal aorta wall and its main branches of the mesenteric arteries. There are diverticula, splenic colonic flexure. OSSEOUS STRUCTURES: Multilevel thoracic spondylosis without gross acute fracture or listhesis. Sternum is intact. Old traumatic deformities in the anterior and anterior lateral aspect of the ribs left hemithorax with volume loss. Old traumatic deformity, left clavicle. Status post the lumpectomy, left breast. CT/CT chest wo IV con IMPRESSION: No acute intrathoracic injury. Probable posttreatment changes involving mostly the left hemithorax. Coronary artery disease and atherosclerosis disease. 15 mm nodule, right thyroid lobe. Lipid rich adenoma, left adrenal gland. Volume loss/atrophic right kidney and questionable parapelvic cysts versus hydronephrosis. No acute fracture. Fleischner guidelines were followed. Electronically signed by: Jim Ventura MD 03/15/2025 08:47 AM EDT
--- NOTE | ~2025-03-15 | CT_ITS ---
EXAMINATION: CT HEAD WITHOUT CONTRAST CLINICAL INFORMATION: fall COMPARISON: April 11, 2024. TECHNIQUE: Contiguous axial imaging was performed from the skull base to vertex without intravenous administration of contrast. This CT examination was performed using dose optimization techniques as appropriate, variously including the following: *Automated exposure control *Adjustment of mA and/or kV according to patient size (this includes techniques or standardized protocols for targeted exams where dose is matched to indication/reason for exam; i.e. extremities or head) *Use of iterative reconstruction technique DLP: 640.48 mGy-cm FINDINGS: No acute cortical disruption, bony calvarium. Status post right temporal and right pterional craniotomy. No acute cortical disruption in the skull base. No acute intracranial hemorrhage, mass effect, midline shift, hydrocephalus or herniation. Carmona-white matter differentiation is normal. Bilateral multifocal patchy and confluent deep periventricular white matter hypodensities involving centrum semiovale and dias radiata. Prominence of the extra-axial CSF spaces cerebral sulci and ventricles. Craniocervical junction demonstrates degenerative changes in the periodontal. Normal position of the cerebellar tonsils. Calcified plaques in the V4 segments of the vertebral arteries and cavernous supraclinoid segments both ICAs. No air-fluid levels in the paranasal sinuses. Tympanic cavities and mastoid cells are aerated. Pneumatized left petrous apices. CT/CT head/brain wo IV con IMPRESSION: No acute fracture, bony calvarium. No acute intracranial hemorrhage. Small vessel occlusive disease. Global cerebral atrophy. Stable brain. Electronically signed by: Jim Ventura MD 03/15/2025 08:36 AM EDT
--- NOTE | 2025-03-15 06:01 | ED.FALL ---
HPI - Fall General Chief Complaint: Fall Stated Complaint: FALL Time Seen by Provider: 03/15/25 05:57 Source: patient, EMS and old records reviewed Mode of arrival: EMS Limitations: no limitations History of Present Illness ED Provider: BETINA HPI Narrative: 74 yo female with PMH of TIA, hypokalemia, ETOH use disorder, here with c/o using her walker last night and tripping over the lip of the floor. She fell sideways on R side denies injury and pain. She has abrasion to R forehead and bruising to R ribs. She denies LOC or blood thinners. She states she called right when she fell. She denies ETOH use but EMS states the saw unopened mouthwash. She denies feeling ill prior to the fall. 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) Fall from: standing Fall witnessed: no Place fall occurred: home Loss of consciousness: none Prolonged down time: no Symptoms prior to fall: none Context: tripped/slipped Location of injury: other Severity: mild Associated symptoms (after fall): denies Related Data Home Medications ?Medication ?Instructions ?Recorded ?Confirmed anastrozole 1 mg tablet 1 mg PO DAILY 04/12/24 10/11/24 bupropion HCl 150 mg 24 hr tablet, 300 mg PO DAILY 04/12/24 10/11/24 extended release ferrous sulfate 325 mg (65 mg 325 mg PO DAILY 04/12/24 10/11/24 iron) tablet (Iron (ferrous sulfate)) allopurinol 100 mg tablet 100 mg PO DAILY 10/11/24 10/11/24 calcium carbonate 600 mg PO DAILY 10/11/24 10/11/24 cyanocobalamin (vitamin B-12) 2,500 mcg PO DAILY 10/11/24 10/11/24 2,500 mcg tablet dorzolamide-timolol (PF) 2 %-0.5 % 1 drp ophthalmic (eye) BID 10/11/24 10/11/24 eye drops in a dropperette latanoprost 0.005 % eye drops 1 drp ophthalmic (eye) BEDTIME 10/11/24 10/11/24 multivitamin 1 tab PO DAILY 10/11/24 10/11/24 naltrexone 50 mg tablet 50 mg PO DAILY 10/11/24 10/11/24 thiamine HCl (vitamin B1) 100 mg 100 mg PO DAILY 10/11/24 10/11/24 tablet Previous Rx's ?Medication ?Instructions ?Recorded nicotine 7 mg/24 hr daily 7 mg transdermal DAILY #28 ea 10/15/24 transdermal patch omeprazole 40 mg capsule,delayed 40 mg PO DAILY@0630 #30 caps 10/15/24 release oxycodone 5 mg tablet 5 mg PO Q6H PRN Pain, 10/15/24 Moderate(Pain Scale 4-6) #20 tabs Allergies Allergy/AdvReac Type Severity Reaction Status Date / Time No Known Allergies Allergy Verified 03/15/25 05:47 Review of Systems Review of Systems: Constitutional : No Fever, No Chills, No Fatigue ENT/Mouth : No sore throat, No Rhinorrhea Eyes: No Eye Pain, No Swelling, No Redness Cardiovascular : No Chest Pain, No SOB, No Dyspnea on Exertion Respiratory : No Cough, No Sputum Gastrointestinal : No Nausea, No Vomiting, No Diarrhea, No abdominal Pain Genitourinary : No Dysuria, No Urinary Frequency, No Hematuria, Musculoskeletal : No joint pain, No Myalgias, No Joint Swelling Skin : No Skin Lesions, No rash Neuro : No Weakness, No Numbness, No Dizziness, no Headache All other systems reviewed and are negative [facility] Past Medical History Attestation statement: The following information was validated with the patient. Source: old records reviewed Medical History History of alcohol use disorder Hypotension Nicotine dependence Closed fracture of neck of right femur Breast cancer Alcohol use disorder Glaucoma Social History Social History Household Members: None Housing: Assisted Living Facility Do you presently have visiting nurse or other home services: Yes Alcohol intake: former Comment: medicated Patient Tobacco Use Status: Former Tobacco user Smoked in Last 30 Days: Yes e-Cigarette/Vaping Use: Currently Using Use of substances other than those prescribed or required for medical reasons: No Advance Directives: Yes Advance Directives on File: Yes Advance Directives Date on File: 04/12/24 service: No Physical Exam Vital Signs: Vital Signs: Last Vital Signs Temp 97.6 F 03/15/25 05:43 Pulse 87 03/15/25 05:51 Resp 16 03/15/25 05:51 BP 115/55 L 03/15/25 05:43 Pulse Ox 98 03/15/25 05:51 O2 Del Method Room Air 03/15/25 05:51 BMI result Body Mass Index 18.9 Appearance: Alert. Oriented X3. No acute distress. Slightly slurred speech appears intoxicated Eyes: Pupils equal, round and reactive to light. ENT: Pharynx normal. abrasion just above R eyebrow Neck: Normal inspection. Neck supple. CVS: Normal heart rate and rhythm. Pulses normal. Chest: R rib lower anterior contusion noted denies pain no crepitus Respiratory: No respiratory distress. Breath sounds normal. Abdomen: Soft and nontender. Skin: Skin warm and dry. Normal skin color. Extremities: No lower extremity edema. Neuro: Oriented X 3. No motor deficit. No sensory deficit. CN2-12 intact Medications Administered Generic Name Dose Route Start Last Admin Trade Name Freq PRN Reason Stop Dose Admin Potassium Chloride 10 meq in 100 mls @ 100 mls/hr 03/15/25 07:00 03/15/25 08:38 Potassium Chloride/H20 IV 03/15/25 10:59 100 mls/hr Q1H CAIN Administration Discontinued Medications Generic Name Dose Route Start Last Admin Trade Name Freq PRN Reason Stop Dose Admin Magnesium Sulfate 2 gm in 50 mls @ 25 mls/hr 03/15/25 06:31 03/15/25 07:34 Magnesium Sulfate/H2o IV 03/15/25 08:30 25 mls/hr ONCE ONE Administration Thiamine HCl 200 mg/ Sodium 102 mls @ 204 mls/hr 03/15/25 06:31 03/15/25 07:31 Chloride IV 03/15/25 07:00 Infused ONCE ONE Infusion Potassium Chloride 40 meq 03/15/25 06:46 03/15/25 07:35 Potassium Chloride Er 20 Meq Tab.Er.Prt PO 03/15/25 06:47 40 meq ONCE ONE Administration Medical Decision Making Medical Decision Making MDM Narrative: 74 yo female with PMH of TIA, hypokalemia, ETOH use disorder, here with c/o trip and fall but denies injury or LOC states she called 911 right away on exam ?intoxication she has no focal deficits and she is oriented x 3, she has some new and old bruises with newest bruise on R ribs and abrasion on R eyebrow area. At this time she will need labs, CPK, EKG - start on magnesium/thiamine. She denies any pain. Given her fall and age along with possible ETOH abuse I have ordered CT head/cspine and CT chest Differential Diagnosis Differential Diagnoses: The differential diagnosis associated with the presentation includes ETOH use fall, anemia, lyte abnormality, trauma Admission/Observation Consideration of admission/observation: Escalation of care including admission/observation considered will admit for K repletion and monitoring Consult Healthcare Provider Management of the patient was discussed with: Hospitalist (will admit) Lab Data MDM Lab Attestation statement: I reviewed the patient's lab results. prolonged qtc IV mag ordered 03/15/25 06:18 03/15/25 06:18 Labs: Lab Results 03/15/25 03/15/25 Range/Units 06:18 06:23 WBC 6.9 (4.8-10.8) X10*3/uL RBC 3.87 L (4.20-5.50) X10*6/uL Hgb 13.1 D (12.0-16.0) g/dl Hct 36.2 L (37.0-47.0) % MCV 93.5 (80.0-98.0) fL MCH 33.9 H (27.0-33.0) pg MCHC 36.2 H (31.0-35.0) g/dl RDW 12.9 (11.0-16.0) % Plt Count 177 (160-400) X10*3/uL MPV 9.2 L (9.4-12.3) fL Immature Gran % (Auto) 1.5 H (0.0-0.4) % Neut % (Auto) 66.8 (45-73) % Lymph % (Auto) 18.7 L (20-40) % [place] % (Auto) 11.4 H (2-11) % Eos % (Auto) 1.2 (0-4) % Baso % (Auto) 0.4 (0-2) % Lymph # (Auto) 1.3 (1.2-4.9) X10*3/uL [place] # (Auto) 0.8 (0.1-1.2) X10*3/uL Eos # (Auto) 0.1 (0.0-0.4) X10*3/uL Baso # (Auto) 0.0 (0.0-0.2) X10*3/uL Abs Immat Gran (auto) 0.10 H (0.00-0.03) X10*3/uL Absolute Neuts (auto) 4.6 (2.0-8.3) x10*3/uL Absolute Nucleated RBC 0.000 (0.0-0.012) X10*3/uL Nucleated RBC % (auto) 0.0 (0.0-0.2) /100WBC VBG pH 7.43 (7.32-7.43) VBG pCO2 46 mmHg VBG pO2 31 mmHg VBG HCO3 31 H (22-26) mmol/L VBG O2 Saturation 38.0 % VBG Base Excess 6.2 mmol/L Sodium 141 (135-145) mmol/L Potassium 2.3 L* D (3.3-5.1) mmol/L Chloride 98 (96-108) mmol/L Carbon Dioxide 27 (22-29) mmol/L Anion Gap 18 (12-20) BUN 15 (9-16) mg/dL Creatinine 0.71 (0.5-1.4) mg/dL Estim Creat Clear Calc 54.7 Estimated GFR > 60 Random Glucose 126 H (60-115) mg/dL Calcium 8.5 (8.4-10.2) mg/dL Magnesium 1.9 (1.6-2.6) mg/dL Total Bilirubin 0.5 (0.0-1.0) mg/dL AST 53 H (5-31) U/L ALT 44 H (0-31) U/L Alkaline Phosphatase 187 H (39-117) U/L Total Creatine Kinase 100 (26-140) U/L Troponin I High Sens 13.2 D (<3.5-17.0) ng/L Total Protein 6.7 (6.5-8.0) g/dL Albumin 3.5 (3.5-5.0) g/dL Ethyl Alcohol 257 mg/dL Independent Interpretation I performed an independent interpretation of an: EKG and CT Scan (no trauma) Interpretation: Rate: 78 Rhythm: NSR Page: normal Normal P waves. Normal PADMA. Normal QRS complex. ST T wave : inverted t wave V1-V3, no DUNCAN qTC: 513 prior studies: changed from priors The study has been interpreted contemporaneously by me. . Radiology Impression Discussion of test interpretation with radiology: I have reviewed the radiologist's reading. Independent Historian Clinical information obtained from an independent historian. History obtained from or confirmed by: EMS External Record Review External record reviewed: Outpatient record and Prior outpatient labs Critical Care Time Critical Care Time Critical Care Time: Yes Total Critical Care Time: 45 Attestation: Time is exclusive of separately billable procedures. Time includes: direct patient care, patient reassessment, coordination of patient care, interpretation of data (laboratory data, pulse oximetry, venous blood gases and CT scans), review of patient's medical records, medical consultation and documentation of patient care. IV potassium and IV magnesium. Procedures excluded from critical care time: electrocardiography. I attest to this time spent taking care of the patient Discharge Plan Discharge Clinical Impression: Alcohol intoxication, Acute hypokalemia Patient Disposition: Admitted As Inpatient Print Language: Samoan
[2025-03-15 06:23] LABS: MANUAL DIFF FLAG NO
[2025-03-15 06:24] LABS: Venous Blood Gas Refer to POC result
[2025-03-15 06:30] LABS: Hematocrit 36.2 % (37.0-47.0); Hemoglobin 13.1 g/dl (12.0-16.0); Imm Gran Abs Auto 0.10 X10*3/uL (0.00-0.03); Imm Gran Pct Auto 1.5 % (0.0-0.4); Lymphocytes Absolute Auto 1.3 X10*3/uL (1.2-4.9); Mean Corpuscular HGB Conc 36.2 g/dl (31.0-35.0); Mean Corpuscular Hemoglobin 33.9 pg (27.0-33.0); Mean Corpuscular Volume 93.5 fL (80.0-98.0); NRBC Abs Auto 0.000 X10*3/uL (0.0-0.012); NRBC Pct Auto 0.0 /100WBC (0.0-0.2); Platelet Count 177 X10*3/uL (160-400); Red Blood Count 3.87 X10*6/uL (4.20-5.50); White Blood Count 6.9 X10*3/uL (4.8-10.8)
[2025-03-15 06:33] LABS: VBG HCO3 31 mmol/L (22-26); VBG O2 % Saturation 38.0 %
--- OUTSIDE RECORDS SUMMARY | 2025-03-15 06:34 | XMS_ITS | Encounter Summary ---
Author Organization [facility] Address [address] [place] [address] Care Team Providers Care Pouncer Machine Name Role Phone Rufus Thornton MD Primary Care Provider [phone] Encounter Details Date Type Department Care Team (Late st Contact Info) Description 05/31/2024 Lab Requisition [facility] - Main Lab [address] [facility] [place] [address] Rufus Thornton MD [address] [place] [address] Gout, unspecified Social History Tobacco Use Types [...] LAB CHEMISTRY METHOD 05/31/2024 10:00 AM EST [facility] Potassium 4.1 3.5 - 5.5 mmol/L LAB CHEMISTRY METHOD 05/31/2024 10:00 AM EST [facility] Chloride 108 96 - 110 mmol/L LAB CHEMISTRY METHOD 05/31/2024 10:00 AM [facility] CO2 26 21 - 32 mmol/L LAB CHEMISTRY METHOD 05/31/2024 10:00 AM [facility] Anion Gap 6 3 - 11 LAB CHEMISTRY METHOD 05/31/2024 10:00 AM [facility] Glucose 96 70 - 100 mg/dL LAB CHEMISTRY METHOD 05/31/2024 10:00 AM [facility] BUN 15 5 - 25 mg/dL LAB CHEMISTRY METHOD 05/31/2024 10:00 AM [facility] Creatinine 1.04 0.50 - 1.10 mg/dL LAB CHEMISTRY METHOD 05/31/2024 10:00 AM [facility] eGFR 57(L) >=60 mL/min/1. 73m2 LAB CHEMISTRY METHOD 05/31/2024 10:00 AM [facility] Comment:Calculation based on the Chronic Kidney Disease Epidemiology Collaboration (CKD-EPI) equation refit without adjustment for race. BUN/Creatinine Ratio 14.4 LAB CHEMISTRY METHOD 05/31/2024 10:00 AM [facility] Calcium 9.6 8.5 - 10.5 mg/dL LAB CHEMISTRY METHOD 05/31/2024 10:00 AM [facility] Blood Venous blood specimen / Unknown Venipuncture / Unknown 05/31/2024 5:14 AM EST 05/31/2024 9:26 AM EST us Rufus Thornton MD LAB BLOOD ORDERABLES Final Res ult [facility] [address] [place] [address], * (ABNORMAL) Complete blood count (05/31/2024 5:14 AM EST) WBC 6.3 4.8 - 10.8 K/mcL LAB HEMETOLOGY METHOD 05/31/2024 9:39 AM [facility] RBC 3.70(L) 3.80 - 4.80 M/mcL LAB HEMETOLOGY METHOD 05/31/2024 9:39 AM [facility] Hemoglobin 11.8 11.5 - 16.0 g/dL LAB HEMETOLOGY METHOD 05/31/2024 9:39 AM [facility] Hematocrit 37.1 35.0 - 47.0 % LAB HEMETOLOGY METHOD 05/31/2024 9:39 AM [facility] MCV 99.5(H) 79.0 - 98.0 FL LAB HEMETOLOGY METHOD 05/31/2024 9:39 AM [facility] MCH 31.6 27.0 - 32.0 pcg LAB HEMETOLOGY METHOD 05/31/2024 9:39 AM [facility] MCHC 31.8(L) 32.0 - 37.0 g/dL LAB HEMETOLOGY METHOD 05/31/2024 9:39 AM [facility] RDW 13.3 11.0 - 15.0 % LAB HEMETOLOGY METHOD 05/31/2024 9:39 AM [facility] Platelets 275 130 - 400 K/mcL LAB HEMETOLOGY METHOD 05/31/2024 9:39 AM [facility] MPV 10.1 7.0 - 11.0 FL LAB HEMETOLOGY METHOD 05/31/2024 9:39 AM [facility] NRBC 0.0 <1.0 % LAB HEMETOLOGY METHOD 05/31/2024 9:39 AM [facility] NRBC Absolute 0.00 <0.10 K/mcL LAB HEMETOLOGY METHOD 05/31/2024 9:39 AM [facility] Blood Venous blood specimen / Unknown Venipuncture / Unknown 05/31/2024 5:14 AM EST 05/31/2024 9:26 AM EST us Rufus Thornton MD LAB BLOOD ORDERABLES Final Res ult [facility] [address] [place] [address], [place] [phone] documented in this encounter Visit Diagnoses Diagnosis Gout, unspecified documented in this encounter Care Teams Pouncer Machine Relationship Specialty Start Date End Date Rufus Thornton MD [address] [place] [id number] PCP - General Internal Medicine 05/31/24 documented as of this encounter
--- OUTSIDE RECORDS SUMMARY | 2025-03-15 06:34 | XMS_ITS | Clinical Summary ---
Author Organization [address] [facility] Address [address] [place] [address] Phone Care Team Providers Care Line Clearance Foreman Name Role Phone Rufus Thornton MD Primary Care Provider [phone] Encounters Date Type Department Care Team Description 01/11/2025 Lab Requisition [facility] - Main Lab [address] [facility] [place] [address] Jeramy Voss PA Pyuria from Last 3 Months Social History Tobacco Use Types Packs/Day Years Used Date Smoking Tobacco: Never Assessed Comments Unknown Sex and Gender Information Value Date Recorded Sex Assigned at Not on file Legal Sex Female 9:09 PM EST Gender Identity Not on file Sexual Orientation Not on file Plan of Treatment Health Maintenance Due Date Last Done Comments Breast Cancer Screening 1950 DTaP,Tdap,and Td Vaccines (1 - Tdap) 1969 Pneumococcal Vaccine: 50+ Ye ars (1 of 1 - PCV) 2000 Zoster Vaccines (1 of 2) 2000 Colorectal Cancer Screening: Colonoscopy 06/15/2022 Falls Risk Assessment 06/15/2022 Hepatitis C Screening 06/15/2022 Medicare Annual Wellness Visit 06/15/2022 Osteoporosis Screening (Bone Density Screening) 06/15/2022 Social Influencers of Health Screening 06/15/2022 Depression Screening 07/14/2024 COVID-19 Vaccine (2023-2 5 season) 2025 Influenza Vaccine (#1) 2025 RSV Immunization Adult Patie nts (1 [...] Procedure Name Priority Date/Time Associated Diagnosis Comments BACTERIAL IDENTIFICATION AND SUSCEPTIBILITY, AEROBIC Routine 01/10/2025 12:00 AM EDT Pyuria from Last 3 Months Results * Bacterial identification and susceptibility, aerobic (01/10/2025 12:00 AM EDT) Culture, Bacterial ID and Sensitivity Mixed urogenital milind, no uropathogens present. Suggest repeat specimen, if clinically indicated. 01/11/2025 2:36 PM EDT [facility] Other Urine specimen from urethra / Unknown 01/10/2025 01/11/2025 2:14 PM EDT us Jeramy [facility] LAB MICROBIOLOGY - GENERAL ORDER CATHERINE Final Result [facility] [address] [place] [address], [place] [phone] from Last 3 Months Insurance MEDICARE [facility] Care Teams Line Clearance Foreman Relationship Specialty Start Date End Date Rufus Thornton MD [address] [place] [id number] PCP - General Internal Medicine 05/31/24
--- OUTSIDE RECORDS SUMMARY | 2025-03-15 06:34 | XMS_ITS | Encounter Summary ---
Author Organization [facility] Address [id number] [place] [address] Care Team Providers Care Ladies' Hat Trimmer Name Role Phone Rufus Thornton MD Primary Care Provider [phone] Encounter Details Date Type Department Care Team (Latest Contact Info) Description 07/16/2024 Lab Requisition [facility] - Main Lab [address] [place] [address] Jeramy Voss PA [address] [facility] [address] [place] [address] Hydronephrosis with renal and ureteral calculous obstruction [...] Urine No growth 07/17/2024 8:03 AM EST [facility] Urine Urine specimen obtained by clean catch procedure / Unknown 07/16/2024 10:56 AM EST 07/16/2024 3:05 PM EST us Jeramy [facility] LAB MICROBIOLOGY - GENERAL ORDER CATHERINE Final Result [facility] [address] [place] [address], documented in this encounter Visit Diagnoses Diagnosis Hydronephrosis with renal and ureteral calculous obstruction documented in this encounter Care Teams Ladies' Hat Trimmer Relationship Specialty Start Date End Date Rufus Thornton MD [address] [place] [address] PCP - General Internal Medicine 05/31/24 documented as of this encounter
--- OUTSIDE RECORDS SUMMARY | 2025-03-15 06:34 | XMS_ITS | Encounter Summary ---
Author Organization [facility] Address [address] [place] [address] Care Team Providers Care Dance Teacher Name Role Phone Rufus Thornton MD Primary Care Provider [phone] Encounter Details Date Type Department Care Team (Late st Contact Info) Description 01/11/2025 Lab Requisition [facility] - Main Lab [address] [place] [address] Jeramy oVss PA [address] [place] [address] Pyuria Social History Tobacco Use Types Packs/Day Years [...] AEROBIC Routine 01/10/2025 12:00 AM EDT Pyuria documented in this encounter Results * Bacterial identification and susceptibility, aerobic (01/10/2025 12:00 AM EDT) Culture, Bacterial ID and Sensitivity Mixed urogenital milind, no uropathogens present. Suggest repeat specimen, if clinically indicated. 01/11/2025 2:36 PM EDT [facility] Other Urine specimen from urethra / Unknown 01/10/2025 01/11/2025 2:14 PM EDT us Jeramy [facility] LAB MICROBIOLOGY - GENERAL ORDER CATHERINE Final Result [facility] [address] [place] [address], documented in this encounter Visit Diagnoses Diagnosis Pyuria Other nonspecific finding on examination of urine documented in this encounter Care Teams Dance Teacher Relationship Specialty Start Date End Date Rufus Thornton MD [address] [place] [id number] PCP - General Internal Medicine 05/31/24 documented as of this encounter
[2025-03-15 06:47] LABS: Alanine Aminotransferase 44 U/L (0-31); Albumin Level 3.5 g/dL (3.5-5.0); Alkaline Phosphatase 187 U/L (39-117); Anion Gap 18 (12-20); Aspartate Amino Transferase 53 U/L (5-31); Blood Urea Nitrogen 15 mg/dL (9-16); Calcium 8.5 mg/dL (8.4-10.2); Carbon Dioxide 27 mmol/L (22-29); Chloride 98 mmol/L (96-108); Creatinine Clr Calc Pharmacy 54.7; Estimated Glomerular Filt Rate > 60; Potassium 2.3 mmol/L (3.3-5.1); Sodium 141 mmol/L (135-145); Total Protein 6.7 g/dL (6.5-8.0)
[2025-03-15 06:55] LABS: Troponin-I High Sensitivity 13.2 ng/L (<3.5-17.0)
[2025-03-15 07:00] LABS: Magnesium 1.9 mg/dL (1.6-2.6)
[2025-03-15] MEDS: Thiamine HCL 200 MG in 0.9 % Sodium Chloride 100 ML 204 MG IV (07:00)
[2025-03-15] MEDS: Potassium Chloride/H20 10 MEQ/100 ML PIGGYBACK 100 MEQ IV ×4 (07:33→10:50)
[2025-03-15] MEDS: Magnesium Sulfate/H2O 2 GM/50 ML PIGGYBACK IV (07:34)
[2025-03-15] MEDS: Potassium Chloride ER 20 MEQ TAB.ER.PRT 40 MEQ PO (07:35)
--- NOTE | 2025-03-15 11:37 | PC.NURSE ---
Breif removed from Pt revealing large area of erythema/irritation to Pts vagina fold and buttocks. Pt cleaned and new bed pad. Ember area left to the air and barrier cream applied. Pt resting quietly at this time.
--- NOTE | 2025-03-15 12:00 | CA_ITS ---
Transthoracic Echocardiogram Patient (Last, First, Middle): Gema Perry, Gender: Female Date of : 1950 Age: 74 Procedure Date: 03/15/2025 Procedure Type: Transthoracic Echocardiogram Location: ER Height: 162.56 cm Weight: 49.9 kg BSA: 1.52 m2 Heart Rate: bpm BP: 102 / 51 mmHg Dispute Coordinator: MARCEL Referring MD: Harlan Moran MD Symptoms: fall, EtOH abuse (syncope) Study Quality: Adequate w contrast Conclusions: - Normal left ventricular cavity size. The left ventricular systolic function is hyperdynamic. The visually estimated ejection fraction is >70%. Mid cavity gradient present. - E/E prime ratio is >15, consistent with elevated filling pressures. - Normal right ventricular cavity size. There is hyperdynamic right ventricular systolic function. Findings Procedure Information Contrast agent, definity, is being given per protocol without apparent complications. Left Ventricle Normal left ventricular cavity size. The left ventricular systolic function is hyperdynamic. The visually estimated ejection fraction is >70%. There is no evidence of regional wall motion abnormalities. Abnormal diastolic function is noted. Spectral Doppler is indicative of an impaired relaxation filling pattern. E/E prime ratio is >15, consistent with elevated filling pressures. There is mild septal asymmetric hypertrophy. Right Ventricle Normal right ventricular cavity size. There is hyperdynamic right ventricular systolic function. Atria Both atria are normal in size. Aortic Valve There is mild calcification of the aortic valve. There is no aortic valve stenosis. There is no aortic valve regurgitation. Mitral Valve Likely normal mitral valve structure and function. There is no mitral valve regurgitation. There is no mitral valve stenosis. Pulmonic Valve The pulmonic valve is likely normal. Tricuspid Valve Likely normal tricuspid valve structure and function. Normal right atrial pressure. There is no evidence of pulmonary hypertension. Venous The inferior vena cava is normal in size and collapses greater than 50% with inspiration. Pericardium/Pleural There is no evidence of pericardial effusion. Prior Study Comparison Changes noted compared to prior study dated: 04/12/2024. Hyperdynamic LV with mid cavity gradient. No clear LVOT obstruction. Measurements 2D Linear Measurements IVSd: 1.03 0.6-0.9/0.6-1.0 cm LVIDd: 3.85 3.9-5.3/4.2-5.9 cm LVIDd Index: 2.53 2.4-3.2/2.2-3.1 cm/m2 LVIDs: 2.39 2.0-3.6 cm LVPWd: 0.64 0.7-1.1 cm LA Diam: 3.30 2.7-3.8/3.0-4.0 cm LAIDs Index: 2.17 1.5-2.3 cm/m2 LV Mass: 115.20 67-162/88-224 g LV Mass Index: 75.79 43-95/49-115 g/m2 LVOT Diam: 2.00 3.0+(-)1.3 cm 2D Systolic Function EF 4C: 79.90 >55% EF 2C: 85.00 >55% EF BiP: 82.60 >55% Mitral Valve MV Pk E: 0.84 MV PK A: 1.29 MV Decel Time: 173.00 E/A: 0.70 E'Lateral: 6.31 E'Medial: 4.68 E/E' Med: 17.90 E/E' Lat: 13.30 PHT: 51.00 MVA PHT: 4.31 Decel Treasure: 4.86 Aortic Valve AoV Pk Xiang: 4.80 AoV Mn Xiang: 3.02 AoV VTI: 0.79 AoV Pk Grad: 92.00 Aov Mn Grad: 44.00 JOE Cont.VTI: 1.17 LVOT LVOT Pk Xiang: 1.89 LVOT Mn Xiang: 1.20 LVOT VTI: 0.30 LVOT Pk Grad: 14.00 LVOT Mn Grad: 7.00 LVOT Diam: 2.00 LVOT Area: 3.14 Diastolic Function MV Pk E: 0.84 MV Pk A: 1.29 E/A: 0.70 E'Medial: 4.68 E/E' Med: 17.90 E' Laterial: 6.31 E/E' Lat: 13.30 Right Ventricle TAPSE (mm): 19.10 TVS' Xiang: 17.00 Tricuspid Valve TR Pk Xiang: 2.54 TR Pk Grad: 26.00 RA Press: 3.00 RVSP: 29.00 Great Vessels Aorta Sinus of Valsalva: 3.00 2.0-3.5 cm Ao Asc: 3.20 2.1-3.4 cm Ao Arch: 3.30 Pulmonary Veins Pulm Vein S/D 1.60 Pulmonary Valve PV Pk Xiang: 1.12 Peak PV Grad: 5.00 Updated in Other Vendor System with Status of Final Omar Tristan MD electronically signed on 03/15/2025 5:51:29 PM with status of Final
--- NOTE | 2025-03-15 13:03 | PM.IMHP ---
History of Present Illness Date of Service: 03/15/25 Attending physician on admission: Harlan Moran Chief Complaint: Mechanical fall 74-year-old female with a history of TIA, hypokalemia (med noncompliance), ETOH use disorder with recent relapse, presents from [facility] after tripping over her walker, falling on her right side. Patient reports that she tripped over the edge of a carpet after her walker caught on it. She denies any pain or discomfort. She has an abrasion on the right lateral supra orbital region; nonbleeding. The patient denies any preceding chest pain or pressure, no radiation to neck or arms. Denies syncope or presyncope preceding her fall. Denies hemiplegia hemiparesis preceding the fall. Denies stool or urinary incontinence. Denies preceding symptomology. The patient does endorse having relapsed from ETOH use, and endorses drinking large amounts of mouthwash. ED MANAGEMENT Blood work performed, revealing hypokalemia status post replacement. ECG revealed QTC prolongation - IV magnesium ordered. CT head, C-spine and CT chest were ordered, all negative for acute traumatic findings. Requested for inpatient admission. Review of Systems Review of Systems: Yes all other systems are reviewed and are negative [facility] Medical History History of alcohol use disorder Hypotension Nicotine dependence Closed fracture of neck of right femur Breast cancer Alcohol use disorder Glaucoma Social History Household Members: None Housing: Assisted Living Facility Do you presently have visiting nurse or other home services: Yes Alcohol intake: former Comment: medicated Patient Tobacco Use Status: Former Tobacco user Smoked in Last 30 Days: Yes e-Cigarette/Vaping Use: Currently Using Use of substances other than those prescribed or required for medical reasons: No Advance Directives: Yes Advance Directives on File: Yes Advance Directives Date on File: 04/12/24 service: No Meds Allergies Allergy/AdvReac Type Severity Reaction Status Date / Time No Known Allergies Allergy Verified 03/15/25 05:47 Active Medications: Current Medications Acetaminophen (Acetaminophen 325 Mg Tablet) 650 mg PO Q6H PRN PRN Reason: Pain, Mild 1-3,fever,headache Calcium Carbonate (Calcium Carbonate 750 Mg Tab.Chew) 750 mg PO Q4H PRN PRN Reason: Heartburn Magnesium Hydroxide (Milk Of Magnesia 30 Ml Oral.Susp) 30 ml PO DAILY PRN PRN Reason: Constipation Melatonin (Melatonin 3 Mg Tablet) 6 mg PO BEDTIME PRN PRN Reason: Insomnia Sodium Chloride (0.9 % Sodium Chloride Flush 3 Ml Syringe) 3 ml IVFLUSH QSHIFT [facility] Home Medications ?Medication ?Instructions ?Recorded ?Confirmed ?Last Taken ?Type anastrozole 1 mg tablet 1 mg PO DAILY 04/12/24 10/11/24 04/11/24 History bupropion HCl 150 mg 24 hr tablet, 300 mg PO DAILY 04/12/24 10/11/24 04/11/24 History extended release ferrous sulfate 325 mg (65 mg 325 mg PO DAILY 04/12/24 10/11/24 04/11/24 History iron) tablet (Iron (ferrous sulfate)) allopurinol 100 mg tablet 100 mg PO DAILY 10/11/24 10/11/24 Unknown History calcium carbonate 600 mg PO DAILY 10/11/24 10/11/24 Unknown History cyanocobalamin (vitamin B-12) 2,500 mcg PO DAILY 10/11/24 10/11/24 Unknown History 2,500 mcg tablet dorzolamide-timolol (PF) 2 %-0.5 % 1 drp ophthalmic (eye) BID 10/11/24 10/11/24 Unknown History eye drops in a dropperette latanoprost 0.005 % eye drops 1 drp ophthalmic (eye) BEDTIME 10/11/24 10/11/24 Unknown History multivitamin 1 tab PO DAILY 10/11/24 10/11/24 Unknown History naltrexone 50 mg tablet 50 mg PO DAILY 10/11/24 10/11/24 Unknown History thiamine HCl (vitamin B1) 100 mg 100 mg PO DAILY 10/11/24 10/11/24 Unknown History tablet Physical Exam Vital Signs and Narrative: Vital Signs: Last Vital Signs Temp 97.8 F 03/15/25 12:07 Pulse 85 03/15/25 12:07 Resp 12 03/15/25 12:07 BP 102/51 L 03/15/25 12:07 Pulse Ox 94 03/15/25 12:07 O2 Del Method Room Air 03/15/25 12:07 BMI result Body Mass Index 18.9 General: A&O x3, oriented to time place person and situation, comfortable, no pain Cardiac: S1, S2 auscultated with no S3/4, no MRG. Well perfused. Respiratory: Normal breath sounds auscultated throughout all lung zones, without wheezing, rales. Normal rate. GI/ : No abdominal pain on palpation light or deep. No abdominal distention. Bowel sounds are present. No evidence of hepatosplenomegaly. Normal to percussion. MSK: Normal ambulation without pain at bony prominences or musculature. Right lateral supraorbital abrasion was noted, mild ecchymosis, no bleeding. Neurological: Normal neurological examination on overview, without obvious CN II-XII abnormalities. Results Labs 03/15/25 06:18 03/15/25 06:18 Labs: Laboratory Results - last 24 hr 03/15/25 03/15/25 06:18 06:23 MCV 93.5 MCH 33.9 H MCHC 36.2 H RDW 12.9 Plt Count 177 MPV 9.2 L Immature Gran % (Auto) 1.5 H Neut % (Auto) 66.8 Lymph % (Auto) 18.7 L Sunflower % (Auto) 11.4 H Eos % (Auto) 1.2 Baso % (Auto) 0.4 Lymph # (Auto) 1.3 Sunflower # (Auto) 0.8 Eos # (Auto) 0.1 Baso # (Auto) 0.0 Abs Immat Gran (auto) 0.10 H Absolute Neuts (auto) 4.6 Absolute Nucleated RBC 0.000 Nucleated RBC % (auto) 0.0 VBG pH 7.43 VBG pCO2 46 VBG pO2 31 VBG HCO3 31 H VBG O2 Saturation 38.0 VBG Base Excess 6.2 Anion Gap 18 Estim Creat Clear Calc 54.7 Estimated GFR > 60 Random Glucose 126 H Calcium 8.5 Magnesium 1.9 Total Bilirubin 0.5 AST 53 H ALT 44 H Alkaline Phosphatase 187 H Total Creatine Kinase 100 Total Protein 6.7 Albumin 3.5 Ethyl Alcohol 257 Imaging Radiologist's Impressions: Impressions Cervical Spine CT 03/15/25 05:43 IMPRESSION: Multilevel cervical spondylosis without acute fracture or trauma-related listhesis. Consider CPPD. Atherosclerosis disease. Calcified pleural plaques, left hemithorax. Consider posttraumatic versus postinfectious versus post treatment changes among other etiologies. 15 mm nodule, right thyroid lobe. Fleischner guidelines were followed. Electronically signed by: Jim Ventura MD 03/15/2025 08:54 AM EDT RP Chest CT 03/15/25 05:43 IMPRESSION: No acute intrathoracic injury. Probable posttreatment changes involving mostly the left hemithorax. Coronary artery disease and atherosclerosis disease. 15 mm nodule, right thyroid lobe. Lipid rich adenoma, left adrenal gland. Volume loss/atrophic right kidney and questionable parapelvic cysts versus hydronephrosis. No acute fracture. Fleischner guidelines were followed. Electronically signed by: Jim Ventura MD 03/15/2025 08:47 AM EDT RP Head CT 03/15/25 05:43 IMPRESSION: No acute fracture, bony calvarium. No acute intracranial hemorrhage. Small vessel occlusive disease. Global cerebral atrophy. Stable brain. Electronically signed by: Jim Ventura MD 03/15/2025 08:36 AM EDT RP Assessment and Plan (1) Alcohol intoxication: Qualifiers: Complication of substance-induced condition: uncomplicated Qualified Code(s): F10.920 - Alcohol use, unspecified with intoxication, uncomplicated Status: Acute (2) Acute hypokalemia: Status: Acute (3) Fall: Status: Acute Plan 74-year-old female with a history of TIA, hypokalemia (med noncompliance), ETOH use disorder with recent relapse, presents from [facility] after tripping over her walker, falling on her right side, admitted for hypokalemia, acute alcoholic intoxication & ETOH relapse (amenable for inpatient management) and mechanical fall. Acute hypokalemia QT prolongation PLAN - replete potassium and recheck BMP - check magnesium and replete >2 - repeat ECG tomorrow Acute alcohol intoxication ETOH abuse c/b relapse PLAN - CIWA - thiamine - folic acid - addiction medicine consultation placed Mechanical fall Mobilizes with walker Contributed by ETOH intoxication PT evaluation OT evaluation [employer] - VTE: Low risk, SCDs - CODE STATUS: Full code - DIET: Regular Quality Stroke Does the patient have a stroke diagnosis?: No VTE Prior VTE?: No VTE Risk Level:: Medical - low VTE Device Contraindication: N/A - Device Ordered VTE Drug Contraindication: Treatment Not Indicated
--- NOTE | 2025-03-15 13:58 | PHA.MEDREC ---
Addendum entered by Rui Stringer PharmD 03/15/25 14:34: reviewed Original Note: Pharmacy Consult ? Medication Reconciliation Pharmacy has completed the medication reconciliation. Spoke with pt and she confirmed her medications. Pt confirmed she is taking Dorzolamide-Timolool eye drops 1 drop OU BID and Latanoprost eye dros 1 drop OU at bedtime and is getting them from [facility]; I called [facility] and they confirmed there is note in for the pt for Latanoprost that the pt has an overabundance of it at home and the Dorzolamide-Timolol was LF 08/2024 for 30 days.
[2025-03-15 14:45] LABS: Blood Urea Nitrogen 12 mg/dL (9-16); Calcium 8.0 mg/dL (8.4-10.2); Creatinine Clr Calc Pharmacy 61.6; Estimated Glomerular Filt Rate > 60; Magnesium 2.4 mg/dL (1.6-2.6)
[2025-03-15 14:53] LABS: Anion Gap 17 (12-20); Carbon Dioxide 27 mmol/L (22-29); Chloride 100 mmol/L (96-108); Potassium 3.0 mmol/L (3.3-5.1); Sodium 141 mmol/L (135-145)
[2025-03-15] MEDS: 0.9 % Sodium Chloride Flush 3 ML SYRINGE IVFLUSH (15:18)
--- NOTE | 2025-03-15 18:35 | MHC.RECOVRN ---
TW met with the patient in ED-18 to discuss current? alcohol use and concerns related to increased risk of alcohol use and related problems.? On approach pt was laying in bed, eyes open, looking at the ceiling. No signs or symptoms of alcohol withdrawal observed or reported.? Pt reports previously being abstinent from alcohol for 12 years and has recently been consuming ?maybe about 1 cup? of mouthwash since the of her brother in December. She also reports moving into an assisted living facility last May and is currently in the process of selling her home. She states these are all factors that have lead to the recurrence of alcohol consumption.? Pt states has utilized the help of AA to obtain her 12 years of sobriety and states ?I haven;t been able to really connect with the groups around here?. Prior to 12 years of sobriety,? pt reports consuming approximately 1 pint of vodka daily and quit once her family became concerned.? Discussed risk and reduction strategies including purchasing mouthwash that does not contain alcohol, drinking below the recommended limit, and reconnecting with her former AA friends and supports with whom she reports pushing away when she began drinking again.? Provided pt with written resources including local AA meetings, JORJE, and safer drinking strategies.?? Pt declines intervention, JORJE, or outpatient appt for treatment related to AUD at this time.?Recovery/BH assessment completed ? Pt was provided with TW?s contact information if questions or concerns arise. Pt denies further questions or concerns. Recovery/BH assessment completed
--- NOTE | 2025-03-15 22:14 | MHC.EDTECH ---
Patient inc therefore patient changed and repositioned
[2025-03-16] VITALS (9 sets, daily range): BP systolic 93–125; BP diastolic 41–65; PULSE 72–110; RESP 12–18; TEMP 36.5–37.1; O2SAT 94–98; BMI 18.7
[2025-03-16] MEDS: 0.9 % Sodium Chloride Flush 3 ML SYRINGE IVFLUSH ×3 (01:03→22:13)
--- NOTE | 2025-03-16 01:06 | PC.NURSE ---
CIWA 0. PT denies pain at this time. VSS
[2025-03-16 07:48] LABS: Anion Gap 12 (12-20); Blood Urea Nitrogen 19 mg/dL (9-16); Calcium 7.8 mg/dL (8.4-10.2); Carbon Dioxide 29 mmol/L (22-29); Chloride 99 mmol/L (96-108); Creatinine Clr Calc Pharmacy 56.7; Estimated Glomerular Filt Rate > 60; Potassium 3.7 mmol/L (3.3-5.1); Sodium 136 mmol/L (135-145)
--- NOTE | 2025-03-16 08:46 | MHC.CM.PN ---
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 PT VERIFIES PCP IS JOHN HARMON AND HCP IS EDWINA SCHNEIDER, COPY ON FILE FROM PREVIOUS ADMIT.
--- NOTE | 2025-03-16 10:25 | HO.ADDICTCON ---
History of Present Illness Date of Service: 03/16/2025 Chief Complaint: FALL, Etoh intoxication Reason for Consult: AUD Sources of Information: patient interviewed and chart reviewed HPI Narrative: Patient is a 74 year old female with medical history that includes, TIA, breast cancer and AUD. Presented to ED following a fall at home, and while in ED reported recurrence of drinking and subsequently medically admitted with hypokalemia. Patient seen in room 475. She is awake, alert, pleasant and engaged in interview. She reports that she has been in remission from AUD for over 12 years, and starting in the winter she had a number of stressors including loss of family, friends and pets. In December, when she learned her brother was very ill she said drinking increased. Chart review shows this in not entirely true as ETIOH level in 03/2024 was 258 when she presented to ED with slurred speech and concern for stroke, At that time she denied any alcohol use. States she has been drinking about 8 oz of mouthwash daily, in shots, mainly in the evenings to help her sleep. She denies any withdrawal sx --CIWA scores have been 0 since admission. Discussed plan for discharge, in terms of recovery supports. She states she plans to re-engage with her friends from , avoid isolating her apt and check in more regularly with family. She reports she has a therapist who she meets with weekly as well. She plans to ask her daughter to get rid of the remaining mouthwash in her apt. Plans to continue naltrexone, which has been prescribed for some time. Medical Evaluation Reviewed: Yes Review of Systems Constitutional: Reports as per HPI and Reports no additional constitutional complaints Diagnostics Vital Signs (24Hr): Vital Signs - 24 hr 03/15/25 10:54 03/15/25 12:07 03/15/25 15:17 Temperature 97.6 F 97.8 F Pulse Rate 85 85 120 H Respiratory Rate 16 12 19 Blood Pressure 103/51 L 102/51 L 117/45 L Pulse Oximetry 92 94 Oxygen Delivery Method Room Air Room Air 03/15/25 16:00 03/15/25 20:00 03/16/25 00:05 Temperature 98.3 F 97.4 F 98.8 F Pulse Rate 118 H 111 H 90 Respiratory Rate 18 16 16 Blood Pressure 100/41 L 102/47 L 97/41 L Pulse Oximetry 96 92 97 Oxygen Delivery Method Room Air Room Air Room Air 03/16/25 01:52 03/16/25 03:23 03/16/25 07:54 Temperature 97.7 F 97.8 F 98.0 F Pulse Rate 90 81 82 Respiratory Rate 18 18 18 Blood Pressure 125/59 L 109/59 L 95/47 L Pulse Oximetry 94 96 98 Oxygen Delivery Method Room Air Room Air Room Air BMI result Body Mass Index 18.7 Labs 03/15/25 06:18 03/16/25 06:59 Labs: Laboratory Results - last 48 hr 03/15/25 03/15/25 03/15/25 06:18 06:23 14:10 WBC 6.9 RBC 3.87 L Hgb 13.1 D Hct 36.2 L MCV 93.5 MCH 33.9 H MCHC 36.2 H RDW 12.9 Plt Count 177 MPV 9.2 L Immature Gran % (Auto) 1.5 H Neut % (Auto) 66.8 Lymph % (Auto) 18.7 L [place] % (Auto) 11.4 H Eos % (Auto) 1.2 Baso % (Auto) 0.4 Lymph # (Auto) 1.3 [place] # (Auto) 0.8 Eos # (Auto) 0.1 Baso # (Auto) 0.0 Abs Immat Gran (auto) 0.10 H Absolute Neuts (auto) 4.6 Absolute Nucleated RBC 0.000 Nucleated RBC % (auto) 0.0 Hold Purple Top VBG pH 7.43 VBG pCO2 46 VBG pO2 31 VBG HCO3 31 H VBG O2 Saturation 38.0 VBG Base Excess 6.2 Sodium 141 141 Potassium 2.3 L* D 3.0 L D Chloride 98 100 Carbon Dioxide 27 27 Anion Gap 18 17 BUN 15 12 Creatinine 0.71 0.63 Estim Creat Clear Calc 54.7 61.6 Estimated GFR > 60 > 60 Random Glucose 126 H 96 Calcium 8.5 8.0 L Magnesium 1.9 2.4 Total Bilirubin 0.5 AST 53 H ALT 44 H Alkaline Phosphatase 187 H Total Creatine Kinase 100 Troponin I High Sens 13.2 D Total Protein 6.7 Albumin 3.5 Ethyl Alcohol 257 03/16/25 06:59 WBC RBC Hgb Hct MCV MCH MCHC RDW Plt Count MPV Immature Gran % (Auto) Neut % (Auto) Lymph % (Auto) [place] % (Auto) Eos % (Auto) Baso % (Auto) Lymph # (Auto) [place] # (Auto) Eos # (Auto) Baso # (Auto) Abs Immat Gran (auto) Absolute Neuts (auto) Absolute Nucleated RBC Nucleated RBC % (auto) Hold Purple Top SEE NOTE VBG pH VBG pCO2 VBG pO2 VBG HCO3 VBG O2 Saturation VBG Base Excess Sodium 136 Potassium 3.7 D Chloride 99 Carbon Dioxide 29 Anion Gap 12 BUN 19 H Creatinine 0.68 Estim Creat Clear Calc 56.7 Estimated GFR > 60 Random Glucose 121 H Calcium 7.8 L Magnesium Total Bilirubin AST ALT Alkaline Phosphatase Total Creatine Kinase Troponin I High Sens Total Protein Albumin Ethyl Alcohol Imaging Radiology Impressions: ITS Impressions Cervical Spine CT 03/15/25 05:43 IMPRESSION: Multilevel cervical spondylosis without acute fracture or trauma-related listhesis. Consider CPPD. Atherosclerosis disease. Calcified pleural plaques, left hemithorax. Consider posttraumatic versus postinfectious versus post treatment changes among other etiologies. 15 mm nodule, right thyroid lobe. Fleischner guidelines were followed. Electronically signed by: Jim Ventura MD 03/15/2025 08:54 AM EDT RP Chest CT 03/15/25 05:43 IMPRESSION: No acute intrathoracic injury. Probable posttreatment changes involving mostly the left hemithorax. Coronary artery disease and atherosclerosis disease. 15 mm nodule, right thyroid lobe. Lipid rich adenoma, left adrenal gland. Volume loss/atrophic right kidney and questionable parapelvic cysts versus hydronephrosis. No acute fracture. Fleischner guidelines were followed. Electronically signed by: Jim Ventura MD 03/15/2025 08:47 AM EDT RP Head CT 03/15/25 05:43 IMPRESSION: No acute fracture, bony calvarium. No acute intracranial hemorrhage. Small vessel occlusive disease. Global cerebral atrophy. Stable brain. Electronically signed by: Jim Ventura MD 03/15/2025 08:36 AM EDT RP Mental Status Exam Mental Status Exam Level of Consciousness: Awake, Appropriate and Alert Patient Behavior: Appropriate and Guarded Affect Description: Calm Speech Pattern: Clear Hallucinations: None Thought Process: Intact Thought Content: positive for Intact Judgement: Fair Medications Medications Current Medications Acetaminophen (Acetaminophen 325 Mg Tablet) 650 mg PO Q6H PRN PRN Reason: Pain, Mild 1-3,fever,headache Calcium Carbonate (Calcium Carbonate 750 Mg Tab.Chew) 750 mg PO Q4H PRN PRN Reason: Heartburn Magnesium Hydroxide (Milk Of Magnesia 30 Ml Oral.Susp) 30 ml PO DAILY PRN PRN Reason: Constipation Melatonin (Melatonin 3 Mg Tablet) 6 mg PO BEDTIME PRN PRN Reason: Insomnia Sodium Chloride (0.9 % Sodium Chloride Flush 3 Ml Syringe) 3 ml IVFLUSH QSHIFT [facility] Last Admin: 03/16/25 08:28 Dose: 3 ml Allergies Allergies Allergy/AdvReac Type Severity Reaction Status Date / Time No Known Allergies Allergy Verified 03/15/25 05:47 Assessment & Plan Assessment & Plan (1) Alcohol use disorder: Status: Acute Code(s): F10.90 - Alcohol use, unspecified, uncomplicated Assessment and Plan: no withdrawal at this time restarted naltrexone thiamine and folic acid patient connected to recovery supports Total time managing care of this patient today __40__ minutes. [facility] Past Medical History Medical History (Updated 03/16/25 @ 10:57 by Gayatri Singh CNP) History of alcohol use disorder Hypotension Nicotine dependence Closed fracture of neck of right femur Breast cancer Alcohol use disorder Glaucoma Social History Social History Household Members: None Housing: Assisted Living Facility Alcohol intake: former Comment: medicated Patient Tobacco Use Status: Former Tobacco user e-Cigarette/Vaping Use: Currently Using Advance Directives Date on File: 04/12/24 service: No
--- NOTE | 2025-03-16 10:40 | MHC.CLN ---
PT IS MODERATELY MALNOURISHED PT WITH MILDLY DEPLETED SUBCUTANEOUS FAT AND MUSCLE MASS WITH 21% SIGNIFICANT WT LOSS X1 YEAR REGULAR DIET IN PLACE RECOMMEND ADDING ENSURE BID TO PROVIDE 700KCALS, 40G PROTEIN MONITOR PO INTAKE AND ENCOURAGE SUPPLEMENTS SEE FULL ASSESSMENT
--- NOTE | 2025-03-16 16:13 | HO.PM.IMPN ---
Subjective Subjective Date of Service: 03/16/25 Interval History: Patient was seen by bedside today, feeling well. She endorses no withdrawal symptoms, no tremulousness or anxiety no palpitations dizziness or diaphoresis. Patient has been eating and drinking well. She spoke to addiction Medicine Services, and is amenable to resuming AA and other outpatient supports. Review of Systems Review of Systems: Yes all other systems are reviewed and are negative Physical Exam Exam: Exam: General: A&O x3, oriented to time place person and situation, comfortable, no pain Cardiac: S1, S2 auscultated with no S3/4, no MRG. Well perfused. Respiratory: Normal breath sounds auscultated throughout all lung zones, without wheezing, rales. Normal rate. GI/ : No abdominal pain on palpation, no masses or distentions. MSK: Normal ambulation without pain at bony prominences or musculature Neurological: Normal neurological examination on overview, without obvious CN II-XII abnormalities. Vital Signs: Vital Signs: Last Vital Signs Temp 98.4 F 03/16/25 11:12 Pulse 110 H 03/16/25 15:28 Resp 18 03/16/25 11:12 BP 121/65 03/16/25 11:12 Pulse Ox 95 03/16/25 11:12 O2 Del Method Room Air 03/16/25 11:12 BMI result Body Mass Index 18.7 Objective Data Active Medications Acetaminophen (Acetaminophen 325 Mg Tablet) 650 mg PO Q6H PRN PRN Reason: Pain, Mild 1-3,fever,headache Calcium Carbonate (Calcium Carbonate 750 Mg Tab.Chew) 750 mg PO Q4H PRN PRN Reason: Heartburn Folic Acid (Folic Acid 1 Mg Tablet) 1 mg PO DAILY [facility] Last Admin: 03/16/25 11:57 Dose: 1 mg Documented By: MARION Magnesium Hydroxide (Milk Of Magnesia 30 Ml Oral.Susp) 30 ml PO DAILY PRN PRN Reason: Constipation Melatonin (Melatonin 3 Mg Tablet) 6 mg PO BEDTIME PRN PRN Reason: Insomnia Naltrexone HCl (Naltrexone Hcl 50 Mg Tablet) 50 mg PO DAILY [facility] Last Admin: 03/16/25 11:57 Dose: 50 mg Documented By: MARION Sodium Chloride (0.9 % Sodium Chloride Flush 3 Ml Syringe) 3 ml IVFLUSH QSHIFT [facility] Last Admin: 09/03/25 08:28 Dose: 3 ml Documented By: MARION Thiamine HCl (Thiamine Hcl 100 Mg Tablet) 100 mg PO DAILY [facility] Last Admin: 03/16/25 11:57 Dose: 100 mg Documented By: MARION Labs 03/15/25 06:18 03/16/25 06:59 Labs: Laboratory Results - last 24 hr 03/16/25 06:59 Hold Purple Top SEE NOTE Anion Gap 12 Estim Creat Clear Calc 56.7 Estimated GFR > 60 Random Glucose 121 H Calcium 7.8 L Assessment and Plan (1) Alcohol use disorder: Status: Acute (2) Acute hypokalemia: Status: Acute (3) Fall: Status: Acute Plan 74-year-old female with a history of TIA, hypokalemia (med noncompliance), ETOH use disorder with recent relapse, presents from [facility] after tripping over her walker, falling on her right side, admitted for hypokalemia, acute alcoholic intoxication & ETOH relapse (amenable for inpatient management) and mechanical fall. Acute hypokalemia QT prolongation Likely 2/2 diuretic effect of ingestion of large amounts of mouthwash to become intoxicated PLAN - replete potassium and recheck BMP - resume home potassium supplementation - magnesium and replete >2 - repeat ECG tomorrow Acute alcohol intoxication ETOH abuse c/b relapse PLAN - CIWA - thiamine - folic acid - addiction medicine consultation placed Mechanical fall Mobilizes with walker Contributed by ETOH intoxication PT evaluation OT evaluation [employer] - VTE: Low risk, SCDs - CODE STATUS: Full code - DIET: Regular Total time managing care of this patient today: 35 minutes. Quality Stroke Does the patient have a stroke diagnosis?: No VTE Prior VTE?: No VTE Risk Level:: Medical - low VTE Device Contraindication: N/A - Device Ordered VTE Drug Contraindication: Treatment Not Indicated
[2025-03-17 03:21] VITALS: BP 94/54; PULSE 79; RESP 18; TEMP 36.3; O2SAT 95
[2025-03-17 07:40] LABS: Blood Urea Nitrogen 16 mg/dL (9-16); Calcium 7.7 mg/dL (8.4-10.2); Creatinine Clr Calc Pharmacy 62.1; Estimated Glomerular Filt Rate > 60
[2025-03-17 07:54] LABS: Anion Gap 11 (12-20); Carbon Dioxide 29 mmol/L (22-29); Chloride 101 mmol/L (96-108); Potassium 2.6 mmol/L (3.3-5.1); Sodium 138 mmol/L (135-145)
[2025-03-17 07:55] VITALS: BP 105/54; PULSE 78; RESP 20; TEMP 36.4; O2SAT 95
[2025-03-17] MEDS: 0.9 % Sodium Chloride Flush 3 ML SYRINGE IVFLUSH ×2 (08:25→19:35)
[2025-03-17 11:43] VITALS: BP 117/59; PULSE 84; RESP 18; TEMP 36.4; O2SAT 97
[2025-03-17] MEDS: Potassium Chloride/H20 10 MEQ/100 ML PIGGYBACK 100 MEQ IV ×4 (11:58→15:28)
[2025-03-17 15:46] VITALS: BP 109/58; PULSE 111; RESP 18; TEMP 37.1; O2SAT 94
--- NOTE | 2025-03-17 19:05 | P.PNIM_ITS ---
Subjective Subjective Date of Service: 03/17/25 Interval History: No new complaints today. Patient feels well. Potassium was low, repleted. Noticing that the patient has poor intake. Dietitian consultation placed Physical Exam 2 Exam: Exam: General: A&O x3, oriented to time place person and situation, comfortable, no pain. Cardiac: S1, S2 auscultated with no S3/4, no MRG. Well perfused. Respiratory: Normal breath sounds auscultated throughout all lung zones, without wheezing, rales. Normal rate. GI/ : No abdominal pain on palpation, no masses or distentions. MSK: Normal ambulation without pain at bony prominences or musculature. Diffuse muscular atrophy noted in the upper and lower extremities bilaterally Neurological: Normal neurological examination on overview, without obvious CN II-XII abnormalities. Vital Signs: Vital Signs: Last Vital Signs Temp 98.8 F 03/17/25 15:46 Pulse 111 H 03/17/25 15:46 Resp 18 03/17/25 15:46 BP 109/58 L 03/17/25 15:46 Pulse Ox 94 03/17/25 15:46 O2 Del Method Room Air 03/17/25 15:46 BMI result Body Mass Index 18.7 Objective Data Active Medications Acetaminophen (Acetaminophen 325 Mg Tablet) 650 mg PO Q6H PRN PRN Reason: Pain, Mild 1-3,fever,headache Calcium Carbonate (Calcium Carbonate 750 Mg Tab.Chew) 750 mg PO Q4H PRN PRN Reason: Heartburn Folic Acid (Folic Acid 1 Mg Tablet) 1 mg PO DAILY [facility] Last Admin: 03/17/25 08:25 Dose: 1 mg Documented By: MARION Magnesium Hydroxide (Milk Of Magnesia 30 Ml Oral.Susp) 30 ml PO DAILY PRN PRN Reason: Constipation Magnesium Oxide (Magnesium Oxide 400 Mg Tablet) 400 mg PO DAILY [facility] Last Admin: 03/17/25 11:58 Dose: 400 mg Documented By: MARION Melatonin (Melatonin 3 Mg Tablet) 6 mg PO BEDTIME PRN PRN Reason: Insomnia Last Admin: 03/16/25 22:11 Dose: 6 mg Documented By: FOGARTB Naltrexone HCl (Naltrexone Hcl 50 Mg Tablet) 50 mg PO DAILY [facility] Last Admin: 03/17/25 08:25 Dose: 50 mg Documented By: MARION Sodium Chloride (0.9 % Sodium Chloride Flush 3 Ml Syringe) 3 ml IVFLUSH QSHIFT [facility] Last Admin: 03/17/25 14:44 Dose: Not Given Documented By: MARION Non-Admin Reason: Previously Administered Thiamine HCl (Thiamine Hcl 100 Mg Tablet) 100 mg PO DAILY [facility] Last Admin: 03/17/25 08:25 Dose: 100 mg Documented By: MARION Labs 03/15/25 06:18 03/17/25 06:46 Labs: Laboratory Results - last 24 hr 03/17/25 06:46 Hold Purple Top SEE NOTE Anion Gap 11 L Estim Creat Clear Calc 62.1 Estimated GFR > 60 Random Glucose 128 H Calcium 7.7 L Assessment and Plan (1) Alcohol intoxication: Status: Acute (2) Acute hypokalemia: Status: Acute (3) Fall: Status: Acute (4) Transient cerebral ischemia: Status: Acute Plan 74-year-old female with a history of TIA, hypokalemia (med noncompliance), ETOH use disorder with recent relapse, presents from [facility] after tripping over her walker, falling on her right side, admitted for hypokalemia, acute alcoholic intoxication & ETOH relapse (amenable for inpatient management) and mechanical fall. Acute hypokalemia QT prolongation Likely 2/2 diuretic effect of ingestion of large amounts of mouthwash to become intoxicated PLAN - replete potassium and recheck BMP - resume home potassium supplementation - magnesium and replete >2 - repeat ECG tomorrow Acute alcohol intoxication ETOH abuse c/b relapse PLAN - CIWA - thiamine - folic acid - addiction medicine consultation placed Mechanical fall Mobilizes with walker Contributed by ETOH intoxication PT evaluation OT evaluation - [employer] - VTE: Low risk, SCDs - CODE STATUS: Full code - DIET: Regular Total time managing care of this patient today: 35 minutes. Quality Stroke Does the patient have a stroke diagnosis?: No VTE Prior VTE?: No VTE Risk Level:: Medical - low VTE Device Contraindication: N/A - Device Ordered VTE Drug Contraindication: Treatment Not Indicated
[2025-03-17 19:52] VITALS: BP 107/51; PULSE 82; RESP 18; TEMP 36.6; O2SAT 93
[2025-03-17 23:47] VITALS: BP 102/56; PULSE 78; RESP 18; TEMP 36.6; O2SAT 95
[2025-03-18 03:19] VITALS: BP 110/58; PULSE 77; RESP 18; TEMP 36.6; O2SAT 92
[2025-03-18 07:40] LABS: Anion Gap 10 (12-20); Blood Urea Nitrogen 15 mg/dL (9-16); Calcium 7.9 mg/dL (8.4-10.2); Carbon Dioxide 25 mmol/L (22-29); Chloride 104 mmol/L (96-108); Creatinine Clr Calc Pharmacy 71.4; Estimated Glomerular Filt Rate > 60; Potassium 3.0 mmol/L (3.3-5.1); Sodium 136 mmol/L (135-145)
[2025-03-18 08:00] VITALS: BP 101/57; PULSE 75; RESP 20; TEMP 36.2; O2SAT 94
[2025-03-18] MEDS: 0.9 % Sodium Chloride Flush 3 ML SYRINGE IVFLUSH ×2 (09:06→18:59)
--- NOTE | 2025-03-18 11:52 | MHC.CLN ---
F/U PT IS MODERATELY MALNOURISHED SEE FULL ASSESSMENT DATED 03/16/25 PO INTAKE 100% X4 MEALS REGULAR DIET IN PLACE RECEIVING ENSURE BID TO PROVIDE 700KCALS, 40G PROTEIN CONTINUE TO MONITOR PO INTAKE AND ENCOURAGE SUPPLEMENTS
[2025-03-18 12:00] VITALS: BP 104/59; PULSE 75; RESP 20; TEMP 36.7; O2SAT 95
--- NOTE | 2025-03-18 13:02 | HO.PM.IMPN ---
Subjective Subjective Date of Service: 03/18/25 Interval History: She reports feeling weak and a little shaky. The patient describes experiencing a bit of those shades, which may refer to mild withdrawal symptoms. She notes improved appetite, having consumed about 50 percent of her breakfast plate, which is described as much better than usual. The patient does not report any sweating, nervousness, fast heartbeats, or cold sensations. She also denies experiencing hallucinations, stating she is not seeing or hearing things that shouldn't be there. The weakness and shakiness experienced by the patient could be attributed to either lingering withdrawal symptoms or muscle weakness related to poor appetite. The patient's current condition suggests improvement. Review of Systems Review of Systems General: Positive for weakness, fatigue. Cardiovascular: Positive for fast heartbeats. Neurological: Positive for mild hand shakiness. Psychiatric: Positive for nervousness. Review of Systems: Yes all other systems are reviewed and are negative Physical Exam Exam: Exam: General: A&O x3, oriented to time place person and situation, comfortable, no pain. Cardiac: S1, S2 auscultated with no S3/4, no MRG. Well perfused. Respiratory: Normal breath sounds auscultated throughout all lung zones, without wheezing, rales. Normal rate. GI/ : No abdominal pain on palpation, no masses or distentions. MSK: Normal ambulation without pain at bony prominences or musculature. Diffuse muscular atrophy noted in the upper and lower extremities bilaterally Neurological: Normal neurological examination on overview, without obvious CN II-XII abnormalities. Vital Signs: Vital Signs: Last Vital Signs Temp 98.0 F 03/18/25 12:00 Pulse 75 03/18/25 12:00 Resp 20 03/18/25 12:00 BP 104/59 L 03/18/25 12:00 Pulse Ox 95 03/18/25 12:00 O2 Del Method Room Air 03/18/25 12:00 BMI result Body Mass Index 18.7 Objective Data Active Medications Acetaminophen (Acetaminophen 325 Mg Tablet) 650 mg PO Q6H PRN PRN Reason: Pain, Mild 1-3,fever,headache Calcium Carbonate (Calcium Carbonate 750 Mg Tab.Chew) 750 mg PO Q4H PRN PRN Reason: Heartburn Folic Acid (Folic Acid 1 Mg Tablet) 1 mg PO DAILY [facility] Last Admin: 03/18/25 09:06 Dose: 1 mg Documented By: MARLY Magnesium Hydroxide (Milk Of Magnesia 30 Ml Oral.Susp) 30 ml PO DAILY PRN PRN Reason: Constipation Magnesium Oxide (Magnesium Oxide 400 Mg Tablet) 400 mg PO DAILY [facility] Last Admin: 03/18/25 09:06 Dose: 400 mg Documented By: MARLY Melatonin (Melatonin 3 Mg Tablet) 6 mg PO BEDTIME PRN PRN Reason: Insomnia Last Admin: 03/16/25 22:11 Dose: 6 mg Documented By: TRACEY Naltrexone HCl (Naltrexone Hcl 50 Mg Tablet) 50 mg PO DAILY [facility] Last Admin: 03/18/25 09:06 Dose: 50 mg Documented By: MARLY Sodium Chloride (0.9 % Sodium Chloride Flush 3 Ml Syringe) 3 ml IVFLUSH QSHIFT [facility] Last Admin: 03/18/25 09:06 Dose: 3 ml Documented By: MARLY Thiamine HCl (Thiamine Hcl 100 Mg Tablet) 100 mg PO DAILY [facility] Last Admin: 03/18/25 09:06 Dose: 100 mg Documented By: MARLY Labs 03/15/25 06:18 03/18/25 07:14 Labs: Laboratory Results - last 24 hr 03/18/25 07:14 Anion Gap 10 L Estim Creat Clear Calc 71.4 Estimated GFR > 60 Random Glucose 122 H Calcium 7.9 L Assessment and Plan (1) Acute hypokalemia: Status: Acute (2) Alcohol intoxication: Status: Acute (3) Alcohol use disorder: Status: Acute (4) Multifactorial gait disorder: Status: Acute Plan 74-year-old female with a history of TIA, hypokalemia (med noncompliance), ETOH use disorder with recent relapse, presents from [facility] after tripping over her walker, falling on her right side, admitted for hypokalemia, acute alcoholic intoxication & ETOH relapse (amenable for inpatient management) and mechanical fall. Acute hypokalemia QT prolongation Likely 2/2 diuretic effect of ingestion of large amounts of mouthwash to become intoxicated PLAN - replete potassium and recheck BMP - resume home potassium supplementation - magnesium and replete >2 - repeat ECG tomorrow Acute alcohol intoxication ETOH abuse c/b relapse PLAN - CIWA - thiamine - folic acid - addiction medicine consultation placed Mechanical fall Mobilizes with walker Contributed by ETOH intoxication PT evaluation OT evaluation Physical deconditioning Assessment: Patient's appetite appears to be improving, with approximately 50% of breakfast consumed, which is noted to be better than usual. Plan: - Encourage continued oral intake - Monitor nutritional status and appetite QUALITY METRICS - VTE: Low risk, SCDs - CODE STATUS: Full code - DIET: Regular Total time managing care of this patient today: 35 minutes. Quality Stroke Does the patient have a stroke diagnosis?: No VTE Prior VTE?: No VTE Risk Level:: Medical - low VTE Device Contraindication: N/A - Device Ordered VTE Drug Contraindication: Treatment Not Indicated
--- NOTE | 2025-03-18 13:50 | MHC.CM.PN ---
EMR reviewed and per MD rounds, pt is not medically cleared for discharge due to management of alcoholic intoxication & ETOH relapse and hypokalemia.
[2025-03-18 15:51] VITALS: BP 114/55; PULSE 75; RESP 16; TEMP 36.6; O2SAT 95
[2025-03-18 19:54] VITALS: BP 100/54; PULSE 99; RESP 17; TEMP 36.8; O2SAT 93
[2025-03-18 23:41] VITALS: BP 107/52; PULSE 89; RESP 16; TEMP 36.9; O2SAT 96
[2025-03-19 03:34] VITALS: BP 100/50; PULSE 82; RESP 16; TEMP 37.1; O2SAT 96
[2025-03-19 06:54] LABS: Anion Gap 11 (12-20); Blood Urea Nitrogen 16 mg/dL (9-16); Calcium 8.0 mg/dL (8.4-10.2); Carbon Dioxide 25 mmol/L (22-29); Chloride 104 mmol/L (96-108); Creatinine Clr Calc Pharmacy 67.7; Estimated Glomerular Filt Rate > 60; Potassium 2.9 mmol/L (3.3-5.1); Sodium 137 mmol/L (135-145)
[2025-03-19] MEDS: Potassium Chloride/H20 10 MEQ/100 ML PIGGYBACK 100 MEQ IV ×4 (07:45→18:21)
[2025-03-19] MEDS: 0.9 % Sodium Chloride Flush 3 ML SYRINGE IVFLUSH ×2 (07:45→17:08)
[2025-03-19 07:53] VITALS: BP 104/59; PULSE 82; RESP 16; TEMP 36.6; O2SAT 94
[2025-03-19] MEDS: Potassium Chloride ER 20 MEQ TAB.ER.PRT PO (09:21)
--- NOTE | 2025-03-19 10:41 | PC.NURSE ---
morning medications taken 1 pill at a time. Patient had a gag reflex with potassium tablet triggering her to throw up. No pills seen in emesis. Episode reported to provider.
[2025-03-19 11:47] VITALS: BP 117/56; PULSE 81; RESP 18; TEMP 36.8; O2SAT 93
[2025-03-19 14:17] LABS: Anion Gap 10 (12-20); Blood Urea Nitrogen 17 mg/dL (9-16); Calcium 8.3 mg/dL (8.4-10.2); Carbon Dioxide 27 mmol/L (22-29); Chloride 102 mmol/L (96-108); Creatinine Clr Calc Pharmacy 45.3; Estimated Glomerular Filt Rate > 60; Potassium 3.4 mmol/L (3.3-5.1); Sodium 136 mmol/L (135-145)
--- NOTE | 2025-03-19 14:18 | HO.PM.IMPN ---
Subjective Subjective Date of Service: 03/19/25 Interval History: Patient feels well today. Still reporting feeling weak overall and general. Has been eating much better than prior. No evidence of withdrawal at this time. Review of Systems Review of Systems: Yes all other systems are reviewed and are negative Physical Exam Exam: Exam: General: A&O x3, oriented to time place person and situation, comfortable, no pain. Cardiac: S1, S2 auscultated with no S3/4, no MRG. Well perfused. Respiratory: Normal breath sounds auscultated throughout all lung zones, without wheezing, rales. Normal rate. GI/ : No abdominal pain on palpation, no masses or distentions. MSK: Normal ambulation without pain at bony prominences or musculature. Diffuse muscular atrophy noted in the upper and lower extremities bilaterally Neurological: Normal neurological examination on overview, without obvious CN II-XII abnormalities. Vital Signs: Vital Signs: Last Vital Signs Temp 98.2 F 03/19/25 11:47 Pulse 81 03/19/25 11:47 Resp 18 03/19/25 11:47 BP 117/56 L 03/19/25 11:47 Pulse Ox 93 03/19/25 11:47 O2 Del Method Room Air 03/19/25 11:47 BMI result Body Mass Index 18.7 Objective Data Active Medications Acetaminophen (Acetaminophen 325 Mg Tablet) 650 mg PO Q6H PRN PRN Reason: Pain, Mild 1-3,fever,headache Calcium Carbonate (Calcium Carbonate 750 Mg Tab.Chew) 750 mg PO Q4H PRN PRN Reason: Heartburn Folic Acid (Folic Acid 1 Mg Tablet) 1 mg PO DAILY [facility] Last Admin: 03/19/25 09:20 Dose: 1 mg Documented By: JOCE Magnesium Hydroxide (Milk Of Magnesia 30 Ml Oral.Susp) 30 ml PO DAILY PRN PRN Reason: Constipation Magnesium Oxide (Magnesium Oxide 400 Mg Tablet) 400 mg PO DAILY [facility] Last Admin: 03/19/25 09:20 Dose: 400 mg Documented By: JOCE Melatonin (Melatonin 3 Mg Tablet) 6 mg PO BEDTIME PRN PRN Reason: Insomnia Last Admin: 03/18/25 21:02 Dose: 6 mg Documented By: NICOLA Naltrexone HCl (Naltrexone Hcl 50 Mg Tablet) 50 mg PO DAILY [facility] Last Admin: 03/19/25 09:21 Dose: 50 mg Documented By: JOCE Potassium Chloride (Potassium Chloride Er 20 Meq Tab.Er.Prt) 20 meq PO BID [facility] Last Admin: 03/19/25 09:21 Dose: 20 meq Documented By: JOCE Sodium Chloride (0.9 % Sodium Chloride Flush 3 Ml Syringe) 3 ml IVFLUSH QSHIFT [facility] Last Admin: 03/19/25 07:45 Dose: 3 ml Documented By: JOCE Thiamine HCl (Thiamine Hcl 100 Mg Tablet) 100 mg PO DAILY [facility] Last Admin: 03/19/25 09:21 Dose: 100 mg Documented By: JOCE Labs 03/15/25 06:18 03/19/25 13:46 Labs: Laboratory Results - last 24 hr 03/19/25 03/19/25 05:51 13:46 Anion Gap 11 L 10 L Estim Creat Clear Calc 67.7 45.3 Estimated GFR > 60 > 60 Random Glucose 137 H 173 H Calcium 8.0 L 8.3 L Phosphorus 2.7 Assessment and Plan (1) Alcohol intoxication: Status: Acute (2) Alcohol use disorder: Status: Acute (3) Acute hypokalemia: Status: Acute (4) Multifactorial gait disorder: Status: Acute Plan 74-year-old female with a history of TIA, hypokalemia (med noncompliance), ETOH use disorder with recent relapse, presents from [facility] after tripping over her walker, falling on her right side, admitted for hypokalemia, acute alcoholic intoxication & ETOH relapse (amenable for inpatient management) and mechanical fall. Acute hypokalemia QT prolongation Likely 2/2 diuretic effect of ingestion of large amounts of mouthwash to become intoxicated PLAN - replete potassium and recheck BMP - resume home potassium supplementation - magnesium and replete >2 - repeat ECG tomorrow Acute alcohol intoxication ETOH abuse c/b relapse PLAN - CIWA - thiamine - folic acid - addiction medicine consultation placed Mechanical fall Mobilizes with walker Contributed by ETOH intoxication PT evaluation OT evaluation Physical deconditioning Assessment: Patient's appetite appears to be improving, with approximately 50% of breakfast consumed, which is noted to be better than usual. Plan: - Encourage continued oral intake - Monitor nutritional status and appetite QUALITY METRICS - VTE: Low risk, SCDs - CODE STATUS: Full code - DIET: Regular Total time managing care of this patient today: 35 minutes. Quality Stroke Does the patient have a stroke diagnosis?: No VTE Prior VTE?: No VTE Risk Level:: Medical - low VTE Device Contraindication: N/A - Device Ordered VTE Drug Contraindication: Treatment Not Indicated
[2025-03-19 15:48] VITALS: BP 106/51; PULSE 83; RESP 16; TEMP 36.4; O2SAT 94
--- NOTE | 2025-03-19 16:11 | P.PNIM_ITS ---
Subjective Subjective Date of Service: 03/19/25 Physical Exam 2 Vital Signs: Vital Signs: Last Vital Signs Temp 97.6 F 03/19/25 15:48 Pulse 83 03/19/25 15:48 Resp 16 03/19/25 15:48 BP 106/51 L 03/19/25 15:48 Pulse Ox 94 03/19/25 15:48 O2 Del Method Room Air 03/19/25 15:48 BMI result Body Mass Index 18.7 Objective Data Active Medications Acetaminophen (Acetaminophen 325 Mg Tablet) 650 mg PO Q6H PRN PRN Reason: Pain, Mild 1-3,fever,headache Calcium Carbonate (Calcium Carbonate 750 Mg Tab.Chew) 750 mg PO Q4H PRN PRN Reason: Heartburn Folic Acid (Folic Acid 1 Mg Tablet) 1 mg PO DAILY [facility] Last Admin: 03/19/25 09:20 Dose: 1 mg Documented By: JOCE Potassium Chloride (Potassium Chloride/H20) 10 meq in 100 mls @ 100 mls/hr IV Q1H [facility] Stop: 03/19/25 17:59 Magnesium Hydroxide (Milk Of Magnesia 30 Ml Oral.Susp) 30 ml PO DAILY PRN PRN Reason: Constipation Magnesium Oxide (Magnesium Oxide 400 Mg Tablet) 400 mg PO DAILY [facility] Last Admin: 03/19/25 09:20 Dose: 400 mg Documented By: JOCE Melatonin (Melatonin 3 Mg Tablet) 6 mg PO BEDTIME PRN PRN Reason: Insomnia Last Admin: 03/18/25 21:02 Dose: 6 mg Documented By: NICOLA Naltrexone HCl (Naltrexone Hcl 50 Mg Tablet) 50 mg PO DAILY [facility] Last Admin: 03/19/25 09:21 Dose: 50 mg Documented By: JOCE Potassium Chloride (Potassium Chloride Er 20 Meq Tab.Er.Prt) 20 meq PO BID [facility] Last Admin: 03/19/25 09:21 Dose: 20 meq Documented By: JOCE Sodium Chloride (0.9 % Sodium Chloride Flush 3 Ml Syringe) 3 ml IVFLUSH QSHIFT [facility] Last Admin: 03/19/25 07:45 Dose: 3 ml Documented By: JOCE Thiamine HCl (Thiamine Hcl 100 Mg Tablet) 100 mg PO DAILY [facility] Last Admin: 03/19/25 09:21 Dose: 100 mg Documented By: JOCE Labs 03/15/25 06:18 03/19/25 13:46 Labs: Laboratory Results - last 24 hr 03/19/25 03/19/25 05:51 13:46 Anion Gap 11 L 10 L Estim Creat Clear Calc 67.7 45.3 Estimated GFR > 60 > 60 Random Glucose 137 H 173 H Calcium 8.0 L 8.3 L Phosphorus 2.7 Quality Stroke Does the patient have a stroke diagnosis?: No VTE Prior VTE?: No VTE Risk Level:: Medical - low VTE Device Contraindication: N/A - Device Ordered VTE Drug Contraindication: Treatment Not Indicated
[2025-03-19 19:42] VITALS: BP 119/66; PULSE 86; RESP 16; TEMP 36.6; O2SAT 93
[2025-03-19] MEDS: Potassium Chloride Packet 20 MEQ PACKET PO (22:00)
[2025-03-19 23:42] VITALS: BP 115/53; PULSE 74; RESP 16; TEMP 37.5; O2SAT 94
[2025-03-20 03:30] VITALS: BP 104/51; PULSE 80; RESP 17; TEMP 36.6; O2SAT 93
[2025-03-20 08:00] VITALS: BP 95/51; PULSE 69; RESP 18; TEMP 36.3; O2SAT 93
[2025-03-20] MEDS: Potassium Chloride Packet 20 MEQ PACKET PO ×2 (09:25→22:21)
[2025-03-20] MEDS: 0.9 % Sodium Chloride Flush 3 ML SYRINGE IVFLUSH ×2 (09:25→17:21)
[2025-03-20 11:58] VITALS: BP 105/55; PULSE 86; RESP 18; TEMP 36.4; O2SAT 95
[2025-03-20 16:00] VITALS: BP 136/63; PULSE 88; RESP 18; TEMP 36.4; O2SAT 93
[2025-03-20 20:00] VITALS: BP 113/59; PULSE 84; RESP 16; TEMP 37.1; O2SAT 93
[2025-03-21] VITALS: BP 116/60; PULSE 77; RESP 18; TEMP 37.1; O2SAT 92
[2025-03-21] MEDS: 0.9 % Sodium Chloride Flush 3 ML SYRINGE IVFLUSH ×2 (01:13→07:54)
[2025-03-21 03:34] VITALS: BP 100/53; PULSE 74; RESP 18; TEMP 36.6; O2SAT 96
[2025-03-21 07:50] LABS: Alanine Aminotransferase 10 U/L (0-31); Albumin Level 2.8 g/dL (3.5-5.0); Alkaline Phosphatase 100 U/L (39-117); Anion Gap 11 (12-20); Aspartate Amino Transferase 18 U/L (5-31); Blood Urea Nitrogen 18 mg/dL (9-16); Calcium 8.4 mg/dL (8.4-10.2); Carbon Dioxide 26 mmol/L (22-29); Chloride 106 mmol/L (96-108); Creatinine Clr Calc Pharmacy 65.4; Estimated Glomerular Filt Rate > 60; Potassium 4.8 mmol/L (3.3-5.1); Sodium 138 mmol/L (135-145); Total Protein 5.4 g/dL (6.5-8.0)
[2025-03-21] MEDS: Potassium Chloride Packet 20 MEQ PACKET PO (07:51)
[2025-03-21 08:00] VITALS: BP 127/64; PULSE 75; RESP 18; TEMP 36.3; O2SAT 93
[2025-03-21 11:44] VITALS: BP 127/64; PULSE 75; O2SAT 93
[2025-03-21 11:49] VITALS: BP 103/53; PULSE 78; RESP 20; TEMP 36.3; O2SAT 95
--- NOTE | 2025-03-21 11:55 | MHC.CLN ---
F/U PO INTAKE EXCELLENT CONSUMING 75-100% REGULAR DIET IN PLACE RECEIVING ENSURE BID TO PROVIDE 700KCALS, 40G PROTEIN CONTINUE TO MONITOR PO INTAKE AND ENCOURAGE SUPPLEMENTS
--- NOTE | 2025-03-21 12:18 | W.MHC.F2F ---
Service Date Service Date: 03/21/25 Encounter Date of encounter: 03/21/25 Reasons for Services Signs and symptoms assessed: Cachectic, with upper and lower extremity muscular atrophy. Chronic ETOH use, generalized weakness 2/2 physical deconditioning Reason for correction: medication management, medication treatment and teach disease management Reason for physical therapy: home safety and mobility, therapeutic exercises, gait/transfer training, ADL training and energy conservation Reason for occupational therapy: home safety and mobility, therapeutic exercises, gait/transfer training, ADL training and energy conservation Homebound: Leaving the home is medically contraindicated at this time without the asist of a device and/or another person due th the listed conditions above and below. Reason homebound: unsteady gait / fall risk, pain with transfers, poor balance / fall risk and weakness related to hospital stay Certification: Based on the above findings, I certify that this patient is confined to the home and needs intermittent correction care, physical therapy and/or speech therapy, or continues to need occupational therapy. The patient is under my care, and I have initiated the establishment of the plan of care. The patient will be followed by a physician who will periodically review the plan of care. Time Spent With Patient Time: Total time managing care of this patient today 15 minutes.
--- NOTE | 2025-03-21 16:01 | MHC.CM.PN ---
Second IMM given 03/21. Pt is medically cleared for discharge home with [facility], pt will arrange her own transport home today.
--- NOTE | 2025-03-21 16:14 | PM.DS ---
DS: Providers Provider Date of Service: 03/21/25 Date of admission: 03/17/25 09:55 Date of discharge: 03/21/25 Primary care physician: Fredo Rodriguez MD Consults: 03/15/25 11:59 Addiction Medicine Provider Routine Consulting Provider: Addiction Covering Reason for consultation: EtOH relapse (mouthwash) Has provider been notified: No Attending physician on discharge: Harlan Moran DS: Diagnosis Discharge Diagnosis (1) Alcohol intoxication: Status: Acute (2) Alcohol use disorder: Status: Acute (3) Acute hypokalemia: Status: Acute (4) Multifactorial gait disorder: Status: Acute DS: Summary Hospital Course Hospital Course: Chief Complaint: Mechanical fall 74-year-old female with a history of TIA, hypokalemia (med noncompliance), ETOH use disorder with recent relapse, presents from [facility] after tripping over her walker, falling on her right side. Patient reports that she tripped over the edge of a carpet after her walker caught on it. She denies any pain or discomfort. She has an abrasion on the right lateral supra orbital region; nonbleeding. The patient denies any preceding chest pain or pressure, no radiation to neck or arms. Denies syncope or presyncope preceding her fall. Denies hemiplegia hemiparesis preceding the fall. Denies stool or urinary incontinence. Denies preceding symptomology. The patient does endorse having relapsed from ETOH use, and endorses drinking large amounts of mouthwash. ED MANAGEMENT Blood work performed, revealing hypokalemia status post replacement. ECG revealed QTC prolongation - IV magnesium ordered. CT head, C-spine and CT chest were ordered, all negative for acute traumatic findings. Requested for inpatient admission. She had mild withdrawal symptoms not requiring medication use. She was seen by addiction Medicine, recommending supports and services in the outpatient setting She was started on naltrexone 50 mg OD p.o., which she is tolerating well The patient also suffered with acute hypokalemia during her hospitalization with QT prolongation, likely 2/2 the diuretic effect of ingestion of large amounts of mouthwash to become intoxicated The patient suffered with a mechanical fall, however has been evaluated by Physical therapy and Occupational therapy, who recommended short-term rehabilitation. The patient was adamant not to be discharged to [facility] and against medical advice, decided to be discharged home with home supports and VNA services (including PT) Extensive counseling regarding discontinuation of mouthwash/ETOH use. KCL 20 mEq once a day was also administered, with recommendations for the patient to eat foods high in potassium, such as bananas. Status at Discharge Functional status at discharge: independent ambulation Overall status at discharge: patient is back to baseline Time Attestation Total time managing care of this patient today: 35 mintues. Discharge Coordination Time (in mins): 15 Quality: Safe Use of Opioids Does Pt have an Active Cancer Diagnosis on the Problem List?: No Quality: Stroke Does the patient have a stroke diagnosis?: No Physical Exam Exam: Exam: General: A&O x3, oriented to time place person and situation, comfortable, no pain. Cardiac: S1, S2 auscultated with no S3/4, no MRG. Well perfused. Respiratory: Normal breath sounds auscultated throughout all lung zones, without wheezing, rales. Normal rate. GI/ : No abdominal pain on palpation, no masses or distentions. MSK: Normal ambulation without pain at bony prominences or musculature. Diffuse muscular atrophy noted in the upper and lower extremities bilaterally Neurological: Normal neurological examination on overview, without obvious CN II-XII abnormalities. Vital Signs: Vital Signs: Last Vital Signs Temp 97.3 F 03/21/25 11:49 Pulse 78 03/21/25 11:49 Resp 20 03/21/25 11:49 BP 103/53 L 03/21/25 11:49 Pulse Ox 95 03/21/25 11:49 O2 Del Method Room Air 03/21/25 11:49 BMI result Body Mass Index 18.7 DS: Data Data Completed and Pending Completed studies during hospitalization [Text1]: Procedures Replacement of Right Hip Joint, Femoral Surface with Synthetic Substitute, Uncemented, Open Approach (10/11/24) Labs on day of discharge: Laboratory Results - last 24 hr 03/21/25 07:15 Hold Purple Top SEE NOTE Sodium 138 Potassium 4.8 D Chloride 106 Carbon Dioxide 26 Anion Gap 11 L BUN 18 H Creatinine 0.59 Estim Creat Clear Calc 65.4 Estimated GFR > 60 Random Glucose 132 H Calcium 8.4 Total Bilirubin 0.4 AST 18 ALT 10 Alkaline Phosphatase 100 Total Protein 5.4 L Albumin 2.8 L Discharge Plan Discharge Anticipated Discharge Date/Time: 03/21/25 12:19 Patient Disposition: Home Health Service Discharge Diagnosis: Fall 2/2 ETOH intoxication, with hypokalemia in the setting of alcohol abuse Referrals: Barry EVANS [Other] - 1 Week Fredo Rodriguez MD [Primary Care Provider, Medical] - 1 Week Discharge Medications: New naltrexone 50 mg Tablet 50 mg PO DAILY 30 Days Qty: 30 0RF potassium chloride 20 mEq Packet 20 meq PO DAILY 30 Days Qty: 30 0RF magnesium oxide 400 mg (241.3 mg magnesium) Tablet 400 mg PO DAILY 30 Days Qty: 30 0RF thiamine mononitrate (vit B1) 100 mg Tablet 100 mg PO DAILY 30 Days Qty: 30 0RF folic acid 1 mg Tablet 1 mg PO DAILY 30 Days Qty: 30 0RF Continued latanoprost 0.005 % drops 1 drp ophthalmic (eye) BEDTIME naltrexone 50 mg tablet 50 mg PO DAILY allopurinol 100 mg tablet 100 mg PO DAILY dorzolamide-timolol (PF) 2-0.5 % dropperette 1 drp ophthalmic (eye) BID cyanocobalamin (vitamin B-12) 2,500 mcg Tablet 2,500 mcg PO DAILY multivitamin Tablet 1 tab PO DAILY bupropion HCl 150 mg tablet extended release 24 hr 300 mg PO DAILY anastrozole 1 mg tablet 1 mg PO DAILY ferrous sulfate [Iron (ferrous sulfate)] 325 mg (65 mg iron) Tablet 325 mg PO DAILY Discharge Orders: Discharge Order (Routine); Ordered 03/21/25 Ordered By: Harlan Moran Diet: Advance to usual diet Activity on Discharge: As tolerated Stand Alone Forms: Patient Portal Discharge page Print Language: Prydeinig Care Plan Goals: Follow up outpatient addiction Medicine Follow up PCP within 1 week of discharge Encourage abstinence from ETOH Continue taking potassium chloride 20 mEq once a day Eat 2 bananas a day Health Concerns: ETOH abuse Weakness and physical deconditioning Fall risk Refusing short-term rehabilitation despite recommendations Plan of Treatment: As above Assessment: The patient suffers with ETOH abuse, with secondary hypokalemia. She is also a fall risk, and is out of falls at home 2/2 significant physical deconditioning. We recommended the patient to be discharged to short-term rehabilitation, however she has declined this recommendation against medical advice, understanding the risk of possible further falls at home. We will request at home physical therapy and VNA support services. Currently the patient is hemodynamically stable, without ongoing issues requiring inpatient admission
--- NOTE | 2025-03-21 16:17 | P.PNIM_ITS ---
Subjective Subjective Date of Service: 03/20/25 Interval History: No new issues or complaints Comfortable Hypokalemic - asymptomatic - repleted Review of Systems Review of Systems: Yes all other systems are reviewed and are negative Physical Exam 2 Exam: Exam: General: A&O x3, oriented to time place person and situation, comfortable, no pain. Cardiac: S1, S2 auscultated with no S3/4, no MRG. Well perfused. Respiratory: Normal breath sounds auscultated throughout all lung zones, without wheezing, rales. Normal rate. GI/ : No abdominal pain on palpation, no masses or distentions. MSK: Normal ambulation without pain at bony prominences or musculature. Diffuse muscular atrophy noted in the upper and lower extremities bilaterally Neurological: Normal neurological examination on overview, without obvious CN II-XII abnormalities. Vital Signs: Vital Signs: Last Vital Signs Temp 97.3 F 03/21/25 11:49 Pulse 78 03/21/25 11:49 Resp 20 03/21/25 11:49 BP 103/53 L 03/21/25 11:49 Pulse Ox 95 03/21/25 11:49 O2 Del Method Room Air 03/21/25 11:49 BMI result Body Mass Index 18.7 Objective Data Active Medications Acetaminophen (Acetaminophen 325 Mg Tablet) 650 mg PO Q6H PRN PRN Reason: Pain, Mild 1-3,fever,headache Calcium Carbonate (Calcium Carbonate 750 Mg Tab.Chew) 750 mg PO Q4H PRN PRN Reason: Heartburn Folic Acid (Folic Acid 1 Mg Tablet) 1 mg PO DAILY [facility] Last Admin: 03/21/25 07:51 Dose: 1 mg Documented By: ABNER Magnesium Hydroxide (Milk Of Magnesia 30 Ml Oral.Susp) 30 ml PO DAILY PRN PRN Reason: Constipation Magnesium Oxide (Magnesium Oxide 400 Mg Tablet) 400 mg PO DAILY [facility] Last Admin: 03/21/25 07:51 Dose: 400 mg Documented By: ABNER Melatonin (Melatonin 3 Mg Tablet) 6 mg PO BEDTIME PRN PRN Reason: Insomnia Last Admin: 03/18/25 21:02 Dose: 6 mg Documented By: NICOLA Naltrexone HCl (Naltrexone Hcl 50 Mg Tablet) 50 mg PO DAILY [facility] Last Admin: 03/21/25 07:51 Dose: 50 mg Documented By: ABNER Potassium Chloride (Potassium Chloride Packet 20 Meq Packet) 20 meq PO DAILY [facility] Sodium Chloride (0.9 % Sodium Chloride Flush 3 Ml Syringe) 3 ml IVFLUSH QSHIFT [facility] Last Admin: 03/21/25 07:54 Dose: 3 ml Documented By: ABNER Thiamine HCl (Thiamine Hcl 100 Mg Tablet) 100 mg PO DAILY [facility] Last Admin: 03/21/25 07:51 Dose: 100 mg Documented By: ABNER Labs 03/15/25 06:18 03/21/25 07:15 Labs: Laboratory Results - last 24 hr 03/21/25 07:15 Hold Purple Top SEE NOTE Anion Gap 11 L Estim Creat Clear Calc 65.4 Estimated GFR > 60 Random Glucose 132 H Calcium 8.4 Total Bilirubin 0.4 AST 18 ALT 10 Alkaline Phosphatase 100 Total Protein 5.4 L Albumin 2.8 L Assessment and Plan (1) Alcohol intoxication: Status: Acute (2) Alcohol use disorder: Status: Acute (3) Acute hypokalemia: Status: Acute (4) Fall: Status: Acute (5) Multifactorial gait disorder: Status: Acute Plan 74-year-old female with a history of TIA, hypokalemia (med noncompliance), ETOH use disorder with recent relapse, presents from [facility] after tripping over her walker, falling on her right side, admitted for hypokalemia, acute alcoholic intoxication & ETOH relapse (amenable for inpatient management) and mechanical fall. Acute hypokalemia QT prolongation Likely 2/2 diuretic effect of ingestion of large amounts of mouthwash to become intoxicated PLAN - replete potassium and recheck BMP - resume home potassium supplementation - magnesium and replete >2 - repeat ECG tomorrow Acute alcohol intoxication ETOH abuse c/b relapse PLAN - CIWA - thiamine - folic acid - addiction medicine consultation placed Mechanical fall Mobilizes with walker Contributed by ETOH intoxication PT evaluation OT evaluation Physical deconditioning Assessment: Patient's appetite appears to be improving, with approximately 50% of breakfast consumed, which is noted to be better than usual. Plan: - Encourage continued oral intake - Monitor nutritional status and appetite - QUALITY [employer] - VTE: Low risk, SCDs - CODE STATUS: Full code - DIET: Regular Quality Stroke Does the patient have a stroke diagnosis?: No VTE Prior VTE?: No VTE Risk Level:: Medical - low VTE Device Contraindication: N/A - Device Ordered VTE Drug Contraindication: Treatment Not Indicated
== END 2025-03-21 15:00 | disposition home health service (06) | DRG 641 ==
LOC: HO.ED 09:06 → HO.EDOVER 12:53 → HO.IMC 03-16 00:29
PROVIDERS: Admitting Provider Hospitalist; Emergency Provider Emergency Medicine; PCP Internal Medicine; Visit Provider Hospitalist
DX: E87.6 Hypokalemia (principal); Y90.8 Blood alcohol level of 240 mg/100 ml or more; W19.XXXA Unspecified fall, initial encounter; F10.129 Alcohol abuse with intoxication, unspecified; R94.31 Abnormal electrocardiogram [ECG] [EKG]; R53.81 Other malaise; Z91.148 Patient's other noncompliance with medication regimen for other reason; Z87.891 Personal history of nicotine dependence; Z79.899 Other long term (current) drug therapy
CPT/HCPCS: 36415; 70450; 71250; 72125; 80048; 80053; 80307; 82550; 82803; 83735; 84100; 84484; 85025; 93005; 93306; 97162; 97530; 99222; 99285; J3411; J3475; J3480; Q9957; S9485

== ENCOUNTER → 2025-03-15 06:08 | Outpatient (BNV) | payer MEDICARE, SELFPAY | PROVIDERS: Emergency Provider Emergency Medicine; Visit Provider Radiology Diagnostic Radiology | DX: J43.2 Centrilobular emphysema (principal); M47.812 Spondylosis without myelopathy or radiculopathy, cervical region; G93.89 Other specified disorders of brain | CPT/HCPCS: 70450; 71250; 72125 ==

== ENCOUNTER → 2025-03-15 06:26 | Outpatient (BNV) | payer MEDICARE, SELFPAY | PROVIDERS: Admitting Provider Hospitalist; Emergency Provider Emergency Medicine; Visit Provider Internal Medicine Cardiovascular Disease | DX: I51.89 Other ill-defined heart diseases (principal); I49.1 Atrial premature depolarization | CPT/HCPCS: 93010; 93306 ==

== ENCOUNTER → 2025-03-15 12:52 | Outpatient (BNV) | payer MEDICARE, SELFPAY | PROVIDERS: Admitting Provider Hospitalist; Emergency Provider Emergency Medicine; Visit Provider Nurse Practitioner Psychiatric/Mental Health | DX: F10.90 Alcohol use, unspecified, uncomplicated (principal) | CPT/HCPCS: 99222 ==

== ENCOUNTER → 2025-03-15 12:52 | Outpatient (BNV) | payer MEDICARE, SELFPAY | PROVIDERS: Admitting Provider Hospitalist; Emergency Provider Emergency Medicine; Visit Provider Hospitalist | DX: F10.90 Alcohol use, unspecified, uncomplicated (principal); E87.6 Hypokalemia; R26.89 Other abnormalities of gait and mobility | CPT/HCPCS: 99222; 99232; 99239; 99499; G0180 ==

== ENCOUNTER 2025-04-08 08:27 | Outpatient (REF) | payer MEDICARE, SELFPAY ==
--- OUTSIDE RECORDS SUMMARY | 2025-04-09 08:30 | XMS_ITS | Encounter Summary ---
Author Organization [facility] Address [address] [place] [id number] Care Team Providers Care Utilization Review Specialist Name Role Phone Rufus Thornton MD Primary Care Provider Encounter Details Date Type Department Care Team (Latest Contact Info) Description 07/16/2024 Lab Requisition [facility] - Main Lab [address] [place] [address] Jeramy Voss PA [address] [facility] [address] [place] [address] Hydronephrosis with renal and ureteral calculous obstruction [...] No growth 07/17/2024 8:03 AM EST [facility]) [facility] Urine Urine specimen obtained by clean catch procedure / Unknown 07/16/2024 10:56 AM EST 07/16/2024 3:05 PM EST us Jeramy K[facility] LAB MICROBIOLOGY - GENERAL ORDER CATHERINE Final Result [facility] [address] [place] [address], documented in this encounter Visit Diagnoses Diagnosis Hydronephrosis with renal and ureteral calculous obstruction documented in this encounter Care Teams Utilization Review Specialist Relationship Specialty Start Date End Date Rufus Thornton MD [address] [place] [id number] PCP - General Internal Medicine 05/31/24 documented as of this encounter
--- OUTSIDE RECORDS SUMMARY | 2025-04-09 08:31 | XMS_ITS | Encounter Summary ---
Author Organization [facility] Address [address] [place] [address] Care Team Providers Care Registered Public Health Nurse Name Role Phone Rufus Thornton MD Primary Care Provider [phone] Encounter Details Date Type Department Care Team (Late st Contact Info) Description 05/31/2024 Lab Requisition [facility] - Main Lab [address] [facility] [address] [place] [address] Rufus Thornton MD [address] [place] [address] Gout, unspecified Social History Tobacco Use Types [...] LAB CHEMISTRY METHOD 05/31/2024 10:00 AM EST [facility] Potassium 4.1 3.5 - 5.5 mmol/L LAB CHEMISTRY METHOD 05/31/2024 10:00 AM EST [facility] Chloride 108 96 - 110 mmol/L LAB CHEMISTRY METHOD 05/31/2024 10:00 AM [facility] CO2 26 21 - 32 mmol/L LAB CHEMISTRY METHOD 05/31/2024 10:00 AM [facility] Anion Gap 6 3 - 11 LAB CHEMISTRY METHOD 05/31/2024 10:00 AM [facility] Glucose 96 70 - 100 mg/dL LAB CHEMISTRY METHOD 05/31/2024 10:00 AM [facility] BUN 15 5 - 25 mg/dL LAB CHEMISTRY METHOD 05/31/2024 10:00 AM [facility] Creatinine 1.04 0.50 - 1.10 mg/dL LAB CHEMISTRY METHOD 05/31/2024 10:00 AM [facility] eGFR 57(L) >=60 mL/min/1. 73m2 LAB CHEMISTRY METHOD 05/31/2024 10:00 AM [facility] Comment:Calculation based on the Chronic Kidney Disease Epidemiology Collaboration (CKD-EPI) equation refit without adjustment for race. BUN/Creatinine Ratio 14.4 LAB CHEMISTRY METHOD 05/31/2024 10:00 AM [facility] Calcium 9.6 8.5 - 10.5 mg/dL LAB CHEMISTRY METHOD 05/31/2024 10:00 AM [facility] Blood Venous blood specimen / Unknown Venipuncture / Unknown 05/31/2024 5:14 AM EST 05/31/2024 9:26 AM EST us Rufus Thornton MD LAB BLOOD ORDERABLES Final Res ult [facility] [address] [place] [address], * (ABNORMAL) Complete blood count (05/31/2024 5:14 AM EST) WBC 6.3 4.8 - 10.8 K/mcL LAB HEMETOLOGY METHOD 05/31/2024 9:39 AM [facility] RBC 3.70(L) 3.80 - 4.80 M/mcL LAB HEMETOLOGY METHOD 05/31/2024 9:39 AM [facility] Hemoglobin 11.8 11.5 - 16.0 g/dL LAB HEMETOLOGY METHOD 05/31/2024 9:39 AM [facility] Hematocrit 37.1 35.0 - 47.0 % LAB HEMETOLOGY METHOD 05/31/2024 9:39 AM [facility] MCV 99.5(H) 79.0 - 98.0 FL LAB HEMETOLOGY METHOD 05/31/2024 9:39 AM [facility] MCH 31.6 27.0 - 32.0 pcg LAB HEMETOLOGY METHOD 05/31/2024 9:39 AM [facility] MCHC 31.8(L) 32.0 - 37.0 g/dL LAB HEMETOLOGY METHOD 05/31/2024 9:39 AM [facility] RDW 13.3 11.0 - 15.0 % LAB HEMETOLOGY METHOD 05/31/2024 9:39 AM [facility] Platelets 275 130 - 400 K/mcL LAB HEMETOLOGY METHOD 05/31/2024 9:39 AM [facility] MPV 10.1 7.0 - 11.0 FL LAB HEMETOLOGY METHOD 05/31/2024 9:39 AM [facility] NRBC 0.0 <1.0 % LAB HEMETOLOGY METHOD 05/31/2024 9:39 AM [facility] NRBC Absolute 0.00 <0.10 K/mcL LAB HEMETOLOGY METHOD 05/31/2024 9:39 AM [facility] Blood Venous blood specimen / Unknown Venipuncture / Unknown 05/31/2024 5:14 AM EST 05/31/2024 9:26 AM EST us Rufus Thornton MD LAB BLOOD ORDERABLES Final Res ult [facility] ([facility] [address] [place] [address], [place] [phone] documented in this encounter Visit Diagnoses Diagnosis Gout, unspecified documented in this encounter Care Teams Registered Public Health Nurse Relationship Specialty Start Date End Date Rufus Thornton MD [address] [place] [id number] PCP - General Internal Medicine 05/31/24 documented as of this encounter
--- OUTSIDE RECORDS SUMMARY | 2025-04-09 08:31 | XMS_ITS | Clinical Summary ---
Author Organization [address] [facility] Address [address] [place] [address] Phone Care Team Providers Care Fixed Wing Aircraft Flight Mechanic Name Role Phone Rufus Thornton MD Primary Care Provider [phone] Encounters Date Type Department Care Team Description 01/11/2025 Lab Requisition [facility] - Main Lab [address] [facility] [employer] [place] [address] Jeramy Voss PA Pyuria from [...] Screening 06/15/2022 Depression Screening 07/14/2024 COVID-19 Vaccine ( - 2023-2 5 season) 2025 Influenza Vaccine (#1) 2025 [...] if clinically indicated. 01/11/2025 2:36 PM EDT [facility] Other Urine specimen from urethra / Unknown 01/10/2025 01/11/2025 2:14 PM EDT us Jeramy KEM[facility] LAB MICROBIOLOGY - GENERAL ORDER CATHERINE Final Result [facility] [address] [place] [address], [place] [phone] from Last 3 Months Insurance MEDICARE [facility] Care Teams Fixed Wing Aircraft Flight Mechanic Relationship Specialty Start Date End Date Rufus Thornton MD [address] [place] [id number] PCP - General Internal Medicine 05/31/24
--- OUTSIDE RECORDS SUMMARY | 2025-04-09 08:31 | XMS_ITS | Encounter Summary ---
Author Organization [facility] Address [address] [place] [phone] Care Team Providers Care Casket Inspector Name Role Phone Rufus Thornton MD Primary Care Provider [phone] Encounter Details Date Type Department Care Team (Late st Contact Info) Description 01/11/2025 Lab Requisition [facility] - Main Lab [address] [place] [address] Jeramy Voss PA [address] [place] [address] Pyuria Social History Tobacco Use Types Packs/Day [...] if clinically indicated. 01/11/2025 2:36 PM EDT [facility] Other Urine specimen from urethra / Unknown 01/10/2025 01/11/2025 2:14 PM EDT us Jeramy KEM[facility] LAB MICROBIOLOGY - GENERAL ORDER CATHERINE Final Result [facility] [address] [place] [address], documented in this encounter Visit Diagnoses Diagnosis Pyuria Other nonspecific finding on examination of urine documented in this encounter Care Teams Casket Inspector Relationship Specialty Start Date End Date Rufus Thornton MD [address] [place] [id number] PCP - General Internal Medicine 05/31/24 documented as of this encounter
--- OUTSIDE RECORDS SUMMARY | 2025-04-09 08:32 | XMS_ITS | Data Portability ---
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 4 14:43:36 Calcificati on of coronary artery 999745673 Active [address], [address], [place], [address], [facility] 4 14:43:48 Glaucoma 79622384 Active [address], [address], [place], [address], [facility] 4 14:44:00 Alcoholism 1768284 Active [address], [address], [place], [address], [facility] 4 14:44:52 Nodule of lung 702976202 Active [address], [address], [place], [address], [facility] 4 14:45:05 Thyroid nodule 836729764 Active [address], [address], [place], [address], [facility] 4 14:45:09 Nodule of adrenal cortex 072383803 Active [address], [address], [place], [address], [facility] [employer] [facility] 4 14:45:19 Steatotic liver disease 931494692 Active [address], [address], [place], [address], [facility] 4 14:45:27 Hiatal hernia 19536527 Active [address], [address], [place], [address], [facility] 4 14:45:40 Gastric ulcer 568102658 Active [address], [address], [place], [address], [facility] 4 14:45:50 Adult failure to thrive syndrome 653666180 Active [address], [address], [place], [address], [facility] [employer] [facility] 4 14:47:46 Falls 671310241 Active [address], [address], [place], [address], [facility] [employer] [facility] 4 14:47:54 Urinary tract infectious disease 56313234 Active [address], [address], [place], [address], [facility] [employer] 4 14:47:57 History of calculus of kidney 146351035 Active [address], [address], [place], [address], [facility] 4 14:48:39 Urinary tract obstruction 0336959 Active [address], [address], [place], [address], [facility] [employer] 4 10:38:43 Fracture of clavicle 54902477 Active 2023 MEHDI DEE NP [address], [address], [place], [address], [facility] 4 13:48:46 Anemia 142198503 Active 2023 Jacki Orosco MD [address] [place] [address], [address], [place], [address], [facility] [employer] 4 00:44:42 Depressive disorder 93515684 Active 2023 Jacki Orosco MD [address] [place] [address], [address], [place], [address], [facility] [employer] 4 00:47:03 Problem Notes None recorded. Procedures Surgical History Date Name Laterality Status Provider Name and Address Organization Details Recorded Time Cholecystectomy completed [address], [address], [place], [address], [employer] [facility] 4 14:46:01 extraction of cataract completed GI NA [address], [address], [place], [address], [facility] 4 14:46:07 needle aspiration of breast complete d CHINO [address], [address], [place], [address], [facility] 4 14:46:22 lumpectomy of breast completed CHINO [address], [address], [place], [address], [facility] 4 14:46:28 esophagogastroduodenoscopy completed [address], [address], [place], [address], [facility] 4 14:46:33 ureteroscopy completed [address], [address], [place], [address], [facility] 4 14:47:06 cystoscopy completed [address], [address], [place], [address], [facility] 4 14:47:16 Imaging Results None recorded. [...] lable Vitals Date Recorded Body height Systolic And Diastolic Provider Name and Address Organization Details Last Updated DateTime 03/25/2024 162.56 cm 108/70 mm[Hg] [address], [address], [place], [address], [facility] [employer] 03/25/2024 11:25:15 Date Recorded Body height Body mass index (BMI) Body weight Heart rate Respiratory rate Body temperature Oxygen saturation Oxygen saturation in Arterial blood by Pulse oximetry Systolic And Diastolic Provider Name and Address Organization Details Last Updated DateTime 162.56 cm 24.9 kg/m2 22356.8 9 g 82 /min 16 /min 97.3 [degF] 96 % 96 % 118/68 mm[Hg] MEHDI DEE NP [address], [address], [place], [address], [facility] 13:54:41 Date Recorded Body height Body mass index (BMI) Body weight Heart rate Respiratory rate Body temperature Oxygen saturation Oxygen saturation in Arterial blood by Pulse oximetry Systolic And Diastolic Provider Name and Address Organization Details Last Updated DateTime 162.56 cm 22.1 kg/m2 41896.4 2 g 61 /min 17 /min 97.4 [degF] 94 % 94 % 115/65 mm[Hg] Jacki Orosco MD [address], [address], [place], [address], [facility] 23:50:07 Date Recorded Body height Systolic And Diastolic Provider Name and Address Organization Details Last Updated DateTime 05/11/2024 162.56 cm 106/56 mm[Hg] CHINO [address], [address], [place], [address], [facility] 05/11/2024 10:50:44 Social History Question Answer Notes LastModified by Organization Details LastModified Time Tobacco Smoking Status Former Smoker quit 2017 Jacki Orosco MD [address], [facility] [address], [place], [address], [facility] 03/22/2024 18:47:44 Do You Have An Advance Directive? No Information not available 05/01/2024 What Is Your Code Status? Full Code Assumed Full Code,no MOLST Information not available 05/09/2024 Where Do You Live? SingleLevelHouse Alone, Stairs To Basement. Daughter Sometimes Stays With Her, She Is Looking Into [facility]. Information not available 03/22/2024 Legal Guardian? No Informati on not available 03/22/2024 Do You Have A Medical Power Of Blood Bank Technologist? Yes Information not available 03/22/2024 What Was [...] Recorded Time Tdap 6 completed Cirilo Valera [facility] 03/24/2024 16:24:22 Pneumococcal conjugate PCV 13 3 completed Cirilo blandon [facility] 03/24/2024 16:24:41 influenza, unspecified formulation 2 completed Cirilo Valera [facility] 03/24/2024 16:24:57 influenza, unspecified formulation 3 completed Cirilo Valera [facility] 03/24/2024 16:25:13 SARS-COV-2 (COVID-19) vaccine, UNSPECIFIED 1 completed Cirilo Soto [facility] 03/24/2024 16:25:37 SARS-COV-2 (COVID-19) vaccine, UNSPECIFIED 1 completed Cirilo Valera [facility] 03/24/2024 16:25:48 SARS-COV-2 (COVID-19) vaccine, UNSPECIFIED 1 completed Cirilo Valera [facility] 03/24/2024 16:25:59 SARS-COV-2 (COVID-19) vaccine, UNSPECIFIED 2 completed Cirilo Soto [facility] 03/24/2024 16:26:14 SARS-COV-2 (COVID-19) vaccine, UNSPECIFIED 3 completed Cirilo Soto [facility] 03/24/2024 16:26:29 zoster, unspecified formulation 1 completed Cirilo Valera [facility] 03/24/2024 16:26:41 zoster, unspecified formulation 2 completed [facility] Soto [facility] 03/24/2024 16:26:55 Past Encounters Encounter ID Performer Location Encounter Start Date Encounter Closed Date Diagnosis/Indication Diagnosis SNOMED-CT Code Diagnosis ICD10 Code Diagnosis IMO Codes Diagnosis Note [id number] [place] [address] [address] [place] [address] 03/18/2024 10:32:23 03/22/2024 12:33:58 Fracture of multiple ribs 2744406 S22.43XA oxycodone 5 mg TID PRN- she would like dose nowanterol ateral left 4th through 7th ribs with left seventh rib mildly displaced without pneumothor ax.lidocai ne patch dailymonit or painPT/OT eval and treatencou rage deep breathing, IS as able 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 2403160301 670814 C50.912 anastrozol e 1 mg dailyfollo w up with onc as scheduled Alcoholism 9051677 F10.2 0 patient states in remission but has positive ETOH screen one month agoCT suggestive of pancreatit is due to alcohol usecontinu e zyvox BID due to UTI and possible pancreatit isthiamine daily x 14 daysfolic acid daily x 14 days Glaucoma 96219713 H40.9 cosopt BIDxalatan qhs Adult fail ure to thrive syndrome 632525766 R62.7 folic acid 1 mg daily x 14 daysMVI encjxy15 dailythiam ine daily x 14 daysferrou s sulfate 325 mg daily Edema of l ower extremity 464474195 R60.0 DC lasix 20 mg daily- no edemaeleva te as ablemonito r weights Urinary tr act obstruction 0241116 N13.9 gemtesa 75 mg dailymonit or for outflow issueshas apt on 03/22- can get her own transporta tion and will tell us when she is leaving Urinary tr act infectious disease 65367830 N39.0 zyvox BID x 10 days to end on 03/27- added stop date nowmonitor urinary sxs [id number] MD DUDLEY Duncan [address] [place] [address] 03/22/2024 18:20:15 03/24/2024 09:30:25 Fracture of multiple ribs 8364318 S22.41XD Pain improving. Continue lidocaine patch daily, APAP 650 mg q 6 hrs prn, and oxycodone 5 mg TID prn.Encour age use of I carolyn.Kate tor pain and resp status. Alcoholism 5927131 F10.2 0 Seems to have accepted that even mouthwash is the same thing as drinking vodka.No signs of withdrawal inpt.Susy nue thiamine 100 mg qd x 14 days and folic acid 1 gm qd x 14 daysContin ue to encourage abstinence . 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 3875624001 609307 C50.812 S/P tx in 2021.Susy nue anastrozol e 1 mg qdF/U with oncology and breast surgeon as planned. Glaucoma 84458078 H40.89 Continue drops as ordered.F/ U with eye Adult fail ure to thrive syndrome 470530767 R62.7 Likely due to poor po intake at home, possibly due to drinking.E ncourage healthy eating.Con tinue supplement s as below.Diet ician involved. Edema of l ower extremity 586941222 R60.0 None today.Kate tor Urinary tr act obstruction 6120230 N13.8 S/P dilation, stent and lithotrips y 4 wks ago.Contin ue gemtesa 75 mg qdSaw uro today Urinary tr act infectious disease 69725976 N30.00 Continue linezolid 600 mg BID until 03/27.ID said to complete 10 day course, but written as for 10 days on d/c med list, so fine to continue an extra few days.Monit or urinary sxs, no further tx if no sxs. Anemia 745339962 D64.89 New dx for this pt.B12 was high inpt, so unclear why B12 was started, other supplement s due to EtOHism.No iron or ferritin checked, so unclear if iron deficiency .Will continue FeSO4 325 mg qd for now and cyanocobal nesbitt 5000 mcg qd.Check iron, ferritin, TIBC and retic count with next labs. [id number] CHINO SUE [address] [place] [address] 03/25/2024 11:11:15 03/26/2024 12:34:25 Fracture of multiple ribs 3004444 S22.41XD Pain improvingC ontinue lidocaine patch daily, APAP 650 mg q 6 hrs prn, and oxycodone 5 mg TID prnEncoura ge use of I carolyn at home Adult fail ure to thrive syndrome 222432430 R62.7 Likely due to poor po intake at home, possibly due to drinkingEn courage healthy eating.Con tinue supplement s as below Anemia 648235575 D64.89 B12 was high inpt, so unclear why B12 was started, other supplement s due to EtOHism.No iron or ferritin checked, so unclear if iron deficiency - PCP to do outptWill continue FeSO4 325 mg qd for now and cyanocobal nesbitt 5000 mcg qd. Alcoholism 2303703 F10.2 0 Continue thiamine 100 mg qd x 14 days and folic acid 1 gm qd x 14 daysContin ue to encourage abstinence . Urinary tr act infectious disease 68369128 N30.00 Continue linezolid 600 mg BID until 03/27.ID said to complete 10 day course, but written as for 10 days on d/c med list, so fine to continue an extra few days. 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 Glaucoma 73281064 H40.89 Continue drops as ordered.F/ U with eye [id number] MEHDI DEE NP [facility] on [address] [place] [address] 05/01/2024 12:03:59 05/03/2024 19:46:58 Falls 946463688 R29.6 PT OT eval and treatfall precaution sfrequent safety checks Fracture of clavicle 581 27113 S42.002A oxycodone 2.5 mg q6hr prnsling for comfortPT OT eval and treat Glaucoma 66309093 H40.89 latanapros t ou hsdorzolam zina/timolo l ou bid Urinary tr act infectious disease 56078359 N30.00 nitrofuran toin 100 mg bid to 05/07 Alcoholism 3384107 F10.2 0 thiamine 100 mg dailyiron 325 mg dailycyanc obalamin 2500 dailynaltr exone 50 mg dailybupro pion xl 300 mg dailyConti nue to encourage abstinence 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 Fracture of clavicle 581 80194 S42.002A Continue oxycodone 2.5 mg q 6 hrs prn and APAP 650 mg q 6 hrs prn.Use sling for comfortPT/ OT as above.F/U with ortho as planned. Urinary tr act infectious disease 75533051 N30.00 U/A looked + in ED, but cx grew mixed milind.Cont inue nitrofuran toin 100 mg BID until 05/07Monit or urinary sxs. Alcoholism 9697797 F10.2 0 Apparently is still drinking, perhaps mouthwash as she told me before, I didn't ask her tonight.Co ntinue thiamine 100 mg qd and naltrexone 50 mg qdContinue to encourage abstinence Anemia 113930105 D64.89 New dx for this pt. 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 Glaucoma 19441973 H40.89 Continue drops as ordered.F/ U with eye Edema of l ower extremity 934580012 R60.0 None today.Kate tor Depressive disorder 8416 9007 F33.8 Wellbutrin increased from 150 mg qd to 300 mg qd on 03/29.Mood good today.Kate tor mood.Consu lt psych prn [id number] CHINO Law at [facility] on [address] [facility] [place] [address] 05/11/2024 10:50:12 05/12/2024 16:37:14 Falls 689306077 R29.6 see HPIdoing well with PT Fracture of clavicle 581 40823 S42.002A Continue oxycodone 2.5 mg q 6 hrs prn and APAP 650 mg q 6 hrs prn.Use sling for comfortPT/ OT as above.F/U with ortho as planned. Alcoholism 6625998 F10.2 0 Apparently is still drinking at homeContin ue thiamine 100 mg qdDC naltrexone 50 mg qd- see HPIwill send home with RX to fill at her pharmacyCo ntinue to encourage abstinence [id number] CHINO Law at [facility] on [address] [place] [address] 05/12/2024 12:15:23 05/13/2024 13:21:25 Falls 782945616 R29.6 see HPIdoing well with PT- transfer to [facility] today Fracture of clavicle 581 85836 S42.002A Continue oxycodone 2.5 mg q 6 hrs prn and APAP 650 mg q 6 hrs prn.Use sling for comfortPT/ OT as above.F/U with ortho as planned. 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 1928975343 322545 C50.812 anastrazol e 1 mg daily Urinary tr act obstruction 9132688 N13.8 vibegron 75 mg dailymonit or urine output Health Concerns Section Related Observation LastModified by Organization Detai ls LastModified Time None Recorded Concern Status LastModified by Organization Details LastModified Time None Recorded Advance Directives Directive N: Payers Insurance Date Sequence Insurance Name Policy Number Policy Bee Covered Member ID Bee Member ID Guarantor Name 05/01/2024 1 [place]ICARE [place]: [employer] Gema Perry [id number] 2 Gema Perry Notes Date Note Type Note Provider Name and Address Organization Details Recorded Time 03/25/2024 text/html This is a 73-year-old female seen today for discharge summary visit. [...] ok to go tomorrow. CHINO TERRAZAS [address], [address], [place], [address], [employer] 03/25/2024 11:29:49 05/01/2024 text/html ROS as noted in the HPI seen today for initial intake visit-Gema is [...] hospital notes reviewed MEHDI DEE NP [address], [address], [place], [address], [facility] 05/01/2024 14:05:21 05/06/2024 text/html This is a 74 yo woman who is here for rehab after a mechanical fall resulting in a left clavicle fx.[facility] described as losing her balance when she turned around to get her walker. She reported many recent falls. Of note [facility]-fter a fall and slurred [...] 04/30. Of note, she was also[facility]-or a fall with rib fxs and a UTI. And then was at [facility] from 03/17-03/26 and was dxed with [...] (?), FTT, and glaucoma. Jacki Orosco MD [address] [place] [address], [address], [place], [address], [employer] 05/10/2024 00:47:36 05/11/2024 text/html This is a [...] and that she will be transitioning to custodial in 6 weeks or so , so [...] (?), FTT, and glaucoma. CHINO TERRAZAS [address] [place] [address] [address], [place], [address], [employer] 05/11/2024 11:08:58 05/12/2024 text/html This is a [...] without it. She will be transferring to [facility] today and eventually move to [facility] and then [place] if possible. She [...] remission (?), FTT, and glaucoma. CHINO TERRAZAS [address] [place] [address], [address], [place], [address], [employer] 05/12/2024 13:37:42 OBGyn Episode No OBEpisode recorded.
== END 2025-04-08 08:28 | disposition home or self-care (01) ==
LOC: HO.HOSX 08:27
PROVIDERS: Visit Provider Physician Assistant
DX: Z13.89 Encounter for screening for other disorder (principal)